=== PATIENT | male | born 1960 | race Caucasian/White ===

== ENCOUNTER → 2016-05-26 | Outpatient (CLI) | payer OTHER | END | disposition home or self-care (01) | LOC: C.LABSPEC 17:47 | PROVIDERS: ATTEND Nurse Practitioner Family | DX: R35.0 Frequency of micturition (principal); R32 Unspecified urinary incontinence ==

== ENCOUNTER → 2016-08-01 | Outpatient (CLI) | payer OTHER ==
[2016-08-01 17:39] LABS: HEMATOCRIT 39.8 % (42-52); MEAN CELL VOLUME 93.9 fL (80-100); MEAN CORPUSCULAR HEMOGLOBIN 33.7 pg (25-34); MEAN CORPUSCULAR HGB CONC 35.9 g/dl (32-36); MEAN PLATELET VOLUME 10.4 fL (7.4-10.4); PLATELET COUNT 145 K/uL (130-400); RED BLOOD COUNT 4.24 M/uL (4.7-6.1); WHITE BLOOD COUNT 7.35 K/uL (4.8-10.8)
[2016-08-01 17:43] LABS: ALT/SGPT 26 U/L (12-78); BLOOD UREA NITROGEN 11 mg/dl (7-18); BUN/CREATININE RATIO 11.9 (10-20); CALCIUM 8.3 mg/dl (8.5-10.1); CARBON DIOXIDE 28 mmol/L (21-32); CHLORIDE 102 mmol/L (98-107); CHOLESTEROL 115 mg/dl (0-200); CREATININE 0.88 mg/dl (0.60-1.40); GLUCOSE 130 mg/dl (70-99); POTASSIUM 4.1 mmol/L (3.5-5.1); SODIUM 136 mmol/L (136-145); TRIGLYCERIDES 46 mg/dl (0-150); VERY LOW DENSITY LIPOPROT CALC 9 mg/dl
[2016-08-01 17:47] LABS: ALB/GLOB RATIO 1.2 (0.9-2); ALKALINE PHOSPHATASE 65 U/L (45-117); AST/SGOT 16 U/L (15-37); CHOLESTEROL/HDL RATIO 2.3; HDL CHOLESTEROL 51 mg/dl; LDL CHOLESTEROL CALCULATED 55 mg/dl; PROSTATE SPECIFIC ANTIGEN 0.931 ng/ml (0.000-4.000)
[2016-08-02 07:45] LABS: ESTIMATED AVERAGE GLUCOSE 137 mg/dl; HA1C FLAG Normal (Normal)
== END | disposition home or self-care (01) ==
LOC: C.LABBFT 13:22
PROVIDERS: ATTEND Internal Medicine
DX: E11.9 Type 2 diabetes mellitus without complications (principal); Z12.5 Encounter for screening for malignant neoplasm of prostate

== ENCOUNTER → 2016-09-20 | Outpatient (CLI) | payer OTHER ==
[2016-09-20 14:48] LABS: BASO % 0.2 %; BASO ABS # 0.01 K/uL (0-0.2); COMPLETE YES; EOS % 1.6 %; IG% 0.2 %; LYMPH % 27.2 %; LYMPH ABS # 1.68 K/uL (1.2-3.4); MEAN CELL VOLUME 95.3 fL (80-100); MEAN CORPUSCULAR HEMOGLOBIN 33.5 pg (25-34); MEAN CORPUSCULAR HGB CONC 35.1 g/dl (32-36); MEAN PLATELET VOLUME 10.2 fL (7.4-10.4); MONO % 6.8 %; PLATELET COUNT 131 K/uL (130-400); WHITE BLOOD COUNT 6.17 K/uL (4.8-10.8)
[2016-09-20 15:39] LABS: ALT/SGPT 23 U/L (12-78); AST/SGOT 12 U/L (15-37); BLOOD UREA NITROGEN 14 mg/dl (7-18); BUN/CREATININE RATIO 16.7 (10-20); CALCIUM 8.1 mg/dl (8.5-10.1); CARBON DIOXIDE 27 mmol/L (21-32); CHLORIDE 103 mmol/L (98-107); CREATININE 0.84 mg/dl (0.60-1.40); GLUCOSE 87 mg/dl (70-99); POTASSIUM 3.8 mmol/L (3.5-5.1); SODIUM 135 mmol/L (136-145)
[2016-09-20 15:50] LABS: ALB/GLOB RATIO 1.1 (0.9-2); ALKALINE PHOSPHATASE 69 U/L (45-117); CHOLESTEROL 117 mg/dl (0-200); CHOLESTEROL/HDL RATIO 2.8; HDL CHOLESTEROL 42 mg/dl; LDL CHOLESTEROL CALCULATED 59 mg/dl; TRIGLYCERIDES 82 mg/dl (0-150); VERY LOW DENSITY LIPOPROT CALC 16 mg/dl
== END | disposition home or self-care (01) ==
LOC: C.LAB 13:04
PROVIDERS: ATTEND Physician Assistant
DX: Z79.899 Other long term (current) drug therapy (principal)

== ENCOUNTER → 2017-02-10 | Outpatient (CLI) | payer OTHER ==
[2017-02-10 17:00] LABS: COMPLETE YES; EOS % 2.2 %; HEMATOCRIT 39.6 % (42-52); IG% 0.2 %; LYMPH % 30.8 %; LYMPH ABS # 1.55 K/uL (1.2-3.4); MEAN CELL VOLUME 94.7 fL (80-100); MEAN CORPUSCULAR HEMOGLOBIN 33.7 pg (25-34); MEAN CORPUSCULAR HGB CONC 35.6 g/dl (32-36); MEAN PLATELET VOLUME 10.7 fL (7.4-10.4); NEUT % 62.8 %; PLATELET COUNT 118 K/uL (130-400); RED BLOOD COUNT 4.18 M/uL (4.7-6.1); WHITE BLOOD COUNT 5.03 K/uL (4.8-10.8)
[2017-02-10 17:10] LABS: ALT/SGPT 24 U/L (12-78); BLOOD UREA NITROGEN 13 mg/dl (7-18); BUN/CREATININE RATIO 14.2 (10-20); CALCIUM 8.2 mg/dl (8.5-10.1); CARBON DIOXIDE 27 mmol/L (21-32); CHLORIDE 101 mmol/L (98-107); CHOLESTEROL 104 mg/dl (0-200); CREATININE 0.91 mg/dl (0.60-1.40); GLUCOSE 108 mg/dl (70-99); POTASSIUM 4.3 mmol/L (3.5-5.1); SODIUM 134 mmol/L (136-145); TRIGLYCERIDES 80 mg/dl (0-150); VERY LOW DENSITY LIPOPROT CALC 16 mg/dl
[2017-02-10 17:13] LABS: ALB/GLOB RATIO 1.2 (0.9-2); ALKALINE PHOSPHATASE 71 U/L (45-117); AST/SGOT 16 U/L (15-37); HDL CHOLESTEROL 52 mg/dl; LDL CHOLESTEROL CALCULATED 36 mg/dl
[2017-02-10 17:34] LABS: RATIO 4.8 mcg/mg (0-30.0)
== END | disposition home or self-care (01) ==
LOC: C.LABBFT 13:22
PROVIDERS: ATTEND Internal Medicine
DX: E11.41 Type 2 diabetes mellitus with diabetic mononeuropathy (principal); M79.1 Myalgia

== ENCOUNTER → 2017-08-16 | Outpatient (CLI) | payer OTHER ==
[2017-08-16 16:34] LABS: BASO % 0.4 %; BASO ABS # 0.02 K/uL (0-0.2); EOS ABS # 0.05 K/uL (0-0.5); HEMATOCRIT 39.7 % (42-52); IG# 0.01 K/uL (0.00-0.02); LYMPH % 31.7 %; LYMPH ABS # 1.65 K/uL (1.2-3.4); MEAN CORPUSCULAR HEMOGLOBIN 32.8 pg (25-34); MEAN CORPUSCULAR HGB CONC 35.3 g/dl (32-36); MEAN PLATELET VOLUME 9.7 fL (7.4-10.4); MONO % 8.1 %; MONO ABS # 0.42 K/uL (0.11-0.59); NEUT % 58.6 %; NEUT ABS # 3.06 K/uL (1.4-6.5); PLATELET COUNT 172 K/uL (130-400); RED CELL DISTRIBUTION WIDTH CV 12.5 % (11.5-14.5); RED CELL DISTRIBUTION WIDTH SD 42.4 fL (36.4-46.3); WHITE BLOOD COUNT 5.21 K/uL (4.8-10.8)
[2017-08-16 16:41] LABS: ALBUMIN 3.5 gm/dl (3.4-5.0); ALT/SGPT 23 U/L (12-78); BLOOD UREA NITROGEN 9 mg/dl (7-18); CALCIUM 8.7 mg/dl (8.5-10.1); CARBON DIOXIDE 30 mmol/L (21-32); CHOLESTEROL 116 mg/dl (0-200); CREATININE 0.92 mg/dl (0.60-1.40); GLUCOSE 118 mg/dl (70-99); POTASSIUM 4.8 mmol/L (3.5-5.1); SODIUM 130 mmol/L (136-145)
[2017-08-16 16:46] LABS: ALKALINE PHOSPHATASE 66 U/L (45-117); AST/SGOT 13 U/L (15-37); LDL CHOLESTEROL CALCULATED 53 mg/dl; TOTAL PROTEIN 7.2 gm/dl (6.4-8.2)
[2017-08-17 06:39] LABS: HEMOGLOBIN A1C 6.5 % (4.5-5.6)
== END | disposition home or self-care (01) ==
LOC: C.LABBFT 13:49
PROVIDERS: ATTEND Internal Medicine
DX: E78.00 Pure hypercholesterolemia, unspecified (principal); E11.41 Type 2 diabetes mellitus with diabetic mononeuropathy; J44.9 Chronic obstructive pulmonary disease, unspecified; Z12.5 Encounter for screening for malignant neoplasm of prostate

== ENCOUNTER → 2017-09-19 | Outpatient (CLI) | payer OTHER ==
[~2017-09-19] MED LIST: OPTIRAY 320 IV PRN
--- NOTE | 2017-09-19 16:06 | DIAGNOSTIC IMAGING REPORT ---
ABD/PELVIS COMBO CLINICAL HISTORY: 57 years-old Male presenting with R31.9 Hematuriadiabetic-metformin, no latex allergy, no iodine a. TECHNIQUE: Multidetector CT of the abdomen and pelvis was performed before and after the administration of intravenous contrast. IV contrast: 93 mL of Optiray 320. A dose lowering technique was used consistent with the principles of ALARA (as low as reasonably achievable). COMPARISON: None. CT DOSE (mGy.cm): The estimated cumulative dose is 2863.08 mGycm. FINDINGS: [place] topogram: Unremarkable. Lung bases: Lungs and pleural spaces clear. Normal heart size. No pericardial or pleural effusion. Liver: Normal morphology. No liver lesion. Patent hepatic vasculature. Biliary: No intrahepatic or extrahepatic biliary ductal dilatation. Normal gallbladder. Pancreas: Mild parenchymal atrophy. Spleen: Normal. Adrenal glands: Normal. Kidneys and ureters: Mild right pelvocaliectasis with an obstructing 4 mm calculus at the right ureteropelvic junction (series 3 image 216). The remainder of the right ureter is decompressed without additional ureteral calculus. No left renal calculus. Normal renal parenchyma. No masslike defect in the renal collecting systems. No significant urothelial thickening or inflammatory change. Bladder: Allowing for underdistention, no focal masslike thickening of the bladder wall. Pelvic organs: Prostate and seminal vesicles normal. Bowel: Marked stool burden in the rectum. Few diverticula noted in the proximal sigmoid colon. The appendix is normal. No bowel obstruction. Peritoneal cavity: No free fluid or intraperitoneal gas. Lymph nodes: No enlarged lymph nodes in the abdomen or pelvis. Vasculature: Atherosclerosis of the normal caliber abdominal aorta. IVC patent. Abdominal wall: Normal. Musculoskeletal: Degenerative changes of the spine. IMPRESSION: 1. 4 mm obstructing calculus in the right ureteropelvic junction with mild right hydronephrosis. No additional renal or ureteral calculus. No solid renal or urothelial mass. 2. Marked stool burden in the rectum. Disimpaction recommended. Electronically signed by: Ja Laughlin M.D. 09/19/2017 4:04 PM Dictated Date/Time: 09/19/2017 3:55 PM
== END | disposition home or self-care (01) ==
LOC: C.CTS 14:45
PROVIDERS: ATTEND Nurse Practitioner Family
DX: N13.2 Hydronephrosis with renal and ureteral calculous obstruction (principal); R31.9 Hematuria, unspecified

== ENCOUNTER → 2017-09-21 | Outpatient (CLI) | payer OTHER ==
[2017-09-21 13:18] LABS: BLOOD UREA NITROGEN 13 mg/dl (7-18); CALCIUM 8.3 mg/dl (8.5-10.1); CARBON DIOXIDE 27 mmol/L (21-32); CREATININE 0.88 mg/dl (0.60-1.40); GLUCOSE 105 mg/dl (70-99); POTASSIUM 4.1 mmol/L (3.5-5.1); SODIUM 131 mmol/L (136-145)
== END | disposition home or self-care (01) ==
LOC: C.LABBFT 10:13
PROVIDERS: ATTEND Nurse Practitioner Family
DX: I10 Essential (primary) hypertension (principal); R31.9 Hematuria, unspecified

== ENCOUNTER → 2017-11-28 | Day surgery (SDC) | payer OTHER ==
[2017-11-10 10:55] VITALS: BMI 35.0
--- NOTE | 2017-11-16 09:33 | PAT Medication Instructions ---
Service Date Nov 16, 2017. Current Home Medication List Albuterol Hfa (Ventolin Hfa), 2-4 PUFFS INH QID PRN for SOB/Wheezing Cholecalciferol (Vitamin D3), 1 TAB PO QAM Clonazepam (Klonopin), 0.5 MG PO BID Cyanocobalamin (Vitamin B-12), 1 TAB PO QAM Desmopressin Acetate (Ddavp), 3 TABS PO QD@1700 Divalproex Sodium (Depakote), 1 TAB PO HS Docusate Sodium (Dok), 1 TAB PO BID Fluvoxamine Maleate (Fluvoxamine Maleat Er), 1 TAB PO HS Furosemide (Lasix), 20 MG PO UD PRN for edema Glipizide (Glipizide Er), 1 TAB PO QAM Losartan Potassium (Cozaar), 25 MG PO QAM Metformin Hcl Er (Glucophage Er), 2 TAB PO BID Methylcellulose (Laxative) (Fiber Therapy), Unknown Dose PO UD Mirabegron (Myrbetriq Er), 50 MG PO QD@1700 Naproxen (Naprosyn), Unknown Dose PO UD Olanzapine (Zyprexa), 10 MG PO HS Pioglitazone Hcl (Pioglitazone Hcl), 1 TAB PO QAM Polyethylene Glycol 3350 (Miralax), 17 GM PO QAM Simvastatin (Simvastatin), 1 TAB PO Q2D Vitamin E (E-400), 1 TAB PO QAM [Natural Daily Fiber], 1 TAB PO UD Medication Instructions For Your Scheduled Surgery - Hold the following medications 2 weeks prior to surgery--STOP TODAY, 11/16: Vitamin E (E-400), 1 TAB PO QAM - Hold the following medications the morning of surgery: Cholecalciferol (Vitamin D3), 1 TAB PO QAM Cyanocobalamin (Vitamin B-12), 1 TAB PO QAM Docusate Sodium (Dok), 1 TAB PO BID Furosemide (Lasix), 20 MG PO UD PRN for edema Glipizide (Glipizide Er), 1 TAB PO QAM Losartan Potassium (Cozaar), 25 MG PO QAM Metformin Hcl Er (Glucophage Er), 2 TAB PO BID Methylcellulose (Laxative) (Fiber Therapy), Unknown Dose PO UD Pioglitazone Hcl (Pioglitazone Hcl), 1 TAB PO QAM Polyethylene Glycol 3350 (Miralax), 17 GM PO QAM [Natural Daily Fiber], 1 TAB PO UD Naproxen (Naprosyn), Unknown Dose PO UD (unless otherwise directed by your surgeon) - Take the following medications the morning of surgery with a sip of water: Albuterol Hfa (Ventolin Hfa), 2-4 PUFFS INH QID PRN for SOB/Wheezing (if needed) Clonazepam (Klonopin), 0.5 MG PO BID - Take the following medications as scheduled the night before surgery: Albuterol Hfa (Ventolin Hfa), 2-4 PUFFS INH QID PRN for SOB/Wheezing (if needed) Clonazepam (Klonopin), 0.5 MG PO BID Desmopressin Acetate (Ddavp), 3 TABS PO QD@1700 Divalproex Sodium (Depakote), 1 TAB PO HS Docusate Sodium (Dok), 1 TAB PO BID Fluvoxamine Maleate (Fluvoxamine Maleat Er), 1 TAB PO HS Furosemide (Lasix), 20 MG PO UD PRN for edema (if needed) Metformin Hcl Er (Glucophage Er), 2 TAB PO BID Methylcellulose (Laxative) (Fiber Therapy), Unknown Dose PO UD Mirabegron (Myrbetriq Er), 50 MG PO QD@1700 Olanzapine (Zyprexa), 10 MG PO HS Simvastatin (Simvastatin), 1 TAB PO Q2D [Natural Daily Fiber], 1 TAB PO UD If you have any questions please call us at [phone] or [phone] or [phone]
[2017-11-16 11:43] LABS: BASO % 0.2 %; BASO ABS # 0.01 K/uL (0-0.2); HEMATOCRIT 39.1 % (42-52); HEMOGLOBIN 13.4 g/dL (14.0-18.0); IG# 0.01 K/uL (0.00-0.02); LYMPH % 37.4 %; LYMPH ABS # 1.89 K/uL (1.2-3.4); MEAN CELL VOLUME 94.9 fL (80-100); MEAN CORPUSCULAR HEMOGLOBIN 32.5 pg (25-34); MEAN CORPUSCULAR HGB CONC 34.3 g/dl (32-36); MONO % 7.9 %; NEUT % 50.3 %; NEUT ABS # 2.54 K/uL (1.4-6.5); PLATELET COUNT 127 K/uL (130-400); RED CELL DISTRIBUTION WIDTH CV 12.6 % (11.5-14.5); RED CELL DISTRIBUTION WIDTH SD 43.9 fL (36.4-46.3); WHITE BLOOD COUNT 5.05 K/uL (4.8-10.8)
[2017-11-16 13:29] LABS: CALCIUM 8.8 mg/dl (8.5-10.1); CREATININE 0.99 mg/dl (0.60-1.40); POTASSIUM 3.9 mmol/L (3.5-5.1)
[~2017-11-28] VITALS: Ht 190.5 cm; Wt 127.3 kg
[~2017-11-28] MED LIST changes: +ATROPINE SULFATE 0.1 MG/ML 5ML SYR IV PRN; +BELLADONNA/OPIUM SUPP 60 MG SUPP PR PRN; +CHOL1000 PO; +CIPR-255 PO; +CIPROFLOXACIN / D5W 400 MG IV SCH; +CYAN50TA2 PO; +DESM1TAB16 PO; +DEXAMETHASONE SOD INJ 4 MG/ML VIAL ONE; +DIVA500T59 PO; +DOCU100T PO; +EpHEDrine SULFATE INJ 50 MG/ML AMP IV PRN; +FENTANYL CITRATE INJ 50 MCG/1 ML 2 ML VIAL IV PRN; +FENTANYL CITRATE INJ 50 MCG/1 ML 2 ML VIAL ONE; +FLUMAZENIL 0.1 MG/1 ML 10 ML VIAL IV PRN; +FLUV1CAP11 PO; +FURO-85 PO; +GLIP-197 PO; +HYDROmorphone INJ 2 MG/ML SYR/VIAL IV PRN; +IBUP-1050 PO; +KLN/5 PO; +LACTATED RINGER'S 1000ML 1,000 ML IV SCH; +LIDOCAINE HCL 2% 2 ML VIAL (20MG/ML) ONE; +LOSA25TA18 PO; +MEPERIDINE HCL 25 MG/ML CARP IV PRN; +METF500T5 PO; +METH1TAB66 PO; +MIDAZOLAM HCL 1 MG/ML 2ML VIAL ONE; +MIRA1TAB3 PO; +NALOXONE HCL 0.4 MG/1 ML VIAL/CARP IV PRN; +NAPR1TAB48 PO; +OLAN10TA11 PO; +ONDANSETRON INJ 2 MG/ML 2 ML VIAL IV PRN; +ONDANSETRON INJ 2 MG/ML 2 ML VIAL ONE; -OPTIRAY 320 IV PRN; +OXYC7.5T65 PO; +OXYCODONE/ACETAMINOPHEN 7.5-325 TAB PO PRN; +PHEN-775 PO; +PHENYLEPHRINE 100MCG/ML 5ML SYR IV PRN; +PIOG1TAB20 PO; +POLY335019 PO; +PROPOFOL IV EMULSION 10 MG/ML 20 ML VIAL ONE; +SCOPOLAMINE 1.5 MG TDSY TD ONE; +SCOPOLAMINE 1.5 MG TDSY TD SCH; +TAMS0.4C38 PO; +VITACAP37 PO; +VNTHFA/IN INH; +ZCR80 PO; +[UNRECOGNIZED DRUG - OTHER] PO
[2017-11-28 05:44] VITALS: BP 149/82; PULSE 74; TEMP 36.6; O2SAT 99; Ht 190.5 cm; Wt 127.3 kg
--- NOTE | 2017-11-28 07:16 | History & Physical Bridge Note ---
H&P Re-Evaluation Bridge Note: I have examined the patient, reviewed the History & Physical and in the interval since the performance of the History & Physical I have noted the following changes of clinical significance: No changes noted
--- NOTE | 2017-11-28 08:04 | [facility] Operative Report ---
Operative Report Operative Date Nov 28, 2017. Pre-Operative Diagnosis Bladder Lesion, PUNLMP Post-Operative Diagnosis Same Procedure(s) Performed Transurethral Resection Bladder Tumor Large, Cystoscopy, Right Stent Removal Surgeon Dr Lou Operations Vice President Surgeon(s) None Estimated Blood Loss Minimal Findings Continued patch lesions throughout left lateral wall near previous biopsy Specimens Resection left lateral wall Drains None Anesthesia Type General Complication(s) none Disposition Recovery Room / PACU Indications Patient with papillary lesion of unknown significance and likely low malignant potential, however, incompletely resected. Risks and benefits discussed at length. Description of Procedure Patient was consented and brought back to the operating room. Patient was placed under anesthesia in the supine position and moved to the dorsal lithotomy position. Patient was prepped and draped in the regular sterile fashion. A time out was completed. A 30degree Cystoscope was placed into the bladder and the entire bladder was examined. The UO's were identified. The right stent was grasped and removed. A resection scope was placed with a fine bipolar loop. The entire bladder had been surveyed and the areas of concern noted. Resection of the left lateral wall commenced. The majority of the left wall was found to contain patches of papillary irritated lesions. This was resected. Approx 7.1 cm of tumor and lesions were resected with the edges and base of tumor fulgurated. The entire area was inspected and no residual areas of concern were noted. All bleeding had been controlled. The bladder was emptied. The scope was removed. The patient was cleaned, aroused from anesthesia, and transferred to the pacu in stable condition having tolerated the procedure well with no complications. I was present and participated in all aspects of the procedure. The patient will be monitored in the PACU until transferred. I attest to the content of the Intraoperative Record and any orders documented therein. Any exceptions are noted below.
--- NOTE | 2017-11-28 08:08 | Discharge Instructions ---
Discharge Instructions Date of Service Nov 28, 2017. Admission Reason for Admission: Papillary Transitional Cell Neoplassm Discharge Discharge Diagnosis / Problem: Bladder Mass Discharge Goals Goal(s): Decrease discomfort, Improve function Activity Recommendations Activity Limitations: resume your previous activity Lifting Limitations: gradually increase as tolerated Exercise/Sports Limitations: gradually increase as tolerated . Instructions / Follow-Up Instructions / Follow-Up May have blood in urine. May have pelvic discomfort. Call if trouble voiding. Call if any fevers or chills. Current Hospital Diet Patient's current hospital diet: Discharge Diet Recommended Diet: Regular Diet Procedures Procedures Performed: Transurethral Resection Bladder Tumor Large, Cystoscopy, Right Stent Removal Pending Studies Studies pending at discharge: no Laboratory Results Lipid Panel Test 09/13/17 13:37 Range/Units Triglycerides Level 62 0-150 mg/dl Cholesterol Level 108 0-200 mg/dl HDL Cholesterol 51 mg/dl Cholesterol/HDL Ratio 2.1 LDL Cholesterol, Calculated 45 mg/dl Medical Emergencies . Who to Call and When: Medical Emergencies: If at any time you feel your situation is an emergency, please call 911 immediately. . Non-Emergent Contact Non-Emergency issues call your: Primary Care Provider, Urologist Call Non-Emergent contact if: you have a fever, temperature is above 101, temperature is above 101.5, your pain is not controlled, your pain is worsening , your pain is unusual for you . . "Provider Documentation" section prepared by Kei Lou. .
[2017-11-28] MEDS: LABETALOL HCL IV 5 MG/ML 20ML IV PRN ×3 (08:18→08:39)
[2017-11-28 09:03] VITALS: BP 171/90; PULSE 82; TEMP 36.4; O2SAT 95
--- NOTE | 2017-11-28 09:03 | Anesthesiology Progress Note ---
Anesthesia Post Op Note Date & Time Nov 28, 2017 at 09:03 Vital Signs Pain Intensity: 0 Vital Signs Past 12 Hours Date Time Temp Pulse Resp B/P (MAP) Pulse Ox O2 Delivery O2 Flow Rate FiO2 11/28/17 08:52 36.7 93 Room Air 11/28/17 08:48 81 16 11/28/17 08:48 97 16 94 11/28/17 08:47 152/90 11/28/17 08:43 82 20 94 11/28/17 08:43 81 20 11/28/17 08:42 167/95 11/28/17 08:38 84 18 93 11/28/17 08:38 85 18 11/28/17 08:37 175/102 11/28/17 08:33 85 15 11/28/17 08:33 86 15 94 11/28/17 08:31 177/84 11/28/17 08:30 164/105 11/28/17 08:28 86 15 11/28/17 08:28 85 15 99 11/28/17 08:27 87 20 100 11/28/17 08:27 87 20 11/28/17 08:26 158/96 11/28/17 08:22 85 14 139/94 100 11/28/17 08:22 85 14 11/28/17 08:17 91 12 11/28/17 08:17 91 12 99 11/28/17 08:12 97 14 11/28/17 08:12 97 14 177/91 99 11/28/17 08:10 147/96 11/28/17 08:09 161/106 11/28/17 08:07 36.1 108 14 147/96 98 Oxymask 10 11/28/17 05:44 36.6 74 20 149/82 (104) 99 Room Air Notes Mental Status: alert / awake / arousable, participated in evaluation Pt Amnestic to Procedure: Yes Nausea / Vomiting: adequately controlled Pain: adequately controlled Airway Patency, RR, SpO2: stable & adequate BP & HR: stable & adequate, see Notes Hydration State: stable & adequate Anesthetic Complications: no major complications apparent The patient was treated with labetalol for HTN in PACU.
[2017-11-28 09:33] VITALS: BP 171/90; PULSE 85; TEMP 36.5; O2SAT 96
[2017-11-28 10:05] VITALS: BP 175/90; PULSE 93; TEMP 36.4; O2SAT 95
[2017-11-28 10:55] VITALS: BP 165/86; PULSE 85; O2SAT 97
[2017-11-28 12:00] VITALS: BP 165/90; PULSE 91; TEMP 36.4; O2SAT 94
== END | disposition home or self-care (01) ==
LOC: C.ACU 08:00
PROVIDERS: ATTEND Urology
DX: D49.4 Neoplasm of unspecified behavior of bladder (principal); N30.20 Other chronic cystitis without hematuria; J44.9 Chronic obstructive pulmonary disease, unspecified; I10 Essential (primary) hypertension; E11.9 Type 2 diabetes mellitus without complications; J45.909 Unspecified asthma, uncomplicated; E78.00 Pure hypercholesterolemia, unspecified; F41.9 Anxiety disorder, unspecified; E66.9 Obesity, unspecified; Z68.35 Body mass index [BMI] 35.0-35.9, adult; F17.200 Nicotine dependence, unspecified, uncomplicated; Z79.84 Long term (current) use of oral hypoglycemic drugs; Z79.899 Other long term (current) drug therapy

== ENCOUNTER → 2017-12-13 | Outpatient (CLI) | payer OTHER ==
[~2017-12-13] MED LIST changes: -ATROPINE SULFATE 0.1 MG/ML 5ML SYR IV PRN; -BELLADONNA/OPIUM SUPP 60 MG SUPP PR PRN; -CIPROFLOXACIN / D5W 400 MG IV SCH; -DEXAMETHASONE SOD INJ 4 MG/ML VIAL ONE; -EpHEDrine SULFATE INJ 50 MG/ML AMP IV PRN; -FENTANYL CITRATE INJ 50 MCG/1 ML 2 ML VIAL IV PRN; -FENTANYL CITRATE INJ 50 MCG/1 ML 2 ML VIAL ONE; -FLUMAZENIL 0.1 MG/1 ML 10 ML VIAL IV PRN; -HYDROmorphone INJ 2 MG/ML SYR/VIAL IV PRN; -LACTATED RINGER'S 1000ML 1,000 ML IV SCH; -LIDOCAINE HCL 2% 2 ML VIAL (20MG/ML) ONE; -MEPERIDINE HCL 25 MG/ML CARP IV PRN; -MIDAZOLAM HCL 1 MG/ML 2ML VIAL ONE; -NALOXONE HCL 0.4 MG/1 ML VIAL/CARP IV PRN; -ONDANSETRON INJ 2 MG/ML 2 ML VIAL IV PRN; -ONDANSETRON INJ 2 MG/ML 2 ML VIAL ONE; -OXYCODONE/ACETAMINOPHEN 7.5-325 TAB PO PRN; -PHEN-775 PO; -PHENYLEPHRINE 100MCG/ML 5ML SYR IV PRN; -PROPOFOL IV EMULSION 10 MG/ML 20 ML VIAL ONE; -SCOPOLAMINE 1.5 MG TDSY TD ONE; -SCOPOLAMINE 1.5 MG TDSY TD SCH; -TAMS0.4C38 PO
== END | disposition home or self-care (01) ==
LOC: C.PATHSPEC 17:14
PROVIDERS: ATTEND Urology
DX: D49.4 Neoplasm of unspecified behavior of bladder (principal)

== ENCOUNTER 2018-07-02 09:26 | Inpatient (IN) ==
--- NOTE | 2018-06-29 09:28 | Anesthesiology Consultation ---
Date of Service June 29, 2018 Assessment & Plan (1) Encounter for pre-operative examination: Plan: - Per surgeon office, no labs being ordered for preop; will ordered CBC, BMP, BSG for AM DOS. - Patient having surgeon-ordered preop evaluation on 06/29/18 PM ([facility] Dr. Holman); PCP office unsure when note will be completed. Surgeon office aware and state they will fax preop evaluation office visit note to same day when completed for review by anesthesiologist AM DOS. Chart Review Chart Review: Acceptable Risk for Surgery (PENDING EVALUATION OF SURGEON- ORDERED PCP PREOP EVALUATION) and Patient NOT seen in Pre Admission Testing History Surgery Operation Date: 07/02/18 13:50 Proposed Procedures p Incision and Drainage Excision Accessory Sesamoid Interphalangeal Joint, - Claudia Carver DPM s Amputation Left 2nd Toe - Claudia Carver DPM Height/Weight Height: 6 ft 3 in Weight: 129.274 kg Allergies Allergy/AdvReac Type Severity Reaction Status Date / Time No Known Allergies Allergy Verified 06/29/18 08:20 Medications Home Medications Medication Instructions Recorded Confirmed Last Taken albuterol sulfate 2 puff INHALATION QID PRN 06/29/18 06/29/18 Unknown amoxicillin-pot clavulanate 10 ml PO Q12H 06/29/18 06/29/18 Unknown cholecalciferol (vitamin D3) 1,000 unit PO QAM 06/29/18 06/29/18 Unknown [Vitamin D3] clonazepam 0.5 mg PO BID 06/29/18 06/29/18 Unknown divalproex 500 mg PO HS 06/29/18 06/29/18 Unknown ezetimibe 10 mg PO QAM 06/29/18 06/29/18 Unknown fluvoxamine 150 mg PO HS 06/29/18 06/29/18 Unknown furosemide 20 mg PO DAILY PRN 06/29/18 06/29/18 Unknown glipizide 5 mg PO QAM 06/29/18 06/29/18 Unknown ibuprofen 400 mg PO Q6H PRN 06/29/18 06/29/18 Unknown losartan 25 mg PO QAM 06/29/18 06/29/18 Unknown metformin 1,000 mg PO BID 06/29/18 06/29/18 Unknown mirabegron [Myrbetriq] 50 mg PO QAM 06/29/18 06/29/18 Unknown olanzapine [Zyprexa] 10 mg PO HS 06/29/18 06/29/18 Unknown oxycodone-acetaminophen 1 tab PO Q6H PRN 06/29/18 06/29/18 Unknown pioglitazone 45 mg PO QAM 06/29/18 06/29/18 Unknown polyethylene glycol 3350 [Miralax] 17 g PO DAILY PRN 06/29/18 06/29/18 Unknown simvastatin 80 mg PO HS 06/29/18 06/29/18 Unknown vitamin E 400 unit PO QAM 06/29/18 06/29/18 Unknown Past Medical History Medical History Anxiety Chronic back pain Chronic obstructive pulmonary disease Depression Diabetes mellitus, type 2 NIDDM Hyperlipidemia Hypertension Kidney stones OCD (obsessive compulsive disorder) Obesity Osteomyelitis REASON FOR PROCEDURE PAD (peripheral artery disease) Pulmonary HTN "MILD" RVSP 40MMHG PER 2016 STRESS ECHO SOB (shortness of breath) on exertion Past Family History Family History Father Family history of diabetes mellitus Aunt Family history of diabetes mellitus Uncle Family history of diabetes mellitus Family/Other Family history of diabetes mellitus Past Surgical History Surgical History H/O exploratory laparotomy GALLBLADDER LESION EXCISION History of biopsy of bladder TURBT= 11/28/17= LMA#5 AT [facility] History of cystoscopy WITH STONE EXTRACTION X 2 History of open reduction and internal fixation (ORIF) procedure LEFT SHOULDER Social History Smoking Status: Former smoker tobacco type: cigarettes Do You Dip or Chew Tobacco: No Smoking End Date: WAS REG SMOKER-TRYING TO QUIT-SMOKED A COUPLE CIGS A DAY PAST WEEK Hx Alcohol Use: Yes Alcohol type: beer alcohol intake frequency: 0-2 drinks per day Hx Substance Use: No Testing Electrocardiogram Date: 10/06/17 NSR at 75bpm. RBBB. Stress Test Date: 05/11/15 Negative stress ECHO for ischemia at 92%MPHR. EKG indeterminate due to baseline abnormalities. EF 60-65%. No RWMA. Moderate cLVH. Mild MR. Mild Pulmonary HTN suggested (RVSP 40mmhg). Mild LAD/RVD.
--- NOTE | 2018-07-02 10:01 | History & Physical Report ---
Date of Service July 02, 2018 Assessment & Plan (1) Osteomyelitis: Of the left second and third toes with possible foreign body and ulceration with cellulitis of left great toe Culture from 06/18 with MSSA,Alcaligenes faecalis, and anaerobic gram negative bacilli-he was treated with Augmentin since that time No signs of systemic infection at this time -Admit to medical/surgical floor -Consult podiatry-planned amputation this afternoon but now with hyponatremia, will likely delay -Draw blood cultures now -Start vancomycin as per podiatry recommendations and will likely need IV antibiotics for 6 weeks -He is already consented for a PICC line and will place this likely tomorrow after blood cultures negative for 24 hours -Has moderate PAD but it does not appear to need intervention with vascular surgery -will need local wound care -Follow ESR, CRP, CBC, CMP once weekly at least while on antibiotics The patient is able to achieve at least 4 METS without any cardiac symptoms, has a fairly normal ECG other than RBBB. He has not had any recent intervention. He does have known PAD but no known CAD. He is at average perioperative risk to undergo this intermediate risk procedure and should proceed with surgery once his sodium issues are improved as noted below. (2) PAD (peripheral artery disease): With moderate multifocal stenoses on recent arterial Doppler in 06/2018 -Continue statin -Need to find out why he is not on aspirin (3) Hypertension: BP slightly elevated on admission could be secondary to anxiety -Follow BPs -Continue home losartan 25 mg daily (4) Hyperlipidemia: -Continue home simvastatin 80 mg and Zetia 10 mg daily (5) Chronic obstructive pulmonary disease: With continued smoking -Encouraged smoking cessation -With a few wheezes on exam on admission-give scheduled albuterol inhaler -Follow-up (6) Anxiety: Stable, follows with psychiatry Dr. Ann and NORMAN Gomez routinely -Continue clonazepam, fluvoxamine, Zyprexa, Depakote (7) Depression: As above (8) Schizophrenia: Follows with psychiatry as above -Continue psych meds from home as above (9) Diabetes mellitus, type 2: A1c is well controlled with hemoglobin A1c 5.6% -Holding home glipizide and metformin, as well as Actos -Give insulin sliding scale while here, continue Accu-Cheks q. before meals at bedtime Diabetic diet when he came food (10) Obesity: Could be secondary to psychiatric medications -Needs weight loss counseling (11) Pulmonary HTN: Noted on echo from 2016 Likely secondary to lung disease No history of EDUARD that he knows of Follow and give diuretics as well as oxygen as needed (12) Current smoker: -Encourage smoking cessation Can give nicotine patch as needed (13) Alcohol abuse: Admits to drinking 6 beers daily and cannot remember the last time he went without drinking but did at one point quit for 1 year many years ago and had no withdrawal. Will do alcohol withdrawal protocol and give as needed lorazepam -Continue scheduled clonazepam as per home dosing -Banana bag daily times 3 days -Check folate, B12 levels Follow (14) Hyponatremia: History of this in the past, labs here now with sodium of 118-this is most likely secondary to beer Potomania as well as multiple drugs that he is on can cause SIADH -Discontinue desmopressin -Continue psych meds for now as he is stable on these -Now that he is not drinking, this should improve -Give gentle normal saline and will fluid restrict to 1200 mL's per day -Check BMP this afternoon at 1600 -Check urine sodium, urine osmolality, serum osmolality -Consult nephrology for further recommendations -We will likely postpone surgery until sodium is improved (15) Nocturnal enuresis: Patient reports he urinates frequently secondary to Potomania and is on desmopressin every night -Discontinue desmopressin given hyponatremia as above -Continue Myrbetriq (16) DVT prophylaxis: SCDs, CHIO hose Disposition-admit to the medical/surgical floor and will likely need sniff placement afterwards We will need PT/OT consults Case management consult placed Full code History of Present Illness Chief Complaint: Toe osteomyelitis Primary Care Provider: Alvin Holman MD This patient is a 58-year-old male with a history of schizophrenia, depression with anxiety, DM 2 with neuropathy, HTN, hyperlipidemia, kidney stones, chronic hyponatremia likely secondary to alcohol abuse, current smoker, COPD, obesity, enuresis, chronic venous stasis, who 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 He is here for amputation and treatment of osteomyelitis. Patient denies any fevers/sweats/chills at home. He did start to have a runny nose this morning and took a decongestant that was [id number]. Otherwise , has been feeling his normal self. He has no pain in the foot as he has neuropathy. Allergies Allergy/AdvReac Type Severity Reaction Status Date / Time No Known Allergies Allergy Verified 06/29/18 08:20 Home Medications Home Medications Medication Instructions Recorded Confirmed Type albuterol sulfate 2 puff INHALATION QID PRN 06/29/18 06/29/18 History amoxicillin-pot clavulanate 10 ml PO Q12H 06/29/18 06/29/18 History cholecalciferol (vitamin D3) 1,000 unit PO QAM 06/29/18 06/29/18 History [Vitamin D3] clonazepam 0.5 mg PO BID 06/29/18 06/29/18 History divalproex 500 mg PO HS 06/29/18 06/29/18 History ezetimibe 10 mg PO QAM 06/29/18 06/29/18 History fluvoxamine 150 mg PO HS 06/29/18 06/29/18 History furosemide 20 mg PO DAILY PRN 06/29/18 06/29/18 History glipizide 5 mg PO QAM 06/29/18 06/29/18 History ibuprofen 400 mg PO Q6H PRN 06/29/18 06/29/18 History losartan 25 mg PO QAM 06/29/18 06/29/18 History metformin 1,000 mg PO BID 06/29/18 06/29/18 History mirabegron [Myrbetriq] 50 mg PO QAM 06/29/18 06/29/18 History olanzapine [Zyprexa] 10 mg PO HS 06/29/18 06/29/18 History oxycodone-acetaminophen 1 tab PO Q6H PRN 06/29/18 06/29/18 History pioglitazone 45 mg PO QAM 06/29/18 06/29/18 History polyethylene glycol 3350 [Miralax] 17 g PO DAILY PRN 06/29/18 06/29/18 History simvastatin 80 mg PO HS 06/29/18 06/29/18 History vitamin E 400 unit PO QAM 06/29/18 06/29/18 History albuterol sulfate [Ventolin HFA] 2 inh QID 07/02/18 07/02/18 History desmopressin 3 tab PO HS 07/02/18 07/02/18 History triamcinolone acetonide 1 applic TOPICAL BID 07/02/18 07/02/18 History Past Med/Surg History Medical History Alcohol abuse Current smoker Diabetic neuropathy Hyponatremia Nocturnal enuresis Schizophrenia Anxiety Chronic back pain Chronic obstructive pulmonary disease Depression Diabetes mellitus, type 2 NIDDM Hyperlipidemia Hypertension Kidney stones OCD (obsessive compulsive disorder) Obesity Osteomyelitis REASON FOR PROCEDURE PAD (peripheral artery disease) Pulmonary HTN "MILD" RVSP 40MMHG PER 2016 STRESS ECHO SOB (shortness of breath) on exertion Surgical History H/O exploratory laparotomy GALLBLADDER LESION EXCISION History of biopsy of bladder TURBT= 11/28/17= LMA#5 AT [facility] History of cystoscopy WITH STONE EXTRACTION X 2 History of open reduction and internal fixation (ORIF) procedure LEFT SHOULDER Family History Father Family history of diabetes mellitus Prostate cancer Aunt Family history of diabetes mellitus Uncle Family history of diabetes mellitus Family/Other Family history of diabetes mellitus Mother Alzheimer disease Diabetes mellitus Social History Current Living Situation: Alone current occupational status: disabled Other Information That Helps Us Care for You: No Feels Safe at Home: Yes Safety Concerns: Feels Safe At This Time Smoking Status: Current every day smoker Tobacco Type: cigarettes Years Smoked : 40 Cigarettes per Day: 20 Hx Alcohol Use: Yes Alcohol type: beer Alcohol Intake Frequency: 3 or more drinks per day Alcohol Intake Frequency Comment: 6 beers daily Hx Substance Use: No Beliefs That Will Affect Care: None Preferred Language: Argentine Communication Ability: Effective Hearing Ability: Normal Shuttle Operator Required: No Review of Systems All systems reviewed & are unremarkable except as noted in HPI & below (No history of alcohol withdrawal or seizures in the past) Physical Exam 2 Vital Signs (Past 24 Hours): Last Vital Signs Temp 36.4 C L 07/02/18 09:36 Pulse 88 07/02/18 09:36 Resp 18 07/02/18 09:36 BP 179/79 H 07/02/18 09:38 Pulse Ox 99 07/02/18 09:36 Constitutional: WD/WN, vitals as above + obese Eyes: PERRL, conjunctivae normal, anicteric sclerae ENMT: external ear and nose normal, oropharynx normal Neck: trachea midline, no thyromegaly Respiratory: normal respiratory effort Auscultation: + wheezes (Bilateral upper airway expiratory wheezes); no crackles and no rhonchi Cardiovascular: Rate/Rhythm: regular rate and regular rhythm Heart Sounds: no murmur Extremities: + edema (1+ pitting edema of the legs bilaterally to the knees with chronic venous stasis changes) Gastrointestinal (Abdomen): normal bowel sounds, soft, nontender, no hepatosplenomegaly Musculoskeletal: Extremities: + extremities abnormal to inspection (Left second toe with edema and dry cracking skin with erythema, left third toe with ulceration and peeling skin in the distal phalanx dorsally, left medial plantar surface of great toe with 1 cm open circular ulceration), no cyanosis and no clubbing Skin: + lesion (Toe lesions as above, plus diffuse erythema of the bilateral lower extremities which is chronic as per patient except for erythema around the left toes; also with right anterior distal tibia venous ulcer with scab) Neurologic: moves all extremities and awake; no focal motor deficits Psychiatric: Orientation: alert and oriented x 3 Motor Behavior: n tremor Affect: + flat affect Results & Data Laboratory Results 07/02/18 07/02/18 07/02/18 Range/Units 10:36 10:36 10:21 WBC 5.25 (4.8-10.8) K/uL RBC 3.97 L (4.7-6.1) M/uL Hgb 12.7 L (14.0-18.0) g/dL Hct 35.1 L (42-52) % MCV 88.4 (80-100) fL MCH 32.0 (25-34) pg MCHC 36.2 H (32-36) g/dL RDW Std Deviation 40.3 (36.4-46.3) fL RDW Coeff of Catalino 12.6 (11.5-14.5) % Plt Count 131 (130-400) K/uL MPV 9.6 (7.4-10.4) fL Immature Gran % (Auto) 0.2 % Neut % (Auto) 72.0 % Lymph % (Auto) 19.8 % [place] % (Auto) 6.1 % Eos % (Auto) 1.7 % Baso % (Auto) 0.2 % Immature Gran # (Auto) 0.01 (0.00-0.02) K/uL Neut # (Auto) 3.78 (1.4-6.5) K/uL Lymph # (Auto) 1.04 L (1.2-3.4) K/uL [place] # (Auto) 0.32 (0.11-0.59) K/uL Eos # (Auto) 0.09 (0-0.5) K/uL Baso # (Auto) 0.01 (0-0.2) K/uL ESR Pending PT (9.0-12.0) Seconds INR (0.9-1.1) APTT (21.0-31.0) Seconds PTT Ratio Sodium Potassium Chloride Carbon Dioxide Anion Gap BUN Creatinine Est Cr Clr Drug Dosing Est GFR ( Amer) Est GFR (Non-Af Amer) BUN/Creatinine Ratio Glucose Estimat Average Glucose 123 mg/dl Hemoglobin A1c 5.9 H (4.5-5.6) % Calcium Magnesium Total Bilirubin AST ALT Alkaline Phosphatase C-Reactive Protein Total Protein Albumin Globulin Albumin/Globulin Ratio 07/02/18 07/02/18 Range/Units 10:21 10:21 WBC (4.8-10.8) K/uL RBC (4.7-6.1) M/uL Hgb (14.0-18.0) g/dL Hct (42-52) % MCV (80-100) fL MCH (25-34) pg MCHC (32-36) g/dL RDW Std Deviation (36.4-46.3) fL RDW Coeff of Catalino (11.5-14.5) % Plt Count (130-400) K/uL MPV (7.4-10.4) fL Immature Gran % (Auto) % Neut % (Auto) % Lymph % (Auto) % [place] % (Auto) % Eos % (Auto) % Baso % (Auto) % Immature Gran # (Auto) (0.00-0.02) K/uL Neut # (Auto) (1.4-6.5) K/uL Lymph # (Auto) (1.2-3.4) K/uL [place] # (Auto) (0.11-0.59) K/uL Eos # (Auto) (0-0.5) K/uL Baso # (Auto) (0-0.2) K/uL ESR PT 11.8 (9.0-12.0) Seconds INR 1.2 H (0.9-1.1) APTT 32.9 H (21.0-31.0) Seconds PTT Ratio 1.2 Sodium Pending Potassium Pending Chloride Pending Carbon Dioxide Pending Anion Gap Pending BUN Pending Creatinine Pending Est Cr Clr Drug Dosing Pending Est GFR ( Amer) Pending Est GFR (Non-Af Amer) Pending BUN/Creatinine Ratio Pending Glucose Pending Estimat Average Glucose mg/dl Hemoglobin A1c (4.5-5.6) % Calcium Pending Magnesium Pending Total Bilirubin Pending AST Pending ALT Pending Alkaline Phosphatase Pending C-Reactive Protein Pending Total Protein Pending Albumin Pending Globulin Pending Albumin/Globulin Ratio Pending Diagnostic Findings Study: MRI left foot HISTORY: Osteomyelitis. Pain. Edema. FINDINGS: Findings of generalized soft tissue cellulitis and granulation tissue throughout the foot. This predominates in the dorsal region of the foot. Inversion recovery sequences suggest increased signal of the middle and distal phalanx of the second toe as well as distal phalanx of the third toe. This is not well seen on the T1 images. No evidence for drainable abscess or collection. Generalized degenerative change throughout all major osseous structures. Soft tissue metallic foreign body at the subcutaneous tissues plantar aspect first metatarsal region. No evidence for abscess or collection. Considerable granulation and/or inflammatory tissue surrounding the phalanges primarily of the first second and third toes. IMPRESSION:: 1. Findings suggesting developing osteomyelitis of the middle and distal phalanx of the second toe. 2. Additional focus of developing osteomyelitis distal phalanx third toe. 3. Generalized soft tissue cellulitis seen primarily the dorsal aspect of the foot. 4..Foreign body within the subcutaneous fat adjacent to the first metatarsal. 5. No evidence for drainable abscess or collection. ECG Additional Comments: Normal sinus rhythm, RBBB, no ischemic changes Code Status & VTE Plan Code Status Full code VTE Prophylaxis Plan VTE Prophylaxis will be ordered: Yes _ (1) Osteomyelitis Osteomyelitis type: other acute Osteomyelitis location: foot Laterality: left Qualified Code(s): M86.172 - Other acute osteomyelitis, left ankle and foot (2) Hypertension Hypertension type: essential hypertension Qualified Code(s): I10 - Essential (primary) hypertension (3) Hyperlipidemia Hyperlipidemia type: unspecified Qualified Code(s): E78.5 - Hyperlipidemia, unspecified (4) Chronic obstructive pulmonary disease COPD type: unspecified COPD Qualified Code(s): J44.9 - Chronic obstructive pulmonary disease, unspecified (5) Diabetes mellitus, type 2 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
--- NOTE | 2018-07-02 11:06 | History and Physical Report ---
DATE OF ADMISSION: 07/02/2018 HISTORY OF PRESENT ILLNESS: The patient came to the office this morning due to fever, cough and runny nose. He was previously scheduled to undergo surgery later this morning. He has been n.p.o. with exception of meds. The patient notes he is feeling "lousy." The patient was seen last week for a preop visit. He has been followed by Dr. Vazquez due to ulcerations and found to have a bone infection to distal aspect of the left second and third toes and chronic ulceration of the left hallux. The patient is sent to my office for second opinion and Dr. Vazquez has asked me to take over the care of this patient. Ulceration has been conservatively treated by Dr. Vazquez for several months. Past treatments have included x-rays, local wound care, offloading, MRI, ABIs. Due to the nature and severity of discomfort and history of bone infection, he was scheduled to undergo surgery later today. The patient is being admitted to restart antibiotics immediately. The patient notes he was cleared by Dr. Holman last week to have surgery prior to the cough and runny nose. PAST SURGICAL HISTORY: Left shoulder in 2016, kidney stones in 2018. PAST MEDICAL HISTORY: Anemia, gallbladder problems, kidney stones, skin problems, psych disorder, hyperlipidemia, hypercholesterolemia, hypertension, diabetes mellitus, COPD, asthma and back problems. MEDICATIONS: ____, metformin, ____, desmopressin, furosemide, glipizide, Myrbetriq, vitamin E, ____, clonazepam, pioglitazone, triamcinolone. ALLERGIES: No known medical allergies. FAMILY HISTORY: Arthritis, Alzheimer's disease, cancer, diabetes, gout attacks, kidney disease. SOCIAL HISTORY: The patient admits to alcohol use. The patient admits to tobacco use, rates a smoking history of 25 pack years. He denies illegal drug use, although he has had a problem with alcoholic abuse in the past. REVIEW OF SYSTEMS: Fever, cough, runny nose, upper respiratory congestion, ulcerations left foot. PHYSICAL EXAMINATION: GENERAL: 6 feet 3 inches, weight 276 pounds, body mass index 26. CONSTITUTIONAL: The patient appears well developed and nourished with good attention to body grooming and habitus. HEAD AND FACE: Head is normocephalic, atraumatic without any gross head, face or neck masses. EYES: Conjunctival and pupillary light and accommodation normal. EARS, NOSE, MOUTH, AND THROAT: Unremarkable. CARDIOVASCULAR: Normal S1, S2 without murmur, gallops, rubs noted. CHEST: Reveals wheezes and rhonchi noted in the upper, middle and lower right lobe. GASTROINTESTINAL: Abdominal organs, nontender. LOWER EXTREMITIES: DP 1/4, digital hair is absent, +4 to 6 pitting edema. Superficial ____ ulcer noted in medial ankles bilateral. Varicosities are present. Discoloration of the ankles. DERMATOLOGICAL: Erythema left foot, moderate redness with increased warmth bilateral ankles, ulceration. Plantar, medial, interphalangeal joint surrounded by hyperkeratotic tissue tracking towards muscle. Distal ulceration left second 1 x 3 x 1.0 with sloughing noted dorsally. Distal ulceration left third 0.5 x 0.5 tracking towards bone. NEUROLOGICAL: Touch, pin, vibratory and proprioception sensations are decreased. MUSCULOSKELETAL: Limited and irregular motion interphalangeal joint left hallux. Clinical findings show abnormal gait left lower side, limited motion interphalangeal joint left hallux. Ankle brachial index on chart 0.79 left and 0.83 on the right. MRI on 06/21/____ showed metallic soft foreign body in plantar aspect of first region, osteomyelitis middle and distal phalanx of the second toe with irregular margins. No evidence of abscess or collection. Interphalangeal joint sesamoid is noted over the plantar medial aspect of the left hallux. IMPRESSION: 1. Cellulitis, left foot. 2. Acute osteomyelitis. MRI shows involvement of the middle and distal phalanx left second digit and the distal phalanx of the left third toe. 3. Venous disease, varicosities with venous ulcerations. 4. Insulin dependent diabetes mellitus with neuropathy. 5. Brown grade 1 ulceration down to subcutaneous fat; involvement of left first, second and third digits; questionable bone involvement noted to the third toe. MRI shows bone involvement on the second and third. 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 Procedure, risks and complications were fully reviewed with the patient. Consent form and foot diagram were reviewed. All questions were answered. The patient will obtain PICC line. Consent was signed for the PICC line at today's visit. Consent for surgery was signed last week. The patient was sent to the hospital for IV infusion and admission prior to the surgery on today's visit.
--- NOTE | 2018-07-02 13:24 | Nephrology Consultation ---
Date of Consultation July 02, 2018 Assessment & Plan (1) Hyponatremia: 58-year-old gentlemen with chronic hyponatremia in the setting of Desmopressin use and excessive alcohol intake, admitted to the hospital for elective surgical procedure. He was found to have acute hyponatremia with serum sodium 118. Urine osmolality low at 115. Hyponatremia most likely is secondary to excessive alcohol and free water intake as well as being on Desmopressin although low urien osm is more consistent with excessive free water and alcohol intake. --agree withholding Desmopressin for now, once Na improve, can be resumed at a low dose. Advised pt to use diaper for now. --repeat serum sodium in afternoon, goal Sodium in next 24 hours < 126 --check serum sodium and urine osmolality in a.m. --replace magnesium --limit free water intake to less than 1500 mL --eventually he will nee dto limit alcohol intake Thank you for allowing me to participate in your patient's care. It was a pleasure to see Ed. (2) Hypertension: (3) Hypomagnesemia: History of Present Illness Reason for Consultation: Evaluation and management for hyponatremia. Attending Physician: Tomeka Joel MD History of Present Illness Feliz Evans is a 58-year-old gentlemen with past medical history significant for chronic hyponatremia history of nocturnal enuresis, schizophrenia admitted to the hospital for elective toe amputation and was found to have hyponatremia. Nephrology consult was requested to manage hyponatremia. Electronic medical records including labs and imaging are reviewed in detail during patient's visit. Kael shields sat bedside. 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 On admission he was found to have serum sodium 118.Urine osmolality was significantly low at 115. He has history of chronic hyponatremia, serum sodium generally stays around 129-132.He has not been on thiazide diuretics. He was on desmopressin for nocturnal enuresis which was stopped on admission. He has h/o excessive alcohol intake and admits drinking more lately. Has been taking ibuprofen. TSH was normal. Blood pressure and volume status acceptable, no evidence of hypotension or volume depletion. Has history of bladder tumor, status post TURBT before. Has normal renal function. Has hypertension, on losartan 25 mg daily, blood pressure seems to be running high. History of diabetes, on metformin. Currently he is otherwise asymptomatic. Allergies Allergy/AdvReac Type Severity Reaction Status Date / Time No Known Allergies Allergy Verified 06/29/18 08:20 Home Medications Home Medications Medication Instructions Recorded Confirmed Type albuterol sulfate 2 puff INHALATION QID PRN 06/29/18 06/29/18 History amoxicillin-pot clavulanate 10 ml PO Q12H 06/29/18 06/29/18 History cholecalciferol (vitamin D3) 1,000 unit PO QAM 06/29/18 06/29/18 History [Vitamin D3] clonazepam 0.5 mg PO BID 06/29/18 06/29/18 History divalproex 500 mg PO HS 06/29/18 06/29/18 History ezetimibe 10 mg PO QAM 06/29/18 06/29/18 History fluvoxamine 150 mg PO HS 06/29/18 06/29/18 History furosemide 20 mg PO DAILY PRN 06/29/18 06/29/18 History glipizide 5 mg PO QAM 06/29/18 06/29/18 History ibuprofen 400 mg PO Q6H PRN 06/29/18 06/29/18 History losartan 25 mg PO QAM 06/29/18 06/29/18 History metformin 1,000 mg PO BID 06/29/18 06/29/18 History mirabegron [Myrbetriq] 50 mg PO QAM 06/29/18 06/29/18 History olanzapine [Zyprexa] 10 mg PO HS 06/29/18 06/29/18 History oxycodone-acetaminophen 1 tab PO Q6H PRN 06/29/18 06/29/18 History pioglitazone 45 mg PO QAM 06/29/18 06/29/18 History polyethylene glycol 3350 [Miralax] 17 g PO DAILY PRN 06/29/18 06/29/18 History simvastatin 80 mg PO HS 06/29/18 06/29/18 History vitamin E 400 unit PO QAM 06/29/18 06/29/18 History albuterol sulfate [Ventolin HFA] 2 inh QID 07/02/18 07/02/18 History desmopressin 3 tab PO HS 07/02/18 07/02/18 History triamcinolone acetonide 1 applic TOPICAL BID 07/02/18 07/02/18 History Patient History Medical History Alcohol abuse Current smoker Diabetic neuropathy Hyponatremia Nocturnal enuresis Schizophrenia Anxiety Chronic back pain Chronic obstructive pulmonary disease Depression Diabetes mellitus, type 2 NIDDM Hyperlipidemia Hypertension Kidney stones OCD (obsessive compulsive disorder) Obesity Osteomyelitis REASON FOR PROCEDURE PAD (peripheral artery disease) Pulmonary HTN "MILD" RVSP 40MMHG PER 2016 STRESS ECHO SOB (shortness of breath) on exertion Surgical History H/O exploratory laparotomy GALLBLADDER LESION EXCISION History of biopsy of bladder TURBT= 11/28/17= LMA#5 AT [facility] [place] History of cystoscopy WITH STONE EXTRACTION X 2 History of open reduction and internal fixation (ORIF) procedure LEFT SHOULDER Family History Father Family history of diabetes mellitus Prostate cancer Aunt Family history of diabetes mellitus Uncle Family history of diabetes mellitus Family/Other Family history of diabetes mellitus Mother Alzheimer disease Diabetes mellitus Social History Current Living Situation: Alone current occupational status: disabled Other Information That Helps Us Care for You: No Feels Safe at Home: Yes Safety Concerns: Feels Safe At This Time Smoking Status: Current every day smoker Tobacco Type: cigarettes Years Smoked : 40 Cigarettes per Day: 20 Hx Alcohol Use: Yes Alcohol type: beer Alcohol Intake Frequency: 3 or more drinks per day Alcohol Intake Frequency Comment: 6 beers daily Hx Substance Use: No Beliefs That Will Affect Care: None Preferred Language: Greek Communication Ability: Effective Hearing Ability: Normal Court Worker Required: No Review of Systems Detailed review of system was otherwise unremarkable. Physical Exam 2 Vital Signs (Past 24 Hours): Last Vital Signs Temp 36.9 C 07/02/18 10:51 Pulse 81 07/02/18 10:51 Resp 18 07/02/18 10:51 BP 172/95 H 07/02/18 10:51 Pulse Ox 99 07/02/18 09:36 Physical Exam: GENERAL: middle aged male, AAA x 3, not in any distress. HEENT: Atraumatic, normocephalic. NECK: Supple, no JVD, no carotid bruit appreciated. ENT: No sinus tenderness MOUTH and THROAT: Moist oral mucosa, RESPIRATORY: Normal breathing efforts, clear to auscultation bilaterally, no wheezes or rales. CARDIOVASCULAR: S1, S2 normal, rate rhythm regular. ABDOMEN: Soft, nontender, positive bowel sound. MUSCULOSKELETAL: No CVA tenderness. No joint swelling, erythema or tenderness. Normal range of motion. SKIN: No skin rash EXTREMITY: No lower extremity edema, left LE with ischemic skin chnages, toe ulcer, wrapped in dressing. NEURO: No gross focal neurological deficit, speech fluent. PSYCHIATRY: Normal mood and judgment
--- NOTE | 2018-07-02 13:53 | Pharmacy Report ---
Pharmacy Abx Initial Consult - Date of Service July 02, 2018 - Pharmacy Dosing Scope Date of Consult: 07/02/18 Consultation requested by: Dr. Joel Pharmacy is consulted to initiate vancomycin IV dosing therapy, order appropriate labs and adjust drug dose/frequency. - Subjective The patient is a 58 year old M admitted on 07/02/18 09:30. - Objective Height: 6 ft 3 in Weight: 129.274 kg (BMI = 35.6) Vital Signs (Past 12hrs): Vital Signs Temp Pulse Resp BP Pulse Ox 07/02/18 10:51 36.9 C 81 18 172/95 H 07/02/18 09:38 179/79 H 07/02/18 09:36 36.4 C L 88 18 99 Lab Results (24hrs): Laboratory Tests (24 Hours) 07/02/18 07/02/18 07/02/18 10:36 10:36 10:21 WBC 5.25 Neut # (Auto) 3.78 ESR 42 H Creatinine 0.60 Est Cr Clr Drug Dosing 194.4 C-Reactive Protein 1.22 H Micro Results: 07/02/18 10:21 Blood Culture - Pending Blood 07/02/18 10:36 Blood Culture - Pending Blood Microbiology 06/18/18 10:45 Bone Gram Stain - Final 06/18/18 10:45 Bone Aerobic and Anaerobic Culture - Final Staphylococcus aureus Alcaligenes faecalis Anaerobic gram negative bacill - Risk Factors for Resistance * Antimicrobial use within the last 90 days : Augmentin - Assessment & Plan Assessment 58 year old M admitted for osteomyelitis/cellulitis of L foot, with plans for amputation. He has been on Augmentin (filled on 06/14) and bone cultures from grew MSSA, alcaligenes faecalis (resistant/intermediate to FQs) and anaerobic GNB. Vancomycin is being initiated per podiatry. I spoke with Dr. Joel to recommend addition of gram negative coverage with recent cultures. Cefepime is being added to the vancomycin. No anaerobic coverage at this time since patient was treated for a few weeks with the Augmentin. Provider aware previous culture was MSSA, not MRSA. Surgery is currently delayed d/t hyponatremia. Plan Vancomycin IV * Estimated PK Parameters: Vd 0.61 L/kg, Sam 0.104 hr-1, t1/2 6.7 hr * Loading dose: 2750 mg (21 mg/kg) * Maintenance dose: 1500 mg IV (11.6 mg/kg) every 8 hours * Goal trough level for osteo : 15 to 20 mcg/mL * Trough level ordered for 07/03/18 prior to the 4th dose * A less than traditional dose has been selected due to likelihood of drug accumulation in obese patient Cefepime * 2 gm IV q8h for osteomyelitis - no adjustment for CrCl > 60 mL/min Pharmacy will continue to follow and will adjust dose/frequency as necessary. Thank you.
--- NOTE | 2018-07-03 06:57 | Consultation Report ---
DATE OF CONSULTATION: 07/03/2018 SUBJECTIVE: The patient is seen at bedside, resting comfortably, denies fevers, chills and night sweats. Tolerating meds well. PHYSICAL EXAMINATION: GENERAL: Afebrile. EXTREMITIES: Lower extremity exam unchanged from yesterday's H and P. LABORATORY DATA: Hyponatremia noted. ESR 42. C-reactive protein 122. Blood cultures are pending from admission. IMPRESSION: 1. Osteomyelitis, second and third toes. 2. Ulceration, left hallux secondary to interphalangeal joint sesamoid. 3. Cellulitis. 4. Venous stasis. 5. Noninsulin-dependent diabetes mellitus with peripheral neuropathy. TREATMENT: Awaiting medical clearance for surgery secondary to hyponatremia. Plan is to take the patient to the OR on Monday. We will be n.p.o. tonight. If labs returned to baseline, we will obtain deep cultures. Continue empiric antibiotics of ____ and vancomycin. The patient will need long-term antibiotics through PICC line. We will follow the patient.
--- NOTE | 2018-07-03 10:10 | Nephrology Progress Note ---
Date of Service July 03, 2018 Assessment & Plan (1) Hyponatremia: 58-year-old gentlemen with chronic hyponatremia in the setting of Desmopressin use and excessive alcohol intake, admitted to the hospital for elective surgical procedure. He was found to have acute hyponatremia with serum sodium 118. Urine osmolality low at 115. Hyponatremia most likely is secondary to excessive alcohol and free water intake as well as being on Desmopressin although low urien osm is more consistent with excessive free water and alcohol intake. Na rapidly increased to 137, pt clinically stable. --DC fluid restriction, start on D5W at 80 ml/h --Repeat Na at 2 pm and then 6 pm --plan for toe amputation tomorrow. Pnce pt stable after surgery will consider restarting on Desmopressin at a low dose Will follow (2) Hypertension: (3) Hypomagnesemia: Subjective ED was seen and examined in her room this am. Awake, alert, conversant, no distress. Na was slowly improving but rapidly increased overnight to 137. BP stable. Physical Exam 2 Vital Signs (Past 24 Hours): Last Vital Signs Temp 36.6 C 07/03/18 07:44 Pulse 82 07/03/18 07:44 Resp 18 07/03/18 07:44 BP 149/77 H 07/03/18 07:44 Pulse Ox 96 07/03/18 07:44 Constitutional: WD/WN, vitals as above Respiratory: normal respiratory effort, lungs clear to auscultation Cardiovascular: RRR, no murmur, no edema Skin: + wound and + dry skin Neurologic: moves all extremities and awake Psychiatric: A+Ox3, euthymic affect
--- NOTE | 2018-07-03 11:53 | Hospitalist Progress Note ---
Date of Service July 03, 2018 Assessment & Plan (1) Osteomyelitis: Of the left second and third toes with possible foreign body and ulceration with cellulitis of left great toe Culture from 06/18 with MSSA,Alcaligenes faecalis, and anaerobic gram negative bacilli-he was treated with Augmentin since that time No signs of systemic infection at this time BCxs NGTD, remains afebrile -Consult podiatry-planned amputation delayed due to severe hyponatremia but now on schedule for tomorrow -follow BCxs -cont vancomycin as per podiatry recommendations and also added Cefepime for Gram neg coverage-will need IV antibiotics for 6 weeks, await intraoperative cultures as well -He is already consented for a PICC line and will place this likely tomorrow after blood cultures negative for 48 hours -Has moderate PAD but it does not appear to need intervention with vascular surgery -will need local wound care -Follow ESR, CRP, CBC, CMP once weekly at least while on antibiotics--> ESR here 42, CRP 1.22 The patient is able to achieve at least 4 METS without any cardiac symptoms, has a fairly normal ECG other than RBBB. He has not had any recent intervention. He does have known PAD but no known CAD. He is at average perioperative risk to undergo this intermediate risk procedure and should proceed with surgery now that his sodium issues are improved (2) PAD (peripheral artery disease): With moderate multifocal stenoses on recent arterial Doppler in 06/2018 -Continue statin -Need to find out why he is not on aspirin (3) Hypertension: BP slightly elevated on admission could be secondary to anxiety, now improved -Follow BPs -Continue home losartan 25 mg daily (4) Hyperlipidemia: -Continue home simvastatin 80 mg and Zetia 10 mg daily (5) Chronic obstructive pulmonary disease: With continued smoking -Encouraged smoking cessation -With a few wheezes on exam on admission-give scheduled albuterol inhaler and now resolved -Follow-up (6) Anxiety: Stable, follows with psychiatry Dr. Ann and NORMAN Gomez routinely -Continue clonazepam, fluvoxamine, Zyprexa, Depakote (7) Depression: As above (8) Schizophrenia: Follows with psychiatry as above -Continue psych meds from home as above (9) Diabetes mellitus, type 2: A1c is well controlled with hemoglobin A1c 5.6% -Holding home glipizide and metformin, as well as Actos -Give insulin sliding scale while here, continue Accu-Cheks q. before meals at bedtime Diabetic diet (10) Obesity: Could be secondary to psychiatric medications -Needs weight loss counseling (11) Pulmonary HTN: Noted on echo from 2016 Likely secondary to lung disease No history of EDUARD that he knows of Follow and give diuretics as well as oxygen as needed (12) Current smoker: -Encourage smoking cessation Can give nicotine patch as needed (13) Alcohol abuse: Admits to drinking 6 beers daily and cannot remember the last time he went without drinking but did at one point quit for 1 year many years ago and had no withdrawal. -continue alcohol withdrawal protocol and give as needed lorazepam -Continue scheduled clonazepam as per home dosing -Banana bag daily times 3 days-today day #2 folate, B12 levels normal Follow (14) Hyponatremia: History of this in the past in the mid-high 120s, labs on admission with sodium of 118-this is most likely secondary to beer Potomania, desmopressin use , as well as multiple drugs that he is on can cause SIADH Was given 1 L of NS at 80mls/hr and had rapid correction of sodium from 118--> 121-->138 today UrOsm 551, UrNa+114, Serum Osm 243 -Discontinued desmopressin -Continue psych meds for now as he is stable on these -encouraged continued abstinence ffrom EtOH -lift fluid restriction today -Nephro started D5W today -repeat Na+ level again at 1800 today and BMP in AM -Consult nephrology -appreciated -ok to have surgery (15) Nocturnal enuresis: Patient reports he urinates frequently secondary to Potomania and is on desmopressin every night -Discontinue desmopressin given hyponatremia as above -Continue Myrbetriq (16) DVT prophylaxis: SCDs, CHIO eugene Disposition-acontinued stay on medical/surgical floor and will likely need SNF placement afterwards -will need PT/OT consults after surgery Case management consult placed Full code Subjective Pt feels very well this AM. Denies KEBEDE or lightheadedness, denies CP or SOB, no nausea or abd pain. He is eating normally. Is upset that he had urinary incontinence while sleeping last night because he didn't get his desmopressin. Discussed his hyponatremia and importance of quitting drinking EtOH as well. Denies weakness, denies anxiety or tremor. I discussed his case with Nephrology and with Podiatry today Review of Systems All systems reviewed & are unremarkable except as noted in HPI & below Physical Exam 2 Vital Signs (Past 24 Hours): Last Vital Signs Temp 36.6 C 07/03/18 07:44 Pulse 82 07/03/18 07:44 Resp 18 07/03/18 07:44 BP 149/77 H 07/03/18 07:44 Pulse Ox 96 07/03/18 07:44 Constitutional: WD/WN, vitals as above + obese Eyes: PERRL, conjunctivae normal, anicteric sclerae ENMT: external ear and nose normal, oropharynx normal Neck: trachea midline, no thyromegaly Respiratory: normal respiratory effort, lungs clear to auscultation Auscultation: no wheezes Cardiovascular: Rate/Rhythm: regular rate and regular rhythm Heart Sounds: no murmur Extremities: + edema (trace pitting edema of the legs bilaterally to the knees much improved from yesterday with chronic venous stasis changes) Gastrointestinal (Abdomen): normal bowel sounds, soft, nontender, no hepatosplenomegaly Musculoskeletal: Extremities: + extremities abnormal to inspection (Left second toe with edema and dry cracking skin with erythema, left third toe with ulceration and peeling skin in the distal phalanx dorsally, left medial plantar surface of great toe with 1 cm open circular ulceration), no cyanosis and no clubbing Skin: + lesion (Toe lesions as above, with improved erythema of the bilateral lower extremities which is chronic as per patient except for erythema around the left toes; also with bilat anterior distal tibia venous ulcers with scab) Neurologic: moves all extremities and awake; no focal motor deficits Psychiatric: Orientation: alert and oriented x 3 Motor Behavior: n tremor Affect: + flat affect Results & Data Laboratory Results 07/03/18 07/03/18 07/03/18 Range/Units 11:27 10:30 08:08 WBC (4.8-10.8) K/uL RBC (4.7-6.1) M/uL Hgb (14.0-18.0) g/dL Hct (42-52) % MCV (80-100) fL MCH (25-34) pg MCHC (32-36) g/dL RDW Std Deviation (36.4-46.3) fL RDW Coeff of Catalino (11.5-14.5) % Plt Count (130-400) K/uL MPV (7.4-10.4) fL Immature Gran % (Auto) % Neut % (Auto) % Lymph % (Auto) % Republic % (Auto) % Eos % (Auto) % Baso % (Auto) % Immature Gran # (Auto) (0.00-0.02) K/uL Neut # (Auto) (1.4-6.5) K/uL Lymph # (Auto) (1.2-3.4) K/uL Republic # (Auto) (0.11-0.59) K/uL Eos # (Auto) (0-0.5) K/uL Baso # (Auto) (0-0.2) K/uL Sodium 134 L (136-145) mmol/L Potassium (3.5-5.1) mmol/L Chloride (98-107) mmol/L Carbon Dioxide (21-32) mmol/L Anion Gap (3-11) BUN (7-18) mg/dl Creatinine (0.6-1.4) mg/dl Est Cr Clr Drug Dosing ml/min Est GFR ( Amer) Est GFR (Non-Af Amer) BUN/Creatinine Ratio (10-20) Glucose (70-99) mg/dl POC Glucose 101 H (70-99) Osmolality (280-300) mOsm/kg Calcium (8.5-10.1) mg/dl Vitamin B12 (211-911) pg/ml Folate (>5.38) ng/ml TSH (0.300-4.500) uIu/ml Cortisol AM Sample (4.3-22.4) mcg/dl Urine Osmolality (500-800) mOsm/kg Ur Random Sodium mmol/L Vancomycin Trough Pending 07/03/18 07/03/18 07/03/18 Range/Units 07:26 07:26 07:26 WBC (4.8-10.8) K/uL RBC (4.7-6.1) M/uL Hgb (14.0-18.0) g/dL Hct (42-52) % MCV (80-100) fL MCH (25-34) pg MCHC (32-36) g/dL RDW Std Deviation (36.4-46.3) fL RDW Coeff of Catalino (11.5-14.5) % Plt Count (130-400) K/uL MPV (7.4-10.4) fL Immature Gran % (Auto) % Neut % (Auto) % Lymph % (Auto) % Republic % (Auto) % Eos % (Auto) % Baso % (Auto) % Immature Gran # (Auto) (0.00-0.02) K/uL Neut # (Auto) (1.4-6.5) K/uL Lymph # (Auto) (1.2-3.4) K/uL Republic # (Auto) (0.11-0.59) K/uL Eos # (Auto) (0-0.5) K/uL Baso # (Auto) (0-0.2) K/uL Sodium 138 D (136-145) mmol/L Potassium 3.9 (3.5-5.1) mmol/L Chloride 105 (98-107) mmol/L Carbon Dioxide 26 (21-32) mmol/L Anion Gap 6.0 (3-11) BUN 8 (7-18) mg/dl Creatinine 0.82 (0.6-1.4) mg/dl Est Cr Clr Drug Dosing 142.2 ml/min Est GFR ( Amer) 113.0 Est GFR (Non-Af Amer) 97.5 BUN/Creatinine Ratio 9.3 L (10-20) Glucose 102 H (70-99) mg/dl POC Glucose (70-99) Osmolality (280-300) mOsm/kg Calcium 8.3 L D (8.5-10.1) mg/dl Vitamin B12 851 (211-911) pg/ml Folate (>5.38) ng/ml TSH (0.300-4.500) uIu/ml Cortisol AM Sample 7.97 (4.3-22.4) mcg/dl Urine Osmolality (500-800) mOsm/kg Ur Random Sodium mmol/L Vancomycin Trough 07/03/18 07/02/18 07/02/18 Range/Units 07:26 20:33 17:09 WBC 3.95 L (4.8-10.8) K/uL RBC 4.09 L (4.7-6.1) M/uL Hgb 13.1 L (14.0-18.0) g/dL Hct 37.2 L (42-52) % MCV 91.0 (80-100) fL MCH 32.0 (25-34) pg MCHC 35.2 (32-36) g/dL RDW Std Deviation 42.8 (36.4-46.3) fL RDW Coeff of Catalino 13.0 (11.5-14.5) % Plt Count 140 (130-400) K/uL MPV 8.6 (7.4-10.4) fL Immature Gran % (Auto) 0.3 % Neut % (Auto) 68.2 % Lymph % (Auto) 22.3 % Republic % (Auto) 6.6 % Eos % (Auto) 2.3 % Baso % (Auto) 0.3 % Immature Gran # (Auto) 0.01 (0.00-0.02) K/uL Neut # (Auto) 2.70 (1.4-6.5) K/uL Lymph # (Auto) 0.88 L (1.2-3.4) K/uL Republic # (Auto) 0.26 (0.11-0.59) K/uL Eos # (Auto) 0.09 (0-0.5) K/uL Baso # (Auto) 0.01 (0-0.2) K/uL Sodium (136-145) mmol/L Potassium (3.5-5.1) mmol/L Chloride (98-107) mmol/L Carbon Dioxide (21-32) mmol/L Anion Gap (3-11) BUN (7-18) mg/dl Creatinine (0.6-1.4) mg/dl Est Cr Clr Drug Dosing ml/min Est GFR ( Amer) Est GFR (Non-Af Amer) BUN/Creatinine Ratio (10-20) Glucose (70-99) mg/dl POC Glucose 100 H 120 H (70-99) Osmolality (280-300) mOsm/kg Calcium (8.5-10.1) mg/dl Vitamin B12 (211-911) pg/ml Folate (>5.38) ng/ml TSH (0.300-4.500) uIu/ml Cortisol AM Sample (4.3-22.4) mcg/dl Urine Osmolality (500-800) mOsm/kg Ur Random Sodium mmol/L Vancomycin Trough 07/02/18 07/02/18 07/02/18 Range/Units 15:51 11:56 11:55 WBC (4.8-10.8) K/uL RBC (4.7-6.1) M/uL Hgb (14.0-18.0) g/dL Hct (42-52) % MCV (80-100) fL MCH (25-34) pg MCHC (32-36) g/dL RDW Std Deviation (36.4-46.3) fL RDW Coeff of Catalino (11.5-14.5) % Plt Count (130-400) K/uL MPV (7.4-10.4) fL Immature Gran % (Auto) % Neut % (Auto) % Lymph % (Auto) % Republic % (Auto) % Eos % (Auto) % Baso % (Auto) % Immature Gran # (Auto) (0.00-0.02) K/uL Neut # (Auto) (1.4-6.5) K/uL Lymph # (Auto) (1.2-3.4) K/uL Republic # (Auto) (0.11-0.59) K/uL Eos # (Auto) (0-0.5) K/uL Baso # (Auto) (0-0.2) K/uL Sodium 121 L (136-145) mmol/L Potassium 3.9 (3.5-5.1) mmol/L Chloride 89 L (98-107) mmol/L Carbon Dioxide 25 (21-32) mmol/L Anion Gap 7.0 (3-11) BUN 6 L (7-18) mg/dl Creatinine 0.86 (0.6-1.4) mg/dl Est Cr Clr Drug Dosing 135.6 ml/min Est GFR ( Amer) 110.8 Est GFR (Non-Af Amer) 95.6 BUN/Creatinine Ratio 6.6 L (10-20) Glucose 136 H (70-99) mg/dl POC Glucose 86 (70-99) Osmolality (280-300) mOsm/kg Calcium 7.2 L (8.5-10.1) mg/dl Vitamin B12 (211-911) pg/ml Folate (>5.38) ng/ml TSH (0.300-4.500) uIu/ml Cortisol AM Sample (4.3-22.4) mcg/dl Urine Osmolality (500-800) mOsm/kg Ur Random Sodium 114 mmol/L Vancomycin Trough 07/02/18 07/02/18 07/02/18 Range/Units 11:55 11:26 11:26 WBC (4.8-10.8) K/uL RBC (4.7-6.1) M/uL Hgb (14.0-18.0) g/dL Hct (42-52) % MCV (80-100) fL MCH (25-34) pg MCHC (32-36) g/dL RDW Std Deviation (36.4-46.3) fL RDW Coeff of Catalino (11.5-14.5) % Plt Count (130-400) K/uL MPV (7.4-10.4) fL Immature Gran % (Auto) % Neut % (Auto) % Lymph % (Auto) % Republic % (Auto) % Eos % (Auto) % Baso % (Auto) % Immature Gran # (Auto) (0.00-0.02) K/uL Neut # (Auto) (1.4-6.5) K/uL Lymph # (Auto) (1.2-3.4) K/uL Republic # (Auto) (0.11-0.59) K/uL Eos # (Auto) (0-0.5) K/uL Baso # (Auto) (0-0.2) K/uL Sodium (136-145) mmol/L Potassium (3.5-5.1) mmol/L Chloride (98-107) mmol/L Carbon Dioxide (21-32) mmol/L Anion Gap (3-11) BUN (7-18) mg/dl Creatinine (0.6-1.4) mg/dl Est Cr Clr Drug Dosing ml/min Est GFR ( Amer) Est GFR (Non-Af Amer) BUN/Creatinine Ratio (10-20) Glucose (70-99) mg/dl POC Glucose (70-99) Osmolality 243 L (280-300) mOsm/kg Calcium (8.5-10.1) mg/dl Vitamin B12 (211-911) pg/ml Folate 13.13 (>5.38) ng/ml TSH (0.300-4.500) uIu/ml Cortisol AM Sample (4.3-22.4) mcg/dl Urine Osmolality 551 (500-800) mOsm/kg Ur Random Sodium mmol/L Vancomycin Trough 07/02/18 Range/Units 10:21 WBC (4.8-10.8) K/uL RBC (4.7-6.1) M/uL Hgb (14.0-18.0) g/dL Hct (42-52) % MCV (80-100) fL MCH (25-34) pg MCHC (32-36) g/dL RDW Std Deviation (36.4-46.3) fL RDW Coeff of Catalino (11.5-14.5) % Plt Count (130-400) K/uL MPV (7.4-10.4) fL Immature Gran % (Auto) % Neut % (Auto) % Lymph % (Auto) % Republic % (Auto) % Eos % (Auto) % Baso % (Auto) % Immature Gran # (Auto) (0.00-0.02) K/uL Neut # (Auto) (1.4-6.5) K/uL Lymph # (Auto) (1.2-3.4) K/uL Republic # (Auto) (0.11-0.59) K/uL Eos # (Auto) (0-0.5) K/uL Baso # (Auto) (0-0.2) K/uL Sodium (136-145) mmol/L Potassium (3.5-5.1) mmol/L Chloride (98-107) mmol/L Carbon Dioxide (21-32) mmol/L Anion Gap (3-11) BUN (7-18) mg/dl Creatinine (0.6-1.4) mg/dl Est Cr Clr Drug Dosing ml/min Est GFR ( Amer) Est GFR (Non-Af Amer) BUN/Creatinine Ratio (10-20) Glucose (70-99) mg/dl POC Glucose (70-99) Osmolality (280-300) mOsm/kg Calcium (8.5-10.1) mg/dl Vitamin B12 (211-911) pg/ml Folate (>5.38) ng/ml TSH 2.580 (0.300-4.500) uIu/ml Cortisol AM Sample (4.3-22.4) mcg/dl Urine Osmolality (500-800) mOsm/kg Ur Random Sodium mmol/L Vancomycin Trough _ (1) Osteomyelitis Osteomyelitis type: other acute Osteomyelitis location: foot Laterality: left Qualified Code(s): M86.172 - Other acute osteomyelitis, left ankle and foot (2) Hypertension Hypertension type: essential hypertension Qualified Code(s): I10 - Essential (primary) hypertension (3) Hyperlipidemia Hyperlipidemia type: unspecified Qualified Code(s): E78.5 - Hyperlipidemia, unspecified (4) Chronic obstructive pulmonary disease COPD type: unspecified COPD Chronic bronchitis type: Emphysema type: Qualified Code(s): J44.9 - Chronic obstructive pulmonary disease, unspecified (5) Diabetes mellitus, type 2 Diabetes mellitus retirement insulin use: without terminal supervisor use Diabetes mellitus complication status: with neurologic complications Diabetes mellitus complication detail: with polyneuropathy Diabetic retinopathy severity: Proliferative retinopathy type: Diabetes mellitus macular edema: Laterality : Chronic kidney disease stage: Qualified Code(s): E11.42 - Type 2 diabetes mellitus with diabetic polyneuropathy (6) Obesity Obesity type: unspecified obesity type Obesity classification: adult class 2 (BMI 35 - 39.9) Serious obesity comorbidity presence: with serious comorbidity Body mass index: BMI 35.0-35.9 Qualified Code(s): E66.01 - Morbid (severe) obesity due to excess calories; Z68.35 - Body mass index (BMI) 35.0-35.9, adult
--- NOTE | 2018-07-03 12:18 | Anesthesiology Consultation ---
Date of Service July 03, 2018 Assessment & Plan (1) Encounter for pre-operative examination: Chart Review Chart Review: Acceptable Risk for Surgery and Patient NOT seen in Pre Admission Testing Hospitalist note 07/03/2018: The patient is able to achieve at least 4 METS without any cardiac symptoms, has a fairly normal ECG other than RBBB. He has not had any recent intervention. He does have known PAD but no known CAD. He is at average perioperative risk to undergo this intermediate risk procedure and should proceed with surgery now that his sodium issues are improved. Consent for general anesthesia vs MAC with PNB. Consults Requested none NPO Date Last Intake of Fluids: 07/02/18 Last Intake of Fluids Comment: sips of meds this morning Date Last Intake of Solids: 07/01/18 Time Last Intake of Solids: 20:00 History Surgery Operation Date: 07/02/18 13:50 Proposed Procedures p Incision and Drainage Excision Accessory Sesamoid Interphalangeal Joint, - Claudia Carver DPM s Amputation Left 2nd Toe - Claudia Carver DPM Operation Date: 07/04/18 13:00 Proposed Procedures p Incision and Drainage Excision Accessory Sesamoid Interphalangeal Joint, - Claudia Carver DPM s Amputation 2nd Toe - Claudia Carver DPM Height/Weight Height: 6 ft 3 in Weight: 129.274 kg (BMI = 35.6) Allergies Allergy/AdvReac Type Severity Reaction Status Date / Time No Known Allergies Allergy Verified 06/29/18 08:20 Medications Home Medications Medication Instructions Recorded Confirmed Last Taken albuterol sulfate 2 puff INHALATION QID PRN 06/29/18 06/29/18 Unknown amoxicillin-pot clavulanate 10 ml PO Q12H 06/29/18 06/29/18 Unknown cholecalciferol (vitamin D3) 1,000 unit PO QAM 06/29/18 06/29/18 Unknown [Vitamin D3] clonazepam 0.5 mg PO BID 06/29/18 06/29/18 Unknown divalproex 500 mg PO HS 06/29/18 06/29/18 Unknown ezetimibe 10 mg PO QAM 06/29/18 06/29/18 Unknown fluvoxamine 150 mg PO HS 06/29/18 06/29/18 Unknown furosemide 20 mg PO DAILY PRN 06/29/18 06/29/18 Unknown glipizide 5 mg PO QAM 06/29/18 06/29/18 Unknown ibuprofen 400 mg PO Q6H PRN 06/29/18 06/29/18 Unknown losartan 25 mg PO QAM 06/29/18 06/29/18 Unknown metformin 1,000 mg PO BID 06/29/18 06/29/18 Unknown mirabegron [Myrbetriq] 50 mg PO QAM 06/29/18 06/29/18 Unknown olanzapine [Zyprexa] 10 mg PO HS 06/29/18 06/29/18 Unknown oxycodone-acetaminophen 1 tab PO Q6H PRN 06/29/18 06/29/18 Unknown pioglitazone 45 mg PO QAM 06/29/18 06/29/18 Unknown polyethylene glycol 3350 [Miralax] 17 g PO DAILY PRN 06/29/18 06/29/18 Unknown simvastatin 80 mg PO HS 06/29/18 06/29/18 Unknown vitamin E 400 unit PO QAM 06/29/18 06/29/18 Unknown albuterol sulfate [Ventolin HFA] 2 inh QID 07/02/18 07/02/18 Unknown desmopressin 3 tab PO HS 07/02/18 07/02/18 07/01/18 triamcinolone acetonide 1 applic TOPICAL BID 07/02/18 07/02/18 Unknown Active Medications Generic Name Dose Route Start Last Admin Trade Name Freq PRN Reason Stop Dose Admin Albuterol 2 puffs 07/02/18 09:59 07/02/18 13:40 Ventolin Hfa INH 08/01/18 09:58 2 puffs QID PRN Administration Wheezing Clonazepam 0.5 mg 07/02/18 21:00 07/03/18 09:43 Klonopin PO 08/01/18 20:59 0.5 mg BID ABRIL Administration Divalproex Sodium 500 mg 07/02/18 21:00 07/02/18 20:23 Depakote Delay Release PO 08/01/18 20:59 500 mg HS ABRIL Administration Ezetimibe 10 mg 07/03/18 09:00 07/03/18 09:38 Zetia PO 08/02/18 08:59 10 mg QAM ABRIL Administration Fluvoxamine Maleate 150 mg 07/02/18 21:00 07/02/18 20:24 Luvox PO 08/01/18 20:59 150 mg HS ABRIL Administration Vancomycin HCl 1,500 mg/ 530 mls @ 200 mls/hr 07/02/18 20:00 07/03/18 06:49 Sodium Chloride IV 08/13/18 19:59 Infused Q8H ABRIL Infusion Multivitamins 10 ml/ Thiamine 1,011.2 mls @ 500 mls/hr 07/02/18 12:00 14:30 HCl 100 mg/ Folic Acid 1 mg/ IV 07/04/18 14:02 Infused Sodium Chloride DAILY@1200 ABRIL Infusion Cefepime HCl 2,000 mg/ Syringe 20 mls @ 5 mls/min 07/02/18 13:00 07/03/18 06: 24 IV 08/13/18 12:59 5 mls/min Q8H ABRIL Administration Protocol Dextrose 1,000 mls @ 80 mls/hr 07/03/18 08:30 07/03/18 09:55 D5w IV 08/02/18 08:29 80 mls/hr .[id number] ABRIL Administration Insulin Aspart 0 units 07/02/18 16:30 07/03/18 09:37 Novolog Flexpen SC 08/01/18 16:29 3 units ACHS ABRIL Administration Losartan Potassium 25 mg 07/03/18 09:00 07/03/18 09:38 Cozaar PO 08/02/18 08:59 25 mg QAM ABRIL Administration Mirabegron 50 mg 07/03/18 09:00 07/03/18 09:38 Myrbetriq Er PO 08/02/18 08:59 50 mg QAM ABRIL Administration Olanzapine 10 mg 07/02/18 21:00 07/02/18 20:25 Zyprexa PO 08/01/18 20:59 10 mg HS ABRIL Administration Simvastatin 80 mg 07/02/18 21:00 07/02/18 20:25 Zocor PO 08/01/18 20:59 80 mg HS ABRIL Administration Triamcinolone Acetonide 1 appln 07/02/18 21:00 07/03/18 09:39 Kenalog 0.1% TOP 08/01/18 20:59 1 appln BID ABRIL Administration Vitamin D 1,000 units 07/03/18 09:00 07/03/18 09:38 Vitamin D3 PO 08/02/18 08:59 1,000 units QAM ABRIL Administration Past Medical History Medical History Alcohol abuse Current smoker Diabetic neuropathy Hyponatremia Nephrology following patient this admission: (1) Hyponatremia: 58-year-old gentlemen with chronic hyponatremia in the setting of Desmopressin use and excessive alcohol intake, admitted to the hospital for elective surgical procedure. He was found to have acute hyponatremia with serum sodium 118. Urine osmolality low at 115. Hyponatremia most likely is secondary to excessive alcohol and free water intake as well as being on Desmopressin although low urien osm is more consistent with excessive free water and alcohol intake. Na rapidly increased to 137, pt clinically stable. --DC fluid restriction, start on D5W at 80 ml/h --Repeat Na at 2 pm and then 6 pm --plan for toe amputation tomorrow. Pnce pt stable after surgery will consider restarting on Desmopressin at a low dose Nocturnal enuresis Schizophrenia Anxiety Chronic back pain Chronic obstructive pulmonary disease Depression Diabetes mellitus, type 2 NIDDM Hyperlipidemia Hypertension Kidney stones OCD (obsessive compulsive disorder) Obesity Osteomyelitis REASON FOR PROCEDURE PAD (peripheral artery disease) Pulmonary HTN "MILD" RVSP 40MMHG PER 2016 STRESS ECHO SOB (shortness of breath) on exertion Past Family History Family History Father Family history of diabetes mellitus Prostate cancer Aunt Family history of diabetes mellitus Uncle Family history of diabetes mellitus Family/Other Family history of diabetes mellitus Mother Alzheimer disease Diabetes mellitus Past Surgical History Surgical History H/O exploratory laparotomy GALLBLADDER LESION EXCISION History of biopsy of bladder TURBT= 11/28/17= LMA#5 AT [facility] History of cystoscopy WITH STONE EXTRACTION X 2 History of open reduction and internal fixation (ORIF) procedure LEFT SHOULDER Social History Smoking Status: Current every day smoker tobacco type: cigarettes Smoking cigarettes per day: 20 Do You Dip or Chew Tobacco: No Smoking End Date: WAS REG SMOKER-TRYING TO QUIT-SMOKED A COUPLE CIGS A DAY PAST WEEK Hx Alcohol Use: Yes Alcohol type: beer alcohol intake frequency: 3 or more drinks per day Alcohol Intake Frequency Comment: 6 pack a day Hx Substance Use: No substance use type: other Substance Use Type Other:: prescriptions, see med list Physical Exam Vital Signs Last Vital Signs Temp 36.6 C 07/03/18 07:44 Pulse 82 07/03/18 07:44 Resp 18 07/03/18 07:44 BP 149/77 H 07/03/18 07:44 Pulse Ox 96 07/03/18 07:44 ENMT Mouth: + poor dentition (one broken tooth); no TMJ abnormality and no TMJ clicking Thyromental Distance: < 3.5 Finger Breadths Mallampati Class: II Neck normal visual inspection, + shortened thyromental distance and + facial hair Respiratory normal respiratory effort Cardiovascular Rate/Rhythm: regular rate and regular rhythm Musculoskeletal Spine: normal cervical ROM and no pain with cervical ROM Testing Electrocardiogram Date: 10/06/17 NSR at 75bpm. RBBB. Stress Test Date: 05/11/15 Negative stress ECHO for ischemia at 92%MPHR. EKG indeterminate due to baseline abnormalities. EF 60-65%. No RWMA. Moderate cLVH. Mild MR. Mild Pulmonary HTN suggested (RVSP 40mmhg). Mild LAD/RVD. Laboratory Results 07/03/18 07:26 07/03/18 10:30 PT 11.8 Seconds (9.0-12.0) 07/02/18 10:21 INR 1.2 (0.9-1.1) H 07/02/18 10:21 APTT 32.9 Seconds (21.0-31.0) H 07/02/18 10:21 Hemoglobin A1c 5.9 % (4.5-5.6) H 07/02/18 10:21 07/03/18 07/03/18 12:05 08:08 POC Glucose 194 H 101 H
--- NOTE | 2018-07-03 14:25 | Pharmacy Report ---
Pharmacy Abx Dose Short Note - Date of Service July 03, 2018 - Assessment & Plan A/P Today's trough therapeutic, 18.3mcg/mL. This is prior to Css, habitus is indicative of vanco accumulation. Will lengthen dosing interval from q8--> q12. Trough ordered for 07/05/18 @0130 Pharmacy will continue to follow and will adjust dose/frequency as necessary. Thank you.
--- NOTE | 2018-07-04 11:43 | Nephrology Progress Note ---
Date of Service July 04, 2018 Assessment & Plan (1) Hyponatremia: 58-year-old gentlemen with chronic hyponatremia in the setting of Desmopressin use and excessive alcohol intake, admitted to the hospital for elective surgical procedure. He was found to have acute hyponatremia with serum sodium 118. Urine osmolality low at 115. Hyponatremia most likely is secondary to excessive alcohol and free water intake as well as being on Desmopressin although low urien osm is more consistent with excessive free water and alcohol intake. Na staying relatively stable over last 24 hours. --continue on D5W at 60 ml/h --Repeat Na this afternoon after surgery --if sodium remained stable other and otherwise clinically stable, will consider starting on low-dose Desmopressin and stop D5 Will follow (2) Hypertension: (3) Hypomagnesemia: Subjective ED was seen and examined in her room this am. Awake, alert, conversant, no distress. Na has been stable from 135-137 over last 24 hours. Blood pressure slightly elevated. No shortness of breath or chest pain. He has been NPO for possible toe amputation today. Physical Exam Vital Signs (Past 24 Hours): Last Vital Signs Temp 36.7 C 07/04/18 07:37 Pulse 80 07/04/18 07:37 Resp 16 07/04/18 07:37 BP 173/82 H 07/04/18 07:37 Pulse Ox 96 07/04/18 07:37 Constitutional: WD/WN, vitals as above Respiratory: normal respiratory effort, lungs clear to auscultation Cardiovascular: RRR, no murmur, no edema Skin: + wound and + dry skin Neurologic: moves all extremities and awake Psychiatric: A+Ox3, euthymic affect
--- NOTE | 2018-07-04 13:14 | History & Physical Bridge Note ---
Date of Service July 04, 2018 History & Physical Bridge Note I have examined the patient, reviewed the History & Physical and in the interval since the performance of the History & Physical I have noted the following changes of clinical significance: no changes noted
--- NOTE | 2018-07-04 15:41 | Operative Report ---
Post Operative Report Pre & Post Diagnosis Operation Date: 07/02/18 13:50 <No data on this case meets the specified criteria> Operation Date: 07/04/18 13:00 Pre-Op Diagnosis: Acute osteomyelitis. Post-Op Diagnosis: Acute osteomyelitis L2,3 toes Chonic ulceration L hallux IPJ secondary IPJ seasmoid Hammertoe deformity L2,3 toes Procedure Operation Date: 07/02/18 13:50 <No data on this case meets the specified criteria> Operation Date: 07/04/18 13:00 Actual Procedures p Incision and Drainage bone cortex, Excision Accessory Sesamoid Interphalangeal Joint L hallux Amputation Left 2nd PIPJ level and 3rd DIPJ level toes(Left) - Massimo Vazquez DPM s Left Amputation 2nd Toe and 3rd toes(Left) - Massimo Vazquez DPM Flexor tenotomy L3rd toe Surgeon Drx. Massimo Vazquez Odd Job Worker: Dr Carver Odd Job Worker Claudia Carver Estimated Blood Loss 5 Findings Consistent with Post-Op Diagnosis Specimens bone IPJ L hallux L2,3 toes culture L2nd toe Description of Procedure IPJ sesamoid exicion L hallux, Amputation L2,3 digits with I&D I attest to the content of the Intraoperative Record and any orders documented therein. Any exceptions are noted below.
--- NOTE | 2018-07-04 16:34 | Fluoroscopy Report ---
FL foot LT 2V CLINICAL HISTORY: LT 2ND TOE AMPUTATION COMPARISON STUDY: MRI dated June 21, 2018 FLUOROSCOPY TIME: 5 seconds. NUMBER OF FLUOROSCOPIC IMAGES: 2 FINDINGS: 2 intraoperative fluoroscopic spot images demonstrate a hemostat with its tip at the level of the distal aspect of the proximal phalanx the great toe. IMPRESSION: Intraoperative radiographs demonstrating a hemostat projected over the distal aspect of the proximal phalanx of the great toe Electronically signed by: Brandon Valerio M.D. 07/04/2018 4:33 PM
--- NOTE | 2018-07-04 17:02 | Hospitalist Progress Note ---
Date of Service July 04, 2018 Assessment & Plan (1) Osteomyelitis: Of the left second and third toes with possible foreign body and ulceration with cellulitis of left great toe Culture from 06/18 with MSSA,Alcaligenes faecalis, and anaerobic gram negative bacilli-he was treated with Augmentin since that time No signs of systemic infection at this time BCxs NGTD, remains afebrile -Consult podiatry-now s/p amputation of affected toes -surgery had been delayed due to severe hyponatremia -follow BCxs -cont vancomycin as per podiatry recommendations and continue Cefepime for Gram neg coverage-will need IV antibiotics for 6 weeks, await intraoperative cultures as well and then can likely narrow down antibiotics - PICC line in place -Has moderate PAD but it does not appear to need intervention with vascular surgery -will need local wound care -Follow ESR, CRP, CBC, CMP once weekly at least while on antibiotics--> ESR here 42, CRP 1.22 (2) PAD (peripheral artery disease): With moderate multifocal stenoses on recent arterial Doppler in 06/2018 -Continue statin -Need to find out why he is not on aspirin? (3) Hypertension: BP slightly elevated on admission could be secondary to anxiety, now imp roved -Follow BPs -Continue home losartan 25 mg daily (4) Hyperlipidemia: -Continue home simvastatin 80 mg and Zetia 10 mg daily (5) Chronic obstructive pulmonary disease: With continued smoking -Encouraged smoking cessation -With a few wheezes on exam again-continue scheduled albuterol inhaler (6) Anxiety: Stable, follows with psychiatry Dr. Ann and PA Jayne Gomez routinely -Continue clonazepam, fluvoxamine, Zyprexa, Depakote (7) Depression: As above (8) Schizophrenia: Follows with psychiatry as above -Continue psych meds from home as above (9) Diabetes mellitus, type 2: A1c is well controlled with hemoglobin A1c 5.6% -Holding home glipizide and metformin, as well as Actos but ok to restart metformin -Give insulin sliding scale while here, continue Accu-Cheks q. before meals at bedtime Diabetic diet (10) Obesity: Could be secondary to psychiatric medications -Needs weight loss counseling (11) Pulmonary HTN: Noted on echo from 2016 Likely secondary to lung disease No history of EDUARD that he knows of Follow and give diuretics as well as oxygen as needed-not currently requiring (12) Current smoker: -Encourage smoking cessation Can give nicotine patch as needed (13) Alcohol abuse: Admits to drinking 6 beers daily and cannot remember the last time he went without drinking but did at one point quit for 1 year many years ago and had no withdrawal. -continue alcohol withdrawal protocol and give as needed lorazepam -Continue scheduled clonazepam as per home dosing -Banana bag daily times 3 days-today day #3 folate, B12 levels normal Follow (14) Hyponatremia: History of this in the past in the mid-high 120s, labs on admission with sodium of 118-this is most likely secondary to beer Potomania, desmopressin use, as well as multiple drugs that he is on can cause SIADH Was given 1 L of NS at 80mls/hr and had rapid correction of sodium from 118-->121-->138 UrOsm 551, UrNa+114, Serum Osm 243 Was on D5 x 1 day, Na+ remains 137 today, can dc D5W -ok to restart very low dose desmopressin as oer Nephro -Continue psych meds for now as he is stable on these -encouraged continued abstinence ffrom EtOH -does not need fluid restriction currently -follow BMP in AM -Consult nephrology -appreciated (15) Nocturnal enuresis: Patient reports he urinates frequently secondary to Potomania and is on high dose desmopressin every night -Discontinued desmopressin given hyponatremia as above, but now ok to restart very low dose at 0.1mg -Continue Myrbetriq (16) DVT prophylaxis: CHIO Byrd Disposition-continued stay on medical/surgical floor and will likely need SNF placement afterwards -will need PT/OT consults after surgery Case management consult placed Full code Subjective Pt just returned from foot surgery when I saw him and reports feeling very well, just has a great urgency to urinate. Denies chest pain or SOB. No abd pain or nausea. Review of Systems All systems reviewed & are unremarkable except as noted in HPI & below Physical Exam Vital Signs (Past 24 Hours): Last Vital Signs Temp 36.4 C L 07/04/18 16:35 Pulse 86 07/04/18 16:35 Resp 18 07/04/18 16:35 BP 158/89 H 07/04/18 16:35 Pulse Ox 96 07/04/18 16:35 Constitutional: WD/WN, vitals as above + obese Eyes: PERRL, conjunctivae normal, anicteric sclerae Neck: trachea midline, no thyromegaly Respiratory: normal respiratory effort Auscultation: + wheezes (scattered exp wheezes); no crackles and no rhonchi Cardiovascular: Rate/Rhythm: regular rate and regular rhythm Heart Sounds: no murmur Extremities: + edema (trace pitting edema of the legs bilaterally to the knees much improved from yesterday with chronic venous stasis changes) Gastrointestinal (Abdomen): normal bowel sounds, soft, nontender, no hepatosplenomegaly Musculoskeletal: Extremities: + extremities abnormal to inspection (Left foot and ankle now in dressing), no cyanosis and no clubbing Skin: no rashes, warm and dry (cannot currently visualize toes and venous wounds on left leg ) Neurologic: moves all extremities and awake; no focal motor deficits Psychiatric: Orientation: alert and oriented x 3 Affect: + flat affect Results & Data Laboratory Results 07/05/18 07/05/18 07/05/18 Range/Units 01:20 01:20 01:20 WBC 9.18 (4.8-10.8) K/uL RBC 4.04 L (4.7-6.1) M/uL Hgb 12.9 L (14.0-18.0) g/dL Hct 37.9 L (42-52) % MCV 93.8 (80-100) fL MCH 31.9 (25-34) pg MCHC 34.0 (32-36) g/dL RDW Std Deviation 45.3 (36.4-46.3) fL RDW Coeff of Catalino 13.2 (11.5-14.5) % Plt Count 140 (130-400) K/uL MPV 9.2 (7.4-10.4) fL Immature Gran % (Auto) 0.2 % Neut % (Auto) 79.3 % Lymph % (Auto) 13.2 % [place] % (Auto) 5.7 % Eos % (Auto) 1.5 % Baso % (Auto) 0.1 % Immature Gran # (Auto) 0.02 (0.00-0.02) K/uL Neut # (Auto) 7.28 H (1.4-6.5) K/uL Lymph # (Auto) 1.21 (1.2-3.4) K/uL [place] # (Auto) 0.52 (0.11-0.59) K/uL Eos # (Auto) 0.14 (0-0.5) K/uL Baso # (Auto) 0.01 (0-0.2) K/uL Sodium 133 L (136-145) mmol/L Potassium 3.9 (3.5-5.1) mmol/L Chloride 100 (98-107) mmol/L Carbon Dioxide 27 (21-32) mmol/L Anion Gap 6.0 (3-11) BUN 7 (7-18) mg/dl Creatinine 0.72 (0.6-1.4) mg/dl Est Cr Clr Drug Dosing 162.0 ml/min Est GFR ( Amer) 119.2 Est GFR (Non-Af Amer) 102.8 BUN/Creatinine Ratio 9.6 L (10-20) Glucose 101 H (70-99) mg/dl POC Glucose (70-99) Calcium 8.2 L (8.5-10.1) mg/dl Phosphorus 3.5 (2.5-4.9) mg/dl Albumin 2.8 L (3.4-5.0) gm/dl Vancomycin Trough 12.5 (See Comment) mcg/ml 07/04/18 07/04/18 07/04/18 Range/Units 20:32 17:14 17:13 WBC (4.8-10.8) K/uL RBC (4.7-6.1) M/uL Hgb (14.0-18.0) g/dL Hct (42-52) % MCV (80-100) fL MCH (25-34) pg MCHC (32-36) g/dL RDW Std Deviation (36.4-46.3) fL RDW Coeff of Catalino (11.5-14.5) % Plt Count (130-400) K/uL MPV (7.4-10.4) fL Immature Gran % (Auto) % Neut % (Auto) % Lymph % (Auto) % [place] % (Auto) % Eos % (Auto) % Baso % (Auto) % Immature Gran # (Auto) (0.00-0.02) K/uL Neut # (Auto) (1.4-6.5) K/uL Lymph # (Auto) (1.2-3.4) K/uL [place] # (Auto) (0.11-0.59) K/uL Eos # (Auto) (0-0.5) K/uL Baso # (Auto) (0-0.2) K/uL Sodium 137 (136-145) mmol/L Potassium (3.5-5.1) mmol/L Chloride (98-107) mmol/L Carbon Dioxide (21-32) mmol/L Anion Gap (3-11) BUN (7-18) mg/dl Creatinine (0.6-1.4) mg/dl Est Cr Clr Drug Dosing ml/min Est GFR ( Amer) Est GFR (Non-Af Amer) BUN/Creatinine Ratio (10-20) Glucose (70-99) mg/dl POC Glucose 115 H 80 (70-99) Calcium (8.5-10.1) mg/dl Phosphorus (2.5-4.9) mg/dl Albumin (3.4-5.0) gm/dl Vancomycin Trough (See Comment) mcg/ml 07/04/18 07/04/18 07/04/18 Range/Units 15:55 12:32 11:52 WBC (4.8-10.8) K/uL RBC (4.7-6.1) M/uL Hgb (14.0-18.0) g/dL Hct (42-52) % MCV (80-100) fL MCH (25-34) pg MCHC (32-36) g/dL RDW Std Deviation (36.4-46.3) fL RDW Coeff of Catalino (11.5-14.5) % Plt Count (130-400) K/uL MPV (7.4-10.4) fL Immature Gran % (Auto) % Neut % (Auto) % Lymph % (Auto) % [place] % (Auto) % Eos % (Auto) % Baso % (Auto) % Immature Gran # (Auto) (0.00-0.02) K/uL Neut # (Auto) (1.4-6.5) K/uL Lymph # (Auto) (1.2-3.4) K/uL [place] # (Auto) (0.11-0.59) K/uL Eos # (Auto) (0-0.5) K/uL Baso # (Auto) (0-0.2) K/uL Sodium (136-145) mmol/L Potassium (3.5-5.1) mmol/L Chloride (98-107) mmol/L Carbon Dioxide (21-32) mmol/L Anion Gap (3-11) BUN (7-18) mg/dl Creatinine (0.6-1.4) mg/dl Est Cr Clr Drug Dosing ml/min Est GFR ( Amer) Est GFR (Non-Af Amer) BUN/Creatinine Ratio (10-20) Glucose (70-99) mg/dl POC Glucose 98 125 H 130 H (70-99) Calcium (8.5-10.1) mg/dl Phosphorus (2.5-4.9) mg/dl Albumin (3.4-5.0) gm/dl Vancomycin Trough (See Comment) mcg/ml 07/04/18 Range/Units 07:43 WBC (4.8-10.8) K/uL RBC (4.7-6.1) M/uL Hgb (14.0-18.0) g/dL Hct (42-52) % MCV (80-100) fL MCH (25-34) pg MCHC (32-36) g/dL RDW Std Deviation (36.4-46.3) fL RDW Coeff of Catalino (11.5-14.5) % Plt Count (130-400) K/uL MPV (7.4-10.4) fL Immature Gran % (Auto) % Neut % (Auto) % Lymph % (Auto) % [place] % (Auto) % Eos % (Auto) % Baso % (Auto) % Immature Gran # (Auto) (0.00-0.02) K/uL Neut # (Auto) (1.4-6.5) K/uL Lymph # (Auto) (1.2-3.4) K/uL [place] # (Auto) (0.11-0.59) K/uL Eos # (Auto) (0-0.5) K/uL Baso # (Auto) (0-0.2) K/uL Sodium 137 (136-145) mmol/L Potassium 3.8 (3.5-5.1) mmol/L Chloride 105 (98-107) mmol/L Carbon Dioxide 27 (21-32) mmol/L Anion Gap 5.0 (3-11) BUN 6 L (7-18) mg/dl Creatinine 0.72 (0.6-1.4) mg/dl Est Cr Clr Drug Dosing 162.0 ml/min Est GFR ( Amer) 119.2 Est GFR (Non-Af Amer) 102.8 BUN/Creatinine Ratio 7.8 L (10-20) Glucose 131 H (70-99) mg/dl POC Glucose (70-99) Calcium 8.5 (8.5-10.1) mg/dl Phosphorus (2.5-4.9) mg/dl Albumin (3.4-5.0) gm/dl Vancomycin Trough (See Comment) mcg/ml (1) Diabetes mellitus, type 2 Diabetes mellitus complication detail: with polyneuropathy Diabetes mellitus complication status: with neurologic complications Diabetes mellitus alf insulin use: without termite helper use Qualified Code(s): E11.42 - Type 2 diabetes mellitus with diabetic polyneuropathy (2) Hyperlipidemia Hyperlipidemia type: unspecified Qualified Code(s): E78.5 - Hyperlipidemia, unspecified (3) Chronic obstructive pulmonary disease COPD type: unspecified COPD Qualified Code(s): J44.9 - Chronic obstructive pulmonary disease, unspecified (4) Hypertension Hypertension type: essential hypertension Qualified Code(s): I10 - Essential (primary) hypertension (5) Obesity Body mass index: BMI 35.0-35.9 Obesity classification: adult class 2 (BMI 35 - 39.9) Obesity type: unspecified obesity type Serious obesity comorbidity presence: with serious comorbidity Qualified Code(s): E66.01 - Morbid (severe) obesity due to excess calories; Z68.35 - Body mass index (BMI) 35.0-35.9, adult (6) Osteomyelitis Laterality: left Osteomyelitis location: foot Osteomyelitis type: other acute Qualified Code(s): M86.172 - Other acute osteomyelitis, left ankle and foot
--- NOTE | 2018-07-04 17:03 | XRay Report ---
XR foot LT min 3V routine CLINICAL HISTORY: 58 years-old Male presenting with post op. TECHNIQUE: Frontal, oblique, and lateral views of the left foot were obtained. COMPARISON: MR from 06/21/2018. FINDINGS: The middle and distal phalanges of the second toe has been resected as has the distal phalanx of the third toe. There is a surgical clip along the medial aspect of the head of the proximal phalanx of th e first toe. There is also erosion of the medial aspect of the head of the proximal phalanx and media l base of the distal phalanx of the first toe. No acute fracture or malalignment. Suspected underlyin g osteopenia. IMPRESSION: 1. Postsurgical changes of partial indications of the second and third toes. 2. Apparent erosion of the medial aspect of the interphalangeal joint of the first toe. This is conc erning for septic arthritis. This appearance may alternatively be postsurgical. Correlate clinically. Electronically signed by: Ja Laughlin M.D. 07/04/2018 5:01 PM
--- NOTE | 2018-07-04 17:15 | Anesthesiology Progress Note ---
Date of Service July 04, 2018 Anesthesia Post Procedure Vital Signs Vital Signs: Temp Pulse Pulse Resp BP BP Pulse Ox 07/04/18 17:04 153/85 H 07/04/18 17:00 36.4 C L 88 18 168/111 H 96 07/04/18 16:35 36.4 C L 86 18 158/89 H 96 07/04/18 16:25 36.4 C L 85 18 160/88 H 96 07/04/18 16:15 86 18 150/89 H 96 07/04/18 16:05 83 18 178/70 H 96 07/04/18 15:55 81 18 153/90 H 96 07/04/18 15:49 36.4 C L 81 20 148/87 H 100 07/04/18 12:41 36.4 C L 75 20 184/87 H 97 07/04/18 07:37 36.7 C 80 16 173/82 H 96 07/03/18 22:27 36.7 C 74 18 163/82 H 95 Pain Intensity Left Foot: Pain Intensity: 0 Notes Mental Status: alert / awake / arousable Patient Amnestic to Procedure: Yes Nausea / Vomiting: adequately controlled Pain: adequately controlled Airway Patency, RR, SpO2: stable & adequate BP & HR: stable & adequate Hydration State: stable & adequate Anesthetic Complications: no major complications apparent
--- NOTE | 2018-07-05 07:57 | Operative Report ---
DATE OF OPERATION: 07/04/2018 SURGEON: Massimo Vazquez DPM HAND ROLLER SURGEON : Claudia Carver DPM PREOPERATIVE DIAGNOSES: 1. Ulceration, right hallux secondary to interphalangeal joint sesamoid. 2. Osteomyelitis, right second and third toe. 3. Cellulitis, left foot. POSTOPERATIVE DIAGNOSES: 1. Ulceration, right hallux secondary to interphalangeal joint sesamoid. 2. Osteomyelitis, right second and third toe. 3. Cellulitis, left foot. PROCEDURES: 1. Excision interphalangeal joint sesamoid, left hallux. 2. Flexor tenotomy, right third toe. 3. Amputation, left second toe PIP joint level. 4. Amputation left third DIP joint level. 5. I and D of bone cortex left second and third toes. HEMOSTASIS: Pneumatic thigh tourniquet inflated to a level of 300 mmHg. ESTIMATED BLOOD LOSS: Less than 5 mL MATERIALS: 3-0 Vicryl, 4-0 nylon. HISTOPATHOLOGY: Cultures sent. Interphalangeal sesamoid bone sent and toes left second and third sent. COMPLICATIONS: None. The patient tolerated the procedure and anesthesia well without complications. INDICATIONS OF PROCEDURE: This is a long-term patient of Dr. Vazquez who has been following for the past 4 months, who was found to have an osteomyelitis of the second and third toes. He has also had a chronic ulceration over the left hallux. The patient was admitted on Monday due to hyponatremia. Fluids were readjusted and has been started on IV antibiotics 2 days ago. Previous cultures were taken from the office growing out gram negative and gram positive. He was placed on Augmentin as an outpatient, due to recent MRI findings. Procedure, risks and complications were reviewed both by myself and Dr. Vazquez regarding amputation distal aspect of the toes as well as removal of the interphalangeal joint sesamoid followed by 6 weeks of IV antibiotics. DESCRIPTION OF PROCEDURE: The patient was brought to the OR and placed on the OR table in supine position. Upon completion of IV with sedation, a local field block was performed by Dr. Vazquez. The foot was scrubbed, prepped and draped in the usual aseptic fashion. Attention was directed to the left foot over the interphalangeal joint plantarly over the incision directly over the ulceration both distal and proximal ulceration was extended interphalangeal joint sesamoid was found and excised during its removal. It was fractured into 2 different pieces. Fluoroscopy was used to examine the area in total, removed all bony spicules were rasped smooth. Attention was then directed to the distal aspect of the second and third digits. The left second digit was disarticulated at the PIP joint level and left third at the DIP joint level. Bone cortex was incised and the bone of the middle phalanx and distal phalanx of the left second and the bone from the distal phalanx of left third were sent. The incision was more of a fish-mouth with a larger plantar flap. Irrigation was performed with 3000 units with bacitracin infiltrated into the saline. Extensor tendon and plantar tendon were repaired using 3-0 Vicryl. Skin margins were closed using 4-0 nylon. It should be noted that the plantar hallux ulceration was not fully closed and was planned to allow secondary granulate over the previous ulceration site. The Fluoroscan was used to check for any remaining interphalangeal joint sesamoids. Dry sterile compressive dressing was applied of Adaptic, 4 x 4's, Iram and an SHAYY. Pneumatic ankle tourniquet was released with normal hyperemic noriega digits of the 1 through 5, left foot distal aspect and the patient will be readmitted to the floor for continue IV antibiotics. I attest to the content of the Intraoperative Record and any orders documented therein. Any exceptions are noted below. [id number]
--- NOTE | 2018-07-05 09:30 | Infectious Disease Consult ---
Date of Consultation July 05, 2018 Assessment & Plan (1) Osteomyelitis of left foot: Patient will continue current antibiotics until further culture data is available. Hopefully antibiotics can be narrowed. No anaerobic gram negatives are seen on Gram stain however will await final cultures. He will remain on Vanco and cefepime pending additional culture data. He is consented for a PICC line. He will need weekly laboratory studies on antibiotics. History of Present Illness Attending Physician: Adan Anderson Patient admitted to the hospital from Podiatry service secondary to previous outpatient MRI showing osteomyelitis of the 2nd and 3rd digits of the left foot. An outpatient culture on the 18 June grew MSSA and Alcaligenes faecalis. The patient was Augmentin but having significant response. He states that he tolerated this well. He was admitted to the hospital to undergo amputation. This was done yesterday afternoon. Intraoperative cultures are pending Gram stain has few gram-positive cocci and gram-positive rods. The patient has been afebrile since admission to the hospital. His white blood cell count today is 9.1. He was placed empirically on vancomycin and cefepime and he is tolerating these well. Infectious diseases was consulted for antibiotic recommendations post discharge from the hospital. On my examination patient is eating. He does not complain of any chest pain cough shortness of breath. He denies any abdominal pain nausea vomiting or diarrhea. He is tolerating his antibiotics well. He denies any fevers or chills. He any pain in his foot. Allergies Allergy/AdvReac Type Severity Reaction Status Date / Time No Known Allergies Allergy Verified 06/29/18 08:20 Home Medications Home Medications Medication Instructions Recorded Confirmed Type albuterol sulfate 2 puff INHALATION QID PRN 06/29/18 06/29/18 History amoxicillin-pot clavulanate 10 ml PO Q12H 06/29/18 06/29/18 History cholecalciferol (vitamin D3) 1,000 unit PO QAM 06/29/18 06/29/18 History [Vitamin D3] clonazepam 0.5 mg PO BID 06/29/18 06/29/18 History divalproex 500 mg PO HS 06/29/18 06/29/18 History ezetimibe 10 mg PO QAM 06/29/18 06/29/18 History fluvoxamine 150 mg PO HS 06/29/18 06/29/18 History furosemide 20 mg PO DAILY PRN 06/29/18 06/29/18 History glipizide 5 mg PO QAM 06/29/18 06/29/18 History ibuprofen 400 mg PO Q6H PRN 06/29/18 06/29/18 History losartan 25 mg PO QAM 06/29/18 06/29/18 History metformin 1,000 mg PO BID 06/29/18 06/29/18 History mirabegron [Myrbetriq] 50 mg PO QAM 06/29/18 06/29/18 History olanzapine [Zyprexa] 10 mg PO HS 06/29/18 06/29/18 History oxycodone-acetaminophen 1 tab PO Q6H PRN 06/29/18 06/29/18 History pioglitazone 45 mg PO QAM 06/29/18 06/29/18 History polyethylene glycol 3350 [Miralax] 17 g PO DAILY PRN 06/29/18 06/29/18 History simvastatin 80 mg PO HS 06/29/18 06/29/18 History vitamin E 400 unit PO QAM 06/29/18 06/29/18 History albuterol sulfate [Ventolin HFA] 2 inh QID 07/02/18 07/02/18 History desmopressin 3 tab PO HS 07/02/18 07/02/18 History triamcinolone acetonide 1 applic TOPICAL BID 07/02/18 07/02/18 History Patient History Medical History Alcohol abuse Current smoker Diabetic neuropathy Hyponatremia Nephrology following patient this admission: (1) Hyponatremia: 58-year-old gentlemen with chronic hyponatremia in the setting of Desmopressin use and excessive alcohol intake, admitted to the hospital for elective surgical procedure. He was found to have acute hyponatremia with serum sodium 118. Urine osmolality low at 115. Hyponatremia most likely is secondary to excessive alcohol and free water intake as well as being on Desmopressin although low urien osm is more consistent with excessive free water and alcohol intake. Na rapidly increased to 137, pt clinically stable. --DC fluid restriction, start on D5W at 80 ml/h --Repeat Na at 2 pm and then 6 pm --plan for toe amputation tomorrow. Pnce pt stable after surgery will consider restarting on Desmopressin at a low dose Nocturnal enuresis Schizophrenia Anxiety Chronic back pain Chronic obstructive pulmonary disease Depression Diabetes mellitus, type 2 NIDDM Hyperlipidemia Hypertension Kidney stones OCD (obsessive compulsive disorder) Obesity Osteomyelitis REASON FOR PROCEDURE PAD (peripheral artery disease) Pulmonary HTN "MILD" RVSP 40MMHG PER 2016 STRESS ECHO SOB (shortness of breath) on exertion Surgical History H/O exploratory laparotomy GALLBLADDER LESION EXCISION History of biopsy of bladder TURBT= 11/28/17= LMA#5 AT [facility] History of cystoscopy WITH STONE EXTRACTION X 2 History of open reduction and internal fixation (ORIF) procedure LEFT SHOULDER Family History Father Family history of diabetes mellitus Prostate cancer Aunt Family history of diabetes mellitus Uncle Family history of diabetes mellitus Family/Other Family history of diabetes mellitus Mother Alzheimer disease Diabetes mellitus Social History Communication Ability: Effective Beliefs That Will Affect Care: None marital status: Single Current Living Situation: Alone current occupational status: disabled Other Information That Helps Us Care for You: No Feels Safe at Home: Yes Safety Concerns: Feels Safe At This Time Smoking Status: Current every day smoker Hx Alcohol Use: Yes Hx Substance Use: No Review of Systems All remaining review of systems are reviewed are unremarkable. Physical Exam Vital Signs (Past 24 Hours): Last Vital Signs Temp 37.2 C 07/05/18 07:15 Pulse 81 07/05/18 07:15 Resp 18 07/05/18 07:15 BP 143/77 H 07/05/18 07:15 Pulse Ox 94 07/05/18 07:15 Constitutional: WD/WN, vitals as above Eyes: PERRL, conjunctivae normal, anicteric sclerae ENMT: external ear and nose normal, oropharynx normal Neck: normal visual inspection Respiratory: normal respiratory effort, lungs clear to auscultation Cardiovascular: RRR, no murmur, no edema Gastrointestinal (Abdomen): normal bowel sounds, soft, nontender, no hepa tosplenomegaly Musculoskeletal: no cyanosis or clubbing, extremities motor strength 5/5 Skin: no rashes, warm and dry Left foot dressing clean dry and intact Psychiatric: A+Ox3, euthymic affect Results & Data Laboratory Results Microbiology 07/04/18 14:51 Toe,Left Second Gram Stain - Final 07/02/18 10:36 Blood Blood Culture - Preliminary No growth to date. 07/02/18 10:21 Blood Blood Culture - Preliminary No growth to date.
--- NOTE | 2018-07-05 09:35 | Pharmacy Report ---
Pharmacy Abx Dose Short Note - Date of Service July 05, 2018 - Assessment & Plan Assessment/Plan: 58 year old M admitted for osteomyelitis/cellulitis of L foot - now s/p amputation of 2nd and 3rd toes on L foot on 07/04. Intraop cultures currently pending at this time. Blood cultures are no growth to date. ID consulted to follow patient. Vancomycin * Trough level came back subtherapeutic at ~12.5 mcg/ml (goal ~20 mcg/ml for osteomyelitis) * Will adjust vancomycin dosing to 1250 mg iv q 8 hrs to target higher trough level * Renal function remains stable today; CrCl >100 / Est kinetics based upon level: t1/2~9 hrs, ke~0.070 hr-1 * Patient with elevated BMI >35 kg/m2 therefore increased risk for accumulation of vancomycin, therefore will monitor closely Pharmacy will continue to follow and will adjust dose/frequency as necessary. Thank you.
--- NOTE | 2018-07-05 10:00 | Nephrology Progress Note ---
Date of Service July 05, 2018 Assessment & Plan (1) Hyponatremia: 58-year-old gentlemen with chronic hyponatremia in the setting of Desmopressin use and excessive alcohol intake, admitted to the hospital for elective surgical procedure. He was found to have acute hyponatremia with serum sodium 118. Urine osmolality low at 115. Hyponatremia most likely is secondary to excessive alcohol and free water intake as well as being on Desmopressin although low urien osm is more consistent with excessive free water and alcohol intake. Na staying relatively stable over last 24 hours. --Dc D5W at 60 ml/h --continue on Desmopressin 0.1 mcg 1 tab --fluid restriction to less than 1500 mL/d Will sign off (2) Hypertension: (3) Hypomagnesemia: Subjective ED was seen and examined in her room this am. Awake, alert, conversant, no distr ess. Na has been stable from 133-137 over last 24 hours. Blood pressure stable. No shortness of breath or chest pain. Had toe amputation yesterday. Physical Exam Vital Signs (Past 24 Hours): Last Vital Signs Temp 37.2 C 07/05/18 07:15 Pulse 81 07/05/18 07:15 Resp 18 07/05/18 07:15 BP 143/77 H 07/05/18 07:15 Pulse Ox 94 07/05/18 07:15 Constitutional: WD/WN, vitals as above Respiratory: normal respiratory effort, lungs clear to auscultation Cardiovascular: RRR, no murmur, no edema Skin: + wound and + dry skin Neurologic: moves all extremities and awake Psychiatric: A+Ox3, euthymic affect
--- NOTE | 2018-07-05 13:35 | Anesthesiology Progress Note ---
Date of Service July 05, 2018 Anesthesia Post Procedure Vital Signs Vital Signs: Temp Pulse Pulse Resp BP BP Pulse Ox 07/05/18 07:15 37.2 C 81 18 143/77 H 94 07/05/18 03:58 37.2 C 100 H 18 146/77 H 90 07/04/18 22:49 37.2 C 77 18 159/76 H 97 07/04/18 20:54 36.6 C 86 18 163/81 H 97 07/04/18 19:50 36.5 C 85 18 150/75 H 96 07/04/18 18:55 36.5 C 78 19 138/79 99 07/04/18 18:10 36.7 C 89 18 155/82 H 96 07/04/18 17:19 82 18 153/84 H 99 07/04/18 17:04 153/85 H 07/04/18 17:00 36.4 C L 88 18 168/111 H 96 07/04/18 16:35 36.4 C L 86 18 158/89 H 96 07/04/18 16:25 36.4 C L 85 18 160/88 H 96 07/04/18 16:15 86 18 150/89 H 96 07/04/18 16:05 83 18 178/70 H 96 07/04/18 15:55 81 18 153/90 H 96 07/04/18 15:49 36.4 C L 81 20 148/87 H 100 Pain Intensity Left Foot: Pain Intensity: 0 Notes Mental Status: alert / awake / arousable and participated in evaluation Patient Amnestic to Procedure: Yes Nausea / Vomiting: adequately controlled Pain: adequately controlled Airway Patency, RR, SpO2: stable & adequate BP & HR: stable & adequate Hydration State: stable & adequate Anesthetic Complications: no major complications apparent and Pt Satisfied with anesthetic care
--- NOTE | 2018-07-05 20:17 | Hospitalist Progress Note ---
Date of Service July 05, 2018 Assessment & Plan (1) Osteomyelitis of left foot: 2nd, 3rd toes = POD #1 - s/p amputation of toes 2/3 along with bone bx. awaiting intra-op cultures. bone cultures from 06/18 with: Staphylococcus aureus (MSSA), Alcaligenes faecalis and an Anaerobic gram negat jayleen bacillus. Remains on IV cefepime & vanco. ID consult requested today to help guide final abx selection. Pain control. Appreciate podiatry assistance. Present on Admission?: Yes (2) Hyponatremia: multifactorial but appears this was beer potomania along with DDAVP use. markedly improved (was 118, now 133). BMP in am for stability. Present on Admission?: Yes (3) Hypertension: control adequate at this time continue home meds. Present on Admission?: Yes (4) Hypomagnesemia: level on 07/02 was 1.2. no repeat since then. recheck mag level in AM. (5) PAD (peripheral artery disease): should be on asa and statin PAD not severe enough to warrant intervention (6) COPD (chronic obstructive pulmonary disease): not in exacerbation at this time (7) Alcohol abuse: no signs/symptoms of withdrawal at this time should be on folic acid, thiamine, MVI (8) Diabetes mellitus with peripheral vascular disease: cont with SSI (novolog) add basal if needed glycemic control thus far (9) Schizophrenia: continue home meds no issues at this time (10) DVT prophylaxis: start chemical means in AM Subjective patient feeling well denies any significant complaints mild left foot pain only ambulating w use of surgical post-op shoe no dyspnea no chest pain no abdominal pain 1 episode of diarrhea/loose stool this AM Constitutional: no fever and no chills Respiratory: no cough, no dyspnea and no dyspnea on exertion Cardiovascular: no chest pain Gastrointestinal: no abdominal pain Physical Exam Vital Signs (Past 24 Hours): Last Vital Signs Temp 36.4 C L 07/05/18 15:41 Pulse 93 H 07/05/18 15:41 Resp 18 07/05/18 15:41 BP 114/72 07/05/18 15:41 Pulse Ox 99 07/05/18 15:41 Constitutional: well developed and well nourished; no acute distress ENMT: external ear and nose normal, oropharynx normal Respiratory: normal respiratory effort, lungs clear to auscultation Cardiovascular: Rate/Rhythm: regular rate and regular rhythm Heart Sounds: normal S1 and normal S2; no murmur Vessels: posterior tibial pulses present and dorsalis pedis pulses present; no JVD Gastrointestinal (Abdomen): normal bowel sounds, soft, nontender, no hepatosplenomegaly Skin: left foot wrapped in large dressing; post-op surgical shoe in place Psychiatric: Orientation: alert and oriented x 3 Results & Data Laboratory Results Laboratory Results - last 24 hr 07/04/18 07/05/18 07/05/18 20:32 01:20 01:20 WBC RBC Hgb Hct MCV MCH MCHC RDW Std Deviation RDW Coeff of Catalino Plt Count MPV Immature Gran % (Auto) Neut % (Auto) Lymph % (Auto) [place] % (Auto) Eos % (Auto) Baso % (Auto) Immature Gran # (Auto) Neut # (Auto) Lymph # (Auto) [place] # (Auto) Eos # (Auto) Baso # (Auto) Sodium 133 L Potassium 3.9 Chloride 100 Carbon Dioxide 27 Anion Gap 6.0 BUN 7 Creatinine 0.72 Est Cr Clr Drug Dosing 162.0 Est GFR ( Amer) 119.2 Est GFR (Non-Af Amer) 102.8 BUN/Creatinine Ratio 9.6 L Glucose 101 H POC Glucose 115 H Calcium 8.2 L Phosphorus 3.5 Albumin 2.8 L Vancomycin Trough 12.5 07/05/18 07/05/18 07/05/18 01:20 07:56 12:25 WBC 9.18 RBC 4.04 L Hgb 12.9 L Hct 37.9 L MCV 93.8 MCH 31.9 MCHC 34.0 RDW Std Deviation 45.3 RDW Coeff of Catalino 13.2 Plt Count 140 MPV 9.2 Immature Gran % (Auto) 0.2 Neut % (Auto) 79.3 Lymph % (Auto) 13.2 [place] % (Auto) 5.7 Eos % (Auto) 1.5 Baso % (Auto) 0.1 Immature Gran # (Auto) 0.02 Neut # (Auto) 7.28 H Lymph # (Auto) 1.21 [place] # (Auto) 0.52 Eos # (Auto) 0.14 Baso # (Auto) 0.01 Sodium Potassium Chloride Carbon Dioxide Anion Gap BUN Creatinine Est Cr Clr Drug Dosing Est GFR ( Amer) Est GFR (Non-Af Amer) BUN/Creatinine Ratio Glucose POC Glucose 126 H 119 H Calcium Phosphorus Albumin Vancomycin Trough 07/05/18 17:03 WBC RBC Hgb Hct MCV MCH MCHC RDW Std Deviation RDW Coeff of Catalino Plt Count MPV Immature Gran % (Auto) Neut % (Auto) Lymph % (Auto) [place] % (Auto) Eos % (Auto) Baso % (Auto) Immature Gran # (Auto) Neut # (Auto) Lymph # (Auto) [place] # (Auto) Eos # (Auto) Baso # (Auto) Sodium Potassium Chloride Carbon Dioxide Anion Gap BUN Creatinine Est Cr Clr Drug Dosing Est GFR ( Amer) Est GFR (Non-Af Amer) BUN/Creatinine Ratio Glucose POC Glucose 108 H Calcium Phosphorus Albumin Vancomycin Trough (1) Osteomyelitis of left foot Osteomyelitis type: other acute Qualified Code(s): M86.172 - Other acute osteomyelitis, left ankle and foot (2) Hypertension Hypertension type: essential hypertension Qualified Code(s): I10 - Essential (primary) hypertension
--- NOTE | 2018-07-06 07:43 | Progress Note ---
DATE: 07/06/2018 SUBJECTIVE: The patient is seen at bedside. Denies any pain. Eating and voiding well, tolerating antibiotics. Denies fever, chills or night sweats. OBJECTIVE: VITAL SIGNS: BP 115/54, pulse 87, respirations 14, temperature afebrile at 36.5, O2 sat 92 on room air. LOWER EXTREMITY: Increased edema noted to the left extremity, discoloration medial ankle secondary to chronic venous stasis. DERMATOLOGIC: Sutures intact, left first, second and third digits, mild erythema still present. Increased erythema noted medial ankle over the ulceration sites. Ulceration, interphalangeal joint, left hallux, unchanged. NEUROLOGIC: Epicritic sensation grossly absent. MUSCULOSKELETAL: Left second amputation level PIP joint, left third amputation level DIP joint. IMPRESSION: 1. Cellulitis, left lower extremity. 2. Status post amputation, left second and third digits, excision of interphalangeal joint, left hallux on 07/04/2018. 3. Ulceration, interphalangeal joint, left hallux. 4. Chronic venous ulcerations, bilateral lower extremities. 5. [id number] diabetes mellitus with PVD and peripheral neuropathy. PLAN: Blood culture shows no growth. OR cultures are still pending. Initial cultures are showing staph aureus. Appreciate ID and medicine followup. Currently on ceftazidime and vancomycin. Recommend 6 weeks of antibiotics. Dressing changed at bedside. Can ambulate in a surgery shoe. Keep the dressing clean, dry and intact. From a podiatry standpoint, the patient could be discharged to SNF facility for long-term IV antibiotics.
--- NOTE | 2018-07-06 11:09 | Progress Note ---
DATE: 07/05/2018 SUBJECTIVE: The patient is seen at bedside postoperative day 1, notes minimal pain, ambulating well in surgery shoe. PHYSICAL EXAMINATION: VITAL SIGNS: Stable. Blood pressure 143/77. GENERAL: Denies fevers, chills and night sweats. EXTREMITIES: Lower extremity exam bandage clean, dry and intact left lower extremity. LABORATORY DATA: OR cultures, gram positive cocci and gram positive rods. Blood cultures no growth to date. IMPRESSION: Status post I and D, right foot surgery secondary to osteomyelitis. TREATMENT: Vancomycin dosing was adjusted to 1250 mg q. 8 hours per subtherapeutic trough level. Appreciate ID and Medicine followup. We will continue vancomycin and . Awaiting SNF placement. Once the antibiotics dosing is scheduled, can transfer to SNF with weekly dressing change and ambulation with surgery shoe. Can discharge from a Podiatry standpoint once final ID recommendations on antibiotics obtained. VALARIE
--- NOTE | 2018-07-06 14:19 | Infectious Disease Progress Nt ---
Date of Service July 06, 2018 Assessment & Plan (1) Osteomyelitis of left foot: will continue vanco, tolerating well. will stop cefepime, no gnr identifiied. will need 6 weeks IV abx, will need weekly cbc,cmp, esr, vanco trough while on abx, maintain 15-20. can follow with ID post d/c from hospital. no contraindication to d/c from ID standpoint when otherwise stable. Subjective pt remains on IV abx. no am labs, 07/02 blood cultures remain negative, afebrile. 07/04 OR culture growing MRSA - senstive to Dapto and vanco. for d/c to rehab when stable. Physical Exam Vital Signs (Past 24 Hours): Last Vital Signs Temp 36.7 C 07/06/18 12:53 Pulse 101 H 07/06/18 07:49 Resp 12 07/06/18 12:53 BP 114/74 07/06/18 12:53 Pulse Ox 100 07/06/18 12:53 Results & Data Laboratory Results Microbiology 07/04/18 14:51 Toe,Left Second Gram Stain - Final 07/04/18 14:51 Toe,Left Second Aerobic and Anaerobic Culture - Preliminary Staph aureus MRSA 07/02/18 10:36 Blood Blood Culture - Preliminary No growth to date. 07/02/18 10:21 Blood Blood Culture - Preliminary No growth to date. (1) Osteomyelitis of left foot Osteomyelitis type: other acute Qualified Code(s): M86.172 - Other acute osteomyelitis, left ankle and foot
--- NOTE | 2018-07-11 08:35 | Discharge Summary ---
Date of Service date of admission - 07/02/18 date of discharge - 07/06/18 Admission HPI Per Admitting Provider This patient is a 58-year-old male with a history of schizophrenia, depression with anxiety, DM 2 with neuropathy, HTN, hyperlipidemia, kidney stones, chronic hyponatremia likely secondary to alcohol abuse, current smoker, COPD, obesity, enuresis, chronic venous stasis, who presents as a direct admission from the [facility] for osteomyelitis of the left second and third toes, as well as foreign body in the left great toe along with cellulitis. He is here for amputation and treatment of osteomyelitis. Patient denies any fevers/sweats/chills at home. He did start to have a runny nose this morning and took a decongestant that was [id number]. Otherwise, has been feeling his normal self. He has no pain in the foot as he has neuropathy. Principal Diagnosis left foot 2nd/3rd toes osteomyelitis s/p amputation Discharge Exam Constitutional well developed, well nourished and + obese; no acute distress ENMT external ear and nose normal, oropharynx normal Respiratory normal respiratory effort, lungs clear to auscultation Cardiovascular Rate/Rhythm: regular rate and regular rhythm Heart Sounds: normal S1 and normal S2; no murmur Vessels: posterior tibial pulses present and dorsalis pedis pulses present; no JVD Gastrointestinal (Abdomen) normal bowel sounds, soft, nontender, no hepatosplenomegaly Skin left foot - amputations of 2nd/3rd digits. Dressings intact. No oozing or foul odor or drainage. Operative sites clean. Right arm PICC line clean. Psychiatric Orientation: alert and oriented x 3 Discharge Data Allergies Allergy/AdvReac Type Severity Reaction Status Date / Time No Known Allergies Allergy Verified 06/29/18 08:20 Consultations 1. podiatry - Claudia Thakkar DPM 2. [facility]. [facility] Infectious [facility] (Leora Salinas DO) 4. PT, OT Procedures Performed 1. 07/04/18 - s/p Incision and Drainage left foot - Massimo Vazquez DPM s/p Excision Accessory Sesamoid Interphalangeal Joint Amputation Left 2nd and 3rd toes - Massimo Vazquez DPM 2. right arm PICC line done pre-hospital on 06/21/18: MRI Left foot - IMPRESSION: 1. Findings suggesting developing osteomyelitis of the middle and distal phalanx of the second toe. 2. Additional focus of developing osteomyelitis distal phalanx third toe. 3. Generalized soft tissue cellulitis seen primarily the dorsal aspect of the foot. 4. Foreign body within the subcutaneous fat adjacent to the first metatarsal. 5. No evidence for drainable abscess or collection. done pre-hospital on 06/21/18: Arterial duplex bilateral legs - IMPRESSION: 1. Moderate plaque formation bilaterally. 2. Moderate multilevel stenosis distal left common femoral artery, left superficial femoral artery, and right common femoral artery. 3. Digit index on the right is 0.83. On the left it is 0.79. Hospital Course (1) Osteomyelitis of left foot: 2nd, 3rd toes - s/p amputation of toes 2/3 along with bone biopsy. Intra-operative cultures only grew MRSA. (Outpatient cultures from 06/18/18 had grown Staphylococcus aureus (MSSA), Alcaligenes faecalis and an Anaerobic gram negative bacillus). During this stay he was treated with IV cefepime & vancomycin but ultimately he was narrowed to IV vancomycin only via PICC line. He will need close follow-up with podiatry and infectious disease. While on IV vancomycin he will need - cbc, cmp, esr once weekly with first set of labs on 07/09/18. Labs to be sent to Dr. Leora Salinas. Vanc trough level 15-20 advised. (2) Hyponatremia: multifactorial but appears this was beer potomania along with DDAVP use. markedly improved (was 118, now 133). DDAVP was resumed albeit at a much lower dose. (3) Hypertension: control adequate during the stay on his home medication regimen. (4) Hypomagnesemia: level on 07/02 was 1.2. repleted multiple times while here. repeat magnesium level after discharge advised to ensure stability. (5) PAD (peripheral artery disease): Ideally the patient should be on asa and statin agent. PAD not severe enough to warrant intervention. Recommend consideration of aspirin and statin therapy. (6) COPD (chronic obstructive pulmonary disease): not in exacerbation while hospitalized. (7) Alcohol abuse: no signs/symptoms of withdrawal during the stay. should be on folic acid, thiamine, MVI. (8) Diabetes mellitus with peripheral vascular disease: He will resume metformin & glipizide after discharge. (9) Schizophrenia: continue home meds no issues during the stay Total Time Total Time Spent Total Time Spent (In Minutes): 45 Total Time Includes: Examination of the Patient, Discharge Planning, Medication Reconciliation and Communication With Other Providers Discharge Plan Discharge Items Patient Disposition: Transfer Inpatient Rehab Fac Reason For Visit: Osteomylitis, Ulceration L FOOT Discharge Diagnosis: left 2nd and 3rd toe osteomyelitis with ulcers s/p amputation and debridement Discharge Goals: Diagnostic testing, Improve disease control, Learn about illness and Therapeutic intervention Activity: As commented below Activity Comment: use surgical shoe on LEFT foot at all times with walking Bathing: Keep incision dry Bathing Comment: ok to shower, but cover RUE PICC line and cover Left Foot; no baths Weightbearing: Left weightbearing Non-emergency contact: Primary Care Provider, Surgeon and Specialist Call non-emergency contact if: you have any medication questions, your symptoms worsen, your pain is not controlled, your pain is worsening, your pain is unusual for you, your pain is concerning for you, your temperature is above 100.5, your wound has increased redness, your wound has increased drainage and your wound pain has increased Follow-up/Referrals: Alvin Holman III, MD [Primary Care Provider] - Leora Salinas DO [Physician] - (see Dr. Salinas, infectious disease, within 1 week ) Claudia Carver DPM [Physician] - (see Dr. Carver, podiatry, in 5-7 days) Diet: Carb Consistent or DM2 Addtl Provider Instructions: 1. cbc, cmp, esr - once weekly; obtain first set of labs on 07/09/18 -- please send these weekly results to Dr. Leora Salinas, infectious disease, at [facility] 2. check magnesium level on 07/09/18 3. check vancomycin trough levels per protocol while on 6-week course of IV vancomycin; maintain trough level of 15-20. 4. daily dressing changes to left foot and PRN; do not remove any steri strips, sutures, etc. Only replace guaze and dressings during these changes. 5. follow-up with Dr. Carver, podiatry, and infectious disease Dr. Salinas -- both within 1 week of discharge. 6. return to [facility] if - * you have fevers over 100.5 degrees * you have worsening pain of the left foot * you have worsening redness, drainage, etc * uncontrolled sugars * any other concerns 7. at [facility] check fingerstick blood sugars before meals & at bedtime Prescriptions: New vancomycin 1.25 gram recon soln 1.25 gm IV Q8H 42 Days Qty: 10 RF: 0 Lactinex 1 million cell tablet,chewable 2 tab PO TID 30 Days Qty: 180 RF: 0 desmopressin 0.1 mg tablet 0.1 mg PO HS Qty: 30 RF: 1 Continued clonazepam 0.5 mg Tablet 0.5 mg PO BID RF: 0 metformin 1,000 mg Tablet 1,000 mg PO BID RF: 0 oxycodone-acetaminophen 7.5-325 mg Tablet 1 tab PO Q6H PRN (Reason: Pain) RF: 0 mirabegron [Myrbetriq] 50 mg Tablet Extended Release 24 Hr 50 mg PO QAM RF: 0 divalproex 500 mg Tablet,Delayed Release (Dr/Ec) 500 mg PO HS RF: 0 losartan 25 mg Tablet 25 mg PO QAM RF: 0 furosemide 20 mg Tablet 20 mg PO DAILY PRN (Reason: Edema) RF: 0 cholecalciferol (vitamin D3) [Vitamin D3] 1,000 unit Capsule 1,000 unit PO QAM RF: 0 ezetimibe 10 mg Tablet 10 mg PO QAM RF: 0 polyethylene glycol 3350 [Miralax] 17 gram/dose Powder 17 g PO DAILY PRN (Reason: Constipation) RF: 0 ibuprofen 200 mg Capsule 400 mg PO Q6H PRN (Reason: Pain) RF: 0 olanzapine [Zyprexa] 10 mg Tablet 10 mg PO HS RF: 0 simvastatin 80 mg Tablet 80 mg PO HS RF: 0 albuterol sulfate 90 mcg/actuation Hfa Aerosol Inhaler 2 puff INHALATION QID PRN (Reason: Wheezing) RF: 0 vitamin E 400 unit Capsule 400 unit PO QAM RF: 0 glipizide 5 mg Tablet 5 mg PO QAM RF: 0 fluvoxamine 150 mg Capsule,Extended Release 24hr 150 mg PO HS RF: 0 triamcinolone acetonide 0.1 % Cream 1 applic TOPICAL BID RF: 0 Discontinued pioglitazone 45 mg Tablet 45 mg PO QAM RF: 0 amoxicillin-pot clavulanate 125-31.25 mg/5 mL Suspension For Reconstitution 10 ml PO Q12H RF: 0 albuterol sulfate [Ventolin HFA] 90 mcg/actuation Hfa Aerosol Inhaler 2 inh QID RF: 0 Stand-Alone Forms: [facility] Discharge Orders: Discharge Order (Routine); Ordered 07/06/18 Ordered By: Adan Anderson Skilled Items Patient informed of condition?: Yes DNR: No Discharge Level of Care: Acute rehab Communicable Disease: Yes (MRSA of left foot) Discharge Prognosis: Stable Admission Data Admit Date/Time: 07/02/18 09:30 Attending Provider: Adan Anderson Admit Provider: Tomeka Joel Primary Care Provider: Alvin Holman III Other Providers: Claudia Carver Stephen M. ; Stephen Mock Service: Medical Other Pending Studies at Discharge: Yes Studies:: final wound culture from left foot DC Date/Time DO NOT enter until pt leaves facility: 07/06/18 18:30
== END 2018-07-06 18:30 | DRG 617 ==
LOC: ASU 09:26 → SUATTDRO 09:30 → 3W 09:30
DX: I87.8 Other specified disorders of veins; E66.9 Obesity, unspecified; I27.20 Pulmonary hypertension, unspecified; Z82.0 Family history of epilepsy and other diseases of the nervous system; I70.245 Atherosclerosis of native arteries of left leg with ulceration of other part of foot; E78.5 Hyperlipidemia, unspecified; F17.200 Nicotine dependence, unspecified, uncomplicated; E87.1 Hypo-osmolality and hyponatremia; J44.9 Chronic obstructive pulmonary disease, unspecified; Z83.3 Family history of diabetes mellitus; F10.10 Alcohol abuse, uncomplicated; I10 Essential (primary) hypertension; M86.8X7 Other osteomyelitis, ankle and foot; E11.40 Type 2 diabetes mellitus with diabetic neuropathy, unspecified; F20.9 Schizophrenia, unspecified; Z68.35 Body mass index [BMI] 35.0-35.9, adult; E11.69 Type 2 diabetes mellitus with other specified complication; F42.9 Obsessive-compulsive disorder, unspecified; L03.116 Cellulitis of left lower limb; N39.44 Nocturnal enuresis

== ENCOUNTER 2022-08-03 10:07 | Observation (INO) ==
--- NOTE | 2022-08-03 10:41 | Emergency Department Note ---
Impression & Plan Sepsis, Cellulitis of left lower leg, Hypomagnesemia, Immunocompromised, Generalized weakness, Diarrhea, Lactic acidosis ED Provider Note Name: TYSON MEJIA II Age: 62 Sex: M Arrives Via: Walk-In Informant: Patient, ED Provider: Eric Rincon MD Chief Complaint: Illness Impression: As per impressions above Medical Decision Makin-year-old gentleman with a history of metastatic lung cancer received his third dose of chemotherapy 2 days ago arrives for evaluation of worsening weakness fatigue shakes and loss of bowel control. He also is noted to have u lceration of the left foot with developing cellulitis spreading up over the ankle. No evidence of joint infection and on x-ray no clear evidence of osteomyelitis. Labs are concerning for early sepsis with an elevated lactic acid. He was given 2 L normal saline bolus throughout early resuscitation. Cultures were obtained and he was given empiric cefepime and daptomycin for presumed cellulitic cause with broad-spectrum given his immunocompromise state. Labs show significant hypomagnesemia and with his weakness this repletion was started in the ER. Chest x-ray without clear new findings in the right upper lobe consolidation was previously noted. Patient is doing much better with IV hydration. He is positive for COVID-19 though denies shortness of breath or cough. It could be that he is early COVID or even just the diarrhea is secondary to COVID. At this time we will keep in isolation until further discussions and planning. Prior Medical Record and Triage/Nursing Notes reviewed by Me External chart review by me Differentials:Sepsis, COVID, pneumonia, UTI, cellulitis, shock, electrolyte imbalance amongst many other pathologies considered. He has evidence of severe sepsis however I do not feel a 30/kg IV fluid bolus would be appropriate. Instead he was given an initial fluid bolus of 2 L normal saline IV due to concerns for fluid overload. Vital Signs: reviewed and remarkable for tachycardia Interventions: Normal saline bolus 2 L IV, cefepime IV, daptomycin IV Labs:Reviewed and remarkable for elevated lactic acid, low magnesium amongst multiple other laboratory abnormalities and labs were fully reviewed by me Imagin view chest x-ray shows consolidation of the right upper lung improved from previous chest x-ray. X-ray of the left foot as per my interpretation without evidence of metatarsal osteomyelitis EKG:As per my as per my interpretation. Indication sepsis. Sinus tachycardia with a right bundle branch block no ectopy nor ischemia. The QTc is 484. When compared with previous EKG of July 14, 2021 heart rate has increased significantly. Cardiac/Tele Monitoring: Cardiac Monitoring: An Order was placed for continuous cardiac monitoring. The monitor shows a rate of 110 with a sinus tach rhythm. Consults:Dr. Stuart of the [facility] Hospitalist service Plan: Disposition:Hospitalization. Condition: Fair History of Present Illness:62-year-old gentleman arrives for evaluation of illness. Patient with lung cancer with metastasis who has been undergoing chemotherapy and radiation receiving his third dose of chemo on Monday. Rapidly worsening weakness fatigue illness since then. This morning too weak to really stand without assistance. He had an episode of diarrhea today which she has not been having and it was uncontrolled. He also notes a wound on his left foot whi ch has been worsening over the last few weeks and now he has redness over the left foot spreading up his leg since the last 2 days. Patient denies fevers but states he is having chills. Did drink a boost this morning without much improvement. Past History:See Below Home Medications:See Below Allergies:See Below Vitals:Blood Pressure: 138/78, Pulse 139, RR 20, T 36.6C, O2 99% on RA Physical Exam: GENERAL: Patient is ill/dehydrated appearing and in moderate distress. Tremulous, warm to touch EYES: No scleral icterus, unremarkable pupils. ENT: Mucous membranes dry, no nasal congestion. NECK: No masses appreciated, nomeningismus, trachea is midline. RESPIRATORY: Mild dyspnea/tachypnea with only mild crackles at the bases. CARDIOVASCULAR: Tachycardic GASTROINTESTINAL: Abdomen soft, non-tender, no peritonitis.Bowel sounds positive.No masses appreciated. EXTREMITIES: Neuropathy of both lower legs below knees. He is to ulcerations of the dorsal aspect of the left foot over the first metatarsal. Mild granulation tissue and some discoloration of the distal ulceration. There is surrounding cellulitis extending over the top of the foot up to the ankle and onto the lower leg. Warm to touch. NEUROLOGIC: Alert and oriented, no focal neurologic deficit appreciated SKIN: No rash, no jaundice, no diaphoresis. PSYCH: Appropriate GCS: 15 ED Course: Times/Reassessments: Patient is significantly improved with fluids and is in no significant distress. Continues to deny any respiratory or chest complaints. Critical Care: I have personally spent 35 minutes of critical care time in the direct management of this patient. Severe sepsis with immunocompromised state requiring resuscitation. This was a life/limb threatening event. This 35 minutes is in excess of all separately billable procedures. Eric Rincon MD Past Med/Surg History Medical History (Updated 08/03/22 @ 15:09 by Eric Rincon MD) Alcohol abuse 10-12 DRINKS PER DAY Anxiety and depression Benign essential tremor Chronic back pain Chronic obstructive pulmonary disease daily inh and prn inh Diabetes mellitus, type 2 NIDDM Diabetic neuropathy Edema Esophageal reflux Hx of osteomyelitis Jun 2018- s/p amputation of tips of 2nd/3rd toes and part of great toe > left foot Hyperlipidemia Hypertension Lung cancer Diagnosed Spring 2021 -- no surgical intervention at this time.; following with Dr. 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 Pulmonary HTN "MILD" RVSP 40MMHG PER 2015 STRESS ECHO- NO ISSUES NOTED WITH 2019 ECHO Schizophrenia Urinary incontinence Venous stasis dermatitis Surgical History H/O exploratory laparotomy GALLBLADDER LESION EXCISION H/O tooth extraction History of biopsy of bladder TURBT= 11/28/17= LMA#5 AT [facility] History of bronchoscopy Spring 2021 History of cataract surgery right/left History of cystoscopy WITH STONE EXTRACTION X 2 History of open reduction and internal fixation (ORIF) procedure LEFT SHOULDER 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 Family History Father Prostate cancer Family history of diabetes mellitus Myocardial infarction Aunt Family history of diabetes mellitus Uncle Family history of diabetes mellitus Family/Other Family history of diabetes mellitus Mother Diabetes Alzheimer disease Grandfather (Paternal) Cardiac disorder Cancer Brother Kidney stones Other Heart disease No family history of adverse response to anesthesia Denies family history of Crohn's disease Colorectal cancer Lung disease Inflammatory bowel disease Asthma Social History Smoking Status: Former smoker Age Started Using Tobacco: 12; Age Quit Using Tobacco: 61; packs per day: 0.5; Cigarettes Per Day: 10; Second Hand Exposure: No; Hx Alcohol Use: Yes Alcohol type: beer Alcohol Intake Frequency Comment: 6 beers daily Hx Substance Use: No Preferred Language: Albanian Communication Ability: Effective Visual Impairment: No Limitations Hearing Ability: Normal [employer] Required: No Beliefs That Will Affect Care: None marital status: Single Current Living Situation: Alone current occupational status: disabled Feels Safe at Home: Yes in current or past relationships, have you been: other caffeine: Yes Physical Activity Frequency: 1-2 Times per Week Seatbelt Use: always Assistive Devices: CPAP and Glasses Allergies Allergies Allergy/AdvReac Type Severity Reaction Status Date / Time scopolamine Allergy Intermediate Itching Verified 08/03/22 12:21 Home Meds Home Medications Medication Instructions Recorded Confirmed cholecalciferol (vitamin D3) 25 1,000 unit PO QAM 06/29/18 08/03/22 mcg (1,000 unit) capsule (Vitamin D3) clonazepam 0.5 mg tablet 0.5 mg PO BID 06/29/18 08/03/22 divalproex 500 mg tablet,delayed 500 mg PO HS 06/29/18 08/03/22 release fluvoxamine 150 mg 150 mg PO HS 06/29/18 08/03/22 capsule,extended release 24 hr glipizide 5 mg tablet 5 mg PO QAM 06/29/18 08/03/22 ibuprofen 200 mg capsule 400 mg PO Q6H PRN Pain 06/29/18 08/03/22 olanzapine 10 mg tablet (Zyprexa) 10 mg PO HS 06/29/18 08/03/22 simvastatin 80 mg tablet 80 mg PO HS 06/29/18 08/03/22 vitamin E 268 mg (400 unit) capsule 400 unit PO QAM 06/29/18 08/03/22 triamcinolone acetonide 0.1 % 1 applic topical BID PRN Rash 07/02/18 08/03/22 topical cream polyethylene glycol 3350 17 gram 17 g PO DAILY PRN Constipation 08/26/21 08/03/22 oral powder packet tamsulosin 0.4 mg capsule 0.4 mg PO QAM 01/04/22 08/03/22 metformin 500 mg tablet 1,000 mg PO BID 06/14/22 08/03/22 Unknown Antibiotic 1 tab PO DIRECTED 08/03/22 08/03/22 ezetimibe 10 mg tablet 10 mg PO QAM 08/03/22 08/03/22 pioglitazone 45 mg tablet 45 mg PO QAM 08/03/22 08/03/22 Previous Rx's Medication Instructions Recorded Auto Titrating CPAP #1 ea 07/05/21 CPAP Supplies #1 ea 07/05/21 blood sugar diagnostic (OneTouch #100 ea 10/06/21 Verio test strips) lancets (OneTouch UltraSoft #100 ea 04/05/22 Lancets) losartan 25 mg tablet 25 mg PO QAM #90 tabs 05/06/22 mirabegron 50 mg tablet,extended 50 mg PO QAM #90 tabs 05/24/22 release 24 hr (Myrbetriq) albuterol sulfate 90 mcg/actuation 2 inh inhalation QID PRN shortness 06/08/22 aerosol inhaler (Ventolin HFA) of breath or wheezing #18 grams fluticasone fur. 100 mcg-umeclid 1 inh inhalation QAM #60 ea 06/08/22 62.5 mcg-vilant 25 mcg inhalat.powder (Trelegy Ellipta) furosemide 40 mg tablet 40 mg PO QAM #90 tabs 07/12/22 desmopressin 0.1 mg tablet 0.1 mg PO HS #90 tabs 07/14/22 Results & Data (ED) Vital Signs Vital Signs - 24 hr 08/03/22 10:25 08/03/22 12:07 08/03/22 14:04 Temperature 36.6 C Temperature Source Skin Pulse Rate 139 H 119 H Pulse Rate [Apical] 108 H Pulse Rate from SpO2 Sensor Pulse Rhythm [Apical] Regular Pulse Strength [Apical] Normal Respiratory Rate 20 15 Respiratory Effort / Characteristics Non-Labored Spontaneous Non-Labored Respiratory Depth Normal Normal Respiratory Pattern Regular Regular Blood Pressure 138/78 Blood Pressure [Left Arm] 122/67 Blood Pressure Mean 98 Blood Pressure Mean [Left Arm] 85 Pulse Oximetry 99 94 Oxygen Delivery Method Room Air Room Air Sepsis Recent Fever Within 48 Hours No Sepsis New/Unexplained Change in Mental Status N/A Sepsis Action Taken by Nursing No Action Required 08/03/22 14:06 08/03/22 10:37 08/03/22 10:38 Temperature Temperature Source Pulse Rate 133 H Pulse Rate [Apical] 108 H Pulse Rate from SpO2 Sensor Pulse Rhythm [Apical] Pulse Strength [Apical] Respiratory Rate 16 23 Respiratory Effort / Characteristics Respiratory Depth Respiratory Pattern Blood Pressure 158/74 H Blood Pressure [Left Arm] Blood Pressure Mean 102 Blood Pressure Mean [Left Arm] Pulse Oximetry 98 Oxygen Delivery Method Room Air Sepsis Recent Fever Within 48 Hours Sepsis New/Unexplained Change in Mental Status Sepsis Action Taken by Nursing 08/03/22 10:38 08/03/22 11:00 08/03/22 11:30 Temperature Temperature Source Pulse Rate 131 H 126 H 122 H Pulse Rate [Apical] Pulse Rate from SpO2 Sensor 130 H 126 H 122 H Pulse Rhythm [Apical] Pulse Strength [Apical] Respiratory Rate 22 19 23 Respiratory Effort / Characteristics Respiratory Depth Respiratory Pattern Blood Pressure Blood Pressure [Left Arm] Blood Pressure Mean Blood Pressure Mean [Left Arm] Pulse Oximetry 99 100 99 Oxygen Delivery Method Sepsis Recent Fever Within 48 Hours Sepsis New/Unexplained Change in Mental Status Sepsis Action Taken by Nursing 08/03/22 12:00 08/03/22 12:30 08/03/22 13:00 Temperature Temperature Source Pulse Rate 127 H 115 H 110 H Pulse Rate [Apical] Pulse Rate from SpO2 Sensor 125 H 115 H 112 H Pulse Rhythm [Apical] Pulse Strength [Apical] Respiratory Rate 20 17 16 Respiratory Effort / Characteristics Respiratory Depth Respiratory Pattern Blood Pressure Blood Pressure [Left Arm] Blood Pressure Mean Blood Pressure Mean [Left Arm] Pulse Oximetry 99 100 96 Oxygen Delivery Method Sepsis Recent Fever Within 48 Hours Sepsis New/Unexplained Change in Mental Status Sepsis Action Taken by Nursing 08/03/22 13:30 08/03/22 14:00 08/03/22 14:04 Temperature Temperature Source Pulse Rate 114 H 113 H Pulse Rate [Apical] Pulse Rate from SpO2 Sensor Pulse Rhythm [Apical] Pulse Strength [Apical] Respiratory Rate 16 16 Respiratory Effort / Characteristics Respiratory Depth Respiratory Pattern Blood Pressure 122/67 Blood Pressure [Left Arm] Blood Pressure Mean 85 Blood Pressure Mean [Left Arm] Pulse Oximetry Oxygen Delivery Method Sepsis Recent Fever Within 48 Hours Sepsis New/Unexplained Change in Mental Status Sepsis Action Taken by Nursing 08/03/22 14:04 08/03/22 14:30 08/03/22 14:30 Temperature Temperature Source Pulse Rate 102 H 109 H Pulse Rate [Apical] Pulse Rate from SpO2 Sensor Pulse Rhythm [Apical] Pulse Strength [Apical] Respiratory Rate 15 17 Respiratory Effort / Characteristics Respiratory Depth Respiratory Pattern Blood Pressure 121/78 Blood Pressure [Left Arm] Blood Pressure Mean 92 Blood Pressure Mean [Left Arm] Pulse Oximetry Oxygen Delivery Method Sepsis Recent Fever Within 48 Hours Sepsis New/Unexplained Change in Mental Status Sepsis Action Taken by Nursing Laboratory Data 08/03/22 10:48 08/03/22 10:48 Lab Results 08/03/22 08/03/22 08/03/22 Range/Units 10:48 10:48 10:48 WBC 6.08 (4.8-10.8) K/ul RBC 3.49 L (4.70-6.10) M/uL Hgb 11.4 L (14.0-18.0) g/dl Hct 32.8 L (42.0-52.0) % MCV 94.0 (80.0-100.0) fL MCH 32.7 (25.0-34.0) pg MCHC 34.8 (32.0-36.0) g/dL RDW Std Deviation 40.9 (36.4-46.3) fL RDW Coeff of [place] 12.1 (11.5-14.5) % Plt Count 151 (130-400) K/uL MPV 10.0 (9.4-12.4) fL Immature Gran % (Auto) 1.0 % Neut % (Auto) 93.2 % Lymph % (Auto) 1.3 % [place] % (Auto) 4.3 % Eos % (Auto) 0.0 % Baso % (Auto) 0.2 % Neut # (Auto) 5.67 (1.40-6.50) K/uL Lymph # (Auto) 0.08 L (1.2-3.4) K/uL [place] # (Auto) 0.26 (0.11-0.59) K/uL Eos # (Auto) 0.00 (0-0.50) K/uL Baso # (Auto) 0.01 (0-0.2) K/uL Immature Gran # (Auto) 0.06 (0.01-0.20) K/uL Toxic Vacuolation 2+ Sodium 129 L (136-145) mmol/L Potassium 3.3 L (3.5-5.1) mmol/L Chloride 89 L (98-107) mmol/L Carbon Dioxide 29 (21-32) mmol/L Anion Gap 11 (3-11) BUN 21 (6-23) mg/dl Creatinine 1.58 H (0.6-1.4) mg/dl Est Cr Clr Drug Dosing 69.0 ml/min Est GFR ( Amer) 53.5 ml/min Est GFR (Non-Af Amer) 46.2 ml/min BUN/Creatinine Ratio 13.3 (10-20) Glucose 350 H* (70-99(Fasting)) mg/dl POC Glucose (70-99) mg/dl Osmolality (280-300) mOsm/kg Lactate 3.0 H* (0.4-2.0) mmol/L Calcium 8.9 (8.6-10.3) mg/dl Phosphorus (2.5-4.9) mg/dl Magnesium 0.9 L* (1.7-2.4) mg/dl Total Bilirubin 0.8 (0.2-1.0) mg/dl Direct Bilirubin 0.2 (0-0.2) mg/dl AST 15 (13-39) U/L ALT 19 (7-52) U/L Alkaline Phosphatase 59 (34-104) U/L Troponin I High Sens 16.9 (0-20) pg/ml Total Protein 7.5 (6.0-8.3) gm/dl Albumin 4.1 (3.4-5.0) gm/dl Procalcitonin (0-0.5) ng/ml Urine Color Urine Appearance (Clear) Urine pH (4.5-7.5) Ur Specific [place] (1.000-1.030) Urine Protein (Negative) Urine Glucose (UA) (Negative) Urine Ketones (Negative) Urine Blood (Negative) Urine Nitrite (Negative) Urine Bilirubin (Negative) Urine Urobilinogen (Negative) Ur Leukocyte Esterase (Negative) Urine WBC (Auto) (0-5) /hpf Urine RBC (Auto) (0-4) /hpf U Hyaline Cast (Auto) (0-5) /lpf U Epithel Cells (Auto) (0-5) /lpf Urine Bacteria (Auto) (Negative) Valproic Acid (50-100) mcg/ml SARS-CoV-2 (PCR) (Negative) Influenza Type A (PCR) (Neg) Influenza Type B (PCR) (Neg) RSV (RT-PCR) (Neg) 08/03/22 08/03/2223 Range/Units 10:48 10:48 11:32 WBC (4.8-10.8) K/ul RBC (4.70-6.10) M/uL Hgb (14.0-18.0) g/dl Hct (42.0-52.0) % MCV (80.0-100.0) fL MCH (25.0-34.0) pg MCHC (32.0-36.0) g/dL RDW Std Deviation (36.4-46.3) fL RDW Coeff of [place] (11.5-14.5) % Plt Count (130-400) K/uL MPV (9.4-12.4) fL Immature Gran % (Auto) % Neut % (Auto) % Lymph % (Auto) % [place] % (Auto) % Eos % (Auto) % Baso % (Auto) % Neut # (Auto) (1.40-6.50) K/uL Lymph # (Auto) (1.2-3.4) K/uL [place] # (Auto) (0.11-0.59) K/uL Eos # (Auto) (0-0.50) K/uL Baso # (Auto) (0-0.2) K/uL Immature Gran # (Auto) (0.01-0.20) K/uL Toxic Vacuolation Sodium (136-145) mmol/L Potassium (3.5-5.1) mmol/L Chloride (98-107) mmol/L Carbon Dioxide (21-32) mmol/L Anion Gap (3-11) BUN (6-23) mg/dl Creatinine (0.6-1.4) mg/dl Est Cr Clr Drug Dosing ml/min Est GFR ( Amer) ml/min Est GFR (Non-Af Amer) ml/min BUN/Creatinine Ratio (10-20) Glucose (70-99(Fasting)) mg/dl POC Glucose (70-99) mg/dl Osmolality (280-300) mOsm/kg Lactate (0.4-2.0) mmol/L Calcium (8.6-10.3) mg/dl Phosphorus (2.5-4.9) mg/dl Magnesium (1.7-2.4) mg/dl Total Bilirubin (0.2-1.0) mg/dl Direct Bilirubin (0-0.2) mg/dl AST (13-39) U/L ALT (7-52) U/L Alkaline Phosphatase (34-104) U/L Troponin I High Sens (0-20) pg/ml Total Protein (6.0-8.3) gm/dl Albumin (3.4-5.0) gm/dl Procalcitonin 0.45 (0-0.5) ng/ml Urine Color Urine Appearance (Clear) Urine pH (4.5-7.5) Ur Specific [place] (1.000-1.030) Urine Protein (Negative) Urine Glucose (UA) (Negative) Urine Ketones (Negative) Urine Blood (Negative) Urine Nitrite (Negative) Urine Bilirubin (Negative) Urine Urobilinogen (Negative) Ur Leukocyte Esterase (Negative) Urine WBC (Auto) (0-5) /hpf Urine RBC (Auto) (0-4) /hpf U Hyaline Cast (Auto) (0-5) /lpf U Epithel Cells (Auto) (0-5) /lpf Urine Bacteria (Auto) (Negative) Valproic Acid 43 L (50-100) mcg/ml SARS-CoV-2 (PCR) POSITIVE A* (Negative) Influenza Type A (PCR) Negative (Neg) Influenza Type B (PCR) Negative (Neg) RSV (RT-PCR) Negative (Neg) 08/03/22 08/03/22 08/03/22 Range/Units 11:32 12:35 13:02 WBC (4.8-10.8) K/ul RBC (4.70-6.10) M/uL Hgb (14.0-18.0) g/dl Hct (42.0-52.0) % MCV (80.0-100.0) fL MCH (25.0-34.0) pg MCHC (32.0-36.0) g/dL RDW Std Deviation (36.4-46.3) fL RDW Coeff of [place] (11.5-14.5) % Plt Count (130-400) K/uL MPV (9.4-12.4) fL Immature Gran % (Auto) % Neut % (Auto) % Lymph % (Auto) % [place] % (Auto) % Eos % (Auto) % Baso % (Auto) % Neut # (Auto) (1.40-6.50) K/uL Lymph # (Auto) (1.2-3.4) K/uL [place] # (Auto) (0.11-0.59) K/uL Eos # (Auto) (0-0.50) K/uL Baso # (Auto) (0-0.2) K/uL Immature Gran # (Auto) (0.01-0.20) K/uL Toxic Vacuolation Sodium 130 L (136-145) mmol/L Potassium 2.8 L (3.5-5.1) mmol/L Chloride 94 L (98-107) mmol/L Carbon Dioxide 27 (21-32) mmol/L Anion Gap 9 (3-11) BUN 20 (6-23) mg/dl Creatinine 1.25 D (0.6-1.4) mg/dl Est Cr Clr Drug Dosing 87.3 ml/min Est GFR ( Amer) 71.1 ml/min Est GFR (Non-Af Amer) 61.3 ml/min BUN/Creatinine Ratio 16.0 (10-20) Glucose 281 H (70-99(Fasting)) mg/dl POC Glucose (70-99) mg/dl Osmolality (280-300) mOsm/kg Lactate 1.6 (0.4-2.0) mmol/L Calcium 7.9 L (8.6-10.3) mg/dl Phosphorus (2.5-4.9) mg/dl Magnesium 1.3 L (1.7-2.4) mg/dl Total Bilirubin (0.2-1.0) mg/dl Direct Bilirubin (0-0.2) mg/dl AST (13-39) U/L ALT (7-52) U/L Alkaline Phosphatase (34-104) U/L Troponin I High Sens (0-20) pg/ml Total Protein (6.0-8.3) gm/dl Albumin (3.4-5.0) gm/dl Procalcitonin (0-0.5) ng/ml Urine Color Yellow Urine Appearance Clear (Clear) Urine pH 7.0 (4.5-7.5) Ur Specific [place] 1.013 (1.000-1.030) Urine Protein Negative (Negative) Urine Glucose (UA) 3+ H (Negative) Urine Ketones Negative (Negative) Urine Blood Trace H (Negative) Urine Nitrite Negative (Negative) Urine Bilirubin Negative (Negative) Urine Urobilinogen Negative (Negative) Ur Leukocyte Esterase Negative (Negative) Urine WBC (Auto) 1-5 (0-5) /hpf Urine RBC (Auto) 0-4 (0-4) /hpf U Hyaline Cast (Auto) 1-5 (0-5) /lpf U Epithel Cells (Auto) 5-10 H (0-5) /lpf Urine Bacteria (Auto) Negative (Negative) Valproic Acid (50-100) mcg/ml SARS-CoV-2 (PCR) (Negative) Influenza Type A (PCR) (Neg) Influenza Type B (PCR) (Neg) RSV (RT-PCR) (Neg) 08/03/22 08/03/22 08/03/22 Range/Units 13:02 13:02 13:16 WBC (4.8-10.8) K/ul RBC (4.70-6.10) M/uL Hgb (14.0-18.0) g/dl Hct (42.0-52.0) % MCV (80.0-100.0) fL MCH (25.0-34.0) pg MCHC (32.0-36.0) g/dL RDW Std Deviation (36.4-46.3) fL RDW Coeff of [place] (11.5-14.5) % Plt Count (130-400) K/uL MPV (9.4-12.4) fL Immature Gran % (Auto) % Neut % (Auto) % Lymph % (Auto) % [place] % (Auto) % Eos % (Auto) % Baso % (Auto) % Neut # (Auto) (1.40-6.50) K/uL Lymph # (Auto) (1.2-3.4) K/uL [place] # (Auto) (0.11-0.59) K/uL Eos # (Auto) (0-0.50) K/uL Baso # (Auto) (0-0.2) K/uL Immature Gran # (Auto) (0.01-0.20) K/uL Toxic Vacuolation Sodium (136-145) mmol/L Potassium (3.5-5.1) mmol/L Chloride (98-107) mmol/L Carbon Dioxide (21-32) mmol/L Anion Gap (3-11) BUN (6-23) mg/dl Creatinine (0.6-1.4) mg/dl Est Cr Clr Drug Dosing ml/min Est GFR ( Amer) ml/min Est GFR (Non-Af Amer) ml/min BUN/Creatinine Ratio (10-20) Glucose (70-99(Fasting)) mg/dl POC Glucose 306 H* (70-99) mg/dl Osmolality 283 (280-300) mOsm/kg Lactate (0.4-2.0) mmol/L Calcium (8.6-10.3) mg/dl Phosphorus 2.4 L (2.5-4.9) mg/dl Magnesium (1.7-2.4) mg/dl Total Bilirubin (0.2-1.0) mg/dl Direct Bilirubin (0-0.2) mg/dl AST (13-39) U/L ALT (7-52) U/L Alkaline Phosphatase (34-104) U/L Troponin I High Sens (0-20) pg/ml Total Protein (6.0-8.3) gm/dl Albumin (3.4-5.0) gm/dl Procalcitonin (0-0.5) ng/ml Urine Color Urine Appearance (Clear) Urine pH (4.5-7.5) Ur Specific [place] (1.000-1.030) Urine Protein (Negative) Urine Glucose (UA) (Negative) Urine Ketones (Negative) Urine Blood (Negative) Urine Nitrite (Negative) Urine Bilirubin (Negative) Urine Urobilinogen (Negative) Ur Leukocyte Esterase (Negative) Urine WBC (Auto) (0-5) /hpf Urine RBC (Auto) (0-4) /hpf U Hyaline Cast (Auto) (0-5) /lpf U Epithel Cells (Auto) (0-5) /lpf Urine Bacteria (Auto) (Negative) Valproic Acid (50-100) mcg/ml SARS-CoV-2 (PCR) (Negative) Influenza Type A (PCR) (Neg) Influenza Type B (PCR) (Neg) RSV (RT-PCR) (Neg) Administered Medications Magnesium Sulfate/Dextrose (Magnesium Sulfate / D5w) 1 gm in 100 mls @ 50 mls/hr IV Q2H [facility] Stop: 08/03/22 16:44 Last Admin: 08/03/22 13:21 Dose: 50 mls/hr Documented By: CGK Discontinued Medications Sodium Chloride (Nss 1000ml) 1,000 mls @ 999 mls/hr IV .Q1H1M [facility] Stop: 08/03/22 11:45 Last Infusion: 08/03/22 12:15 Dose: 0 mls/hr Documented By: Infusion: 08/03/22 12:15 Dose: 0 mls/hr Documented By: Admin: 08/03/22 10:54 Dose: 999 mls/hr Documented By: CJS Cefepime HCl (Maxipime) 2,000 mg in 20 mls @ 5 mls/min IV NOW STA Stop: 08/03/22 11:20 Last Admin: 08/03/22 11:45 Dose: 5 mls/min Documented By: CGK Daptomycin 600 mg/ Syringe 12 mls @ 6 mls/min IV NOW STA; Protocol Stop: 08/03/22 11:18 Last Admin: 08/03/22 12:11 Dose: 6 mls/min Documented By: CGK Sodium Chloride (Nss 1000ml) 1,000 mls @ 999 mls/hr IV .Q1H1M ONE Stop: 08/03/22 12:20 Last Infusion: 08/03/22 13:27 Dose: 0 mls/hr Documented By: Admin: 08/03/22 11:45 Dose: 999 mls/hr Documented By: CGK Magnesium Sulfate/Dextrose (Magnesium Sulfate / D5w) 1 gm in 100 mls @ 100 mls/hr IV NOW STA Stop: 08/03/22 12:52 Last Infusion: 08/03/22 13:27 Dose: 0 mls/hr Documented By: Admin: 08/03/22 12:15 Dose: 100 mls/hr Documented By: CGK Thiamine HCl 300 mg/ Sodium (Chloride) 53 mls @ 210 mls/hr IV ONE ABRIL Stop: 08/03/22 13:45 Last Admin: 08/03/22 14:59 Dose: 210 mls/hr Documented By: CGK Potassium Chloride (K Farhan / Wtr) 10 meq in 100 mls @ 100 mls/hr IV ONE ONE Stop: 08/03/22 14:25 Last Admin: 08/03/22 14:01 Dose: 100 mls/hr Documented By: CGK Insulin Human Regular (Novolin-R Insulin Per Unit Charge) 3 units IV NOW STA Stop: 08/03/22 13:48 Last Admin: 08/03/22 13:56 Dose: 3 units Documented By: CGK Co-signed By: AM Potassium Chloride (Potassium Chloride Crtab 20 Meq Tabcr) 40 meq PO NOW STA Stop: 08/03/22 12:33 Last Admin: 08/03/22 13:17 Dose: 40 meq Documented By: CGK Imaging Data Radiologist's Impression: Chest X-Ray 08/03/22 10:36 XR chest 1V portable HISTORY: 62 years-old Male Sepsis acute sepsis COMPARISON: CT therapy scan 07/05/2022, PET CT 06/09/2022. TECHNIQUE: AP view of the chest FINDINGS: Cardiomediastinal and hilar silhouettes are unchanged with asymmetric right hilar prominence. Emphysema. Linear right upper lobe consolidation again noted. No pneumothorax, pleural effusion or overt pulmonary edema. There is mild subsegmental bibasilar atelectasis. IMPRESSION: 1. Emphysema without acute process. 2. Post treatment-related right upper lobe consolidation is redemonstrated obscuring the patient's known malignancy. ACT 112: Negative or not required by law. The above report was generated using voice recognition software. It may contain grammatical, syntax or spelling errors. Electronically signed by: Rohan Adamson M.D. 08/03/2022 12:13 PM Foot X-Ray 08/03/22 10:36 XR foot LT min 3V routine CLINICAL HISTORY: wound over dorsal mid foot (1st Metatarsal) COMPARISON STUDY: Left foot 07/04/2018. FINDINGS: Prior partial amputation at the second and third toes, unchanged. Dorsal and lateral angulation at the interphalangeal joint of the left first toe. Chronic irregularity at the head of the proximal phalanx of the left first toe with a punctate metallic density. This remains unchanged and is likely related to chronic postoperative change. No acute fracture or dislocation within the left foot. No erosive/destructive changes to suggest an osteomyelitis. Mild degenerative changes again noted. Mild dorsal soft tissue swelling. Small plantar heel spur. IMPRESSION: 1. Chronic/postoperative changes noted within the left foot. 2. No acute fracture or dislocation. 3. Dorsal soft tissue swelling. No destructive changes to suggest an osteomyelitis. ACT 112: Negative or not required by law. Electronically signed by: Robert Schaefer M.D. 08/03/2022 12:58 PM Discharge Plan Visit Data Chief Complaint: Foot Injury/Pain Stated Complaint: LEFT FOOT PAIN ED Provider: Eric Rincon Discharge Problem: Sepsis, Cellulitis of left lower leg, Hypomagnesemia, Immunocompromised, Generalized weakness, Diarrhea, Lactic acidosis Forms Stand Alone Forms: [facility] youbeQ - Maps With Life Prescriptions Prescriptions: No Action polyethylene glycol 3350 17 gram powder in packet 17 g PO DAILY PRN (Reason: Constipation) (DME) OneTouch Verio test strips Strip See Rx Instructions .ROUTE .MEDSUPPLY Qty: 100 3RF Rx Instructions: Test blood sugar 1 time daily (DME) lancets [OneTouch UltraSoft Lancets] Misc See Rx Instructions .ROUTE .MEDSUPPLY Qty: 100 5RF Rx Instructions: As directed 3-4x a day Dx:E11.9 losartan 25 mg tablet 25 mg PO QAM Qty: 90 3RF Myrbetriq 50 mg tablet extended release 24 hr 50 mg PO QAM Qty: 90 1RF desmopressin 0.1 mg tablet 0.1 mg PO HS Qty: 90 3RF Rx Instructions: TAKE 1 TABLET AT BEDTIME furosemide 40 mg tablet 40 mg PO QAM Qty: 90 3RF (DME) CPAP Supplies Misc See Rx Instructions .MEDSUPPLY Qty: 1 0RF Rx Instructions: CPAP supplies. G47.33 (DME) Auto Titrating CPAP Misc See Rx Instructions .MEDSUPPLY Qty: 1 0RF Rx Instructions: Auto PAP with 5-15 cm H20. Lifetime usage. G47.33 albuterol sulfate [Ventolin HFA] 90 mcg/actuation HFA aerosol inhaler 2 inh INH QID PRN (Reason: shortness of breath or wheezing) Qty: 18 4RF Trelegy Ellipta 100-62.5-25 mcg blister with device 1 inh inhalation QAM Qty: 60 7RF clonazepam 0.5 mg Tablet 0.5 mg PO BID divalproex 500 mg Tablet,Delayed Release (Dr/Ec) 500 mg PO HS cholecalciferol (vitamin D3) [Vitamin D3] 1,000 unit Capsule 1,000 unit PO QAM ibuprofen 200 mg Capsule 400 mg PO Q6H PRN (Reason: Pain) olanzapine [Zyprexa] 10 mg Tablet 10 mg PO HS simvastatin 80 mg Tablet 80 mg PO HS vitamin E 400 unit Capsule 400 unit PO QAM glipizide 5 mg Tablet 5 mg PO QAM fluvoxamine 150 mg Capsule,Extended Release 24hr 150 mg PO HS triamcinolone acetonide 0.1 % Cream 1 applic TOPICAL BID PRN (Reason: Rash) Unknown Antibiotic 1 tab PO DIRECTED Rx Instructions: PT UNSURE OF NAME/STRENGTH/DOSE, UNABLE TO VERIFY THIS MED. pioglitazone 45 mg tablet 45 mg PO QAM Rx Instructions: TAKE 1 TABLET BY MOUTH EVERY MORNING ezetimibe 10 mg tablet 10 mg PO QAM Rx Instructions: TAKE 1 TABLET BY MOUTH EVERY MORNING tamsulosin 0.4 mg capsule 0.4 mg PO QAM metformin 500 mg tablet 1,000 mg PO BID Rx Instructions: TAKE 2 TABLETS TWICE A DAY Referrals Referrals: Jah Brown DO [Primary Care Provider] -
[2022-08-03] MEDS ORDERED: SODIUM CHLORIDE 0.9% 1000ML 1,000 ML IV SCH (10:45)
[2022-08-03 11:15] LABS: Hematocrit (blood only) 32.8 % (42.0-52.0); Hemoglobin 11.4 g/dl (14.0-18.0); Mean Corpuscular Hemoglobin 32.7 pg (25.0-34.0); Mean Corpuscular Hgb Conc 34.8 g/dL (32.0-36.0); Platelet Count 151 K/uL (130-400); RDW Coefficient of Variation 12.1 % (11.5-14.5); RDW Standard Deviation 40.9 fL (36.4-46.3); Red Blood Count 3.49 M/uL (4.70-6.10); White Blood Count 6.08 K/ul (4.8-10.8)
[2022-08-03] MEDS ORDERED: DAPTOmycin 600 MG in SYRINGE 0 ML IV STA (11:17)
[2022-08-03] MEDS ORDERED: CEFEPIME 2,000 MG/20 ML VIAL IV STA (11:17)
[2022-08-03] MEDS ORDERED: SODIUM CHLORIDE 0.9% 1000ML 1,000 ML IV ONE (11:20)
[2022-08-03 11:32] LABS: Calcium 8.9 mg/dl (8.6-10.3); Potassium 3.3 mmol/L (3.5-5.1)
[2022-08-03 11:38] LABS: Basophils # (auto) 0.01 K/uL (0-0.2); Basophils % (auto) 0.2 %; Immature Granulocytes # (auto) 0.06 K/uL (0.01-0.20); Lymphocytes # (auto) 0.08 K/uL (1.2-3.4); Lymphocytes % (auto) 1.3 %; Monocytes # (auto) 0.26 K/uL (0.11-0.59); Monocytes % (auto) 4.3 %; Neutrophils # (auto) 5.67 K/uL (1.40-6.50); Neutrophils % (auto) 93.2 %; Toxic Vacuolation 2+
[2022-08-03 11:47] LABS: Albumin Level 4.1 gm/dl (3.4-5.0); BUN Creatinine Ratio 13.3 (10-20); Bilirubin Direct 0.2 mg/dl (0-0.2); Bilirubin,Total 0.8 mg/dl (0.2-1.0); Est GFR (African American) 53.5 ml/min; Est GFR (Non-African American) 46.2 ml/min; Magnesium 0.9 mg/dl (1.7-2.4); Total Protein 7.5 gm/dl (6.0-8.3); Troponin I High Sensitivity 16.9 pg/ml (0-20)
[2022-08-03 11:48] LABS: Appearance Urine Clear (Clear); Bacteria Urine Automated Negative (Negative); Bilirubin Urine Negative (Negative); Blood Urine Trace (Negative); Color Urine Yellow; Glucose Urine UA 3+ (Negative); Ketones Urine Negative (Negative); Leukocyte Esterase Urine Negative (Negative); Nitrite Urine Negative (Negative); Protein Urine Negative (Negative); RBC Urine Automated 0-4 /hpf (0-4); Specific Gravity Urine 1.013 (1.000-1.030); Urobilinogen Urine Negative (Negative)
[2022-08-03] MEDS ORDERED: MAGNESIUM SULFATE / D5W 1 GM/100 ML BAG IV STA (11:53)
--- NOTE | 2022-08-03 12:00 | History & Physical Report ---
Date of Service August 03, 2022 Assessment & Plan (1) Cellulitis of left foot: Plan: Left foot cellulitis With concern for sepsis on admission due to tachycardia, patient was not hypotensive or febrile Lactate 3.0, repeat normalized following fluids Magnesium 0.9, repletion ordered with repeat every 4 hours No history of CHF. Patient has been on Lasix recently for some leg edema without known diastolic/systolic failure TTE 03/2020: LV SF normal, normal diastolic function, no significant valvular disease. EF 60-65% Troponin negative Procalcitonin negative UA uninfected appearing CXR with postsurgical changes, surgical clips previously noted in 2019 is present Patient reports he was on an antibiotic in the last couple of days for his leg but it is unclear which one and do not see this indicated on record review. 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 Emphysema without acute process. 2. Post treatment-related right upper lobe consolidation is redemonstrated obscuring the patient's known malignancy. On third round of chemotherapy/radiation. Patient receiving radiation 5 times per week Patient is not neutropenic, hemoglobin 11.4, PLT 151 No acute treatment at this time, hold chemo on admit History of alcohol abuse Previously with up to 10-12 drinks per day Patient reports that he has had almost nothing to drink since starting chemo/radiation 3 weeks ago, and no alcohol in around 7 to 10 days We will continue CIWA, thiamine, folic acid. May discontinue if not scaling and doing well, if last drink truly more than 10 days out patient should be passed acute withdrawal/DT. COPD with additional fibrosis, previously Gold class C Continue Trelegy/formulary equivalent DuoNebs as needed Continue CPAP for EDUARD Urinary incontinence Is on desmopressin as outpatient with symptomatic improvement, held temporarily Hyponatremia Suspected from beer drinking with desmopressin in the past Sodium 129 on admission, trend Given underlying lung cancer patient is at risk for SIADH. Urine studies are pending after Lasix washout, last took dose early this morning. additional 4- hour sodium check pending after patient received 2 L NSS in ER. Type II DM BSG 350 on admission in the setting of cellulitis Basal bolus weight-based insulin Lantus 11 units twice daily, CF 35, ratio 12 Goal BSG [id number] Pharmacy consulted for assistance with management given steroid use and underlying malignancy/sepsis TUCKER Admitting creatinine 1.58 Baseline creatinine approximately 1.3, last 07/29 was 1.42 elevated from prior baseline Received fluids as noted Renally dose medications BMP daily Avoid nephrotoxins History of schizophrenia, mixed subtype predominantly paranoia in the past Patient reports he has been very well controlled on his current medication regimen which includes Zyprexa, fluvoxamine, clonazepam, and double products. He is not a great historian of these medicines, but does endorse their use at bedside with sister present Continue above medications, no hallucinations on admission and thought process is linear/goal-directed Hyperlipidemia Hold statin while on Dapto DVT prophylaxis: Due to TUCKER we will treat with heparin every 8 hours, convert to Lovenox if renal function normalizes Diet: DM 2 CODE STATUS: Full code Disposition: PCU for sinus tachycardia, hypomagnesemia (2) COPD (chronic obstructive pulmonary disease): (3) Diabetes mellitus with peripheral vascular disease: (4) EDUARD (obstructive sleep apnea): (5) PAD (peripheral artery disease): (6) Schizophrenia: (7) Severe sleep apnea: (8) Venous stasis dermatitis: (9) Alcohol abuse: History of Present Illness Primary Care Provider: [facility] Brown, [facility] 62[facility] with a PMHx PAD, T2DM with neuropathy, schizophrenia, EDUARD, Feliz reports he had been nauseus and has a problem with his L foot which caused him to seek ER evaluation.L foot started becoming sore and more red. No tsure how long its been there, thinks ~ 1 week or so. Sister was concerned so he called Dr. Carver who then referred him to the ER given his recent chemotherapy treatment, history of diabetes, and concerns for cellulitis Ischial he developed nausea began ~1 evening ago. Radiation 5x per week. Started radiation last year had 1 cycle without chemo. Started chemo recently. This recent series he had been doing both at the same time. Chemo on Mondays. No fevers/chills/sweats NO abdominal pain. +nauseus last night, not nauseus at ER assessment. Gets nauseus post treatments, improves with zofran. Takes steroids decadron after which helps as well +liquid diarrhea 3x today, improves with immodium. Has bene on an antibiotic for 2-[address] Brown. Has been taking DM medicines. Usually 120s. Taking lasix for the last few weeks for leg swelling. No hx hheart failure. Denies chest pain, chest pressure, shortness of breath, difficulty breathing. Reports he has chronically had some lower extremity swelling but no history of heart failure for which she takes Lasix Medical History: Reviewed Medications: Reviewed Surgical History: Reviewed Family history: Reviewed Allergies: Reviewed Social History: No tobacco x1 year. No ETOH in last 10 days, 1 or 2 since starting chemo.NO hx of withdrawal or seizures Code Status: Full Code Allergies Allergy/AdvReac Type Severity Reaction Status Date / Time scopolamine Allergy Intermediate Itching Verified 08/03/22 12:21 Home Medications Medication Instructions Recorded Confirmed Type cholecalciferol (vitamin D3) 25 1,000 unit PO QAM 06/29/18 08/03/22 History mcg (1,000 unit) capsule (Vitamin D3) clonazepam 0.5 mg tablet 0.5 mg PO BID 06/29/18 08/03/22 History divalproex 500 mg tablet,delayed 500 mg PO HS 06/29/18 08/03/22 History release fluvoxamine 150 mg 150 mg PO HS 06/29/18 08/03/22 History capsule,extended release 24 hr glipizide 5 mg tablet 5 mg PO QAM 06/29/18 08/03/22 History ibuprofen 200 mg capsule 400 mg PO Q6H PRN Pain 06/29/18 08/03/22 History olanzapine 10 mg tablet (Zyprexa) 10 mg PO HS 06/29/18 08/03/22 History simvastatin 80 mg tablet 80 mg PO HS 06/29/18 08/03/22 History vitamin E 268 mg (400 unit) capsule 400 unit PO QAM 06/29/18 08/03/22 History triamcinolone acetonide 0.1 % 1 applic topical BID PRN Rash 07/02/18 08/03/22 History topical cream Auto Titrating CPAP #1 ea 07/05/21 07/12/22 Rx CPAP Supplies #1 ea 07/05/21 07/12/22 Rx polyethylene glycol 3350 17 gram 17 g PO DAILY PRN Constipation 08/26/21 08/03/22 History oral powder packet blood sugar diagnostic (OneTouch #100 ea 10/06/21 07/12/22 Rx Verio test strips) tamsulosin 0.4 mg capsule 0.4 mg PO QAM 01/04/22 08/03/22 History lancets (OneTouch UltraSoft #100 ea 04/05/22 07/12/22 Rx Lancets) losartan 25 mg tablet 25 mg PO QAM #90 tabs 05/06/22 08/03/22 Rx mirabegron 50 mg tablet,extended 50 mg PO QAM #90 tabs 05/24/22 08/03/22 Rx release 24 hr (Myrbetriq) albuterol sulfate 90 mcg/actuation 2 inh inhalation QID PRN shortness 06/08/22 08/03/22 Rx aerosol inhaler (Ventolin HFA) of breath or wheezing #18 grams fluticasone fur. 100 mcg-umeclid 1 inh inhalation QAM #60 ea 06/08/22 08/03/22 Rx 62.5 mcg-vilant 25 mcg inhalat.powder (Trelegy Ellipta) metformin 500 mg tablet 1,000 mg PO BID 06/14/22 08/03/22 History furosemide 40 mg tablet 40 mg PO QAM #90 tabs 07/12/22 08/03/22 Rx desmopressin 0.1 mg tablet 0.1 mg PO HS #90 tabs 07/14/22 08/03/22 Rx Unknown Antibiotic 1 tab PO DIRECTED 08/03/22 08/03/22 History ezetimibe 10 mg tablet 10 mg PO QAM 08/03/22 08/03/22 History pioglitazone 45 mg tablet 45 mg PO QAM 08/03/22 08/03/22 History Past Med/Surg History Medical History (Updated 08/03/22 @ 13:11 by Ja Stuart MD) Alcohol abuse 10-12 DRINKS PER DAY Anxiety and depression Benign essential tremor Chronic back pain Chronic obstructive pulmonary disease daily inh and prn inh Diabetes mellitus, type 2 NIDDM Diabetic neuropathy Edema Esophageal reflux Hx of osteomyelitis Jun 2018- s/p amputation of tips of 2nd/3rd toes and part of great toe > left foot Hyperlipidemia Hypertension Lung cancer Diagnosed Spring 2021 -- no surgical intervention at this time.; following with Dr. 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 Pulmonary HTN "MILD" RVSP 40MMHG PER 2016 STRESS ECHO- NO ISSUES NOTED WITH 2019 ECHO Schizophrenia Urinary incontinence Venous stasis dermatitis Surgical History H/O exploratory laparotomy GALLBLADDER LESION EXCISION H/O tooth extraction History of biopsy of bladder TURBT= 11/28/17= LMA#5 AT [facility] History of bronchoscopy Spring 2021 History of cataract surgery right/left History of cystoscopy WITH STONE EXTRACTION X 2 History of open reduction and internal fixation (ORIF) procedure LEFT SHOULDER 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 Family History Father Prostate cancer Family history of diabetes mellitus Myocardial infarction Aunt Family history of diabetes mellitus Uncle Family history of diabetes mellitus Family/Other Family history of diabetes mellitus Mother Diabetes Alzheimer disease Grandfather (Paternal) Cardiac disorder Cancer Brother Kidney stones Other Heart disease No family history of adverse response to anesthesia Denies family history of Crohn's disease Colorectal cancer Lung disease Inflammatory bowel disease Asthma Social History Smoking Status: Former smoker Age Started Using Tobacco: 12; Age Quit Using Tobacco: 61; packs per day: 0.5; Cigarettes Per Day: 10; Second Hand Exposure: No; Hx Alcohol Use: Yes Alcohol type: beer Alcohol Intake Frequency Comment: 6 b eers daily Hx Substance Use: No Preferred Language: Vincentian Communication Ability: Effective Visual Impairment: No Limitations Hearing Ability: Normal Warm In Required: No Beliefs That Will Affect Care: None marital status: Single Current Living Situation: Alone current occupational status: disabled Feels Safe at Home: Yes in current or past relationships, have you been: other caffeine: Yes Physical Activity Frequency: 1-2 Times per Week Seatbelt Use: always Assistive Devices: CPAP and Glasses Review of Systems Review of Systems: All systems reviewed & are unremarkable except as noted in HPI & below Physical Exam Physical Exam: General: A&Ox3. NAD. Cooperative. HEENT: Atraumatic, normocephalic. Vision/hearing grossly intact Pulm: CTAB A&P. -wheezes, -rales, -rhonchi. Symmetrical chest rise. No increased work of breathing. No respiratory distress. Cardiac: Tachycardic, regular, -mrg. Radial pulses intact and symmetrical. Abdominal: Nontender, nondistended, soft. BS present. Extremities: Left foot with chronic venous stasis changes and additional erythema of the anterior nunes and foot asymmetric from the right. To surface ulcerations without purulence are present on the right medial midfoot. Sensation of soft touch is intact but diminished bilaterally, ankle dorsiflexion/plantarflexion is intact bilaterally. Left foot with postsurgical changes Results & Data Results & Data Vital Signs (Past 12 Hours) Vital Signs Temp Pulse Resp BP Pulse Ox O2 Del Method 08/03/22 10:25 36.6 C 139 H 20 138/78 99 Room Air PG Care Time/CCT Total # of Minutes Spent Total Time Spent with Patient: Total time spent is greater than 50% in coordination of care (as documented) at patient's floor/unit and/or counseling patient: Coding Level of Care Code 69747 INT INP/OBS CARE 375MIN Diagnoses Cellulitis of left foot L03.116 COPD (chronic obstructive pulmonary disease) J44.9 Diabetes mellitus with peripheral vascular disease E11.51 EDUARD (obstructive sleep apnea) G47.33 PAD (peripheral artery disease) I73.9 Schizophrenia F20.9 Severe sleep apnea G47.30 Venous stasis dermatitis I87.2 Alcohol abuse F10.10
--- NOTE | 2022-08-03 12:14 | XRay Report ---
XR chest 1V portable HISTORY: 62 years-old Male Sepsis acute sepsis COMPARISON: CT therapy scan 07/05/2022, PET CT 06/09/2022. TECHNIQUE: AP view of the chest FINDINGS: Cardiomediastinal and hilar silhouettes are unchanged with asymmetric right hilar prominence. Emphyse ma. Linear right upper lobe consolidation again noted. No pneumothorax, pleural effusion or overt pul monary edema. There is mild subsegmental bibasilar atelectasis. IMPRESSION: 1. Emphysema without acute process. 2. Post treatment-related right upper lobe consolidation is redemonstrated obscuring the patient's kn own malignancy. ACT 112: Negative or not required by law. The above report was generated using voice recognition software. It may contain grammatical, syntax o r spelling errors. Electronically signed by: Rohan Adamson M.D. 08/03/2022 12:13 PM
[2022-08-03] MEDS ORDERED: POTASSIUM CHLORIDE CRTAB 20 MEQ TABCR PO STA ×3 (12:32→21:42)
--- NOTE | 2022-08-03 13:00 | XRay Report ---
XR foot LT min 3V routine CLINICAL HISTORY: wound over dorsal mid foot (1st Metatarsal) COMPARISON STUDY: Left foot 07/04/2018. FINDINGS: Prior partial amputation at the second and third toes, unchanged. Dorsal and lateral angula tion at the interphalangeal joint of the left first toe. Chronic irregularity at the head of the prox imal phalanx of the left first toe with a punctate metallic density. This remains unchanged and is li barbra related to chronic postoperative change. No acute fracture or dislocation within the left foot. No erosive/destructive changes to suggest an osteomyelitis. Mild degenerative changes again noted. Mi ld dorsal soft tissue swelling. Small plantar heel spur. IMPRESSION: 1. Chronic/postoperative changes noted within the left foot. 2. No acute fracture or dislocation. 3. Dorsal soft tissue swelling. No destructive changes to suggest an osteomyelitis. ACT 112: Negative or not required by law. Electronically signed by: Robert Schaefer M.D. 08/03/2022 12:58 PM
[2022-08-03 13:11] LABS: Influenza A virus by PCR Negative (Neg); Influenza B virus by PCR Negative (Neg); RSV by PCR Negative (Neg)
[2022-08-03] MEDS ORDERED: LORazepam 2 MG/1 ML VIAL IV PRN ×4 (13:13→18:20)
[2022-08-03] MEDS ORDERED: THIAMINE HCL 300 MG in SYRINGE 9 ML IV ONE (13:15)
[2022-08-03] MEDS: MAGNESIUM SULFATE / D5W 1 GM/100 ML BAG IV SCH ×2 (13:21→16:14)
[2022-08-03] MEDS ORDERED: POTASSIUM CHLORIDE / WTR 10 MEQ/100 ML PLCT IV ONE (13:26)
[2022-08-03] MEDS ORDERED: THIAMINE HCL 300 MG in SODIUM CHLORIDE 0.9% 50 ML IV SCH (13:30)
[2022-08-03 13:45] LABS: Calcium 7.9 mg/dl (8.6-10.3); Magnesium 1.3 mg/dl (1.7-2.4); Potassium 2.8 mmol/L (3.5-5.1)
[2022-08-03] MEDS ORDERED: NovoLIN-R INSULIN PER UNIT CHARGE IV STA (13:47)
--- NOTE | 2022-08-03 13:50 | Electrocardiogram Report ---
Test Reason : Blood Pressure : / mmHG Vent. Rate : 128 BPM Atrial Rate : 128 BPM P-R Int : 124 ms QRS Dur : 126 ms QT Int : 332 ms P-R-T Axes : 042 057 015 degrees QTc Int : 484 ms Poor data quality, interpretation may be adversely affected Sinus tachycardia with Premature supraventricular complexes Right bundle branch block Abnormal ECG When compared with ECG of 14-JUL-2021 07:01, Premature supraventricular complexes are now Present Vent. rate has increased BY 49 BPM Confirmed by Bahman Foote ([id number]) on 08/03/2022 1:50:24 PM Referred By: REFERRED SELF Confirmed By:Bahman Foote
[2022-08-03 13:51] LABS: Creatinine Clr Calc Pharmacy 87.3 ml/min; Est GFR (African American) 71.1 ml/min; Est GFR (Non-African American) 61.3 ml/min
[2022-08-03 13:53] LABS: SARS CoV2 RNA(COVID-19) Ceph POSITIVE (Negative)
[2022-08-03] MEDS ORDERED: PHARMACY GLYCEMIC MGMT CONSULT PRN (17:04)
[2022-08-03] MEDS ORDERED: ACETAMINOPHEN 325 MG TAB PO PRN (17:04)
[2022-08-03] MEDS ORDERED: GLUCOSE 10 TAB/TUBE PO PRN (17:04)
[2022-08-03] MEDS ORDERED: CARBOHYDRATES FOR HYPOGLYCEMIA PO PRN (17:04)
[2022-08-03] MEDS ORDERED: GLUCAGON FOR INJ 1 MG VIAL SQ PRN (17:04)
[2022-08-03] MEDS ORDERED: DEXTROSE 50% 50 ML SYRINGE IV PRN (17:04)
[2022-08-03] MEDS ORDERED: GLUCOSE 40% GEL 15 GM TUBE PO PRN (17:04)
[2022-08-03 17:32] LABS: BUN Creatinine Ratio 13.9 (10-20); Calcium 8.4 mg/dl (8.6-10.3); Est GFR (African American) 73.2 ml/min; Est GFR (Non-African American) 63.1 ml/min; Magnesium 1.5 mg/dl (1.7-2.4); Potassium 2.9 mmol/L (3.5-5.1)
--- NOTE | 2022-08-03 17:55 | Pharmacy Report ---
Pharmacy Glycemic Short Note 2 - Date of Service August 03, 2022 - Glycemic Short BSG Results (Last 24 hours): 08/03/22 08/03/22 08/03/22 10:48 13:02 13:16 Glucose 350 H* 281 H POC Glucose 306 H* 08/03/22 08/03/22 08/03/22 15:34 16:38 16:59 Glucose 166 H POC Glucose 177 H 158 H OUTPATIENT ANTIDIABETIC REGIMEN: * GLIPIZIDE 5 MG qAM; metformin 1000 mg BID, pioglitazone 45 mg qAM * A1c pending ASSESSMENT: * Patient admitted with cellulitis, +COVID on PCR (no current resp. symptoms), complicated medical hx including lung cancer on chemotherapy/radiation, COPD, type II diabetes on oral medications as an outpatient * Not currently receiving steroids (does take steroids with chemotherapy) * BSG initially elevated on admission has trended down. * Insulin initiated with weight based stress of 1 dosing, overnight checks * Will tighten as needed PLAN FOR INPATIENT GLYCEMIC CONTROL: * Hold outpatient oral diabetes medications * Basal insulin * Lantus 11 units SQ BID * Bolus insulin * NovoLog per scale ACHS or Q6hrs while NPO * Goal Range: Low 110 mg/dL - High 140 mg/dL * Correction Factor: 35 mg/dL/unit * Nutritional / Prandial insulin per carb ratio of 1 unit per 12 grams CHO consumed
[2022-08-03] MEDS: INSULIN ASPART PER UNIT CHARGE SC SCH ×3 (18:13→23:43)
[2022-08-03] MEDS ORDERED: Ativan IV Alcohol Withdrawal--Active Protocol IV PRN (18:20)
[2022-08-03] MEDS ORDERED: SODIUM CHLORIDE 0.9% 1000ML 500 ML IV ONE (18:24)
[2022-08-03] MEDS: HEPARIN SOD 5,000 UNIT/0.5 ML VIAL SQ SCH ×2 (18:34→20:42)
[2022-08-03] MEDS: LANTUS PER UNIT CHARGE SQ SCH (20:36)
[2022-08-03 20:41] LABS: BUN Creatinine Ratio 14.4 (10-20); Calcium 8.2 mg/dl (8.6-10.3); Creatinine Clr Calc Pharmacy 95.6 ml/min; Est GFR (Non-African American) 70.8 ml/min; Magnesium 1.6 mg/dl (1.7-2.4); Potassium 2.9 mmol/L (3.5-5.1)
[2022-08-03] MEDS: clonazePAM 0.5 MG TAB PO SCH (20:41)
[2022-08-03] MEDS: DIVALPROEX DELAY RELEASE 500 MG TAB PO SCH (20:41)
[2022-08-03] MEDS: CEFEPIME 2,000 MG in SYRINGE 0 ML IV SCH (20:41)
[2022-08-03] MEDS: MAGNESIUM OXIDE 400 MG TAB PO SCH (20:42)
[2022-08-03] MEDS: OLANZapine 10 MG TAB PO SCH (20:42)
[2022-08-03] MEDS ORDERED: MAGNESIUM SULFATE / D5W 1 GM/100 ML BAG IV ONE (21:45)
[2022-08-04] MEDS: CEFEPIME 2,000 MG in SYRINGE 0 ML IV SCH ×3 (04:26→20:30)
[2022-08-04] MEDS: HEPARIN SOD 5,000 UNIT/0.5 ML VIAL SQ SCH ×3 (04:30→22:54)
[2022-08-04] MEDS: INSULIN ASPART PER UNIT CHARGE SC SCH ×5 (04:47→20:17)
[2022-08-04] MEDS ORDERED: ONDANSETRON 4 MG OD TAB PO PRN (05:04)
[2022-08-04 08:41] LABS: Hematocrit (blood only) 29.4 % (42.0-52.0); Hemoglobin 10.3 g/dl (14.0-18.0); Mean Corpuscular Hemoglobin 33.2 pg (25.0-34.0); Mean Corpuscular Volume 94.8 fL (80.0-100.0); Mean Platelet Volume 10.1 fL (9.4-12.4); Platelet Count 142 K/uL (130-400); RDW Coefficient of Variation 12.4 % (11.5-14.5); RDW Standard Deviation 42.5 fL (36.4-46.3); White Blood Count 5.96 K/ul (4.8-10.8)
--- NOTE | 2022-08-04 08:45 | Hospitalist Progress Note ---
Date of Service August 04, 2022 Assessment & Plan (1) Cellulitis of left foot: Plan: Acute Left foot cellulitis With concern for sepsis on admission due to tachycardia, initial illness maybe covid infection -sepsis ruled out -cefepime/Dapto squamous cell carcinoma of the lung, Chronic unclear if stable, Right upper lobe Diagnosed 07/14/2021, stage Ia 3, T1c, N0, M0 - CXR: 1. Emphysema without acute process. 2. Post treatment-related right upper lobe consolidation is remonstrated obscuring the patient's known malignancy. -S/p 3 rounds of chemotherapy/radiation. 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, monitor of alcohol withdrawal Hyponatremia, chronic stable suspected from beer potomania, treated with desmopressin Type II DM, chronic unstable Basal bolus weight-based insulin Pharmacy consulted for assistance with management given steroid use and underlying malignancy/sepsis Acute kidney injury with CKD 3, History of schizophrenia, mixed subtype predominantly paranoia in the past Chronic stable current medication regimen which includes Zyprexa, fluvoxamine, clonazepam, Hyperlipidemia Chronic stable but will need to Hold statin while on Dapto DVT prophylaxis: Due to TUCKER we will treat with heparin every 8 hours, (2) COPD (chronic obstructive pulmonary disease): (3) Diabetes mellitus with peripheral vascular disease: (4) EDUARD (obstructive sleep apnea): (5) PAD (peripheral artery disease): (6) Schizophrenia: (7) Severe sleep apnea: (8) Venous stasis dermatitis: (9) Alcohol abuse: Plan Spoke to sister at the bedside Admission and Anticipated Discharge Date Admission Date: August 03, 2022 Subjective this pt is awake and alert, has acute on chronic changes to his left foot and bilateral venous stasis changes peripherally Physical Exam Physical Exam: pt is awake and alert venous stasis changes ulcers to left foot at 1st mtp base, and tip of gr toe and two on dorsum of foot overllying first metatarsal Results & Data Results & Data Vital Signs (Past 12 Hours) Vital Signs Temp Pulse Pulse Resp BP Pulse Ox O2 Del Method 08/04/22 07:45 99.1 F 112 H 18 134/76 96 CPAP 08/04/22 04:00 98.6 F 114 H 20 131/84 99 CPAP 08/03/22 23:00 119 H 08/03/22 22:33 98.8 F 128 H 22 116/77 93 Room Air Laboratory Results Reviewed CBC Reviewed PRP PG Care Time/CCT Total # of Minutes Spent Total Time Spent with Patient: Total time spent is greater than 50% in coordination of care (as documented) at patient's floor/unit and/or counseling patient: Coding Level of Care Code 53617 SUB INP/OBS CARE 3/50MIN Diagnoses Cellulitis of left foot L03.116 COPD (chronic obstructive pulmonary disease) J44.9 Diabetes mellitus with peripheral vascular disease E11.51 EDUARD (obstructive sleep apnea) G47.33 PAD (peripheral artery disease) I73.9 Schizophrenia F20.9 Severe sleep apnea G47.30 Venous stasis dermatitis I87.2 Alcohol abuse F10.10
[2022-08-04] MEDS: UMECLIDINIUM/VILANTEROL 62.5/25MCG 7 PUFFS/INHALER INH SCH (08:58)
[2022-08-04] MEDS: THIAMINE HCL 100 MG TAB PO SCH (08:58)
[2022-08-04] MEDS: FOLIC ACID 1 MG TAB PO SCH (08:58)
[2022-08-04] MEDS: FLUTICASONE FUROATE 100MCG 14 PUFFS/INHALER INH SCH (08:58)
[2022-08-04] MEDS: PANTOprazole 40 MG TAB PO SCH (08:58)
[2022-08-04] MEDS: MAGNESIUM OXIDE 400 MG TAB PO SCH ×2 (08:59→20:30)
[2022-08-04] MEDS: clonazePAM 0.5 MG TAB PO SCH ×2 (08:59→20:30)
[2022-08-04 09:00] LABS: Basophils # (auto) 0.01 K/uL (0-0.2); Basophils % (auto) 0.2 %; Immature Granulocytes # (auto) 0.08 K/uL (0.01-0.20); Immature Granulocytes % (auto) 1.3 %; Lymphocytes # (auto) 0.15 K/uL (1.2-3.4); Lymphocytes % (auto) 2.5 %; Monocytes # (auto) 0.25 K/uL (0.11-0.59); Monocytes % (auto) 4.2 %; Neutrophils # (auto) 5.47 K/uL (1.40-6.50); Neutrophils % (auto) 91.8 %
[2022-08-04] MEDS ORDERED: NON-FORMULARY MEDICATION (Fluticasone-Umeclidin-Vilanter [Trelegy Ellipta] 100-62.5-25 mcg INH SCH (09:00)
[2022-08-04] MEDS: LANTUS PER UNIT CHARGE SQ SCH ×2 (09:55→20:17)
[2022-08-04 10:29] LABS: BUN Creatinine Ratio 15.6 (10-20); Calcium 8.1 mg/dl (8.6-10.3); Creatinine Clr Calc Pharmacy 110.7 ml/min; Est GFR (African American) 97.8 ml/min; Est GFR (Non-African American) 84.4 ml/min; Phosphorus 1.8 mg/dl (2.5-4.9)
[2022-08-04] MEDS: DAPTOmycin 600 MG in SYRINGE 0 ML IV SCH (11:10)
[2022-08-04] MEDS ORDERED: POTASSIUM CHLORIDE CRTAB 20 MEQ TABCR PO STA (12:57)
--- NOTE | 2022-08-04 12:58 | Pharmacy Report ---
Pharmacy Glycemic Short Note 2 - Date of Service August 04, 2022 - Glycemic Short BSG Results (Last 24 hours): 08/03/22 08/03/22 08/03/22 13:02 13:16 15:34 Glucose 281 H POC Glucose 306 H* 177 H 08/03/22 08/03/22 08/03/22 16:38 16:59 19:10 Glucose 166 H POC Glucose 158 H 190 H 08/03/22 08/03/22 08/04/22 20:08 23:29 04:25 Glucose 180 H POC Glucose 129 H 158 H 08/04/22 08/04/22 08/04/22 07:34 07:38 11:56 Glucose 157 H POC Glucose 165 H 197 H OUTPATIENT ANTIDIABETIC REGIMEN: * GLIPIZIDE 5 MG qAM; metformin 1000 mg BID, pioglitazone 45 mg qAM * A1c pending ASSESSMENT: 08/04: * BSGs acceptable although slightly above goal- patient only received 11 units of basal for fasting of 165 mg/dL- will get 22 units today * Lunch BSG 197 mg/dL- will tighten novolog correction factor slightly between weight based stress of 1 and 2. 08/03 * Patient admitted with cellulitis, +COVID on PCR (no current resp. symptoms), complicated medical hx including lung cancer on chemotherapy/radiation, COPD, type II diabetes on oral medications as an outpatient * Not currently receiving steroids (does take steroids with chemotherapy) * BSG initially elevated on admission has trended down. * Insulin initiated with weight based stress of 1 dosing, overnight checks * Will tighten as needed PLAN FOR INPATIENT GLYCEMIC CONTROL: * Hold outpatient oral diabetes medications * Basal insulin * Lantus 11 units SQ BID * Bolus insulin * NovoLog per scale ACHS or Q6hrs while NPO * Goal Range: Low 110 mg/dL - High 140 mg/dL * Correction Factor: 35 mg/dL/unit * Nutritional / Prandial insulin per carb ratio of 1 unit per 10 grams CHO consumed
[2022-08-04 13:18] LABS: Estimated Average Glucose 146 mg/dl; Hemoglobin A1C 6.7 % (4.5-5.6)
[2022-08-04] MEDS: OLANZapine 10 MG TAB PO SCH (20:30)
[2022-08-04] MEDS: DIVALPROEX DELAY RELEASE 500 MG TAB PO SCH (20:30)
[2022-08-05] MEDS: CEFEPIME 2,000 MG in SYRINGE 0 ML IV SCH ×2 (04:01→12:34)
[2022-08-05] MEDS: HEPARIN SOD 5,000 UNIT/0.5 ML VIAL SQ SCH ×2 (05:21→13:59)
[2022-08-05] MEDS: INSULIN ASPART PER UNIT CHARGE SC SCH ×3 (07:30→17:18)
[2022-08-05] MEDS: MAGNESIUM OXIDE 400 MG TAB PO SCH (08:37)
[2022-08-05] MEDS: FLUTICASONE FUROATE 100MCG 14 PUFFS/INHALER INH SCH (08:37)
[2022-08-05] MEDS: UMECLIDINIUM/VILANTEROL 62.5/25MCG 7 PUFFS/INHALER INH SCH (08:37)
[2022-08-05] MEDS: PANTOprazole 40 MG TAB PO SCH (08:37)
[2022-08-05] MEDS: FOLIC ACID 1 MG TAB PO SCH (08:38)
[2022-08-05] MEDS: clonazePAM 0.5 MG TAB PO SCH (08:39)
[2022-08-05] MEDS ORDERED: LANTUS PER UNIT CHARGE SQ SCH ×2 (09:00)
[2022-08-05] MEDS ORDERED: POTASSIUM CHLORIDE CRTAB 20 MEQ TABCR PO SCH (09:00)
[2022-08-05] MEDS: DAPTOmycin 600 MG in SYRINGE 0 ML IV SCH (09:56)
[2022-08-05] MEDS: THIAMINE HCL 100 MG TAB PO SCH (09:56)
--- NOTE | 2022-08-05 14:43 | Pharmacy Report ---
Pharmacy Glycemic Short Note 2 - Date of Service August 05, 2022 - Glycemic Short BSG Results (Last 24 hours): 08/04/22 08/04/22 08/05/22 17:04 19:53 07:48 POC Glucose 149 H 165 H 107 H 08/05/22 11:21 POC Glucose 197 H OUTPATIENT ANTIDIABETIC REGIMEN: * GLIPIZIDE 5 MG qAM; metformin 1000 mg BID, pioglitazone 45 mg qAM * A1c pending ASSESSMENT: * Patient's BSGs yesterday were [phone] mg/dL. Patient received 40 units of insulin (22 units of basal and 18 units of bolus). * Fasting today is 107 mg/dL which is decreased from yesterday- will decrease Lantus by 25%. * BSGs trended upwards after in-range BSG so will tighten Novolog slightly. 08/04: * BSGs acceptable although slightly above goal- patient only received 11 units of basal for fasting of 165 mg/dL- will get 22 units today * Lunch BSG 197 mg/dL- will tighten novolog correction factor slightly between weight based stress of 1 and 2. 08/03 * Patient admitted with cellulitis, +COVID on PCR (no current resp. symptoms), complicated medical hx including lung cancer on chemotherapy/radiation, COPD, type II diabetes on oral medications as an outpatient * Not currently receiving steroids (does take steroids with chemotherapy) * BSG initially elevated on admission has trended down. * Insulin initiated with weight based stress of 1 dosing, overnight checks * Will tighten as needed PLAN FOR INPATIENT GLYCEMIC CONTROL: * Hold outpatient oral diabetes medications * Basal insulin * Lantus 8 units SQ BID * Bolus insulin * NovoLog per scale ACHS or Q6hrs while NPO * Goal Range: Low 110 mg/dL - High 140 mg/dL * Correction Factor: 25 mg/dL/unit * Nutritional / Prandial insulin per carb ratio of 1 unit per 8 grams CHO consumed
[2022-08-05 16:22] VITALS: PULSE 108; TEMP 97.9; O2SAT 98
[2022-08-05 16:23] VITALS: BP 127/82
--- NOTE | 2022-08-05 17:30 | Discharge Summary ---
Discharge Summary Date of Service August 05, 2022 Admission HPI Per Admitting Provider Feliz Evans 62yo with a PMHx PAD, T2DM with neuropathy, schizophrenia, EDUARD, Feliz reports he had been nauseus and has a problem with his L foot which caused him to seek ER evaluation.L foot started becoming sore and more red. No tsure how long its been there, thinks ~ 1 week or so. Sister was concerned so he called Dr. Carver who then referred him to the ER given his recent chemotherapy treatment, history of diabetes, and concerns for cellulitis Ischial he developed nausea began ~1 evening ago. Radiation 5x per week. Started radiation last year had 1 cycle without chemo. Started chemo recently. This recent series he had been doing both at the same time. Chemo on Mondays. No fevers/chills/sweats NO abdominal pain. +nauseus last night, not nauseus at ER assessment. Gets nauseus post treatments, improves with zofran. Takes steroids decadron after which helps as well +liquid diarrhea 3x today, improves with immodium. Has bene on an antibiotic for 2-[address] Brown. Has been taking DM medicines. Usually 120s. Taking lasix for the last few weeks for leg swelling. No hx hheart failure. Denies chest pain, chest pressure, shortness of breath, difficulty breathing. Reports he has chronically had some lower extremity swelling but no history of heart failure for which she takes Lasix Medical History: Reviewed Medications: Reviewed Surgical History: Reviewed Family history: Reviewed Allergies: Reviewed Social History: No tobacco x1 year. No ETOH in last 10 days, 1 or 2 since starting chemo.NO hx of withdrawal or seizures Code Status: Full Code Principal Dx & Hospital Course #1 = Principal Diagnosis (1) Cellulitis of left foot: Acute Left foot cellulitis With concern for sepsis on admission due to tachycardia, initial illness maybe covid infection -sepsis ruled out will be discharged on keflex qid with [facility] care follow up Home health to help with education and evaluation of wound in the interim of wound care apts squamous cell carcinoma of the lung, Chronic unclear if stable, Right upper lobe Diagnosed 07/14/2021, stage Ia 3, T1c, N0, M0 - CXR: 1. Emphysema without acute process. 2. Post treatment-related right upper lobe consolidation is remonstrated obscuring the patient's known malignancy. -S/p 3 rounds of chemotherapy/radiation. 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 alcohol abuse and alcohol withdrawal Hyponatremia, chronic stable suspected from beer potomania, treated with desmopressin Type II DM, chronic unstable return to home program Acute kidney injuryresolved with return to CKD 3, History of schizophrenia, mixed subtype predominantly paranoia in the past Chronic stable current medication regimen which includes Zyprexa, fluvoxamine, clonazepam, Hyperlipidemia Chronic stable but will need to Hold statin while on Dapto (2) COPD (chronic obstructive pulmonary disease): (3) Diabetes mellitus with peripheral vascular disease: (4) EDUARD (obstructive sleep apnea): (5) PAD (peripheral artery disease): (6) Schizophrenia: (7) Severe sleep apnea: (8) Venous stasis dermatitis: (9) Alcohol abuse: Updated Medication List Medication Instructions Recorded Confirmed Type cholecalciferol (vitamin D3) 25 1,000 unit PO QAM 06/29/18 08/03/22 History mcg (1,000 unit) capsule (Vitamin D3) clonazepam 0.5 mg tablet 0.5 mg PO BID 06/29/18 08/03/22 History divalproex 500 mg tablet,delayed 500 mg PO HS 06/29/18 08/03/22 History release fluvoxamine 150 mg 150 mg PO HS 06/29/18 08/03/22 History capsule,extended release 24 hr glipizide 5 mg tablet 5 mg PO QAM 06/29/18 08/03/22 History olanzapine 10 mg tablet (Zyprexa) 10 mg PO HS 06/29/18 08/03/22 History simvastatin 80 mg tablet 80 mg PO HS 06/29/18 08/03/22 History vitamin E 268 mg (400 unit) capsule 400 unit PO QAM 06/29/18 08/03/22 History Auto Titrating CPAP #1 ea 07/05/21 07/12/22 Rx CPAP Supplies #1 ea 07/05/21 07/12/22 Rx polyethylene glycol 3350 17 gram 17 g PO DAILY PRN Constipation 08/26/21 08/03/22 History oral powder packet blood sugar diagnostic (OneTouch #100 ea 10/06/21 07/12/22 Rx Verio test strips) tamsulosin 0.4 mg capsule 0.4 mg PO QAM 01/04/22 08/03/22 History lancets (OneTouch UltraSoft #100 ea 04/05/22 07/12/22 Rx Lancets) losartan 25 mg tablet 25 mg PO QAM #90 tabs 05/06/22 08/03/22 Rx albuterol sulfate 90 mcg/actuation 2 inh inhalation QID PRN shortness 06/08/22 08/03/22 Rx aerosol inhaler (Ventolin HFA) of breath or wheezing #18 grams fluticasone fur. 100 mcg-umeclid 1 inh inhalation QAM #60 ea 06/08/22 08/03/22 Rx 62.5 mcg-vilant 25 mcg inhalat.powder (Trelegy Ellipta) metformin 500 mg tablet 1,000 mg PO BID 06/14/22 08/03/22 History furosemide 40 mg tablet 40 mg PO QAM #90 tabs 07/12/22 08/03/22 Rx desmopressin 0.1 mg tablet 0.1 mg PO HS #90 tabs 07/14/22 08/03/22 Rx ezetimibe 10 mg tablet 10 mg PO QAM 08/03/22 08/03/22 History pioglitazone 45 mg tablet 45 mg PO QAM 08/03/22 08/03/22 History cephalexin 500 mg capsule 500 mg PO QID 10 days #40 caps 08/05/22 Rx Hospital Stay Data Consultations 08/03/22 12:25 ED Decision to Admit Stat Pending Results Patient Have Any Pending Studies at Discharge: No Discharge Instructions Given to Patient (Per Discharging Provider) You have been diagnosed with covid infection, it would be recommended that you quarantine yourself for 10 days from your first test or first symptoms, and if at the 10th day you have no symptoms the you can come off quarantine but use common sense precautions. Quarantine means attempting to stay away from people who have not had an active covid infection in the past, and if you have to be around others to wear a mask even if you are indoors, do not share a room to sleep in with others until you are out of quarantine. If you still have symptoms at the 10th day, continue to quarantine until you are symptom free for 48 hours Some of the ulcers on your foot are from your poor venous circulation. It is very important that you elevate your legs when sitting as high as you possibly can. Will be on a course of antibiotics but further recommendations can be obtained from your family doctor or wound care. It is very important that you follow-up with wound care center Home Health Attestation I certify that this patient is under my care and that I, or a physicians engineer assistant working with me, had a face to-face encounter that meets the home health [id number] encounter requirements with this patient. The encounter with the patient was in whole, or in part, for the following medical condition, which is the primary reason for home health care (list medical condition): I certify that, based on my findings, the following services are medically necessary home health services: My clinical findings support the need for the above services because: Further, I certify that my clinical findings support that this patient is homebound (i.e. absences from home require considerable and taxing effort and are for medical reasons or buddhist services or infrequently or of short duration when for other reasons) because: Certification for Home Health Services: Based on the above findings, I certify that this patient is confined to the home and needs intermittent prison care, physical therapy and/or speech therapy or continues to need occupational therapy. The patient is under my care, and I have initiated the establishment of the plan of care. This patient will be followed by a physician who will periodically review the plan of care. Total Time Total Time Spent Total Time Spent (In Minutes): It required greater than 30 minutes to prepare this patient for discharge Coding Level of Care Code 58164 INP/OBS DISCH >30 MIN Diagnoses Cellulitis of left foot L03.116 COPD (chronic obstructive pulmonary disease) J44.9 Diabetes mellitus with peripheral vascular disease E11.51 EDUARD (obstructive sleep apnea) G47.33 PAD (peripheral artery disease) I73.9 Schizophrenia F20.9 Severe sleep apnea G47.30 Venous stasis dermatitis I87.2 Alcohol abuse F10.10
== END 2022-08-05 17:40 | disposition home health service (06) | DRG 602 ==
LOC: ED 10:07 → 2S 13:09 → INTOOBSV 13:09 → SUATTDRO 13:09 → 2S 16:30

== ENCOUNTER 2022-09-06 12:21 | Observation (INO) ==
[2022-09-06] MEDS ORDERED: SODIUM CHLORIDE 0.9% 1000ML 1,000 ML IV ONE (13:28)
--- NOTE | 2022-09-06 14:25 | XRay Report ---
SINGLE VIEW CHEST CLINICAL HISTORY: Change in mental status. Dizziness. FINDINGS: An AP, portable, upright chest radiograph is compared to study dated 08/03/2022 and correlat ed with chest CT dated 06/15/2022. The examination is degraded by portable technique and patient rotati on. The heart is enlarged noting atherosclerotic calcification of the secure. The pulmonary vasculatu re is noncongested. Emphysema and chronic interstitial thickening is similar to previous. Dense airsp liset consolidation/fibrosis in the right upper lobe is similar to previous. Scarring/atelectasis is no dena at the lung bases. No large pleural effusion or pneumothorax is identify. The skeletal structures are osteopenic. The bony thorax is grossly intact. IMPRESSION: 1. Cardiomegaly an emphysema without radiographic evidence of congestive failure. 2. Dense right upper lobe consolidation/fibrosis is similar to previous. 3. No new foci of airspace consolidation are identified. ACT 112: Negative or not required by law. Electronically signed by: Bao Harrison M.D. 09/06/2022 2:23 PM
[2022-09-06] MEDS ORDERED: SODIUM CHLORIDE 0.9% 250 ML IV PRN (14:45)
[2022-09-06 14:46] LABS: Hematocrit (blood only) 18.1 % (42.0-52.0); Hemoglobin 6.1 g/dl (14.0-18.0); Mean Corpuscular Hemoglobin 33.5 pg (25.0-34.0); Mean Corpuscular Hgb Conc 33.7 g/dL (32.0-36.0); Mean Corpuscular Volume 99.5 fL (80.0-100.0); Nucleated RBC # (auto) 0.03 K/uL (0-0.12); Nucleated RBC % (auto) 1.9 %; Platelet Count 140 K/uL (130-400); RDW Coefficient of Variation 16.8 % (11.5-14.5); RDW Standard Deviation 51.8 fL (36.4-46.3); Red Blood Count 1.82 M/uL (4.70-6.10); White Blood Count 1.59 K/ul (4.8-10.8)
[2022-09-06 14:57] LABS: Immature Granulocytes # (auto) 0.02 K/uL (0.01-0.20); Immature Granulocytes % (auto) 1.3 %; Lymphocytes # (auto) 0.33 K/uL (1.2-3.4); Lymphocytes % (auto) 20.8 %; Monocytes # (auto) 0.15 K/uL (0.11-0.59); Monocytes % (auto) 9.4 %; Neutrophils # (auto) 1.09 K/uL (1.40-6.50); Neutrophils % (auto) 68.5 %; Polychromasia 1+
[2022-09-06 15:09] LABS: Alanine Aminotransferase 18 U/L (7-52); Albumin Globulin Ratio 1.3 (0.9-2); Albumin Level 3.7 gm/dl (3.4-5.0); Alkaline Phosphatase 49 U/L (34-104); Anion Gap 7 (3-11); Aspartate Aminotransferase 13 U/L (13-39); BUN Creatinine Ratio 24.1 (10-20); Bilirubin,Total 0.7 mg/dl (0.2-1.0); Blood Urea Nitrogen 20 mg/dl (6-23); Calcium 7.9 mg/dl (8.6-10.3); Carbon Dioxide 28 mmol/L (21-32); Chloride 99 mmol/L (98-107); Est GFR (African American) 109.3 ml/min; Est GFR (Non-African American) 94.3 ml/min; Globulin 2.8 gm/dl (2.5-4.0); Glucose 90 mg/dl (70-99(Fasting)); Lipase 31 U/L (11-82); Magnesium 1.9 mg/dl (1.7-2.4); Phosphorus 3.2 mg/dl (2.5-4.9); Sodium 134 mmol/L (136-145); Total Protein 6.5 gm/dl (6.0-8.3)
[2022-09-06 15:15] LABS: Troponin I High Sensitivity 7.7 pg/ml (0-20)
--- NOTE | 2022-09-06 15:37 | Emergency Department Note ---
Impression & Plan Symptomatic anemia, Pancytopenia due to antineoplastic chemotherapy, Near syncope, Metastatic non-small cell lung cancer ED Provider Note NAME: TYSON MEJIA II AGE: 62 SEX: M ARRIVES VIA: Ambulance INFORMANT: Patient ED PROVIDER(S): Roosevelt Ma MD CHIEF COMPLAINT: Near syncope, hypotension. PLAN: Disposition: Admit MEDICAL DECISION MAKING: The patient is a pleasant 62-year-old gentleman with a past medical history of COPD, EDUARD on CPAP, history of alcohol abuse but has refrained from alcohol since his discharge, schizophrenia.metastatic non-small lung cancer following with the [facility] undergoing treatment with chemo and radiation who presents to the emergency department via EMS for evaluation of near syncopal episode with tachycardia and hypotension when he was going to his outpatient appointment after being seen this morning for magnesium and potassium infusions at the [facility]. The patient and his sister at the bedside reports that they have been monitoring his hemoglobin which was low but he had denied having any symptoms today and so transfusion was deferred. He denies any fevers, cough, congestion, chest pain or shortness of breath. The patient had a recent admission to this facility from 08/03-08/05 for cellulitis of the left foot with concern for possible sepsis and ultimately in the setting of diagnosis of COVID-19. He is following with the wound clinic for diabetic foot ulcers of bilateral feet which all have been improving per recent wound clinic visit on 08/30. EKG without overt acute ischemia. CXR negative for acute cardiopulmonary process. WBC 1.5K similar to yesterday though with stable to improved ANC 1.09K. H/H 6.1/18.1 down from 7.2/20.7 yesterday. MCV is 99.5. Platelets within normal limits. Chemistry without metabolic acidosis. Potassium 3 with repletion initiated. Magnesium 1.9 improved from yesterday of 0.9. LFTs unremarkable. High-sensitivity troponin 7.7, within normal limits. Lipase not elevated. TSH within normal limits. COVID-19 RNA, DIEGO test was negative. Given the patient's symptomatic anemia the patient was consented for blood transfusion and 2 units of PRBCs were ordered. Patient is degree of symptoms related to his anemia they did agree with plan for admission. Case was discussed with Dr. Stuart, [facility] hospitalist, who will evaluate the patient for admission. Triage Nursing notes reviewed and agree them. Prior/outside medical records reviewed Vital Signs: reviewed Differential diagnosis: Infection, dehydration, metabolic abnormality, hypo/hyperglycemia, electrolyte disturbance, anemia, hypoxia, cardiac sources, intracerebral event, toxicologic, neurologic, as well as other pathologies. ER treatment provided: See below. Diagnostics interpreted by me: ECG: Normal sinus rhythm, 98 bpm, no ectopy, right bundle branch block, no overt ST elevation or depression, QTc 485, cures 124. Cardiac Monitoring: An order for continuous cardiac monitoring was placed and demonstrated Normal sinus rhythm, 98 bpm, no ectopy Laboratory studies: See below Imaging studies: See below Consultation(s): Dr. Stuart, [facility] hospitalist HPI: The patient is a pleasant 62-year-old gentleman with a past medical history of COPD, EDUARD on CPAP, history of alcohol abuse but has refrained from alcohol since his discharge, schizophrenia.metastatic non-small lung cancer following with the [facility] undergoing treatment with chemo and radiation who presents to the emergency department via EMS for evaluation of near syncopal episode with tachycardia and hypotension when he was going to his outpatient appointment after being seen this morning for magnesium and potassium infusions at the [facility]. The patient and his sister at the bedside reports that they have been monitoring his hemoglobin which was low but he had denied having any symptoms today and so transfusion was deferred. He denies any fevers, cough, congestion, chest pain or shortness of breath. The patient had a recent admission to this facility from 08/03-08/05 for cellulitis of the left foot with concern for possible sepsis and ultimately in the setting of diagnosis of COVID- 19. He is following with the wound clinic for diabetic foot ulcers of bilateral feet which all have been improving per recent wound clinic visit on 08/30. ROS: See above HPI for pertinent positives & negatives. A total of 10 systems reviewed and were otherwise negative. VITALS:See Below PHYSICAL EXAMINATION: GENERAL: Awake, alert, fatigued-appearing, in no distress HENT: Normocephalic, atraumatic. Oropharynx with dry mucous membranes and otherwise unremarkable. EYES: Normal conjunctiva. Sclera non-icteric. NECK: Supple. No nuchal rigidity. FROM. No JVD. RESPIRATORY: Clear to auscultation. CARDIAC: Regular rate, normal rhythm. Extremities warm and well perfused. Pulses equal. ABDOMEN: Soft, non-distended. No tenderness to palpation. No rebound or guarding. No masses. RECTAL: Deferred. MUSCULOSKELETAL: Chest examination reveals no tenderness. The back is symmetrical on inspection without obvious abnormality. There is no CVA tenderness to palpation. No joint edema. LOWER EXTREMITIES: Calves are equal size bilaterally and non-tender. Bilateral feet with wound dressing clean dry and intact and postop shoe present. NEURO: Normal sensorium. No sensory or motor deficits noted. SKIN: Mild pallor. No rash or jaundice noted. ED COURSE: Critical Care: I have personally spent greater than 35 minutes of critical care time in the direct management of this patient. This includes bedside care, interpretation of diagnostic studies, and testing, discussion with consultants, patient, and family members, and other required patient management activities. This 35 minutes is in excess of all separately billable procedures. Roosevelt Ma MD Past Med/Surg History Medical History Alcohol abuse 10-12 DRINKS PER DAY Anxiety and depression Benign essential tremor Chronic back pain Chronic obstructive pulmonary disease daily inh and prn inh Diabetes mellitus, type 2 NIDDM Diabetic neuropathy Edema Esophageal reflux Hx of osteomyelitis Jun 2018- s/p amputation of tips of 2nd/3rd toes and part of great toe > left foot Hyperlipidemia Hypertension Lung cancer Diagnosed Spring 2021 -- no surgical intervention at this time.; following with Dr. 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 Pulmonary HTN "MILD" RVSP 40MMHG PER 2015 STRESS ECHO- NO ISSUES NOTED WITH 2019 ECHO Schizophrenia Urinary incontinence Venous stasis dermatitis Surgical History H/O exploratory laparotomy GALLBLADDER LESION EXCISION H/O tooth extraction History of biopsy of bladder TURBT= 11/28/17= LMA#5 AT [facility] History of bronchoscopy Spring 2021 History of cataract surgery right/left History of cystoscopy WITH STONE EXTRACTION X 2 History of open reduction and internal fixation (ORIF) procedure LEFT SHOULDER 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 Family History Father Prostate cancer Family history of diabetes mellitus Myocardial infarction Aunt Family history of diabetes mellitus Uncle Family history of diabetes mellitus Family/Other Family history of diabetes mellitus Mother Diabetes Alzheimer disease Grandfather (Paternal) Cardiac disorder Cancer Colon Cancer Brother Kidney stones Other Heart disease No family history of adverse response to anesthesia Denies family history of Crohn's disease Colorectal cancer Lung disease Inflammatory bowel disease Asthma Social History Smoking Status: Former smoker Age Started Using Tobacco: 12; Age Quit Using Tobacco: 61; packs per day: 0.5; Cigarettes Per Day: 10; Second Hand Exposure: No; Do You Dip or Chew Tobacco: Yes (hx-quit years ago; advised); Hx Alcohol Use: Yes Alcohol type: beer Alcohol Intake Frequency Comment: 6 beers daily Hx Substance Use: No Preferred Language: Sudanese Communication Ability: Effective Visual Impairment: No Limitations Hearing Ability: Normal Clinical Staff Educator Required: No Beliefs That Will Affect Care: None marital status: Single Current Living Situation: Alone Current Living Situation Comment: pt has been living with sister for several weeks during chemo rx current occupational status: disabled Feels Safe at Home: Yes Safety Concerns Comment: Currently living with his sister due to chemo/radiation/illness in current or past relationships, have you been: other Diet: regular caffeine: Yes Physical Activity Frequency: 1-2 Times per Week Seatbelt Use: always Assistive Devices: CPAP Allergies Allergies Allergy/AdvReac Type Severity Reaction Status Date / Time scopolamine Allergy Intermediate Itching Verified 09/06/22 11:28 Home Meds Home Medications Medication Instructions Recorded Confirmed cholecalciferol (vitamin D3) 25 1,000 unit PO QAM 06/29/18 09/06/22 mcg (1,000 unit) capsule (Vitamin D3) clonazepam 0.5 mg tablet 0.5 mg PO BID 06/29/18 09/06/22 divalproex 500 mg tablet,delayed 500 mg PO HS 06/29/18 09/06/22 release fluvoxamine 150 mg 150 mg PO HS 06/29/18 09/06/22 capsule,extended release 24 hr olanzapine 10 mg tablet (Zyprexa) 10 mg PO HS 06/29/18 09/06/22 vitamin E 268 mg (400 unit) capsule 400 unit PO QAM 06/29/18 09/06/22 tamsulosin 0.4 mg capsule 0.4 mg PO QAM 01/04/22 09/06/22 metformin 500 mg tablet 1,000 mg PO BID 06/14/22 09/06/22 ezetimibe 10 mg tablet 10 mg PO QAM 08/03/22 09/06/22 pioglitazone 45 mg tablet 45 mg PO QAM 08/03/22 09/06/22 Previous Rx's Medication Instructions Recorded Auto Titrating CPAP #1 ea 07/05/21 CPAP Supplies #1 ea 07/05/21 lancets (OneTouch UltraSoft #100 ea 04/05/22 Lancets) losartan 25 mg tablet 25 mg PO QAM #90 tabs 05/06/22 albuterol sulfate 90 mcg/actuation 2 inh inhalation QID PRN shortness 06/08/22 aerosol inhaler (Ventolin HFA) of breath or wheezing #18 grams fluticasone fur. 100 mcg-umeclid 1 inh inhalation QAM #60 ea 06/08/22 62.5 mcg-vilant 25 mcg inhalat.powder (Trelegy Ellipta) furosemide 40 mg tablet 40 mg PO QAM #90 tabs 07/12/22 desmopressin 0.1 mg tablet 0.1 mg PO HS #90 tabs 07/14/22 glipizide 5 mg tablet 5 mg PO QAM #30 tabs 08/09/22 blood sugar diagnostic (OneTouch #100 strips 08/11/22 Verio test strips) simvastatin 40 mg tablet 40 mg PO DAILY #90 tabs 08/12/22 pen needle, diabetic 31 gauge x #50 ea 08/22/2207/21" (BD Ultra-Fine Mini Pen Needle) insulin glargine 100 unit/mL (3 15 unit (0.15 mL) subcut QAM #15 mL 09/05/22 mL) subcutaneous pen (Lantus Solostar U-100 Insulin) Results & Data (ED) Vital Signs Vital Signs - 24 hr 09/06/22 12:31 09/06/22 12:39 09/06/22 12:13 Temperature 36.8 C Temperature Source Oral Pulse Rate 102 H 100 H Pulse Rate [Apical] 100 H Pulse Rate from SpO2 Sensor Pulse Rhythm Respiratory Rate 17 18 Respiratory Depth Normal Blood Pressure 121/89 Blood Pressure Mean 99 Blood Pressure Position Pulse Oximetry 96 95 Oxygen Delivery Method Room Air Room Air Sepsis Recent Fever Within 48 Hours No Sepsis New/Unexplained Change in Mental Status No Sepsis Action Taken by Nursing No Action Required 09/06/22 13:34 09/06/22 12:29 09/06/22 12:30 Temperature Temperature Source Pulse Rate 101 H 103 H Pulse Rate [Apical] Pulse Rate from SpO2 Sensor 98 H 101 H Pulse Rhythm Respiratory Rate 20 12 Respiratory Depth Blood Pressure Blood Pressure Mean Blood Pressure Position Pulse Oximetry 96 100 86 L Oxygen Delivery Method Room Air Sepsis Recent Fever Within 48 Hours Sepsis New/Unexplained Change in Mental Status Sepsis Action Taken by Nursing 09/06/22 12:40 09/06/22 12:50 09/06/22 13:00 Temperature Temperature Source Pulse Rate 100 H 96 H 100 H Pulse Rate [Apical] Pulse Rate from SpO2 Sensor 101 H 94 H 96 H Pulse Rhythm Respiratory Rate 15 14 20 Respiratory Depth Blood Pressure Blood Pressure Mean Blood Pressure Position Pulse Oximetry 96 99 79 L Oxygen Delivery Method Sepsis Recent Fever Within 48 Hours Sepsis New/Unexplained Change in Mental Status Sepsis Action Taken by Nursing 09/06/22 13:10 09/06/22 13:20 09/06/22 13:30 Temperature Temperature Source Pulse Rate 99 H 98 H 98 H Pulse Rate [Apical] Pulse Rate from SpO2 Sensor 98 H 96 H Pulse Rhythm Respiratory Rate 15 14 20 Respiratory Depth Blood Pressure Blood Pressure Mean Blood Pressure Position Pulse Oximetry 100 99 Oxygen Delivery Method Sepsis Recent Fever Within 48 Hours Sepsis New/Unexplained Change in Mental Status Sepsis Action Taken by Nursing 09/06/22 13:40 09/06/22 13:50 09/06/22 16:05 Temperature 36.4 C L Temperature Source Oral Pulse Rate 95 H 99 H 100 H Pulse Rate [Apical] Pulse Rate from SpO2 Sensor 96 H Pulse Rhythm Respiratory Rate 14 16 15 Respiratory Depth Blood Pressure 120/77 Blood Pressure Mean 91 Blood Pressure Position Semi-fowlers Pulse Oximetry 100 96 Oxygen Delivery Method Sepsis Recent Fever Within 48 Hours Sepsis New/Unexplained Change in Mental Status Sepsis Action Taken by Nursing 09/06/22 16:24 Temperature 36.6 C Temperature Source Oral Pulse Rate 106 H Pulse Rate [Apical] Pulse Rate from SpO2 Sensor Pulse Rhythm Regular Respiratory Rate 17 Respiratory Depth Blood Pressure 140/80 Blood Pressure Mean 100 Blood Pressure Position Semi-fowlers Pulse Oximetry 100 Oxygen Delivery Method Sepsis Recent Fever Within 48 Hours Sepsis New/Unexplained Change in Mental Status Sepsis Action Taken by Nursing Laboratory Data Attestation: I reviewed the patient's lab results. 09/06/22 14:01 09/06/22 14:39 Lab Results 09/06/22 09/06/22 09/06/22 Range/Units 12:48 13:56 14:01 WBC (4.8-10.8) K/ul RBC (4.70-6.10) M/uL Hgb (14.0-18.0) g/dl Hct (42.0-52.0) % MCV (80.0-100.0) fL MCH (25.0-34.0) pg MCHC (32.0-36.0) g/dL RDW Std Deviation (36.4-46.3) fL RDW Coeff of Catalino (11.5-14.5) % Plt Count (130-400) K/uL MPV (9.4-12.4) fL Immature Gran % (Auto) % Neut % (Auto) % Lymph % (Auto) % Canadian % (Auto) % Eos % (Auto) % Baso % (Auto) % Neut # (Auto) (1.40-6.50) K/uL Lymph # (Auto) (1.2-3.4) K/uL Canadian # (Auto) (0.11-0.59) K/uL Eos # (Auto) (0-0.50) K/uL Baso # (Auto) (0-0.2) K/uL Immature Gran # (Auto) (0.01-0.20) K/uL Absolute Nucleated RBC (0-0.12) K/uL Nucleated RBC % (auto) % Polychromasia Sodium Cancelled Potassium Cancelled Chloride Cancelled Carbon Dioxide Cancelled Anion Gap Cancelled BUN Cancelled Creatinine Cancelled Est Cr Clr Drug Dosing Cancelled Est GFR ( Amer) Cancelled Est GFR (Non-Af Amer) Cancelled BUN/Creatinine Ratio Cancelled Glucose Cancelled Calcium Cancelled Phosphorus Cancelled Magnesium Cancelled Total Bilirubin Cancelled AST Cancelled ALT Cancelled Alkaline Phosphatase Cancelled Troponin I High Sens Cancelled Total Protein Cancelled Albumin Cancelled Globulin Cancelled Albumin/Globulin Ratio Cancelled Lipase Cancelled TSH (0.300-4.500) uIu/ml SARS-CoV-2, RNA, NAAT NEGATIVE (NEGATIVE) Blood Type A Positive Antibody Screen NEGATIVE Crossmatch See Detail 09/06/22 09/06/22 09/06/22 Range/Units 14:01 14:01 14:39 WBC 1.59 L (4.8-10.8) K/ul RBC 1.82 L (4.70-6.10) M/uL Hgb 6.1 L* (14.0-18.0) g/dl Hct 18.1 L* (42.0-52.0) % MCV 99.5 (80.0-100.0) fL MCH 33.5 (25.0-34.0) pg MCHC 33.7 (32.0-36.0) g/dL RDW Std Deviation 51.8 H (36.4-46.3) fL RDW Coeff of Catalino 16.8 H (11.5-14.5) % Plt Count 140 (130-400) K/uL MPV 11.0 (9.4-12.4) fL Immature Gran % (Auto) 1.3 % Neut % (Auto) 68.5 % Lymph % (Auto) 20.8 % Canadian % (Auto) 9.4 % Eos % (Auto) 0.0 % Baso % (Auto) 0.0 % Neut # (Auto) 1.09 L (1.40-6.50) K/uL Lymph # (Auto) 0.33 L (1.2-3.4) K/uL Canadian # (Auto) 0.15 (0.11-0.59) K/uL Eos # (Auto) 0.00 (0-0.50) K/uL Baso # (Auto) 0.00 (0-0.2) K/uL Immature Gran # (Auto) 0.02 (0.01-0.20) K/uL Absolute Nucleated RBC 0.03 (0-0.12) K/uL Nucleated RBC % (auto) 1.9 % Polychromasia 1+ Sodium 134 L Potassium 3.0 L Chloride 99 Carbon Dioxide 28 Anion Gap 7 BUN 20 Creatinine 0.83 Est Cr Clr Drug Dosing Not Reportable Est GFR ( Amer) 109.3 Est GFR (Non-Af Amer) 94.3 BUN/Creatinine Ratio 24.1 H Glucose 90 Calcium 7.9 L Phosphorus 3.2 Magnesium 1.9 Total Bilirubin 0.7 AST 13 ALT 18 Alkaline Phosphatase 49 Troponin I High Sens 7.7 Total Protein 6.5 Albumin 3.7 Globulin 2.8 Albumin/Globulin Ratio 1.3 Lipase 31 TSH 1.047 (0.300-4.500) uIu/ml SARS-CoV-2, RNA, NAAT (NEGATIVE) Blood Type Antibody Screen Crossmatch Administered Medications Potassium Chloride (K Farhan / Wtr) 10 meq in 100 mls @ 100 mls/hr IV Q1H ABRIL Stop: 09/06/22 17:44 Last Admin: 09/06/22 15:47 Dose: 100 mls/hr Documented By: AB Discontinued Medications Sodium Chloride (Nss 1000ml) 1,000 mls @ 999 mls/hr IV .Q1H1M ONE Stop: 09/06/22 14:28 Last Infusion: 09/06/22 15:19 Dose: 0 mls/hr Documented By: Admin: 09/06/22 13:56 Dose: 999 mls/hr Documented By: KV Imaging Data Radiologist's Impression: Chest X-Ray 09/06/22 13:26 SINGLE VIEW CHEST CLINICAL HISTORY: Change in mental status. Dizziness. FINDINGS: An AP, portable, upright chest radiograph is compared to study dated 08/03/2022 and correlated with chest CT dated 06/15/2022. The examination is degraded by portable technique and patient rotation. The heart is enlarged noting atherosclerotic calcification of the secure. The pulmonary vasculature is noncongested. Emphysema and chronic interstitial thickening is similar to previous. Dense airspace consolidation/fibrosis in the right upper lobe is similar to previous. Scarring/atelectasis is noted at the lung bases. No large pleural effusion or pneumothorax is identify. The skeletal structures are osteopenic. The bony thorax is grossly intact. IMPRESSION: 1. Cardiomegaly an emphysema without radiographic evidence of congestive failure. 2. Dense right upper lobe consolidation/fibrosis is similar to previous. 3. No new foci of airspace consolidation are identified. ACT 112: Negative or not required by law. Electronically signed by: Bao Harrison M.D. 09/06/2022 2:23 PM Discharge Plan Visit Data Chief Complaint: Cardiac Assessment ED Provider: Roosevelt Ma Discharge Problem: Symptomatic anemia, Pancytopenia due to antineoplastic chemotherapy, Near syncope, Metastatic non-small cell lung cancer Forms Stand Alone Forms: [facility] Prescriptions Prescriptions: No Action (DME) lancets [OneTouch UltraSoft Lancets] Misc See Rx Instructions .ROUTE .MEDSUPPLY Qty: 100 5RF Rx Instructions: As directed 3-4x a day Dx:E11.9 losartan 25 mg tablet 25 mg PO QAM Qty: 90 3RF desmopressin 0.1 mg tablet 0.1 mg PO HS Qty: 90 3RF Rx Instructions: TAKE 1 TABLET AT BEDTIME glipizide 5 mg tablet 5 mg PO QAM Qty: 30 0RF (DME) OneTouch Verio test strips Strip See Rx Instructions .ROUTE .COMPLEX Qty: 100 3RF Dose Instruction: TEST BLOOD SUGAR 1 TIME DAILY Rx Instructions: TEST BLOOD SUGAR 1 TIME DAILY simvastatin 40 mg tablet 40 mg PO DAILY Qty: 90 3RF (DME) pen needle, diabetic [BD Ultra-Fine Mini Pen Needle] 31 gauge x 3/16" needle See Rx Instructions .Route Qty: 50 0RF Rx Instructions: Use to inject insulin once daily insulin glargine [Lantus Solostar U-100 Insulin] 100 unit/mL (3 mL) insulin pen 15 unit subcut QAM Qty: 15 5RF furosemide 40 mg tablet 40 mg PO QAM Qty: 90 3RF (DME) CPAP Supplies Misc See Rx Instructions .MEDSUPPLY Qty: 1 0RF Rx Instructions: CPAP supplies. G47.33 (DME) Auto Titrating CPAP Misc See Rx Instructions .MEDSUPPLY Qty: 1 0RF Rx Instructions: Auto PAP with 5-15 cm H20. Lifetime usage. G47.33 albuterol sulfate [Ventolin HFA] 90 mcg/actuation HFA aerosol inhaler 2 inh INH QID PRN (Reason: shortness of breath or wheezing) Qty: 18 4RF Trelegy Ellipta 100-62.5-25 mcg blister with device 1 inh inhalation QAM Qty: 60 7RF clonazepam 0.5 mg Tablet 0.5 mg PO BID divalproex 500 mg Tablet,Delayed Release (Dr/Ec) 500 mg PO HS cholecalciferol (vitamin D3) [Vitamin D3] 1,000 unit Capsule 1,000 unit PO QAM olanzapine [Zyprexa] 10 mg Tablet 10 mg PO HS vitamin E 400 unit Capsule 400 unit PO QAM fluvoxamine 150 mg Capsule,Extended Release 24hr 150 mg PO HS pioglitazone 45 mg tablet 45 mg PO QAM Rx Instructions: TAKE 1 TABLET BY MOUTH EVERY MORNING ezetimibe 10 mg tablet 10 mg PO QAM Rx Instructions: TAKE 1 TABLET BY MOUTH EVERY MORNING tamsulosin 0.4 mg capsule 0.4 mg PO QAM metformin 500 mg tablet 1,000 mg PO BID Rx Instructions: TAKE 2 TABLETS TWICE A DAY Referrals Referrals: Jah Brown DO [Primary Care Provider] -
[2022-09-06] MEDS: POTASSIUM CHLORIDE / WTR 10 MEQ/100 ML PLCT IV SCH ×2 (15:47→16:53)
--- NOTE | 2022-09-06 15:58 | History & Physical Report ---
Date of Service September 06, 2022 Assessment & Plan (1) Acute on chronic anemia: Plan: Presyncope 2/2 Severe anemia w/ bicytopenia. Acute on chronic, symptomatic with hypotension WBC 1.59, hemoglobin 6.1 with last 7.2 09/05/2022 Platelets 140 Neutrophils 1.09, borderline severe neutropenia - Without active bleeding, progressive downtrend with hx of chemo/pancytopenia Last chemotherapy was August 29 completed Taxol/carboplatin at that time - Iron studies 09/06/2022: Ferritin 473 which may be elevated as phase reactant, iron 97, UIBC 160. Transferrin saturation not ordered, added and pending - B12 low normal , repletion ordered IM - Folate: 19.15 on 09/07/2019 - 2u pRBC pending, H&H between units ordered, H&H trended q6h for stability EKG: Normal sinus rhythm, right bundle branch block, T wave inversions more prominent compared to prior, QTc 485 Echo 03/2020: LV SF 60-65%, normal diastolic function, normal systolic function and wall motion Creatinine baseline is less than 1, admitting creatinine 0.83 High-sensitivity troponin 7.7 on admission TSH normal CXR: Dense right upper lobe consolidation/fibrosis similar to previous with history of malignancy, cardiomegaly without evidence of CHF. 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 Emphysema without acute process. 2. Post treatment-related right upper lobe consolidation is redemonstrated obscuring the patient's known malignancy. Onchemotherapy/radiation. Patient receiving radiation 5 times per week - -As of 08/29/2022 completed combined radiation/chemotherapy with 6000 cGy, Taxol, carboplatin No evidence of brain mets on MRI - NO acute change in management. Breathing at baseline. History of alcohol abuse Previously with up to 10-12 drinks per day In remission for 2 months since being on chemo - No acute treatment required at this time COPD with additional fibrosis, previously Gold class C Continue Trelegy/formulary equivalent DuoNebs as needed Continue CPAP for EDUARD Urinary incontinence Is on desmopressin as outpatient with symptomatic improvement, continued Hyponatremia - Mild, trended. At risk of SIADH 2/2 lung cancer. Type II DM Basal bolus weight-based insulin Lantus 11 units twice daily, CF 35, ratio 12 Goal BSG [id number] - checks ac/hs TUCKER Admitting creatinine 0.83 Baseline creatinine approximately 1.2 Received fluids as noted Renally dose medications BMP daily Avoid nephrotoxins History of schizophrenia, mixed subtype predominantly paranoia in the past Well controlled on his current medication regimen which includes Zyprexa, fluvoxamine, clonazepam, and divalproex. Continue above medications, mentation goal directed without abnormality at admission DVT PPx: SCDs, pharmacoppx deferred due to anemia Diet: HH/DM2. No signs of GIB. Dispo: PCU CODE STATUS: Full (2) Schizophrenia: (3) Type 2 diabetes mellitus with diabetic mononeuropathy: (4) Severe sleep apnea: (5) EDUARD (obstructive sleep apnea): (6) Hypersomnia: (7) COPD (chronic obstructive pulmonary disease): (8) Hypertension: (9) Malignant neoplasm of right upper lobe of lung: History of Present Illness Primary Care Provider: Jah Brown DO Edelisha is a 62-year-old male with past medical history of right lobe squamous cell lung carcinoma, type II DM, EDUARD, recent cellulitis, chronic alcohol use with history of hyponatremia, hyperlipidemia on Zetia who presents to the ER for cardiac evaluation is found to be severely anemic. Had magnesium and potassium infusion at the cancer care center. Dr. Solano has been following for anemia, was borderling at last check but was doing OK earlie rin the week and feeling better so was deferred. This AM had an appointment at wound clinic for foot wounds, when he got there his BP was very low (systolic 80s), called EMS for evaluation in ER. +lightheadedness and dizziness, much worse when standing after having mg/kcl infusion but did not pass out compl etely. No chest pain/chest pressure. No shortness of breath. No melena. No bleeding. no hematemesis. No fever chills sweats No burnign with voiding, no polyuria. Some hesitancy No abdominal pain or diarrhea Breathing is 'ok actually getting better. Not out of breath much going up steps anymore.' Denies warmth/erythema/pain in his legs Lat chemo August 29 Medical History: Reviewed Medications: Reviewed Surgical History: Reviewed Family history: Reviewed Allergies: Reviewed Social History: No recent tobacco use. July 30 last time he had any alcohol at all, Jun 2021 last tobacco use. Code Status: Full Code Allergies Allergy/AdvReac Type Severity Reaction Status Date / Time scopolamine Allergy Intermediate Itching Verified 09/06/22 11:28 Home Medications Medication Instructions Recorded Confirmed Type cholecalciferol (vitamin D3) 25 1,000 unit PO QAM 06/29/18 09/06/22 History mcg (1,000 unit) capsule (Vitamin D3) clonazepam 0.5 mg tablet 0.5 mg PO BID 06/29/18 09/06/22 History divalproex 500 mg tablet,delayed 500 mg PO HS 06/29/18 09/06/22 History release fluvoxamine 150 mg 150 mg PO HS 06/29/18 09/06/22 History capsule,extended release 24 hr olanzapine 10 mg tablet (Zyprexa) 10 mg PO HS 06/29/18 09/06/22 History vitamin E 268 mg (400 unit) capsule 400 unit PO QAM 06/29/18 09/06/22 History Auto Titrating CPAP #1 ea 07/05/21 09/06/22 Rx CPAP Supplies #1 ea 07/05/21 09/06/22 Rx tamsulosin 0.4 mg capsule 0.4 mg PO QAM 01/04/22 09/06/22 History lancets (OneTouch UltraSoft #100 ea 04/05/22 09/06/22 Rx Lancets) losartan 25 mg tablet 25 mg PO QAM #90 tabs 05/06/22 09/06/22 Rx albuterol sulfate 90 mcg/actuation 2 inh inhalation QID PRN shortness 06/08/22 09/06/22 Rx aerosol inhaler (Ventolin HFA) of breath or wheezing #18 grams fluticasone fur. 100 mcg-umeclid 1 inh inhalation QAM #60 ea 06/08/22 09/06/22 Rx 62.5 mcg-vilant 25 mcg inhalat.powder (Trelegy Ellipta) metformin 500 mg tablet 1,000 mg PO BID 06/14/22 09/06/22 History furosemide 40 mg tablet 40 mg PO QAM #90 tabs 07/12/22 09/06/22 Rx desmopressin 0.1 mg tablet 0.1 mg PO HS #90 tabs 07/14/22 09/06/22 Rx ezetimibe 10 mg tablet 10 mg PO QAM 08/03/22 09/06/22 History pioglitazone 45 mg tablet 45 mg PO QAM 08/03/22 09/06/22 History glipizide 5 mg tablet 5 mg PO QAM #30 tabs 08/09/22 09/06/22 Rx blood sugar diagnostic (OneTouch #100 strips 08/11/22 09/06/22 Rx Verio test strips) simvastatin 40 mg tablet 40 mg PO DAILY #90 tabs 08/12/22 09/06/22 Rx pen needle, diabetic 31 gauge x #50 ea 08/22/22 09/06/22 Rx 3/16" (BD Ultra-Fine Mini Pen Needle) insulin glargine 100 unit/mL (3 15 unit (0.15 mL) subcut QAM #15 mL 09/05/22 09/06/22 Rx mL) subcutaneous pen (Lantus Solostar U-100 Insulin) Past Med/Surg History Medical History Alcohol abuse 10-12 DRINKS PER DAY Anxiety and depression Benign essential tremor Chronic back pain Chronic obstructive pulmonary disease daily inh and prn inh Diabetes mellitus, type 2 NIDDM Diabetic neuropathy Edema Esophageal reflux Hx of osteomyelitis Jun 2018- s/p amputation of tips of 2nd/3rd toes and part of great toe > left foot Hyperlipidemia Hypertension Lung cancer Diagnosed Spring 2021 -- no surgical intervention at this time.; following with Dr. 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 Pulmonary HTN "MILD" RVSP 40MMHG PER 2016 STRESS ECHO- NO ISSUES NOTED WITH 2019 ECHO Schizophrenia Urinary incontinence Venous stasis dermatitis Surgical History H/O exploratory laparotomy GALLBLADDER LESION EXCISION H/O tooth extraction History of biopsy of bladder TURBT= 11/28/17= LMA#5 AT [facility] History of bronchoscopy Spring 2021 History of cataract surgery right/left History of cystoscopy WITH STONE EXTRACTION X 2 History of open reduction and internal fixation (ORIF) procedure LEFT SHOULDER 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 Family History Father Prostate cancer Family history of diabetes mellitus Myocardial infarction Aunt Family history of diabetes mellitus Uncle Family history of diabetes mellitus Family/Other Family history of diabetes mellitus Mother Diabetes Alzheimer disease Grandfather (Paternal) Cardiac disorder Cancer Brother Kidney stones Other Heart disease No family history of adverse response to anesthesia Denies family history of Crohn's disease Colorectal cancer Lung disease Inflammatory bowel disease Asthma Social History (Updated 08/15/22 @ 14:24 by Lana Nicholson RN) Smoking Status: Former smoker Age Started Using Tobacco: 12; Age Quit Using Tobacco: 61; packs per day: 0.5; Cigarettes Per Day: 10; Second Hand Exposure: No; Do You Dip or Chew Tobacco: Yes (hx-quit years ago; advised); Hx Alcohol Use: Yes Alcohol type: beer Alcohol Intake Frequency Comment: 6 beers daily Hx Substance Use: No Preferred Language: Indonesian Communication Ability: Effective Visual Impairment: No Limitations Hearing Ability: Normal Kick Press Setter Required: No Beliefs That Will Affect Care: None marital status: Single Current Living Situation: Alone Current Living Situation Comment: pt has been living with sister for several weeks during chemo rx current occupational status: disabled Feels Safe at Home: Yes Safety Concerns Comment: Currently living with his sister due to chemo/radiation/illness in current or past relationships, have you been: other Diet: regular caffeine: Yes Physical Activity Frequency: 1-2 Times per Week Seatbelt Use: always Assistive Devices: CPAP Review of Systems Review of Systems: All systems reviewed & are unremarkable except as noted in HPI & below Physical Exam Physical Exam: General: A&Ox3. NAD. Cooperative. HEENT: Atraumatic, normocephalic. Vision/hearing intact. +Pallor. Pulm: Diminished, no overt wheezes/rales symmetrical chest rise. No increased work of breathing. No respiratory distress. Cardiac: Regular, tachycardia. Radial pulses intact and symmetrical. Abdominal: Obese, softly distended, nontender left lower quadrant bruising at site of insulin injections. BS present. Ext: Chronic venous stasis L>R LE with chronic inflammatory changes. No acute erythema/warmth/tenderness. R 3rd toe and L foot wounds well healing at 1st mcp, distal hallux without acute warmth/discharge/erythema. Results & Data Results & Data Vital Signs (Past 12 Hours) Vital Signs Temp Pulse Pulse Resp BP Pulse Ox O2 Del Method 09/06/22 13:50 99 H 16 09/06/22 13:40 95 H 14 100 09/06/22 13:30 98 H 20 99 09/06/22 13:20 98 H 14 09/06/22 13:10 99 H 15 100 09/06/22 13:00 100 H 20 79 L 09/06/22 12:50 96 H 14 99 09/06/22 12:40 100 H 15 96 09/06/22 12:30 103 H 12 86 L 09/06/22 12:29 101 H 20 100 09/06/22 13:34 96 Room Air 09/06/22 12:13 36.8 C 100 H 18 121/89 95 Room Air 09/06/22 12:39 100 H 17 96 Room Air 09/06/22 12:31 102 H PG Care Time/CCT Total # of Minutes Spent Total Time Spent with Patient: Total time spent is greater than 50% in coordination of care (as documented) at patient's floor/unit and/or counseling patient: Coding Level of Care Code 46029 INT INP/OBS CARE 3/75MIN Diagnoses Acute on chronic anemia D64.9 Schizophrenia F20.9 Type 2 diabetes mellitus with diabetic mononeuropathy E11.41 Severe sleep apnea G47.30 EDUARD (obstructive sleep apnea) G47.33 Hypersomnia G47.10 COPD (chronic obstructive pulmonary disease) J44.9 Hypertension I10 Hypertension type: essential hypertension Malignant neoplasm of right upper lobe of lung C34.11 (8) Hypertension Hypertension type: essential hypertension Qualified Code(s): I10 - Essential (primary) hypertension
[2022-09-06] MEDS ORDERED: CARBOHYDRATES FOR HYPOGLYCEMIA PO PRN (16:50)
[2022-09-06] MEDS ORDERED: GLUCOSE 40% GEL 15 GM TUBE PO PRN (16:50)
[2022-09-06] MEDS ORDERED: GLUCAGON FOR INJ 1 MG VIAL SQ PRN (16:50)
[2022-09-06] MEDS ORDERED: DEXTROSE 50% 50 ML SYRINGE IV PRN (16:50)
[2022-09-06] MEDS ORDERED: GLUCOSE 10 TAB/TUBE PO PRN (16:50)
[2022-09-06] MEDS: CYANOCOBALAMIN 1000 MCG/ML VIAL IM SCH (18:13)
[2022-09-06] MEDS ORDERED: ACETAMINOPHEN 325 MG TAB PO PRN (19:00)
[2022-09-06] MEDS ORDERED: ALBUTEROL HFA 8 GM INHALER INH PRN (19:00)
[2022-09-06] MEDS: clonazePAM 0.5 MG TAB PO SCH (20:20)
[2022-09-06] MEDS: DIVALPROEX DELAY RELEASE 500 MG TAB PO SCH (20:20)
[2022-09-06] MEDS: DESMOPRESSIN ACETATE 0.1 MG TAB PO SCH (20:20)
[2022-09-06] MEDS: fluvoxaMINE MALEATE 50 MG TAB PO SCH (20:20)
[2022-09-06] MEDS: OLANZapine 10 MG TAB PO SCH (20:21)
--- NOTE | 2022-09-06 20:34 | Electrocardiogram Report ---
Test Reason : Blood Pressure : / mmHG Vent. Rate : 098 BPM Atrial Rate : 098 BPM P-R Int : 122 ms QRS Dur : 124 ms QT Int : 380 ms P-R-T Axes : 045 036 004 degrees QTc Int : 485 ms Normal sinus rhythm Right bundle branch block Abnormal ECG When compared with ECG of 03-AUG-2022 10:44, Premature supraventricular complexes are no longer Present Confirmed by Johnathan Bird ([id number]) on 09/06/2022 8:34:01 PM Referred By: REFERRED SELF Confirmed By:Johnathan Bird
[2022-09-06 20:36] LABS: Hematocrit (blood only) 20.9 % (42.0-52.0); Hemoglobin 7.2 g/dl (14.0-18.0)
[2022-09-06] MEDS: INSULIN ASPART PER UNIT CHARGE SC SCH (21:35)
[2022-09-06] MEDS: LANTUS PER UNIT CHARGE SQ SCH (21:35)
[2022-09-07 01:29] LABS: Hematocrit (blood only) 20.4 % (42.0-52.0); Hemoglobin 7.1 g/dl (14.0-18.0); Mean Corpuscular Hgb Conc 34.8 g/dL (32.0-36.0); Mean Corpuscular Volume 94.9 fL (80.0-100.0); Mean Platelet Volume 8.6 fL (9.4-12.4); Nucleated RBC # (auto) 0.03 K/uL (0-0.12); Nucleated RBC % (auto) 2.1 %; Platelet Count 137 K/uL (130-400); RDW Coefficient of Variation 15.7 % (11.5-14.5); RDW Standard Deviation 48.3 fL (36.4-46.3); Red Blood Count 2.15 M/uL (4.70-6.10); White Blood Count 1.45 K/ul (4.8-10.8)
[2022-09-07 01:38] LABS: Immature Granulocytes # (auto) 0.02 K/uL (0.01-0.20); Immature Granulocytes % (auto) 1.4 %; Lymphocytes # (auto) 0.29 K/uL (1.2-3.4); Monocytes # (auto) 0.14 K/uL (0.11-0.59); Monocytes % (auto) 9.7 %; Neutrophils % (auto) 68.9 %; RBC Morphology Unremarkable
[2022-09-07] MEDS ORDERED: SODIUM CHLORIDE 0.9% 250 ML IV PRN (01:48)
[2022-09-07] MEDS: INSULIN ASPART PER UNIT CHARGE SC SCH ×4 (08:39→20:56)
[2022-09-07] MEDS: LANTUS PER UNIT CHARGE SQ SCH ×2 (08:40→20:56)
[2022-09-07] MEDS ORDERED: NON-FORMULARY MEDICATION (Fluticasone-Umeclidin-Vilanter [Trelegy Ellipta] 100-62.5-25 mcg INH SCH (09:00)
--- NOTE | 2022-09-07 09:07 | Hospitalist Progress Note ---
Date of Service September 07, 2022 Assessment & Plan (1) Acute on chronic anemia: Plan: Presyncope 2/2 Severe anemia w/ bicytopenia. Acute on chronic, symptomatic with hypotension WBC 1.5, hgb 6.1, plt 130 Prior hgb 7.2 on 09/05 and recently got unit PRBC about 3 days ago per patient Last chemo 08/29 w/ taxol/carboplatin -- suspect anemia 2nd to chemotherapy TSH wnl B12 LOW normal in Feb --> IM replacement ordered while inpatient, continue PO supplementation at d/c. Folate was 19.1 EKG w/ NSR, RBB, T wave inversions. No CP reported. Trop 7. Prior ECHO Mar 2020, LV systolic function normal, no significant valvular heart disease. No significant murmur on exam at this time. CXR RUL consolidation/fibrosis similar to prior (hx known malignnancy), cardiomegaly w/o overload s/p 3u PRBC --> hgb improved to 8.6 Checked mag given prior lows to 0.9/1.0 --> 1.5 and IV replacement ordered. Will monitor labs on repeat in AM, consider PO mag replacement. PT/OT consults ordered but if continued stable/improved, possible dc tomorrow. 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 Emphysema without acute process. 2. Post treatment-related right upper lobe consolidation is redemonstrated obscuring the patient's known malignancy. On chemotherapy/radiation. Patient receiving radiation 5 times per week As of 08/29/2022 completed combined radiation/chemotherapy with 6000 cGy, Taxol, carboplatin No evidence of brain mets on MRI NO acute change in management. Breathing at baseline. Heme/onc consulted -- appreciated recs/assistance (3) COPD (chronic obstructive pulmonary disease): Plan: COPD with additional fibrosis, previously Gold class C Continue trelegy or hospital formulary, duonebs as needed CPAP HS for EDUARD Currently 100% on RA (4) EDUARD (obstructive sleep apnea): Plan: CPAP HS (5) Type 2 diabetes mellitus with diabetic mononeuropathy: Plan: Most recent A1c 6.7 Holding outpatient meds, SSI while inpatient Monitor BSGs -- currently remaining acceptable (6) Schizophrenia: Plan: History of schizophrenia, mixed subtype predominantly paranoia in the past Well controlled on his current medication regimen which includes Zyprexa, fluvoxamine, clonazepam, and divalproex. Continue above medications, mentation goal directed without abnormality at admission sister also at bedside mood stable on exam (7) Severe sleep apnea: (8) Hypersomnia: (9) Hypertension: (10) Alcohol use: Plan: History of alcohol abuse Previously with up to 10-12 drinks per day In remission for 2 months since being on chemo - No acute treatment required at this time Urinary incontinence Is on desmopressin as outpatient with symptomatic improvement, continued Hyponatremia - Mild, trended. At risk of SIADH 2/2 lung cancer. Na improved to 136 on AM labs DVT PPx: SCDs, pharmacoppx deferred due to anemia Diet: HH/DM2. No signs of GIB at present. Denied any melena/hematochezia (11) Hypomagnesemia: Plan: checked w/ am labs given elevated HR/prior lows Mag 1.5-- IV replacement ordered Monitor level in AM but suspect daily PO slow mag at d/c beneficial to keep stores up Plan continued inpatient stay PT/OT consults monitor CBC/mag in AM (possible PO mag at d/c given prior lows) possible dc tomorrow Admission and Anticipated Discharge Date Admission Date: September 06, 2022 Supervising Physician Co-Signing Physician Notes The patient was not seen by me. The chart was reviewed. Case discussed with NORMAN Benjamin. Agree with assessment and plan Subjective eval around lunch, sister at bedside patient reports feeling 100% better. No bleeding reported Discussed home health, he does have this arranged. Discussed consultation w/ Dr Prado and consults for PT/OT and if continues stable on am labs will consider d/c. Mag low, replacement ordered. If again low, discussed oral supplementation for at d/c. No fever/chills, chest pain, shortness of breath, abdominal pain, nausea, or vomiting. Physical Exam Physical Exam: General: A&Ox3. NAD. Cooperative, sister at bedside. HEENT: Atraumatic, normocephalic. Vision/hearing intact. +Pallor. Pulm: Diminished, no overt wheezes/rales symmetrical chest rise. No increased work of breathing. No respiratory distress. Cardiac: Regular, tachycardia. Radial pulses intact and symmetrical. Abdominal: Obese, softly distended, nontender left lower quadrant bruising at site of insulin injections. BS present. Ext: Chronic venous stasis L>R LE with chronic inflammatory changes anterior foot w/ blister reported prior from new shoes, no active drainage/surrounding erythema/tenderness R 3rd toe and L foot wounds well healing at 1st mcp, distal hallux without acute warmth/discharge/erythema. Results & Data Results & Data Vital Signs (Past 12 Hours) Vital Signs Temp Pulse Resp BP Pulse Ox O2 Flow Rate FiO2 09/07/22 07:34 37.0 C 97 H 15 132/85 98 0 09/07/22 07:29 37.0 C 97 H 15 132/85 98 0 09/07/22 06:29 36.6 C 88 18 131/82 98 09/07/22 05:29 36.3 C L 95 H 18 122/80 97 09/07/22 04:59 37.0 C 96 H 18 108/72 96 09/07/22 04:44 37.1 C 98 H 18 101/67 98 09/07/22 04:25 37.2 C 101 H 18 115/76 98 09/07/22 02:36 12 21 09/06/22 23:09 105 H 09/06/22 23:54 36.9 C 101 H 18 122/76 98 09/06/22 23:53 36.9 C 99 H 18 122/76 98 09/06/22 23:15 36.9 C 102 H 18 135/80 97 09/06/22 23:02 79 14 98 21 09/06/22 22:15 36.6 C 103 H 18 128/73 97 09/06/22 21:45 37.1 C 105 H 18 129/79 94 09/06/22 21:30 36.4 C 107 H 18 114/72 99 09/06/22 21:12 36.6 C 112 H 18 137/82 96 Laboratory Results 09/07/22 09/07/22 09/06/22 Range/Units 08:02 01:05 20:23 WBC 1.45 L (4.8-10.8) K/ul RBC 2.15 L (4.70-6.10) M/uL Hgb 7.1 L (14.0-18.0) g/dl Hct 20.4 L* (42.0-52.0) % MCV 94.9 (80.0-100.0) fL MCH 33.0 (25.0-34.0) pg MCHC 34.8 (32.0-36.0) g/dL RDW Std Deviation 48.3 H (36.4-46.3) fL RDW Coeff of Catalino 15.7 H (11.5-14.5) % Plt Count 137 (130-400) K/uL MPV 8.6 L (9.4-12.4) fL Immature Gran % (Auto) 1.4 % Neut % (Auto) 68.9 % Lymph % (Auto) 20.0 % Graves % (Auto) 9.7 % Eos % (Auto) 0.0 % Baso % (Auto) 0.0 % Neut # (Auto) 1.00 L (1.40-6.50) K/uL Lymph # (Auto) 0.29 L (1.2-3.4) K/uL Graves # (Auto) 0.14 (0.11-0.59) K/uL Eos # (Auto) 0.00 (0-0.50) K/uL Baso # (Auto) 0.00 (0-0.2) K/uL Immature Gran # (Auto) 0.02 (0.01-0.20) K/uL Absolute Nucleated RBC 0.03 (0-0.12) K/uL Nucleated RBC % (auto) 2.1 % RBC Morphology Unremarkable Polychromasia Sodium Potassium Chloride Carbon Dioxide Anion Gap BUN Creatinine Est Cr Clr Drug Dosing Est GFR ( Amer) Est GFR (Non-Af Amer) BUN/Creatinine Ratio Glucose POC Glucose 136 H 203 H (70-99) mg/dl Calcium Phosphorus Magnesium Total Bilirubin AST ALT Alkaline Phosphatase Troponin I High Sens Total Protein Albumin Globulin Albumin/Globulin Ratio Lipase TSH (0.300-4.500) uIu/ml SARS-CoV-2, RNA, NAAT (NEGATIVE) Blood Type Blood Type Recheck Antibody Screen Crossmatch 09/06/22 09/06/22 09/06/22 Range/Units 20:12 20:12 17:20 WBC (4.8-10.8) K/ul RBC (4.70-6.10) M/uL Hgb 7.2 L (14.0-18.0) g/dl Hct 20.9 L* (42.0-52.0) % MCV (80.0-100.0) fL MCH (25.0-34.0) pg MCHC (32.0-36.0) g/dL RDW Std Deviation (36.4-46.3) fL RDW Coeff of Catalino (11.5-14.5) % Plt Count (130-400) K/uL MPV (9.4-12.4) fL Immature Gran % (Auto) % Neut % (Auto) % Lymph % (Auto) % Graves % (Auto) % Eos % (Auto) % Baso % (Auto) % Neut # (Auto) (1.40-6.50) K/uL Lymph # (Auto) (1.2-3.4) K/uL Graves # (Auto) (0.11-0.59) K/uL Eos # (Auto) (0-0.50) K/uL Baso # (Auto) (0-0.2) K/uL Immature Gran # (Auto) (0.01-0.20) K/uL Absolute Nucleated RBC (0-0.12) K/uL Nucleated RBC % (auto) % RBC Morphology Polychromasia Sodium Potassium Chloride Carbon Dioxide Anion Gap BUN Creatinine Est Cr Clr Drug Dosing Est GFR ( Amer) Est GFR (Non-Af Amer) BUN/Creatinine Ratio Glucose POC Glucose 102 H (70-99) mg/dl Calcium Phosphorus Magnesium Total Bilirubin AST ALT Alkaline Phosphatase Troponin I High Sens Total Protein Albumin Globulin Albumin/Globulin Ratio Lipase TSH (0.300-4.500) uIu/ml SARS-CoV-2, RNA, NAAT (NEGATIVE) Blood Type Blood Type Recheck A Positive Antibody Screen Crossmatch 09/06/22 09/06/22 09/06/22 Range/Units 14:39 14:01 14:01 WBC 1.59 L (4.8-10.8) K/ul RBC 1.82 L (4.70-6.10) M/uL Hgb 6.1 L* (14.0-18.0) g/dl Hct 18.1 L* (42.0-52.0) % MCV 99.5 (80.0-100.0) fL MCH 33.5 (25.0-34.0) pg MCHC 33.7 (32.0-36.0) g/dL RDW Std Deviation 51.8 H (36.4-46.3) fL RDW Coeff of Catalino 16.8 H (11.5-14.5) % Plt Count 140 (130-400) K/uL MPV 11.0 (9.4-12.4) fL Immature Gran % (Auto) 1.3 % Neut % (Auto) 68.5 % Lymph % (Auto) 20.8 % Graves % (Auto) 9.4 % Eos % (Auto) 0.0 % Baso % (Auto) 0.0 % Neut # (Auto) 1.09 L (1.40-6.50) K/uL Lymph # (Auto) 0.33 L (1.2-3.4) K/uL Graves # (Auto) 0.15 (0.11-0.59) K/uL Eos # (Auto) 0.00 (0-0.50) K/uL Baso # (Auto) 0.00 (0-0.2) K/uL Immature Gran # (Auto) 0.02 (0.01-0.20) K/uL Absolute Nucleated RBC 0.03 (0-0.12) K/uL Nucleated RBC % (auto) 1.9 % RBC Morphology Polychromasia 1+ Sodium 134 L Potassium 3.0 L Chloride 99 Carbon Dioxide 28 Anion Gap 7 BUN 20 Creatinine 0.83 Est Cr Clr Drug Dosing Not Reportable Est GFR ( Amer) 109.3 Est GFR (Non-Af Amer) 94.3 BUN/Creatinine Ratio 24.1 H Glucose 90 POC Glucose (70-99) mg/dl Calcium 7.9 L Phosphorus 3.2 Magnesium 1.9 Total Bilirubin 0.7 AST 13 ALT 18 Alkaline Phosphatase 49 Troponin I High Sens 7.7 Total Protein 6.5 Albumin 3.7 Globulin 2.8 Albumin/Globulin Ratio 1.3 Lipase 31 TSH 1.047 (0.300-4.500) uIu/ml SARS-CoV-2, RNA, NAAT (NEGATIVE) Blood Type Blood Type Recheck Antibody Screen Crossmatch 09/06/22 09/06/22 09/06/22 Range/Units 14:01 13:56 12:48 WBC (4.8-10.8) K/ul RBC (4.70-6.10) M/uL Hgb (14.0-18.0) g/dl Hct (42.0-52.0) % MCV (80.0-100.0) fL MCH (25.0-34.0) pg MCHC (32.0-36.0) g/dL RDW Std Deviation (36.4-46.3) fL RDW Coeff of Catalino (11.5-14.5) % Plt Count (130-400) K/uL MPV (9.4-12.4) fL Immature Gran % (Auto) % Neut % (Auto) % Lymph % (Auto) % Graves % (Auto) % Eos % (Auto) % Baso % (Auto) % Neut # (Auto) (1.40-6.50) K/uL Lymph # (Auto) (1.2-3.4) K/uL Graves # (Auto) (0.11-0.59) K/uL Eos # (Auto) (0-0.50) K/uL Baso # (Auto) (0-0.2) K/uL Immature Gran # (Auto) (0.01-0.20) K/uL Absolute Nucleated RBC (0-0.12) K/uL Nucleated RBC % (auto) % RBC Morphology Polychromasia Sodium Cancelled Potassium Cancelled Chloride Cancelled Carbon Dioxide Cancelled Anion Gap Cancelled BUN Cancelled Creatinine Cancelled Est Cr Clr Drug Dosing Cancelled Est GFR ( Amer) Cancelled Est GFR (Non-Af Amer) Cancelled BUN/Creatinine Ratio Cancelled Glucose Cancelled POC Glucose (70-99) mg/dl Calcium Cancelled Phosphorus Cancelled Magnesium Cancelled Total Bilirubin Cancelled AST Cancelled ALT Cancelled Alkaline Phosphatase Cancelled Troponin I High Sens Cancelled Total Protein Cancelled Albumin Cancelled Globulin Cancelled Albumin/Globulin Ratio Cancelled Lipase Cancelled TSH (0.300-4.500) uIu/ml SARS-CoV-2, RNA, NAAT NEGATIVE (NEGATIVE) Blood Type A Positive Blood Type Recheck Antibody Screen NEGATIVE Crossmatch See Detail Diagnostic Findings Chest X-Ray 09/06/22 13:26 SINGLE VIEW CHEST CLINICAL HISTORY: Change in mental status. Dizziness. FINDINGS: An AP, portable, upright chest radiograph is compared to study dated 08/03/2022 and correlated with chest CT dated 06/15/2022. The examination is degraded by portable technique and patient rotation. The heart is enlarged noting atherosclerotic calcification of the secure. The pulmonary vasculature is noncongested. Emphysema and chronic interstitial thickening is similar to previous. Dense airspace consolidation/fibrosis in the right upper lobe is similar to previous. Scarring/atelectasis is noted at the lung bases. No large pleural effusion or pneumothorax is identify. The skeletal structures are osteopenic. The bony thorax is grossly intact. IMPRESSION: 1. Cardiomegaly an emphysema without radiographic evidence of congestive failure. 2. Dense right upper lobe consolidation/fibrosis is similar to previous. 3. No new foci of airspace consolidation are identified. ACT 112: Negative or not required by law. Electronically signed by: Bao Harrison M.D. 09/06/2022 2:23 PM PG Care Time/CCT Total # of Minutes Spent Total Time Spent with Patient: Total time spent is greater than 50% in coordination of care (as documented) at patient's floor/unit and/or counseling patient: Coding Level of Care Code 05138 SUB INP/OBS CARE 3/50MIN Diagnoses Acute on chronic anemia D64.9 Malignant neoplasm of right upper lobe of lung C34.11 COPD (chronic obstructive pulmonary disease) J44.9 EDUARD (obstructive sleep apnea) G47.33 Type 2 diabetes mellitus with diabetic mononeuropathy E11.41 Schizophrenia F20.9 Severe sleep apnea G47.30 Hypersomnia G47.10 Hypertension I10 Hypertension type: essential hypertension Alcohol use Z78.9 Hypomagnesemia E83.42 (9) Hypertension Hypertension type: essential hypertension Qualified Code(s): I10 - Essential (primary) hypertension
[2022-09-07] MEDS: CYANOCOBALAMIN 1000 MCG/ML VIAL IM SCH (09:18)
[2022-09-07] MEDS: FUROSEMIDE 40 MG TAB PO SCH (09:19)
[2022-09-07] MEDS: LOSARTAN POTASSIUM 25 MG TAB PO SCH (09:20)
[2022-09-07] MEDS: TOCOPHERYL, DL-ALPHA 400 UNITS 180 MG CAP PO SCH (09:20)
[2022-09-07] MEDS: EZETIMIBE 10 MG TABLET PO SCH (09:21)
[2022-09-07] MEDS: SIMVASTATIN 40 MG TAB PO SCH (09:21)
[2022-09-07] MEDS: FLUTICASONE FUROATE 100MCG 14 PUFFS/INHALER INH SCH (09:22)
[2022-09-07] MEDS: CHOLECALCIFEROL 1,000 UNITS 25 MCG TAB PO SCH (09:22)
[2022-09-07] MEDS: UMECLIDINIUM/VILANTEROL 62.5/25MCG 7 PUFFS/INHALER INH SCH (09:22)
[2022-09-07] MEDS: TAMSULOSIN HCL 0.4 MG CAP PO SCH (09:22)
[2022-09-07] MEDS: clonazePAM 0.5 MG TAB PO SCH ×2 (09:27→20:41)
[2022-09-07 10:22] LABS: Hematocrit (blood only) 24.5 % (42.0-52.0); Hemoglobin 8.6 g/dl (14.0-18.0); Immature Granulocytes # (auto) 0.02 K/uL (0.01-0.20); Immature Granulocytes % (auto) 1.2 %; Lymphocytes # (auto) 0.21 K/uL (1.2-3.4); Lymphocytes % (auto) 12.2 %; Mean Corpuscular Hemoglobin 32.7 pg (25.0-34.0); Mean Corpuscular Hgb Conc 35.1 g/dL (32.0-36.0); Mean Corpuscular Volume 93.2 fL (80.0-100.0); Mean Platelet Volume 8.9 fL (9.4-12.4); Monocytes # (auto) 0.18 K/uL (0.11-0.59); Monocytes % (auto) 10.5 %; Neutrophils # (auto) 1.31 K/uL (1.40-6.50); Neutrophils % (auto) 76.1 %; Nucleated RBC # (auto) 0.03 K/uL (0-0.12); Nucleated RBC % (auto) 1.7 %; Platelet Count 148 K/uL (130-400); RDW Coefficient of Variation 16.5 % (11.5-14.5); RDW Standard Deviation 49.1 fL (36.4-46.3); Red Blood Count 2.63 M/uL (4.70-6.10); White Blood Count 1.72 K/ul (4.8-10.8)
[2022-09-07 10:31] LABS: BUN Creatinine Ratio 17.6 (10-20); Calcium 7.8 mg/dl (8.6-10.3); Est GFR (African American) 114.6 ml/min; Est GFR (Non-African American) 98.9 ml/min; Potassium 3.5 mmol/L (3.5-5.1)
[2022-09-07] MEDS: MAGNESIUM SULFATE / D5W 1 GM/100 ML BAG IV SCH ×2 (11:40→13:52)
[2022-09-07] MEDS: DIVALPROEX DELAY RELEASE 500 MG TAB PO SCH (20:42)
[2022-09-07] MEDS: DESMOPRESSIN ACETATE 0.1 MG TAB PO SCH (20:42)
[2022-09-07] MEDS: fluvoxaMINE MALEATE 50 MG TAB PO SCH (20:42)
[2022-09-07] MEDS: OLANZapine 10 MG TAB PO SCH (20:43)
[2022-09-07] MEDS ORDERED: ONDANSETRON INJ 2 MG/ML 2 ML VIAL IV PRN (21:15)
[2022-09-08 05:28] LABS: BUN Creatinine Ratio 18.8 (10-20); Calcium 7.7 mg/dl (8.6-10.3); Est GFR (African American) 117.9 ml/min; Est GFR (Non-African American) 101.7 ml/min; Magnesium 1.4 mg/dl (1.7-2.4); Potassium 3.2 mmol/L (3.5-5.1)
[2022-09-08 05:31] LABS: Hematocrit (blood only) 23.9 % (42.0-52.0); Hemoglobin 8.4 g/dl (14.0-18.0); Mean Corpuscular Hemoglobin 32.7 pg (25.0-34.0); Mean Corpuscular Hgb Conc 35.1 g/dL (32.0-36.0); Mean Platelet Volume 8.8 fL (9.4-12.4); Platelet Count 142 K/uL (130-400); RDW Coefficient of Variation 16.4 % (11.5-14.5); RDW Standard Deviation 49.9 fL (36.4-46.3); Red Blood Count 2.57 M/uL (4.70-6.10); White Blood Count 1.79 K/ul (4.8-10.8)
--- NOTE | 2022-09-08 06:19 | Consultation ---
Date of Consultation September 08, 2022 Assessment & Plan (1) Malignant neoplasm of right upper lobe of lung: Locally aggressive but nonmetastatic relapse of non-small cell lung cancer has just completed chemoradiation "induction" with plans to transition to durvalumab maintenance. There is nothing to suggest immediate [id number] relationship between his malignancy and the anemia but rather, as well, that is probably more a consequence of its treatment. Once he is acutely stabilized and discharged we will begin his maintenance ICI Radiologic changes persist as they inevitably will after chemoradiation. PET scan will not be useful for assessment until early December when the confounding radiation damage will have settled enough to discern the presence or absence of any potentially persistent active disease (2) Acute on chronic anemia: Nutritional factors certainly seems stable with ferritin 473, folic acid 19.15 and B12 technically normal at 203 though the latter does raise some concerns being at the low end of normal. I have submitted methylmalonic acid. Without s harp rise in his bilirubin hemolysis seems unlikely especially where he has had a relatively stable response to transfusion but we will check a reticulocyte count for completion. The cumulative impact of combination radiation and chemotherapy can lead to significant compromise of hematopoiesis and that seems the more likely major culprit here. The modest renal insufficiency may contribute a small portion but is not the predominant factor. We will have peripheral smear reviewed to assure that there are no subtle signs of pathological cells not evident from the standard differential but that seems unlikely. Plan Check methylmalonic acid, could consider empiric B12 supplementation as we await that. Check reticulocyte count and review peripheral smear Most likely we are dealing with consequences of his chemoradiation for the predominant part of the anemia. Try to maintain stable hemoglobin levels in the high 7 g/dL range or better but seems to be stabilizing sufficiently that we could consider transition to outpatient monitoring if he remains so. As he stabilizes will reinstate planned ICI maintenance through the [facility] History of Present Illness Reason for Consultation: Patient was just completed chemoradiation for non-small cell lung cancer presents with symptomatic anemia and mild TUCKER Attending Physician: Lorenzo Marquez MD History of Present Illness Primary focuses on his non-small cell lung cancer. This initially presented in the very beginning of 2021 with right upper lung lesion that was initially biopsy negative but on follow-up tissue assessment in August 2021 showed squamous cell carcinoma. Localized disease was treated with SBRT and he seemed to do well but unfortunately showed radiologic progression at the beginning of this year. Bronchoscopy showed that there was now apparent localized recurrence but as well involvement of 4R and 10 L lymph nodes and he was treated as stage III disease with chemoradiation, Taxol/carboplatinum weekly starting 07/18/2022 with concomitant radiation. He received his last cycle of chemotherapy on 08/25/2022 and completed radiation that week as well. Blood counts have been relatively stable through the course of his chemoradiation treatment with only a slight drop off towards the end but he is now admitted with a more profound anemia. Platelets remain in good range and his ANC remains adequate though depressed from normal. He was markedly fatigued on admission but feels significantly improved after packed red cell transfusion Allergies Allergy/AdvReac Type Severity Reaction Status Date / Time scopolamine Allergy Intermediate Itching Verified 09/06/22 11:28 Home Medications Medication Instructions Recorded Confirmed Type cholecalciferol (vitamin D3) 25 1,000 unit PO QAM 06/29/18 09/06/22 History mcg (1,000 unit) capsule (Vitamin D3) clonazepam 0.5 mg tablet 0.5 mg PO BID 06/29/18 09/06/22 History divalproex 500 mg tablet,delayed 500 mg PO HS 06/29/18 09/06/22 History release fluvoxamine 150 mg 150 mg PO HS 06/29/18 09/06/22 History capsule,extended release 24 hr olanzapine 10 mg tablet (Zyprexa) 10 mg PO HS 06/29/18 09/06/22 History vitamin E 268 mg (400 unit) capsule 400 unit PO QAM 06/29/18 09/06/22 History Auto Titrating CPAP #1 ea 07/05/21 09/06/22 Rx CPAP Supplies #1 ea 07/05/21 09/06/22 Rx tamsulosin 0.4 mg capsule 0.4 mg PO QAM 01/04/22 09/06/22 History lancets (OneTouch UltraSoft #100 ea 04/05/22 09/06/22 Rx Lancets) losartan 25 mg tablet 25 mg PO QAM #90 tabs 05/06/22 09/06/22 Rx albuterol sulfate 90 mcg/actuation 2 inh inhalation QID PRN shortness 06/08/22 09/06/22 Rx aerosol inhaler (Ventolin HFA) of breath or wheezing #18 grams fluticasone fur. 100 mcg-umeclid 1 inh inhalation QAM #60 ea 06/08/22 09/06/22 Rx 62.5 mcg-vilant 25 mcg inhalat.powder (Trelegy Ellipta) metformin 500 mg tablet 1,000 mg PO BID 06/14/22 09/06/22 History furosemide 40 mg tablet 40 mg PO QAM #90 tabs 07/12/22 09/06/22 Rx desmopressin 0.1 mg tablet 0.1 mg PO HS #90 tabs 07/14/22 09/06/22 Rx ezetimibe 10 mg tablet 10 mg PO QAM 08/03/22 09/06/22 History pioglitazone 45 mg tablet 45 mg PO QAM 08/03/22 09/06/22 History glipizide 5 mg tablet 5 mg PO QAM #30 tabs 08/09/22 09/06/22 Rx blood sugar diagnostic (OneTouch #100 strips 08/11/22 09/06/22 Rx Verio test strips) simvastatin 40 mg tablet 40 mg PO DAILY #90 tabs 08/12/22 09/06/22 Rx pen needle, diabetic 31 gauge x #50 ea 08/22/22 09/06/22 Rx 3/16" (BD Ultra-Fine Mini Pen Needle) insulin glargine 100 unit/mL (3 15 unit (0.15 mL) subcut QAM #15 mL 09/05/22 09/06/22 Rx mL) subcutaneous pen (Lantus Solostar U-100 Insulin) cyanocobalamin (vitamin B-12) 1,000 mcg PO DAILY #30 caps 09/07/22 Rx 1,000 mcg capsule magnesium chloride 71.5 mg 71.5 mg PO BID #60 tabs 09/07/22 Rx (magnesium chloride) tablet,delayed release (Slow-Mag) Patient History Medical History Alcohol abuse 10-12 DRINKS PER DAY Anxiety and depression Benign essential tremor Chronic back pain Chronic obstructive pulmonary disease daily inh and prn inh Diabetes mellitus, type 2 NIDDM Diabetic neuropathy Edema Esophageal reflux Hx of osteomyelitis Jun 2018- s/p amputation of tips of 2nd/3rd toes and part of great toe > left foot Hyperlipidemia Hypertension Lung cancer Diagnosed Spring 2021 -- no surgical intervention at this time.; following with Dr. 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 Pulmonary HTN "MILD" RVSP 40MMHG PER 2016 STRESS ECHO- NO ISSUES NOTED WITH 2019 ECHO Schizophrenia Urinary incontinence Venous stasis dermatitis Surgical History H/O exploratory laparotomy GALLBLADDER LESION EXCISION H/O tooth extraction History of biopsy of bladder TURBT= 11/28/17= LMA#5 AT [facility] History of bronchoscopy Spring 2021 History of cataract surgery right/left History of cystoscopy WITH STONE EXTRACTION X 2 History of open reduction and internal fixation (ORIF) procedure LEFT SHOULDER 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 Family History Father Prostate cancer Family history of diabetes mellitus Myocardial infarction Aunt Family history of diabetes mellitus Uncle Family history of diabetes mellitus Family/Other Family history of diabetes mellitus Mother Diabetes Alzheimer disease Grandfather (Paternal) Cardiac disorder Cancer Colon Cancer Brother Kidney stones Other Heart disease No family history of adverse response to anesthesia Denies family history of Crohn's disease Colorectal cancer Lung disease Inflammatory bowel disease Asthma Social History Smoking Status: Former smoker Age Started Using Tobacco: 12; Age Quit Using Tobacco: 61; packs per day: 0.5; Cigarettes Per Day: 10; Smoking End Date: 2021; Second Hand Exposure: No; Do You Dip or Chew Tobacco: Yes (hx-quit years ago; advised); Hx Alcohol Use: No Hx Substance Use: No Preferred Language: Kyrgyz Communication Ability: Effective Visual Impairment: No Limitations Hearing Ability: Normal Consumer Insight Manager Required: No Beliefs That Will Affect Care: None marital status: Single Current Living Situation: Alone Current Living Situation Comment: pt has been living with sister for several weeks during chemo rx current occupational status: disabled Other Information That Helps Us Care for You: No Feels Safe at Home: Yes Safety Concerns: Feels Safe At This Time Safety Concerns Comment: Currently living with his sister due to chemo/radiation/illness in current or past relationships, have you been: other Diet: regular caffeine: Yes Physical Activity Frequency: 1-2 Times per Week Seatbelt Use: always Assistive Devices: Cane Assistive Devices Comment: reading glasses, CPAP at night Physical Exam Physical Exam: Vital signs are stable. He is alert and appropriate and seems in no acute distress No marked peripheral pathologic adenopathy Breath sounds decreased but no focal changes Cardiac rhythm is regular His abdomen seems benign He is not jaundiced Results & Data Vital Signs (Past 12 Hours) Vital Signs Temp Pulse Pulse Resp BP Pulse Ox O2 Del Method 09/08/22 03:39 36.7 C 98 H 22 110/84 97 Room Air 09/07/22 23:27 107 H 09/07/22 23:22 36.9 C 111 H 20 130/82 98 Room Air 09/07/22 23:13 09/07/22 21:29 Room Air 09/07/22 19:06 36.5 C 91 H 18 113/73 100 Room Air FiO2 09/08/22 03:39 09/07/22 23:27 09/07/22 23:22 09/07/22 23:13 21 09/07/22 21:29 09/07/22 19:06 Laboratory Results Laboratory Results - last 24 hr 09/07/22 09/07/22 09/07/22 08:02 09:22 09:22 WBC 1.72 L RBC 2.63 L Hgb 8.6 L Hct 24.5 L MCV 93.2 MCH 32.7 MCHC 35.1 RDW Std Deviation 49.1 H RDW Coeff of Catalino 16.5 H Plt Count 148 MPV 8.9 L Immature Gran % (Auto) 1.2 Neut % (Auto) 76.1 Lymph % (Auto) 12.2 [place] % (Auto) 10.5 Eos % (Auto) 0.0 Baso % (Auto) 0.0 Neut # (Auto) 1.31 L Lymph # (Auto) 0.21 L [place] # (Auto) 0.18 Eos # (Auto) 0.00 Baso # (Auto) 0.00 Immature Gran # (Auto) 0.02 Absolute Nucleated RBC 0.03 Nucleated RBC % (auto) 1.7 Sodium 136 Potassium 3.5 Chloride 104 Carbon Dioxide 26 Anion Gap 6 BUN 13 Creatinine 0.74 Est Cr Clr Drug Dosing 139.0 Est GFR ( Amer) 114.6 Est GFR (Non-Af Amer) 98.9 BUN/Creatinine Ratio 17.6 Glucose 183 H POC Glucose 136 H Calcium 7.8 L Magnesium Stool Occult Bld Scrn 09/07/22 09/07/22 09/07/22 09:22 12:07 16:21 WBC RBC Hgb Hct MCV MCH MCHC RDW Std Deviation RDW Coeff of Catalino Plt Count MPV Immature Gran % (Auto) Neut % (Auto) Lymph % (Auto) [place] % (Auto) Eos % (Auto) Baso % (Auto) Neut # (Auto) Lymph # (Auto) [place] # (Auto) Eos # (Auto) Baso # (Auto) Immature Gran # (Auto) Absolute Nucleated RBC Nucleated RBC % (auto) Sodium Potassium Chloride Carbon Dioxide Anion Gap BUN Creatinine Est Cr Clr Drug Dosing Est GFR ( Amer) Est GFR (Non-Af Amer) BUN/Creatinine Ratio Glucose POC Glucose 138 H 125 H Calcium Magnesium 1.5 L Stool Occult Bld Scrn 09/07/22 09/08/22 09/08/22 19:59 00:57 04:50 WBC 1.79 L RBC 2.57 L Hgb 8.4 L Hct 23.9 L MCV 93.0 MCH 32.7 MCHC 35.1 RDW Std Deviation 49.9 H RDW Coeff of Catal[place] 16.4 H Plt Count 142 MPV 8.8 L Immature Gran % (Auto) Neut % (Auto) Lymph % (Auto) [place] % (Auto) Eos % (Auto) Baso % (Auto) Neut # (Auto) Lymph # (Auto) [place] # (Auto) Eos # (Auto) Baso # (Auto) Immature Gran # (Auto) Absolute Nucleated RBC Nucleated RBC % (auto) Sodium Potassium Chloride Carbon Dioxide Anion Gap BUN Creatinine Est Cr Clr Drug Dosing Est GFR ( Amer) Est GFR (Non-Af Amer) BUN/Creatinine Ratio Glucose POC Glucose 170 H Calcium Magnesium Stool Occult Bld Scrn Negative 09/08/22 04:50 WBC RBC Hgb Hct MCV MCH MCHC RDW Std Deviation RDW Coeff of Catalino Plt Count MPV Immature Gran % (Auto) Neut % (Auto) Lymph % (Auto) [place] % (Auto) Eos % (Auto) Baso % (Auto) Neut # (Auto) Lymph # (Auto) [place] # (Auto) Eos # (Auto) Baso # (Auto) Immature Gran # (Auto) Absolute Nucleated RBC Nucleated RBC % (auto) Sodium 132 L Potassium 3.2 L Chloride 100 Carbon Dioxide 24 Anion Gap 8 BUN 13 Creatinine 0.69 Est Cr Clr Drug Dosing 149.0 Est GFR ( Amer) 117.9 Est GFR (Non-Af Amer) 101.7 BUN/Creatinine Ratio 18.8 Glucose 102 H POC Glucose Calcium 7.7 L Magnesium 1.4 L Stool Occult Bld Scrn Diagnostic Findings Chest X-Ray 09/06/22 13:26 SINGLE VIEW CHEST CLINICAL HISTORY: Change in mental status. Dizziness. FINDINGS: An AP, portable, upright chest radiograph is compared to study dated 08/03/2022 and correlated with chest CT dated 06/15/2022. The examination is degraded by portable technique and patient rotation. The heart is enlarged noting atherosclerotic calcification of the secure. The pulmonary vasculature is noncongested. Emphysema and chronic interstitial thickening is similar to previous. Dense airspace consolidation/fibrosis in the right upper lobe is similar to previous. Scarring/atelectasis is noted at the lung bases. No large pleural effusion or pneumothorax is identify. The skeletal structures are osteopenic. The bony thorax is grossly intact. IMPRESSION: 1. Cardiomegaly an emphysema without radiographic evidence of congestive failure. 2. Dense right upper lobe consolidation/fibrosis is similar to previous. 3. No new foci of airspace consolidation are identified. ACT 112: Negative or not required by law. Electronically signed by: Bao Harrison M.D. 09/06/2022 2:23 PM PG Care Time/CCT Total # of Minutes Spent Total Time Spent with Patient: Total time spent is greater than 50% in coordination of care (as documented) at patient's floor/unit and/or counseling patient: [place] [address] IN/OBS CONSULT LVL 3,45M Patient Type New History Expanded Problem Focused Exam Expanded Problem Focused Medical Decision Making Moderate Complexity Diagnoses Malignant neoplasm of right upper lobe of lung C34.11 Acute on chronic anemia D64.9
[2022-09-08 07:22] LABS: Reticulocyte % 5.8 % (0.5-2.0); Reticulocytes # 0.15 10^6/uL (0.02-0.10)
[2022-09-08] MEDS: TAMSULOSIN HCL 0.4 MG CAP PO SCH (08:44)
[2022-09-08] MEDS: LOSARTAN POTASSIUM 25 MG TAB PO SCH (08:44)
[2022-09-08] MEDS: SIMVASTATIN 40 MG TAB PO SCH (08:44)
[2022-09-08] MEDS: EZETIMIBE 10 MG TABLET PO SCH (08:44)
[2022-09-08] MEDS: TOCOPHERYL, DL-ALPHA 400 UNITS 180 MG CAP PO SCH (08:44)
[2022-09-08] MEDS: FUROSEMIDE 40 MG TAB PO SCH (08:44)
[2022-09-08] MEDS: CHOLECALCIFEROL 1,000 UNITS 25 MCG TAB PO SCH (08:44)
[2022-09-08] MEDS: UMECLIDINIUM/VILANTEROL 62.5/25MCG 7 PUFFS/INHALER INH SCH (08:45)
[2022-09-08] MEDS: CYANOCOBALAMIN 1000 MCG/ML VIAL IM SCH (08:45)
[2022-09-08] MEDS: FLUTICASONE FUROATE 100MCG 14 PUFFS/INHALER INH SCH (08:45)
[2022-09-08] MEDS: LANTUS PER UNIT CHARGE SQ SCH ×2 (08:53→20:35)
[2022-09-08] MEDS: clonazePAM 0.5 MG TAB PO SCH ×2 (08:53→20:36)
[2022-09-08] MEDS: INSULIN ASPART PER UNIT CHARGE SC SCH ×5 (08:54→20:35)
[2022-09-08] MEDS ORDERED: POTASSIUM CHLORIDE CRTAB 20 MEQ TABCR PO STA (09:06)
--- NOTE | 2022-09-08 09:08 | Hospitalist Progress Note ---
Date of Service September 08, 2022 Assessment & Plan (1) Acute on chronic anemia: Plan: Presyncope 2/2 Severe anemia w/ bicytopenia. Acute on chronic, symptomatic with hypotension WBC 1.5, hgb 6.1, plt 130 (Prior hgb 7.2 on 09/05 and recently got unit PRBC about 3 days ago per patient) Last chemo 08/29 w/ taxol/carboplatin -- suspect anemia 2nd to chemotherapy TSH wnl B12 LOW normal in Feb --> IM replacement ordered while inpatient, continue PO supplementation at d/c. Folate was 19.1 EKG w/ NSR, RBB, T wave inversions. No CP reported. Trop 7. Prior ECHO Mar 2020, LV systolic function normal, no significant valvular heart disease. No significant murmur on exam at this time. CXR RUL consolidation/fibrosis similar to prior (hx known malignnancy), cardiomegaly w/o overload s/p 3u PRBC --> hgb improved to 8.6 --> 8.4 Fecal occult NEGATIVE Mag checked given prior lows/elevated HR --> 1.5 and IV replacement ordered. 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 Emphysema without acute process. 2. Post treatment-related right upper lobe consolidation is redemonstrated obscuring the patient's known malignancy. On chemotherapy/radiation. Patient receiving radiation 5 times per week As of 08/29/2022 completed combined radiation/chemotherapy with 6000 cGy, Taxol, carboplatin No evidence of brain mets on MRI NO acute change in management. Breathing at baseline. Heme/onc consulted -- appreciated recs/assistance --> ordered retic/peripheral smear/MMA level --> will need outpt f/u (3) COPD (chronic obstructive pulmonary disease): Plan: COPD with additional fibrosis, previously Gold class C Continue trelegy or hospital formulary, duonebs as needed CPAP HS for EDUARD Currently 100% on RA (4) EDUARD (obstructive sleep apnea): Plan: CPAP HS (5) Type 2 diabetes mellitus with diabetic mononeuropathy: Plan: Most recent A1c 6.7 Holding outpatient meds, SSI while inpatient Monitor BSGs -- currently remaining acceptable (6) Schizophrenia: Plan: History of schizophrenia, mixed subtype predominantly paranoia in the past Well controlled on his current medication regimen which includes Zyprexa, fluvoxamine, clonazepam, and divalproex. Continue above medications, mentation goal directed without abnormality at admission sister also at bedside mood stable on exam, somewhat irritable about interrupted for lunch 6 times but otherwise cooperative (7) Severe sleep apnea: (8) Hypersomnia: (9) Hypertension: (10) Alcohol use: Plan: History of alcohol abuse Previously with up to 10-12 drinks per day In remission for 2 months since being on chemo - No acute treatment required at this time Urinary incontinence Is on desmopressin as outpatient with symptomatic improvement, continued Hyponatremia - Mild, trended. At risk of SIADH 2/2 lung cancer. Na improved to 136 on AM labs but repeat again low. Continue despopresson DVT PPx: SCDs, pharmacoppx deferred due to anemia Diet: HH/DM2. No signs of GIB at present. Denied any melena/hematochezia (11) Hypomagnesemia: Plan: checked w/ am labs given elevated HR/prior lows --> additional replacement ordered for today Gets transfusions outpatient planning to continue PO supplementation at d/c Plan continued inpatient stay, PT/OT pending start PO mag tonight and plan conitnued supp at d/c plan to continue B12 PO supp at d/c will need close outpt f/u heme/onc at dc Admission and Anticipated Discharge Date Admission Date: September 06, 2022 Supervising Physician Co-Signing Physician Notes The patient was not seen by me. The chart was reviewed. Case discussed with NORMAN Lopez. Agree with assessment and plan Subjective eval this morning eating lunch in bed. feeling alright was going to plan for dc but family wanting to monitor mag/K levels in AM and ensure Hgb stable in AM given state he was when he came in. Agreed to plan. Will attempt dc in AM. Therapy to eval this afternoon as well. Physical Exam Physical Exam: General: A&Ox3. NAD. Cooperative, sister at bedside. HEENT: Atraumatic, normocephalic. Vision/hearing intact. +Pallor improved Pulm: Diminished, no overt wheezes/rales symmetrical chest rise. No increased work of breathing. No respiratory distress. Cardiac: Regular rhythm, rates 90s, no significant m/r/g, no pitting edema Abdominal: Obese, softly distended, nontender left lower quadrant bruising at site of insulin injections. BS present. Ext: Chronic venous stasis L>R LE with chronic inflammatory changes anterior foot w/ blister reported prior from new shoes, no active drainage/surrounding erythema/tenderness R 3rd toe and L foot wounds well healing at 1st mcp, distal hallux without acute warmth/discharge/erythema. Results & Data Results & Data Vital Signs (Past 12 Hours) Vital Signs Temp Pulse Pulse Resp BP Pulse Ox O2 Del Method 09/08/22 07:59 36.6 C 89 19 122/74 98 Room Air 09/08/22 03:39 36.7 C 98 H 22 110/84 97 Room Air 09/07/22 23:27 107 H 09/07/22 23:22 36.9 C 111 H 20 130/82 98 Room Air 09/07/22 23:13 09/07/22 21:29 Room Air FiO2 09/08/22 07:59 09/08/22 03:39 09/07/22 23:27 09/07/22 23:22 09/07/22 23:13 21 09/07/22 21:29 Laboratory Results 09/08/22 09/08/22 09/08/22 Range/Units 07:29 06:55 04:50 WBC (4.8-10.8) K/ul RBC (4.70-6.10) M/uL Hgb (14.0-18.0) g/dl Hct (42.0-52.0) % MCV (80.0-100.0) fL MCH (25.0-34.0) pg MCHC (32.0-36.0) g/dL RDW Std Deviation (36.4-46.3) fL RDW Coeff of Catalino (11.5-14.5) % Plt Count (130-400) K/uL MPV (9.4-12.4) fL Immature Gran % (Auto) % Neut % (Auto) % Lymph % (Auto) % [place] % (Auto) % Eos % (Auto) % Baso % (Auto) % Reticulocyte % (Auto) (0.5-2.0) % Neut # (Auto) (1.40-6.50) K/uL Lymph # (Auto) (1.2-3.4) K/uL [place] # (Auto) (0.11-0.59) K/uL Eos # (Auto) (0-0.50) K/uL Baso # (Auto) (0-0.2) K/uL Reticulocyte # (0.02-0.10) 10^6/uL Immature Gran # (Auto) (0.01-0.20) K/uL Absolute Nucleated RBC (0-0.12) K/uL Nucleated RBC % (auto) % Peripher Smr Path Cons Sodium 132 L (136-145) mmol/L Potassium 3.2 L (3.5-5.1) mmol/L Chloride 100 (98-107) mmol/L Carbon Dioxide 24 (21-32) mmol/L Anion Gap 8 (3-11) BUN 13 (6-23) mg/dl Creatinine 0.69 (0.6-1.4) mg/dl Est Cr Clr Drug Dosing 149.0 ml/min Est GFR ( Amer) 117.9 ml/min Est GFR (Non-Af Amer) 101.7 ml/min BUN/Creatinine Ratio 18.8 (10-20) Glucose 102 H (70-99(Fasting)) mg/dl POC Glucose 106 H (70-99) mg/dl Calcium 7.7 L (8.6-10.3) mg/dl Magnesium 1.4 L (1.7-2.4) mg/dl Methylmalonic Acid Pending Stool Occult Bld Scrn (Negative) 09/08/22 09/08/22 09/07/22 Range/Units 04:50 00:57 19:59 WBC 1.79 L (4.8-10.8) K/ul RBC 2.57 L (4.70-6.10) M/uL Hgb 8.4 L (14.0-18.0) g/dl Hct 23.9 L (42.0-52.0) % MCV 93.0 (80.0-100.0) fL MCH 32.7 (25.0-34.0) pg MCHC 35.1 (32.0-36.0) g/dL RDW Std Deviation 49.9 H (36.4-46.3) fL RDW Coeff of Catalino 16.4 H (11.5-14.5) % Plt Count 142 (130-400) K/uL MPV 8.8 L (9.4-12.4) fL Immature Gran % (Auto) % Neut % (Auto) % Lymph % (Auto) % [place] % (Auto) % Eos % (Auto) % Baso % (Auto) % Reticulocyte % (Auto) 5.8 H (0.5-2.0) % Neut # (Auto) (1.40-6.50) K/uL Lymph # (Auto) (1.2-3.4) K/uL [place] # (Auto) (0.11-0.59) K/uL Eos # (Auto) (0-0.50) K/uL Baso # (Auto) (0-0.2) K/uL Reticulocyte # 0.15 H (0.02-0.10) 10^6/uL Immature Gran # (Auto) (0.01-0.20) K/uL Absolute Nucleated RBC (0-0.12) K/uL Nucleated RBC % (auto) % Peripher Smr Path Cons Sodium (136-145) mmol/L Potassium (3.5-5.1) mmol/L Chloride (98-107) mmol/L Carbon Dioxide (21-32) mmol/L Anion Gap (3-11) BUN (6-23) mg/dl Creatinine (0.6-1.4) mg/dl Est Cr Clr Drug Dosing ml/min Est GFR ( Amer) ml/min Est GFR (Non-Af Amer) ml/min BUN/Creatinine Ratio (10-20) Glucose (70-99(Fasting)) mg/dl POC Glucose 170 H (70-99) mg/dl Calcium (8.6-10.3) mg/dl Magnesium (1.7-2.4) mg/dl Methylmalonic Acid Stool Occult Bld Scrn Negative (Negative) 09/07/22 09/07/22 09/07/22 Range/Units 16:21 12:07 09:22 WBC (4.8-10.8) K/ul RBC (4.70-6.10) M/uL Hgb (14.0-18.0) g/dl Hct (42.0-52.0) % MCV (80.0-100.0) fL MCH (25.0-34.0) pg MCHC (32.0-36.0) g/dL RDW Std Deviation (36.4-46.3) fL RDW Coeff of Catalino (11.5-14.5) % Plt Count (130-400) K/uL MPV (9.4-12.4) fL Immature Gran % (Auto) % Neut % (Auto) % Lymph % (Auto) % [place] % (Auto) % Eos % (Auto) % Baso % (Auto) % Reticulocyte % (Auto) (0.5-2.0) % Neut # (Auto) (1.40-6.50) K/uL Lymph # (Auto) (1.2-3.4) K/uL [place] # (Auto) (0.11-0.59) K/uL Eos # (Auto) (0-0.50) K/uL Baso # (Auto) (0-0.2) K/uL Reticulocyte # (0.02-0.10) 10^6/uL Immature Gran # (Auto) (0.01-0.20) K/uL Absolute Nucleated RBC (0-0.12) K/uL Nucleated RBC % (auto) % Peripher Smr Path Cons Sodium (136-145) mmol/L Potassium (3.5-5.1) mmol/L Chloride (98-107) mmol/L Carbon Dioxide (21-32) mmol/L Anion Gap (3-11) BUN (6-23) mg/dl Creatinine (0.6-1.4) mg/dl Est Cr Clr Drug Dosing ml/min Est GFR ( Amer) ml/min Est GFR (Non-Af Amer) ml/min BUN/Creatinine Ratio (10-20) Glucose (70-99(Fasting)) mg/dl POC Glucose 125 H 138 H (70-99) mg/dl Calcium (8.6-10.3) mg/dl Magnesium 1.5 L (1.7-2.4) mg/dl Methylmalonic Acid Stool Occult Bld Scrn (Negative) 09/07/22 09/07/22 Range/Units 09:22 09:22 WBC 1.72 L (4.8-10.8) K/ul RBC 2.63 L (4.70-6.10) M/uL Hgb 8.6 L (14.0-18.0) g/dl Hct 24.5 L (42.0-52.0) % MCV 93.2 (80.0-100.0) fL MCH 32.7 (25.0-34.0) pg MCHC 35.1 (32.0-36.0) g/dL RDW Std Deviation 49.1 H (36.4-46.3) fL RDW Coeff of Catalino 16.5 H (11.5-14.5) % Plt Count 148 (130-400) K/uL MPV 8.9 L (9.4-12.4) fL Immature Gran % (Auto) 1.2 % Neut % (Auto) 76.1 % Lymph % (Auto) 12.2 % [place] % (Auto) 10.5 % Eos % (Auto) 0.0 % Baso % (Auto) 0.0 % Reticulocyte % (Auto) (0.5-2.0) % Neut # (Auto) 1.31 L (1.40-6.50) K/uL Lymph # (Auto) 0.21 L (1.2-3.4) K/uL [place] # (Auto) 0.18 (0.11-0.59) K/uL Eos # (Auto) 0.00 (0-0.50) K/uL Baso # (Auto) 0.00 (0-0.2) K/uL Reticulocyte # (0.02-0.10) 10^6/uL Immature Gran # (Auto) 0.02 (0.01-0.20) K/uL Absolute Nucleated RBC 0.03 (0-0.12) K/uL Nucleated RBC % (auto) 1.7 % Peripher Smr Path Cons Sodium 136 (136-145) mmol/L Potassium 3.5 (3.5-5.1) mmol/L Chloride 104 (98-107) mmol/L Carbon Dioxide 26 (21-32) mmol/L Anion Gap 6 (3-11) BUN 13 (6-23) mg/dl Creatinine 0.74 (0.6-1.4) mg/dl Est Cr Clr Drug Dosing 139.0 ml/min Est GFR ( Amer) 114.6 ml/min Est GFR (Non-Af Amer) 98.9 ml/min BUN/Creatinine Ratio 17.6 (10-20) Glucose 183 H (70-99(Fasting)) mg/dl POC Glucose (70-99) mg/dl Calcium 7.8 L (8.6-10.3) mg/dl Magnesium (1.7-2.4) mg/dl Methylmalonic Acid Stool Occult Bld Scrn (Negative) PG Care Time/CCT Total # of Minutes Spent Total Time Spent with Patient: Total time spent is greater than 50% in coordination of care (as documented) at patient's floor/unit and/or counseling patient: Coding Level of Care Code 06732 SUB INP/OBS CARE 3/50MIN Diagnoses Acute on chronic anemia D64.9 Malignant neoplasm of right upper lobe of lung C34.11 COPD (chronic obstructive pulmonary disease) J44.9 EDUARD (obstructive sleep apnea) G47.33 Type 2 diabetes mellitus with diabetic mononeuropathy E11.41 Schizophrenia F20.9 Severe sleep apnea G47.30 Hypersomnia G47.10 Hypertension I10 Hypertension type: essential hypertension Alcohol use Z78.9 Hypomagnesemia E83.42 (9) Hypertension Hypertension type: essential hypertension Qualified Code(s): I10 - Essential (primary) hypertension
[2022-09-08] MEDS: MAGNESIUM SULFATE / D5W 1 GM/100 ML BAG IV SCH ×3 (09:34→11:41)
[2022-09-08] MEDS: DESMOPRESSIN ACETATE 0.1 MG TAB PO SCH (20:36)
[2022-09-08] MEDS: OLANZapine 10 MG TAB PO SCH (20:36)
[2022-09-08] MEDS: MAGNESIUM CHLORIDE W/CALCIUM 64MG DELAYED REL TAB PO SCH (20:36)
[2022-09-08] MEDS: fluvoxaMINE MALEATE 50 MG TAB PO SCH (20:36)
[2022-09-08] MEDS: DIVALPROEX DELAY RELEASE 500 MG TAB PO SCH (20:36)
[2022-09-09 06:33] LABS: Hematocrit (blood only) 24.1 % (42.0-52.0); Hemoglobin 8.4 g/dl (14.0-18.0); Mean Corpuscular Hemoglobin 32.7 pg (25.0-34.0); Mean Corpuscular Hgb Conc 34.9 g/dL (32.0-36.0); Mean Corpuscular Volume 93.8 fL (80.0-100.0); Mean Platelet Volume 8.6 fL (9.4-12.4); Platelet Count 145 K/uL (130-400); RDW Coefficient of Variation 17.2 % (11.5-14.5); RDW Standard Deviation 53.9 fL (36.4-46.3); Red Blood Count 2.57 M/uL (4.70-6.10); White Blood Count 1.55 K/ul (4.8-10.8)
[2022-09-09 07:02] LABS: BUN Creatinine Ratio 20.5 (10-20); Calcium 8.1 mg/dl (8.6-10.3); Creatinine Clr Calc Pharmacy 138.3 ml/min; Est GFR (African American) 115.2 ml/min; Est GFR (Non-African American) 99.4 ml/min; Magnesium 1.5 mg/dl (1.7-2.4); Potassium 3.4 mmol/L (3.5-5.1)
[2022-09-09 07:24] LABS: Immature Granulocytes # (auto) 0.02 K/uL (0.01-0.20); Immature Granulocytes % (auto) 1.3 %; Lymphocytes % (auto) 25.8 %; Monocytes # (auto) 0.29 K/uL (0.11-0.59); Monocytes % (auto) 18.7 %; Neutrophils # (auto) 0.84 K/uL (1.40-6.50); Neutrophils % (auto) 54.2 %
[2022-09-09] MEDS ORDERED: POTASSIUM CHLORIDE CRTAB 20 MEQ TABCR PO STA (08:44)
[2022-09-09] MEDS: EZETIMIBE 10 MG TABLET PO SCH (08:52)
[2022-09-09] MEDS: SIMVASTATIN 40 MG TAB PO SCH (08:52)
[2022-09-09] MEDS: CHOLECALCIFEROL 1,000 UNITS 25 MCG TAB PO SCH (08:52)
[2022-09-09] MEDS: CYANOCOBALAMIN 1000 MCG/ML VIAL IM SCH (08:52)
[2022-09-09] MEDS: clonazePAM 0.5 MG TAB PO SCH (08:52)
[2022-09-09] MEDS: TOCOPHERYL, DL-ALPHA 400 UNITS 180 MG CAP PO SCH (08:52)
[2022-09-09] MEDS: TAMSULOSIN HCL 0.4 MG CAP PO SCH (08:53)
[2022-09-09] MEDS: MAGNESIUM CHLORIDE W/CALCIUM 64MG DELAYED REL TAB PO SCH (08:53)
[2022-09-09] MEDS: LOSARTAN POTASSIUM 25 MG TAB PO SCH (08:53)
[2022-09-09] MEDS: UMECLIDINIUM/VILANTEROL 62.5/25MCG 7 PUFFS/INHALER INH SCH (08:53)
[2022-09-09] MEDS: FLUTICASONE FUROATE 100MCG 14 PUFFS/INHALER INH SCH (08:53)
[2022-09-09] MEDS: MAGNESIUM SULFATE / D5W 1 GM/100 ML BAG IV SCH ×2 (08:54→11:04)
--- NOTE | 2022-09-09 08:55 | Hospitalist Progress Note ---
Date of Service September 09, 2022 Assessment & Plan (1) Acute on chronic anemia: Plan: Presyncope 2/2 Severe anemia w/ bicytopenia. Acute on chronic, symptomatic with hypotension WBC 1.5, hgb 6.1, plt 130 (Prior hgb 7.2 on 09/05 and recently got unit PRBC about 3 days ago per patient) Last chemo 08/29 w/ taxol/carboplatin -- suspect anemia 2nd to chemotherapy TSH wnl B12 LOW normal in Feb --> IM replacement ordered while inpatient, continue PO supplementation at d/c. Folate was 19.1 EKG w/ NSR, RBB, T wave inversions. No CP reported. Trop 7. Prior ECHO Mar 2020, LV systolic function normal, no significant valvular heart disease. No significant murmur on exam at this time. CXR RUL consolidation/fibrosis similar to prior (hx known malignnancy), cardiomegaly w/o overload s/p 3u PRBC --> hgb improved to 8.6 --> 8.4 Fecal occult NEGATIVE Mag checked given prior lows/elevated HR --> 1.5 and IV replacement ordered. 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 Emphysema without acute process. 2. Post treatment-related right upper lobe consolidation is redemonstrated obscuring the patient's known malignancy. On chemotherapy/radiation. Patient receiving radiation 5 times per week As of 08/29/2022 completed combined radiation/chemotherapy with 6000 cGy, Taxol, carboplatin No evidence of brain mets on MRI NO acute change in management. Breathing at baseline. Heme/onc consulted -- appreciated recs/assistance --> ordered retic/peripheral smear/MMA level --> will need outpt f/u (3) COPD (chronic obstructive pulmonary disease): Plan: COPD with additional fibrosis, previously Gold class C Continue trelegy or hospital formulary, duonebs as needed CPAP HS for EDUARD Currently 100% on RA (4) EDUARD (obstructive sleep apnea): Plan: CPAP HS (5) Type 2 diabetes mellitus with diabetic mononeuropathy: Plan: Most recent A1c 6.7 Holding outpatient meds, SSI while inpatient Monitor BSGs -- currently remaining acceptable (6) Schizophrenia: Plan: History of schizophrenia, mixed subtype predominantly paranoia in the past Well controlled on his current medication regimen which includes Zyprexa, fluvoxamine, clonazepam, and divalproex. Continue above medications, mentation goal directed without abnormality at admission sister also at bedside mood stable on exam, somewhat irritable about interrupted for lunch 6 times but otherwise cooperative (7) Severe sleep apnea: (8) Hypersomnia: (9) Hypertension: (10) Alcohol use: Plan: History of alcohol abuse Previously with up to 10-12 drinks per day In remission for 2 months since being on chemo - No acute treatment required at this time Urinary incontinence Is on desmopressin as outpatient with symptomatic improvement, continued Hyponatremia - Mild, trended. At risk of SIADH 2/2 lung cancer. Na improved to 136 on AM labs but repeat again low. Continue despopresson DVT PPx: SCDs, pharmacoppx deferred due to anemia Diet: HH/DM2. No signs of GIB at present. Denied any melena/hematochezia (11) Hypomagnesemia: Plan: checked w/ am labs given elevated HR/prior lows --> additional replacement ordered for today Gets transfusions outpatient planning to continue PO supplementation at d/c Plan continued inpatient stay, PT/OT pending start PO mag tonight and plan conitnued supp at d/c plan to continue B12 PO supp at d/c will need close outpt f/u heme/onc at dc Admission and Anticipated Discharge Date Admission Date: September 06, 2022 Results & Data Results & Data Vital Signs (Past 12 Hours) Vital Signs Temp Pulse Pulse Resp BP Pulse Ox O2 Del Method 09/09/22 08:23 36.5 C 86 16 119/74 98 Room Air 09/09/22 04:00 36.9 C 87 18 106/72 97 CPAP 09/09/22 02:15 15 09/08/22 22:40 96 H 12 96 09/08/22 22:00 90 09/09/22 00:00 37.1 C 92 H 20 118/75 96 Room Air Laboratory Results 09/09/22 09/09/22 09/09/22 Range/Units 07:20 05:56 05:56 WBC 1.55 L (4.8-10.8) K/ul RBC 2.57 L (4.70-6.10) M/uL Hgb 8.4 L (14.0-18.0) g/dl Hct 24.1 L (42.0-52.0) % MCV 93.8 (80.0-100.0) fL MCH 32.7 (25.0-34.0) pg MCHC 34.9 (32.0-36.0) g/dL RDW Std Deviation 53.9 H (36.4-46.3) fL RDW Coeff of Catalino 17.2 H (11.5-14.5) % Plt Count 145 (130-400) K/uL MPV 8.6 L (9.4-12.4) fL Immature Gran % (Auto) 1.3 % Neut % (Auto) 54.2 % Lymph % (Auto) 25.8 % [place] % (Auto) 18.7 % Eos % (Auto) 0.0 % Baso % (Auto) 0.0 % Neut # (Auto) 0.84 L* (1.40-6.50) K/uL Lymph # (Auto) 0.40 L (1.2-3.4) K/uL [place] # (Auto) 0.29 (0.11-0.59) K/uL Eos # (Auto) 0.00 (0-0.50) K/uL Baso # (Auto) 0.00 (0-0.2) K/uL Immature Gran # (Auto) 0.02 (0.01-0.20) K/uL Sodium 134 L (136-145) mmol/L Potassium 3.4 L (3.5-5.1) mmol/L Chloride 100 (98-107) mmol/L Carbon Dioxide 27 (21-32) mmol/L Anion Gap 7 (3-11) BUN 15 (6-23) mg/dl Creatinine 0.73 (0.6-1.4) mg/dl Est Cr Clr Drug Dosing 138.3 ml/min Est GFR ( Amer) 115.2 ml/min Est GFR (Non-Af Amer) 99.4 ml/min BUN/Creatinine Ratio 20.5 H (10-20) Glucose 101 H (70-99(Fasting)) mg/dl POC Glucose 120 H (70-99) mg/dl Calcium 8.1 L (8.6-10.3) mg/dl Magnesium 1.5 L (1.7-2.4) mg/dl 09/08/22 09/08/22 09/08/22 Range/Units 20:18 16:42 12:06 WBC (4.8-10.8) K/ul RBC (4.70-6.10) M/uL Hgb (14.0-18.0) g/dl Hct (42.0-52.0) % MCV (80.0-100.0) fL MCH (25.0-34.0) pg MCHC (32.0-36.0) g/dL RDW Std Deviation (36.4-46.3) fL RDW Coeff of Catalino (11.5-14.5) % Plt Count (130-400) K/uL MPV (9.4-12.4) fL Immature Gran % (Auto) % Neut % (Auto) % Lymph % (Auto) % [place] % (Auto) % Eos % (Auto) % Baso % (Auto) % Neut # (Auto) (1.40-6.50) K/uL Lymph # (Auto) (1.2-3.4) K/uL [place] # (Auto) (0.11-0.59) K/uL Eos # (Auto) (0-0.50) K/uL Baso # (Auto) (0-0.2) K/uL Immature Gran # (Auto) (0.01-0.20) K/uL Sodium (136-145) mmol/L Potassium (3.5-5.1) mmol/L Chloride (98-107) mmol/L Carbon Dioxide (21-32) mmol/L Anion Gap (3-11) BUN (6-23) mg/dl Creatinine (0.6-1.4) mg/dl Est Cr Clr Drug Dosing ml/min Est GFR ( Amer) ml/min Est GFR (Non-Af Amer) ml/min BUN/Creatinine Ratio (10-20) Glucose (70-99(Fasting)) mg/dl POC Glucose 145 H 81 231 H (70-99) mg/dl Calcium (8.6-10.3) mg/dl Magnesium (1.7-2.4) mg/dl PG Care Time/CCT Total # of Minutes Spent Total Time Spent with Patient: Total time spent is greater than 50% in coordination of care (as documented) at patient's floor/unit and/or counseling patient: Coding Diagnoses Acute on chronic anemia D64.9 Malignant neoplasm of right upper lobe of lung C34.11 COPD (chronic obstructive pulmonary disease) J44.9 EDUARD (obstructive sleep apnea) G47.33 Type 2 diabetes mellitus with diabetic mononeuropathy E11.41 Schizophrenia F20.9 Severe sleep apnea G47.30 Hypersomnia G47.10 Hypertension I10 Hypertension type: essential hypertension Alcohol use Z78.9 Hypomagnesemia E83.42 (9) Hypertension Hypertension type: essential hypertension Qualified Code(s): I10 - Essential (primary) hypertension
[2022-09-09] MEDS: LANTUS PER UNIT CHARGE SQ SCH (08:57)
[2022-09-09] MEDS: INSULIN ASPART PER UNIT CHARGE SC SCH ×2 (08:58→12:12)
--- NOTE | 2022-09-09 11:10 | Discharge Summary ---
Date of Service September 09, 2022 Admission HPI Per Admitting Provider Feliz is a 62-year-old male with past medical history of right lobe squamous cell lung carcinoma, type II DM, EDUARD, recent cellulitis, chronic alcohol use with history of hyponatremia, hyperlipidemia on Zetia who presents to the ER for cardiac evaluation is found to be severely anemic. Had magnesium and potassium infusion at the cancer care center. Dr. Solano has been following for anemia, was borderling at last check but was doing OK earlie rin the week and feeling better so was deferred. This AM had an appointment at wound clinic for foot wounds, when he got there his BP was very low (systolic 80s), called EMS for evaluation in ER. +lightheadedness and dizziness, much worse when standing after having mg/kcl infusion but did not pass out completely. No chest pain/chest pressure. No shortness of breath. No melena. No bleeding. no hematemesis. No fever chills sweats No burnign with voiding, no polyuria. Some hesitancy No abdominal pain or diarrhea Breathing is 'ok actually getting better. Not out of breath much going up steps anymore.' Denies warmth/erythema/pain in his legs Lat chemo August 29 Medical History: Reviewed Medications: Reviewed Surgical History: Reviewed Family history: Reviewed Allergies: Reviewed Social History: No recent tobacco use. July 30 last time he had any alcohol at all, Jun 2021 last tobacco use. Code Status: Full Code Admission Exam Per Admitting Provider General: A&Ox3. NAD. Cooperative. HEENT: Atraumatic, normocephalic. Vision/hearing intact. +Pallor. Pulm: Diminished, no overt wheezes/rales symmetrical chest rise. No increased work of breathing. No respiratory distress. Cardiac: Regular, tachycardia. Radial pulses intact and symmetrical. Abdominal: Obese, softly distended, nontender left lower quadrant bruising at site of insulin injections. BS present. Ext: Chronic venous stasis L>R LE with chronic inflammatory changes. No acute erythema/warmth/tenderness. R 3rd toe and L foot wounds well healing at 1st mcp, distal hallux without acute warmth/discharge/erythema. Principal Diagnosis Symptomatic Anemia Discharge Exam General: WD/WN male sitting up in bed, NAD HEENT: head normocephalic, atraumatic, mmm, trachea midline Resp: CTA, no w/c, on room air 98% CV: RRR, no significant m/r/g, no pitting edema chronic venous stasis changes b/l LE, calves nontender to palpation GI: +BS, soft/NT : no cabral MSK/Neuro: no focal deficits, no slurred speech/facial droop b/l feet in boots, healing wound to anterior surface from recent shoes, no drainage/surrounding cellulitis Psych: AOX3, pleasant and cooperative wanting to go home Discharge Data Allergies Allergy/AdvReac Type Severity Reaction Status Date / Time scopolamine Allergy Intermediate Itching Verified 09/06/22 11:28 Consultations 09/06/22 15:48 ED Decision to Admit Stat 09/07/22 09:11 Consult Hematology Routine Ordered Studies Chest X-Ray 09/06/22 13:26 SINGLE VIEW CHEST CLINICAL HISTORY: Change in mental status. Dizziness. FINDINGS: An AP, portable, upright chest radiograph is compared to study dated 08/03/2022 and correlated with chest CT dated 06/15/2022. The examination is degraded by portable technique and patient rotation. The heart is enlarged noting atherosclerotic calcification of the secure. The pulmonary vasculature is noncongested. Emphysema and chronic interstitial thickening is similar to previous. Dense airspace consolidation/fibrosis in the right upper lobe is similar to previous. Scarring/atelectasis is noted at the lung bases. No large pleural effusion or pneumothorax is identify. The skeletal structures are osteopenic. The bony thorax is grossly intact. IMPRESSION: 1. Cardiomegaly an emphysema without radiographic evidence of congestive failure. 2. Dense right upper lobe consolidation/fibrosis is similar to previous. 3. No new foci of airspace consolidation are identified. ACT 112: Negative or not required by law. Electronically signed by: Bao Harrison M.D. 09/06/2022 2:23 PM Hospital Course (1) Acute on chronic anemia: Presyncope 2/2 Severe anemia w/ bicytopenia. Acute on chronic, symptomatic with hypotension on admission WBC 1.5, hgb 6.1, plt 130 (Prior hgb 7.2 on 09/05 and recently got unit PRBC about 3 days ago per patient) Last chemo 08/29 w/ taxol/carboplatin -- suspect anemia 2nd to chemotherapy. Fecal occult testing NEGATIVE Given 3u PRBC, hgb improved and stayed stable on repeat B12 low normal in febuary --> placed on IM while inpatient and continued 1000mcg daily at discharge Patient had been feeling well and wanting d/c on 09/08 but Mag/K low and replacement ordered and discussed w/ sister Adela about keeping overnight and monitoring. Held his lasix for the morning of discharge given hypotension, NO SYMPTOMS since hgb improved of lightheaded/dizziness Discussed given K slightly improved (did get his lasix 09/08) but to continue 20meq KCL at dc daily and monitor BPs at home and resume on Monday. Did also send rx for Slow Mag TID given lows and outpatient infusions Lab slip for repeat CBC/BMP/Mag for monday provided to patient and will have results sent to PCP and Dr Prado. MMA level pending at d/c. Will need outpt f/u heme/onc (2) Malignant neoplasm of right upper lobe of lung: Right upper lobe squamous cell carcinoma of the lung, with right hilar and local metastasis Diagnosed 07/14/2021, stage Ia 3, T1c, N0, M0 CXR:1. Emphysema without acute process. 2. Post treatment-related right upper lobe consolidation is redemonstrated obscuring the patient's known malignancy. On chemotherapy/radiation. Patient receiving radiation 5 times per week As of 08/29/2022 completed combined radiation/chemotherapy with 6000 cGy, Taxol, carboplatin No evidence of brain mets on MRI NO acute change in management. Breathing at baseline. Heme/onc consulted -- appreciated recs/assistance --> ordered retic/peripheral smear/MMA level --> will need outpt f/u (3) COPD (chronic obstructive pulmonary disease): COPD with additional fibrosis, previously Gold class C Continue tregy or hospital formulary, duonebs as needed CPAP HS for EDUARD Currently 98% on RA (4) EDUARD (obstructive sleep apnea): CPAP HS (5) Type 2 diabetes mellitus with diabetic mononeuropathy: Most recent A1c 6.7 Holding outpatient meds, SSI while inpatient Monitor BSGs -- currently remaining acceptable Can resume prior regimen at d/c and monitor BSGs outpatient (6) Schizophrenia: History of schizophrenia, mixed subtype predominantly paranoia in the past Well controlled on his current medication regimen which includes Zyprexa, fluvoxamine, clonazepam, and divalproex. (7) Severe sleep apnea: (8) Hypersomnia: (9) Hypertension: (10) Hypomagnesemia: lows, prior lows replacement ordered, improved but additional IV prior to discharge and sent PO supplementation as outlined above (11) Alcohol use: History of alcohol abuse Previously with up to 10-12 drinks per day In remission for 2 months since being on chemo - No acute treatment required at this time no dts could consider empiric thiamine replacement in f/u Urinary incontinence Is on desmopressin as outpatient with symptomatic improvement, continued Hyponatremia - Mild, trended. At risk of SIADH 2/2 lung cancer. Stable compared to baseline and remained on desmopressin DVT PPx: SCDs, pharmacoppx deferred due to anemia. No evidence for DVT on exam, calves nontender Plan stable for dc and planned PO KCL/Mag at dc and repeat labs on Monday PT/OT consulted while inpatient and rec home w/ family when able Updated sister on phone prior to discharge Total Time Total Time Spent Total Time Spent (In Minutes): 45 Discharge Plan Discharge Items Patient Disposition: Home - Self-Care Reason For Visit: SYMPTOMATIC ANEMIA Discharge Diagnosis: Anemia Goals: You have been hospitalized for an acute medical problem. During your stay at [facility], we have made an effort to correct the problem that brought you to the hospital while keeping you as comfortable as possible. Medications were used to bring your condition under control and your discharge instructions will include directions for any medications you should take after leaving the hospital. Please make sure you see your Primary Care Provider as part of your follow up plan. Activity: As commented below Non-emergency contact: Primary Care Provider and Oncologist Call non-emergency contact if: you have any medication questions, your symptoms worsen, your pain is not controlled and you have a fever Follow-up/Referrals: Kingston Prado MD [Physician] - 09/28/22 10:30 am (09/28/22 @ 10:30) Jah Brown DO [Primary Care Provider] - 09/12/22 1:00 pm (Follow up scheduled with Dr. Brown on 09/12/22 @ 1pm) Diet: Carb Consistent or DM2 and Heart Healthy Ambulatory Orders: Basic Metabolic Panel (Routine) Timeframe: 20220912 Location: Determined by Patient Ordered By: Anais Toney Complete Blood Count with Diff (Timed) Timeframe: 20220912 Location: Determined by Patient Ordered By: Anais Toney Magnesium (Routine) Timeframe: 20220912 Location: Determined by Patient Ordered By: Anais Boateng Attending Provider Instructions: You have been hospitalized for low blood counts with hemoglobin level down to 6.1. This was felt likely related to your recent chemotherapy medications, and you were given blood products (3 units of blood) and repeat blood counts have made improvements. Hematology was consulted while you have been inpatient and felt the blood drop was from recent chemotherapy. I did check a fecal occult blood to test for any blood in your stool and this was NEGATIVE. You were also found to have prior low B12 levels and were given injections while in the hospital and can continue B12 orally daily at discharge once daily. You were also found to have low magnesium levels, and given prior low levels in the past -- we have started slow magnesium oral replacement three times daily to prevent lows in the future. We have also started oral potassium and you should continue 20meq once daily. You should hold your Lasix for tomorrow. Ideally, monitor for any increased swelling or weight gain and can resume this if this occurs, however this may need reduced to 20mg daily in the future to prevent low blood pressures. Please monitor blood pressures at home and contact primary care if your top number is <100 or you have any lightheaded/dizziness. We have repeat labs in for Monday to be drawn and sent to PCP and Dr Prado. Please follow up with primary care in the next 7-10 days to monitor your status after discharge. Please follow with oncology as previously scheduled to follow up on sent out labs. Please return to the emergency department with any worsening lightheadedness, dizziness, chest pain, shortness of breath, or for any other symptoms concerning for you. It has been a pleasure being a part of the medical team providing for you while you have been in the hospital. Take care! Pending Studies at Discharge: Yes Studies:: MMA Stand-Alone Forms: My [employer], Smoking Cessation Medications and DC Order Prescriptions: New cyanocobalamin (vitamin B-12) 1,000 mcg capsule 1,000 mcg PO DAILY Qty: 30 0RF Mag 64 64 mg Tablet,Delayed Release (Dr/Ec) 64 mg PO TID Qty: 90 0RF potassium chloride 20 mEq tablet extended release 20 meq PO DAILY Qty: 30 0RF Continued (DME) lancets [OneTouch UltraSoft Lancets] Misc See Rx Instructions .ROUTE .MEDSUPPLY Qty: 100 5RF Rx Instructions: As directed 3-4x a day Dx:E11.9 losartan 25 mg tablet 25 mg PO QAM Qty: 90 3RF desmopressin 0.1 mg tablet 0.1 mg PO HS Qty: 90 3RF Rx Instructions: TAKE 1 TABLET AT BEDTIME glipizide 5 mg tablet 5 mg PO QAM Qty: 30 0RF (DME) OneTouch Verio test strips Strip See Rx Instructions .ROUTE .COMPLEX Qty: 100 3RF Dose Instruction: TEST BLOOD SUGAR 1 TIME DAILY Rx Instructions: TEST BLOOD SUGAR 1 TIME DAILY simvastatin 40 mg tablet 40 mg PO DAILY Qty: 90 3RF (DME) pen needle, diabetic [BD Ultra-Fine Mini Pen Needle] 31 gauge x 3/16" needle See Rx Instructions .Route Qty: 50 0RF Rx Instructions: Use to inject insulin once daily insulin glargine [Lantus Solostar U-100 Insulin] 100 unit/mL (3 mL) insulin pen 15 unit subcut QAM Qty: 15 5RF (DME) CPAP Supplies Misc See Rx Instructions .MEDSUPPLY Qty: 1 0RF Rx Instructions: CPAP supplies. G47.33 (DME) Auto Titrating CPAP Misc See Rx Instructions .MEDSUPPLY Qty: 1 0RF Rx Instructions: Auto PAP with 5-15 cm H20. Lifetime usage. G47.33 albuterol sulfate [Ventolin HFA] 90 mcg/actuation HFA aerosol inhaler 2 inh INH QID PRN (Reason: shortness of breath or wheezing) Qty: 18 4RF Trelegy Ellipta 100-62.5-25 mcg blister with device 1 inh inhalation QAM Qty: 60 7RF clonazepam 0.5 mg Tablet 0.5 mg PO BID divalproex 500 mg Tablet,Delayed Release (Dr/Ec) 500 mg PO HS cholecalciferol (vitamin D3) [Vitamin D3] 1,000 unit Capsule 1,000 unit PO QAM olanzapine [Zyprexa] 10 mg Tablet 10 mg PO HS vitamin E 400 unit Capsule 400 unit PO QAM fluvoxamine 150 mg Capsule,Extended Release 24hr 150 mg PO HS pioglitazone 45 mg tablet 45 mg PO QAM Rx Instructions: TAKE 1 TABLET BY MOUTH EVERY MORNING ezetimibe 10 mg tablet 10 mg PO QAM Rx Instructions: TAKE 1 TABLET BY MOUTH EVERY MORNING tamsulosin 0.4 mg capsule 0.4 mg PO QAM metformin 500 mg tablet 1,000 mg PO BID Rx Instructions: TAKE 2 TABLETS TWICE A DAY Held furosemide 40 mg tablet 40 mg PO QAM Qty: 90 3RF Hold Instructions: Resume on 09/11/22. Discharge Orders: Discharge Order (Routine); Ordered 09/09/22 Ordered By: Anais Toney Admission Data Admit Date/Time: 09/06/22 16:16 Attending Provider: Lorenzo Marquez Admit Provider: Ja Stuart Primary Care Provider: Jah Brown Other Providers: Ja Stuart ; Kingston Prado Other Interventions: Discharge Summary Assessment (RN) Last Done: 09/09/22 12:54 Supervising Physician Co-Signing Physician Notes The patient was seen by me. The chart was reviewed. Case discussed with NORMAN Benjamin. Agree with assessment and plan. He will be discharged home today Coding Level of Care Code 12950 INP/OBS DISCH >30 MIN Diagnoses Acute on chronic anemia D64.9 Malignant neoplasm of right upper lobe of lung C34.11 COPD (chronic obstructive pulmonary disease) J44.9 EDUARD (obstructive sleep apnea) G47.33 Type 2 diabetes mellitus with diabetic mononeuropathy E11.41 Schizophrenia F20.9 Severe sleep apnea G47.30 Hypersomnia G47.10 Hypertension I10 Hypertension type: essential hypertension Hypomagnesemia E83.42 Alcohol use Z78.9
[2022-09-09 11:48] VITALS: TEMP 97.9; O2SAT 97
[2022-09-09 12:56] VITALS: BP 122/72; PULSE 86
== END 2022-09-09 14:35 | disposition home health service (06) | DRG 812 ==
LOC: ED 12:21 → SUATTDRO 16:16 → 4W 16:16 → INTOOBSV 16:16 → 4W 18:28

== ENCOUNTER 2022-11-28 09:31 | Inpatient (IN) ==
[2022-11-28 10:02] LABS: Basophils # (auto) 0.01 K/uL (0-0.2); Basophils % (auto) 0.2 %; Eosinophils # (auto) 0.16 K/uL (0-0.50); Eosinophils % (auto) 2.9 %; Hematocrit (blood only) 33.6 % (42.0-52.0); Hemoglobin 11.2 g/dl (14.0-18.0); Immature Granulocytes # (auto) 0.04 K/uL (0.01-0.20); Immature Granulocytes % (auto) 0.7 %; Lymphocytes # (auto) 0.47 K/uL (1.2-3.4); Lymphocytes % (auto) 8.5 %; Mean Corpuscular Hemoglobin 30.6 pg (25.0-34.0); Mean Corpuscular Hgb Conc 33.3 g/dL (32.0-36.0); Mean Corpuscular Volume 91.8 fL (80.0-100.0); Mean Platelet Volume 8.9 fL (9.4-12.4); Monocytes # (auto) 0.48 K/uL (0.11-0.59); Monocytes % (auto) 8.7 %; Neutrophils # (auto) 4.37 K/uL (1.40-6.50); Platelet Count 219 K/uL (130-400); RDW Coefficient of Variation 12.2 % (11.5-14.5); RDW Standard Deviation 40.9 fL (36.4-46.3); Red Blood Count 3.66 M/uL (4.70-6.10); White Blood Count 5.53 K/ul (4.8-10.8)
[2022-11-28 10:09] LABS: iSTAT Creatinine 0.9 mg/dl (0.6-1.3); iSTAT Hemoglobin 11.6 g/dl (14.0-18.0); iSTAT Ionized Calcium 1.16 mmol/l (1.12-1.32); iSTAT Potassium 3.8 mmol/L (3.3-5.0)
[2022-11-28] MEDS ORDERED: SODIUM CHLORIDE 0.9% 1000ML 1,000 ML IV ONE ×2 (10:09→10:36)
[2022-11-28 10:21] LABS: Albumin Level 3.7 gm/dl (3.4-5.0); Bilirubin,Total 0.6 mg/dl (0.2-1.0); Calcium 8.9 mg/dl (8.6-10.3); Potassium 3.8 mmol/L (3.5-5.1)
[2022-11-28 10:27] LABS: Albumin Globulin Ratio 0.9 (0.9-2); BUN Creatinine Ratio 18.3 (10-20); Creatinine Clr Calc Pharmacy 97.3 ml/min; Est GFR (African American) 88.8 ml/min; Est GFR (Non-African American) 76.6 ml/min; Globulin 3.9 gm/dl (2.5-4.0); Total Protein 7.6 gm/dl (6.0-8.3)
--- NOTE | 2022-11-28 10:28 | Emergency Department Note ---
History of Present Illness General Chief complaint: Shortness of Breath/Dyspnea Time Seen by Provider: 11/28/22 09:40 History of Present Illness 62-year-old male presents emergency department with a history of lung cancer currently receiving immunotherapy last treatment was 5 days ago. Patient reportedly states increased shortness of breath dyspnea on exertion when just standing. Patient states a slight cough over the past few days. Patient denies hemoptysis. Patient states general malaise slight nausea no abdominal pain no significant chest pain. No other mitigating or alleviating factors Home Medications Medication Instructions Recorded Confirmed Type cholecalciferol (vitamin D3) 25 1,000 unit PO QAM 06/29/18 10/12/22 History mcg (1,000 unit) capsule (Vitamin D3) clonazepam 0.5 mg tablet 0.5 mg PO BID 06/29/18 10/12/22 History divalproex 500 mg tablet,delayed 500 mg PO HS 06/29/18 10/12/22 History release fluvoxamine 150 mg 150 mg PO HS 06/29/18 10/12/22 History capsule,extended release 24 hr olanzapine 10 mg tablet (Zyprexa) 10 mg PO HS 06/29/18 10/12/22 History vitamin E 268 mg (400 unit) capsule 400 unit PO QAM 06/29/18 10/12/22 History Auto Titrating CPAP #1 ea 07/05/21 10/12/22 Rx CPAP Supplies #1 ea 07/05/21 10/12/22 Rx lancets (Artisoftuch UltraSoft #100 ea 04/05/22 10/12/22 Rx Lancets) losartan 25 mg tablet 25 mg PO QAM #90 tabs 05/06/22 10/12/22 Rx metformin 500 mg tablet 1,000 mg PO BID 06/14/22 10/12/22 History furosemide 40 mg tablet 40 mg PO QAM #90 tabs 07/12/22 10/12/22 Rx blood sugar diagnostic (OneTouch #100 strips 08/11/22 10/12/22 Rx Verio test strips) simvastatin 40 mg tablet 40 mg PO DAILY #90 tabs 08/12/22 10/12/22 Rx cyanocobalamin (vitamin B-12) 1,000 mcg PO DAILY #30 caps 09/07/22 10/12/22 Rx 1,000 mcg capsule magnesium chloride 64 mg 64 mg PO TID #90 tabs 09/09/22 10/12/22 Rx (magnesium chloride) tablet,delayed release (Mag 64) ezetimibe 10 mg tablet 10 mg PO QAM #90 tabs 09/12/22 10/12/22 Rx pen needle, diabetic 31 gauge x #50 ea 10/10/22 10/12/22 Rx 3/16" (BD Ultra-Fine Mini Pen Needle) tamsulosin 0.4 mg capsule 0.4 mg PO DAILY #30 caps 10/10/22 10/12/22 Rx potassium chloride 20 mEq 20 meq PO DAILY #90 tabs 10/14/22 Rx tablet,extended release albuterol sulfate 90 mcg/actuation 2 inh inhalation QID PRN shortness 10/17/22 Rx aerosol inhaler (Ventolin HFA) of breath or wheezing #18 grams insulin glargine 100 unit/mL (3 18 unit (0.18 mL) subcut QAM #15 mL 11/10/22 Rx mL) subcutaneous pen (Lantus Solostar U-100 Insulin) fluticasone fur. 100 mcg-umeclid 1 inh inhalation QAM #60 ea 11/25/22 Rx 62.5 mcg-vilant 25 mcg inhalat.powder (Trelegy Ellipta) Allergies Allergy/AdvReac Type Severity Reaction Status Date / Time scopolamine Allergy Intermediate Itching Verified 11/18/22 09:20 Past Med/Surg History Medical History Alcohol abuse 10-12 DRINKS PER DAY Alcohol use Anxiety and depression Benign essential tremor Chronic back pain Chronic obstructive pulmonary disease daily inh and prn inh Diabetes mellitus, type 2 NIDDM Diabetic neuropathy Edema Esophageal reflux Hx of osteomyelitis Jun 2018- s/p amputation of tips of 2nd/3rd toes and part of great toe > left foot Hyperlipidemia Hypertension Lung cancer Diagnosed Spring 2021 -- no surgical intervention at this time.; following with Dr. 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 History of bronchoscopy Spring 2021 History of cataract surgery right/left History of cystoscopy WITH STONE EXTRACTION X 2 History of open reduction and internal fixation (ORIF) procedure LEFT SHOULDER 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 Family History Father Prostate cancer Family history of diabetes mellitus Myocardial infarction Aunt Family history of diabetes mellitus Uncle Family history of diabetes mellitus Family/Other Family history of diabetes mellitus Mother Diabetes Alzheimer disease Grandfather (Paternal) Cardiac disorder Cancer Colon Cancer Brother Kidney stones Other Heart disease No family history of adverse response to anesthesia Denies family history of Crohn's disease Colorectal cancer Lung disease Inflammatory bowel disease Asthma Social History Smoking Status: Former smoker Age Started Using Tobacco: 12; Age Quit Using Tobacco: 61; packs per day: 0.5; Cigarettes Per Day: 10; Second Hand Exposure: No; Do You Dip or Chew Tobacco: Yes (hx-quit years ago; advised); Hx Alcohol Use: No Hx Substance Use: No Preferred Language: [place]er Communication Ability: Effective Visual Impairment: No Limitations Hearing Ability: Normal Feather Baler Required: No Beliefs That Will Affect Care: None marital status: Single Current Living Situation: Alone Current Living Situation Comment: pt has been living with sister for several weeks during chemo rx current occupational status: disabled Feels Safe at Home: Yes Safety Concerns Comment: Currently living with his sister due to chemo/radiation/illness in current or past relationships, have you been: other Diet: regular caffeine: Yes Physical Activity Frequency: 1-2 Times per Week Seatbelt Use: always Assistive Devices: Cane Review of Systems A total of 10 systems reviewed and were otherwise negative Cardiovascular: + dyspnea and + dyspnea on exertion; no chest pain Physical Exam Vital Signs Vital Signs - 24 hr 11/28/22 09:31 11/28/22 09:31 11/28/22 09:40 Temperature 36.9 C Temperature Source Oral Pulse Rate 114 H 114 H Pulse Rate from SpO2 Sensor Pulse Rhythm Regular Respiratory Rate 22 22 Respiratory Effort / Characteristics Non-Labored Respiratory Depth Normal Respiratory Pattern Regular Blood Pressure 100/59 L Blood Pressure Mean 72 Pulse Oximetry 86 L 86 L 95 Oxygen Delivery Method Room Air Nasal Cannula Nasal Cannula Oxygen Flow Rate 0 2 Sepsis Recent Fever Within 48 Hours No Sepsis New/Unexplained Change in Mental Status No Sepsis Action Taken by Nursing Physician Notified Oxygen Flow Rate - Titration 2 Pulse Oximetry Post Tiitration 95 11/28/22 09:47 11/28/22 10:00 11/28/22 10:05 Temperature Temperature Source Pulse Rate 116 H 110 H 108 H Pulse Rate from SpO2 Sensor 109 H 108 H Pulse Rhythm Respiratory Rate 23 28 H Respiratory Effort / Characteristics Respiratory Depth Respiratory Pattern Blood Pressure 79/57 L 87/64 L Blood Pressure Mean 64 71 Pulse Oximetry 94 95 Oxygen Delivery Method Nasal Cannula Nasal Cannula Oxygen Flow Rate 2 2 Sepsis Recent Fever Within 48 Hours Sepsis New/Unexplained Change in Mental Status Sepsis Action Taken by Nursing Oxygen Flow Rate - Titration Pulse Oximetry Post Tiitration 11/28/22 10:30 11/28/22 11:00 11/28/22 11:00 Temperature Temperature Source Pulse Rate 98 H 89 Pulse Rate from SpO2 Sensor 97 H 89 Pulse Rhythm Respiratory Rate 25 H 20 Respiratory Effort / Characteristics Respiratory Depth Respiratory Pattern Blood Pressure 123/77 108/63 Blood Pressure Mean 92 86 Pulse Oximetry 93 94 Oxygen Delivery Method Nasal Cannula Room Air Oxygen Flow Rate 2 Sepsis Recent Fever Within 48 Hours Sepsis New/Unexplained Change in Mental Status Sepsis Action Taken by Nursing Oxygen Flow Rate - Titration Pulse Oximetry Post Tiitration GENERAL: Patient is awake alert in no acute distress patient is resting comfor tably and showing no signs of anxiety EYES: The conjunctivae are clear. The pupils are round and reactive. EARS, NOSE, MOUTH AND THROAT: The nose is without any evidence of any deformity. Mucous membranes are moist. Tongue is midline. NECK: The neck is nontender and supple. RESPIRATORY: Normal respiratory effort; crackles bilaterally CARDIOVASCULAR: Tachycardic noted there no murmurs rubs or gallops normal S1 normal S2. GASTROINTESTINAL: The abdomen is soft. Abdomen is nontender. PELVIS: The Pelvis is stable. No tenderness to palpation is noted. BACK: No midline tenderness or or step-off noted range of motion in flexion extension as well as rotation no signs of muscle spasm noted MUSCULOSKELETAL/EXTREMITIES: There is no evidence of gross deformity full range of motion is noted in the hips and shoulders. SKIN: There is no obvious evidence of any rash. There are no petechiae, pallor or cyanosis noted. NEUROLOGIC: Patient is awake alert and oriented x3 strength is symmetric Course Reevaluation(s) Reevaluation #1: Patient given IV fluids, IV cefepime, oxygen, has been stable throughout emergency department evaluation Time: 12:40 Consultations Consultation #1: [facility]: [facility]:40 Administered Medications Discontinued Medications Sodium Chloride (Nss 1000ml) 1,000 mls @ 999 mls/hr IV .Q1H1M ONE Stop: 11/28/22 11:09 Last Infusion: 11/28/22 10:51 Dose: 0 mls/hr Documented By: Admin: 11/28/22 10:13 Dose: 999 mls/hr Documented By: ALTHEA Cefepime HCl (Maxipime) 2,000 mg in 20 mls @ 5 mls/min IV NOW STA; Protocol Stop: 11/28/22 10:39 Last Admin: 11/28/22 10:51 Dose: 5 mls/min Documented By: ALTHEA Sodium Chloride (Nss 1000ml) 1,000 mls @ 999 mls/hr IV .Q1H1M ONE Stop: 11/28/22 11:36 Last Infusion: 11/28/22 12:11 Dose: 0 mls/hr Documented By: Admin: 11/28/22 10:51 Dose: 999 mls/hr Documented By: ALTHEA Ioversol (Ioversol 350 Mg 125ml Prefilled Syringe) 120 ml IV ONCE ONE Stop: 11/28/22 11:38 Last Admin: 11/28/22 11:37 Dose: 120 ml Documented By: GRIFFIN Critical Care Time Critical Care Time: Yes Total Critical Care Time: 35 I have personally spent greater than 35 minutes of critical care time in the direct management of this patient. This includes bedside care, interpretation of diagnostic studies, and testing, discussion with consultants, patient, and family members, and other required patient management activities. These minutes are in excess of all separately billable procedures. Medical Decision Making Medical Records Attestation: I reviewed the patient's medical records. Home Medications Current Medication List: was personally reviewed by me Laboratory Data Attestation: I reviewed the patient's lab results. Patient has an elevated lactic acid x2 11/28/22 09:50 11/28/22 09:50 Lab Results 11/28/22 11/28/22 11/28/22 Range/Units 09:50 09:50 09:50 WBC 5.53 (4.8-10.8) K/ul RBC 3.66 L (4.70-6.10) M/uL Hgb 11.2 L (14.0-18.0) g/dl POC Hgb (14.0-18.0) g/dl Hct 33.6 L (42.0-52.0) % POC Hct (42-52) % MCV 91.8 (80.0-100.0) fL MCH 30.6 (25.0-34.0) pg MCHC 33.3 (32.0-36.0) g/dL RDW Std Deviation 40.9 (36.4-46.3) fL RDW Coeff of Catalino 12.2 (11.5-14.5) % Plt Count 219 (130-400) K/uL MPV 8.9 L (9.4-12.4) fL Immature Gran % (Auto) 0.7 % Neut % (Auto) 79.0 % Lymph % (Auto) 8.5 % [place] % (Auto) 8.7 % Eos % (Auto) 2.9 % Baso % (Auto) 0.2 % Neut # (Auto) 4.37 (1.40-6.50) K/uL Lymph # (Auto) 0.47 L (1.2-3.4) K/uL [place] # (Auto) 0.48 (0.11-0.59) K/uL Eos # (Auto) 0.16 (0-0.50) K/uL Baso # (Auto) 0.01 (0-0.2) K/uL Immature Gran # (Auto) 0.04 (0.01-0.20) K/uL PT 11.9 (9.0-12.0) Seconds INR 1.1 (0.9-1.1) APTT 47.5 H* (21.0-31.0) Seconds PTT Ratio 1.7 POC Sodium (135-144) mmol/L Sodium 135 L (136-145) mmol/L POC Potassium (3.3-5.0) mmol/L Potassium 3.8 (3.5-5.1) mmol/L POC Chloride (101-112) mmol/L Chloride 101 (98-107) mmol/L Carbon Dioxide 22 (21-32) mmol/L POC Total CO2 (24-31) mmol/L Anion Gap 12 H (3-11) POC Anion Gap (16-25) mmol/L POC BUN (7-18) mg/dl BUN 19 (6-23) mg/dl Creatinine 1.04 (0.6-1.4) mg/dl POC Creatinine (0.6-1.3) mg/dl Est Cr Clr Drug Dosing 97.3 ml/min Est GFR ( Amer) 88.8 ml/min Est GFR (Non-Af Amer) 76.6 ml/min BUN/Creatinine Ratio 18.3 (10-20) Glucose 260 H (70-99(Fasting)) mg/dl POC Glucose (other) (70-99) mg/dl Lactate (0.4-2.0) mmol/L Calcium 8.9 (8.6-10.3) mg/dl POC Ioniz Calcium Sathya (1.12-1.32) mmol/l Total Bilirubin 0.6 (0.2-1.0) mg/dl AST 14 (13-39) U/L ALT 12 (7-52) U/L Alkaline Phosphatase 64 (34-104) U/L Troponin I High Sens 5.2 (0-20) pg/ml B-Natriuretic Peptide (0-100) pg/ml Total Protein 7.6 (6.0-8.3) gm/dl Albumin 3.7 (3.4-5.0) gm/dl Globulin 3.9 (2.5-4.0) gm/dl Albumin/Globulin Ratio 0.9 (0.9-2) SARS-CoV-2, RNA, NAAT (NEGATIVE) 11/28/22 11/28/22 11/28/22 Range/Units 09:50 09:56 09:57 WBC (4.8-10.8) K/ul RBC (4.70-6.10) M/uL Hgb (14.0-18.0) g/dl POC Hgb 11.6 L (14.0-18.0) g/dl Hct (42.0-52.0) % POC Hct 34 L (42-52) % MCV (80.0-100.0) fL MCH (25.0-34.0) pg MCHC (32.0-36.0) g/dL RDW Std Deviation (36.4-46.3) fL RDW Coeff of Catalino (11.5-14.5) % Plt Count (130-400) K/uL MPV (9.4-12.4) fL Immature Gran % (Auto) % Neut % (Auto) % Lymph % (Auto) % [place] % (Auto) % Eos % (Auto) % Baso % (Auto) % Neut # (Auto) (1.40-6.50) K/uL Lymph # (Auto) (1.2-3.4) K/uL [place] # (Auto) (0.11-0.59) K/uL Eos # (Auto) (0-0.50) K/uL Baso # (Auto) (0-0.2) K/uL Immature Gran # (Auto) (0.01-0.20) K/uL PT (9.0-12.0) Seconds INR (0.9-1.1) APTT (21.0-31.0) Seconds PTT Ratio POC Sodium 138 (135-144) mmol/L Sodium (136-145) mmol/L POC Potassium 3.8 (3.3-5.0) mmol/L Potassium (3.5-5.1) mmol/L POC Chloride 101 (101-112) mmol/L Chloride (98-107) mmol/L Carbon Dioxide (21-32) mmol/L POC Total CO2 23 L (24-31) mmol/L Anion Gap (3-11) POC Anion Gap 19.0 (16-25) mmol/L POC BUN 18 (7-18) mg/dl BUN (6-23) mg/dl Creatinine (0.6-1.4) mg/dl POC Creatinine 0.9 (0.6-1.3) mg/dl Est Cr Clr Drug Dosing ml/min Est GFR ( Amer) ml/min Est GFR (Non-Af Amer) ml/min BUN/Creatinine Ratio (10-20) Glucose (70-99(Fasting)) mg/dl POC Glucose (other) 273 H (70-99) mg/dl Lactate (0.4-2.0) mmol/L Calcium (8.6-10.3) mg/dl POC Ioniz Calcium Sathya 1.16 (1.12-1.32) mmol/l Total Bilirubin (0.2-1.0) mg/dl AST (13-39) U/L ALT (7-52) U/L Alkaline Phosphatase (34-104) U/L Troponin I High Sens (0-20) pg/ml B-Natriuretic Peptide 33 (0-100) pg/ml Total Protein (6.0-8.3) gm/dl Albumin (3.4-5.0) gm/dl Globulin (2.5-4.0) gm/dl Albumin/Globulin Ratio (0.9-2) SARS-CoV-2, RNA, NAAT NEGATIVE (NEGATIVE) 11/28/22 11/28/22 Range/Units 10:22 12:08 WBC (4.8-10.8) K/ul RBC (4.70-6.10) M/uL Hgb (14.0-18.0) g/dl POC Hgb (14.0-18.0) g/dl Hct (42.0-52.0) % POC Hct (42-52) % MCV (80.0-100.0) fL MCH (25.0-34.0) pg MCHC (32.0-36.0) g/dL RDW Std Deviation (36.4-46.3) fL RDW Coeff of Catalino (11.5-14.5) % Plt Count (130-400) K/uL MPV (9.4-12.4) fL Immature Gran % (Auto) % Neut % (Auto) % Lymph % (Auto) % [place] % (Auto) % Eos % (Auto) % Baso % (Auto) % Neut # (Auto) (1.40-6.50) K/uL Lymph # (Auto) (1.2-3.4) K/uL [place] # (Auto) (0.11-0.59) K/uL Eos # (Auto) (0-0.50) K/uL Baso # (Auto) (0-0.2) K/uL Immature Gran # (Auto) (0.01-0.20) K/uL PT (9.0-12.0) Seconds INR (0.9-1.1) APTT (21.0-31.0) Seconds PTT Ratio POC Sodium (135-144) mmol/L Sodium (136-145) mmol/L POC Potassium (3.3-5.0) mmol/L Potassium (3.5-5.1) mmol/L POC Chloride (101-112) mmol/L Chloride (98-107) mmol/L Carbon Dioxide (21-32) mmol/L POC Total CO2 (24-31) mmol/L Anion Gap (3-11) POC Anion Gap (16-25) mmol/L POC BUN (7-18) mg/dl BUN (6-23) mg/dl Creatinine (0.6-1.4) mg/dl POC Creatinine (0.6-1.3) mg/dl Est Cr Clr Drug Dosing ml/min Est GFR ( Amer) ml/min Est GFR (Non-Af Amer) ml/min BUN/Creatinine Ratio (10-20) Glucose (70-99(Fasting)) mg/dl POC Glucose (other) (70-99) mg/dl Lactate 3.1 H* 3.2 H* (0.4-2.0) mmol/L Calcium (8.6-10.3) mg/dl POC Ioniz Calcium Sathya (1.12-1.32) mmol/l Total Bilirubin (0.2-1.0) mg/dl AST (13-39) U/L ALT (7-52) U/L Alkaline Phosphatase (34-104) U/L Troponin I High Sens (0-20) pg/ml B-Natriuretic Peptide (0-100) pg/ml Total Protein (6.0-8.3) gm/dl Albumin (3.4-5.0) gm/dl Globulin (2.5-4.0) gm/dl Albumin/Globulin Ratio (0.9-2) SARS-CoV-2, RNA, NAAT (NEGATIVE) Imaging Data Attestation: I personally reviewed and interpreted this imaging study as follows: My Impression: Chest x-ray interpreted by me increased pulmonary markings and a right upper lobe mass CT chest interpreted by me right upper lobe consolidation Radiologist's Impression: Chest X-Ray 11/28/22 09:40 XR chest 1V portable CLINICAL HISTORY: Chest pain, nonspecific. Non-small cell lung cancer. COMPARISON STUDY: Chest radiograph September 06, 2022. Chest CT September 16, 2022 FINDINGS: There is no pneumothorax or pleural effusion. Dense right upper lobe opacity has increased since CT of September 16, 2022. Diffuse interstitial thickening has mildly progressed. Cardiomegaly is unchanged. IMPRESSION: 1. Increase in dense right upper lobe opacity since chest CT of September 16, 2022. This is nonspecific and could reflect postradiation change. However, pneumonia or tumor progression could appear similar. 2. Increase in diffuse interstitial thickening. This is likely due to underlying interstitial lung disease however superimposed mild pulmonary edema or an infectious process would be difficult to exclude. ACT 112: Negative or not required by law. Electronically signed by: Janes Mccormick M.D. 11/28/2022 10:32 AM Chest CTA 11/28/22 10:14 CT angio chest PE protocol HISTORY: 62 years-old Male with PE. Acute shortness of breath with tachycardia TECHNIQUE: Multiple CTA images of the chest were obtained after the intravenous administration of 120 ml Optiray. Coronal and sagittal MIPS were obtained from the axial data set and were submitted for review. All measurements were obtained according to NASCET criteria. A dose lowering technique was utilized adhering to the principles of ALARA. COMPARISON: 09/16/2022 FINDINGS: CTA: Moderate cardiomegaly. Trace pericardial effusion. Moderate coronary artery calcifications. Atherosclerosis of the thoracic aorta and branch vessels. No aneurysm or dissection. No pulmonary emboli identified. There is decreased opacification of the right upper lobe pulmonary arterial branches, likely secondary to shunting. CT CHEST: Unremarkable thyroid. Mediastinal or hilar lymphadenopathy. Generally unchanged with right hilar lymph nodes measuring up to 1.5 cm in short axis. Trace right pleural effusion. Moderate pulmonary emphysema. Intralobular septal thickening with intermixed multilobar groundglass densities. Some dense consolidation within the right upper lobe partially obscuring the previously described and measured areas of consolidation. 6 cm of consolidation within the right upper lobe on image 144 is similar to prior. 2.5 cm area of consolidation within the anterior aspect of the right upper lobe on image 146 is also similar to prior. Consolidation also noted within the superior segment right lower lobe and to a lesser extent within the left upper lung zones. There is no acute process of the imaged upper abdomen. There is mild nonspecific distal esophageal wall thickening. Moderate colonic fecal retention. Unremarkable soft tissues. No acute fracture or destructive bone lesion is identified. IMPRESSION: 1. Cardiomegaly with intralobular septal thickening, scattered groundglass d ensities with right upper lung predominant consolidation may represent asymmetric pulmonary edema versus multifocal pneumonia. Follow-up recommended. 2. The previously noted irregular areas of consolidation within the right upper lobe are partially obscured. 3. Generally stable appearance of the previously noted right hilar and mediastinal lymphadenopathy. 4. Pulmonary emphysema. 5. No pulmonary emboli identified. ACT 112: Negative or not required by law. The above report was generated using voice recognition software. It may contain grammatical, syntax or spelling errors. Electronically signed by: Rohan Adamson M.D. 11/28/2022 12:20 PM ECG Data Attestation: I personally reviewed and interpreted this ECG as follows: MDM Narrative Medical decision making differential diagnosis includes sepsis, pneumonia, CHF, COPD, lung mass, pulmonary embolism, electrolyte abnormality Plan is to check sepsis labs, chest x-ray, CT, EKG External medical records were reviewed Independent history was provided by family at bedside Patient was started on 2 L of IV fluids, patient was not given a full 30 mL/kg as I was concerned for CHF with a history, patient was also given cefepime. Patient has a lung cancer I suspect there may be a pneumonia and consolidation of right upper lobe. Case was discussed with the [facility] hospitalist for admission Impression & Plan Sepsis, Pneumonia, Lung cancer, Acute dyspnea Discharge Plan Visit Data Chief Complaint: Shortness of Breath/Dyspnea ED Provider: Coy Seymour Discharge Problem: Sepsis, Pneumonia, Lung cancer, Acute dyspnea Patient Disposition: Admitted As Inpatient Forms Stand Alone Forms: My [facility] Prescriptions Prescriptions: No Action (DME) lancets [OneTouch UltraSoft Lancets] Misc See Rx Instructions .ROUTE .MEDSUPPLY Qty: 100 5RF Rx Instructions: As directed 3-4x a day Dx:E11.9 losartan 25 mg tablet 25 mg PO QAM Qty: 90 3RF (DME) OneTouch Verio test strips Strip See Rx Instructions .ROUTE .COMPLEX Qty: 100 3RF Dose Instruction: TEST BLOOD SUGAR 1 TIME DAILY Rx Instructions: TEST BLOOD SUGAR 1 TIME DAILY simvastatin 40 mg tablet 40 mg PO DAILY Qty: 90 3RF (DME) pen needle, diabetic [BD Ultra-Fine Mini Pen Needle] 31 gauge x 3/16" needle See Rx Instructions .Route Qty: 50 0RF Rx Instructions: Use to inject insulin once daily tamsulosin 0.4 mg capsule 0.4 mg PO DAILY Qty: 30 11RF potassium chloride 20 mEq tablet extended release 20 meq PO DAILY Qty: 90 3RF albuterol sulfate [Ventolin HFA] 90 mcg/actuation HFA aerosol inhaler 2 inh INH QID PRN (Reason: shortness of breath or wheezing) Qty: 18 11RF insulin glargine [Lantus Solostar U-100 Insulin] 100 unit/mL (3 mL) insulin pen 18 unit subcut QAM Qty: 15 3RF Trelegy Ellipta 100-62.5-25 mcg blister with device 1 inh inhalation QAM Qty: 60 11RF furosemide 40 mg tablet 40 mg PO QAM Qty: 90 3RF Hold Instructions: Resume on 09/11/22. (DME) CPAP Supplies Misc See Rx Instructions .MEDSUPPLY Qty: 1 0RF Rx Instructions: CPAP supplies. G47.33 (DME) Auto Titrating CPAP Misc See Rx Instructions .MEDSUPPLY Qty: 1 0RF Rx Instructions: Auto PAP with 5-15 cm H20. Lifetime usage. G47.33 ezetimibe 10 mg tablet 10 mg PO QAM Qty: 90 1RF Rx Instructions: TAKE 1 TABLET BY MOUTH EVERY MORNING clonazepam 0.5 mg Tablet 0.5 mg PO BID divalproex 500 mg Tablet,Delayed Release (Dr/Ec) 500 mg PO HS cholecalciferol (vitamin D3) [Vitamin D3] 1,000 unit Capsule 1,000 unit PO QAM olanzapine [Zyprexa] 10 mg Tablet 10 mg PO HS vitamin E 400 unit Capsule 400 unit PO QAM fluvoxamine 150 mg Capsule,Extended Release 24hr 150 mg PO HS cyanocobalamin (vitamin B-12) 1,000 mcg capsule 1,000 mcg PO DAILY Qty: 30 0RF Mag 64 64 mg Tablet,Delayed Release (Dr/Ec) 64 mg PO TID Qty: 90 0RF metformin 500 mg tablet 1,000 mg PO BID Rx Instructions: TAKE 2 TABLETS TWICE A DAY Referrals Referrals: Jah Brown, DO [Primary Care Provider] -
[2022-11-28 10:29] LABS: Troponin I High Sensitivity 5.2 pg/ml (0-20)
--- NOTE | 2022-11-28 10:33 | XRay Report ---
XR chest 1V portable CLINICAL HISTORY: Chest pain, nonspecific. Non-small cell lung cancer. COMPARISON STUDY: Chest radiograph September 06, 2022. Chest CT September 16, 2022 FINDINGS: There is no pneumothorax or pleural effusion. Dense right upper lobe opacity has increased since CT of September 16, 2022. Diffuse interstitial thickening has mildly progressed. Cardiomegaly is unch anged. IMPRESSION: 1. Increase in dense right upper lobe opacity since chest CT of September 16, 2022. This is nonspecific and could reflect postradiation change. However, pneumonia or tumor progression could appear similar. 2. Increase in diffuse interstitial thickening. This is likely due to underlying interstitial lung d isease however superimposed mild pulmonary edema or an infectious process would be difficult to exclu de. ACT 112: Negative or not required by law. Electronically signed by: Janes Mccormick M.D. 11/28/2022 10:32 AM
[2022-11-28] MEDS ORDERED: CEFEPIME 2,000 MG/20 ML VIAL IV STA (10:36)
[2022-11-28 10:38] LABS: INR 1.1 (0.9-1.1); Partial Thromboplastin Ratio 1.7; Prothrombin Time 11.9 Seconds (9.0-12.0)
[2022-11-28 10:49] LABS: Partial Thromboplastin Time 47.5 Seconds (21.0-31.0)
--- NOTE | 2022-11-28 11:35 | Electrocardiogram Report ---
Test Reason : Blood Pressure : / mmHG Vent. Rate : 115 BPM Atrial Rate : 115 BPM P-R Int : 118 ms QRS Dur : 122 ms QT Int : 372 ms P-R-T Axes : 045 048 022 degrees QTc Int : 514 ms Sinus tachycardia Right bundle branch block with repolarization abnormality Abnormal ECG When compared with ECG of 06-SEP-2022 12:33, No significant change Confirmed by Rohan Banuelos ([id number]) on 11/28/2022 11:34:59 AM Referred By: Confirmed By:Rohan Banuelos
[2022-11-28] MEDS ORDERED: IOVERSOL 350 MG 125mL Prefilled Syringe IV ONE (11:37)
--- NOTE | 2022-11-28 12:21 | CT Scan Report ---
CT angio chest PE protocol HISTORY: 62 years-old Male with PE. Acute shortness of breath with tachycardia TECHNIQUE: Multiple CTA images of the chest were obtained after the intravenous administration of 120 ml Optiray. Coronal and sagittal MIPS were obtained from the axial data set and were submitted for review. All measurements were obtained according to NASCET criteria. A dose lowering technique was u tilized adhering to the principles of ALARA. COMPARISON: 09/16/2022 FINDINGS: CTA: Moderate cardiomegaly. Trace pericardial effusion. Moderate coronary artery calcifications. Atheroscl erosis of the thoracic aorta and branch vessels. No aneurysm or dissection. No pulmonary emboli ident ified. There is decreased opacification of the right upper lobe pulmonary arterial branches, likely s econdary to shunting. CT CHEST: Unremarkable thyroid. Mediastinal or hilar lymphadenopathy. Generally unchanged with right hilar lymp h nodes measuring up to 1.5 cm in short axis. Trace right pleural effusion. Moderate pulmonary emphysema. Intralobular septal thickening with inter mixed multilobar groundglass densities. Some dense consolidation within the right upper lobe partially obscuring the previously described and measured areas of consolidation. 6 cm of consolidation within the right upper lobe on image 144 is s imilar to prior. 2.5 cm area of consolidation within the anterior aspect of the right upper lobe on i mage 146 is also similar to prior. Consolidation also noted within the superior segment right lower l obe and to a lesser extent within the left upper lung zones. There is no acute process of the imaged upper abdomen. There is mild nonspecific distal esophageal wa ll thickening. Moderate colonic fecal retention. Unremarkable soft tissues. No acute fracture or dest ructive bone lesion is identified. IMPRESSION: 1. Cardiomegaly with intralobular septal thickening, scattered groundglass densities with right upper lung predominant consolidation may represent asymmetric pulmonary edema versus multifocal pneumonia. Follow-up recommended. 2. The previously noted irregular areas of consolidation within the right upper lobe are partially ob scured. 3. Generally stable appearance of the previously noted right hilar and mediastinal lymphadenopathy. 4. Pulmonary emphysema. 5. No pulmonary emboli identified. ACT 112: Negative or not required by law. The above report was generated using voice recognition software. It may contain grammatical, syntax o r spelling errors. Electronically signed by: Rohan Adamson M.D. 11/28/2022 12:20 PM
--- NOTE | 2022-11-28 12:59 | History & Physical Report ---
Date of Service November 28, 2022 Assessment & Plan (1) Sepsis: Plan: -Admit to the PCU on tele and pulse oximetry -Currently hemodynamically stable and stable on 2L NC -The patient met SIRS criteria on ED arrival with hypoxia of 86% on RA, tachycardia and tachypnea -Was noted to be hypotensive with systolic BP in the 70's-80's on arrival -At this time his source is unknown but the most likely etiologies are a superimposed bacterial pneumonia or viral infection -No signs of meningitis, abd distress, skin infection, no urinary symptoms (will follow UA) -Patient took his am laxis and losartan, likely contributing to his hypotension on arrival -Will hold a third 1L fluid bolus as his is currently stable and high risk for decompensation if he were to become volume overloaded -Consulted and spoke with Pulmonology, appreciate their assistance >At this time his symptoms appear more likely to be associated with progression of his malignancy with possible radiation pneumonitis as well >They are fine continuing broad spectrum abx at this time >Recommended starting Q8H solu medrol -Will start vancomycin and continue cefepime for now with 48 hours empiric coverage -Will start 60 mg IV solu-medrol q8h -Incentive spirometry, flutter therapy, continue home breathing treatments, scheduled duonebs -Will obtain full resp biofire and sputum culture with gram stain -Follow blood cultures obtained in the ED -SQ lovenox for DVT PPX -HH/DMII diet -AM CBC, CMP, Mag, PT/INR (2) Acute dyspnea: Plan: -Likely due to progression of his known malignancy, radiation pneumonitis, and known COPD -Continue treatment as per Sepsis plan (3) Hypoxia: Plan: -Currently stable on 2L NC -Prn O2 for SpO2 goal of 88-92% -Rest of care per Sepsis plan (4) Lactic acidosis: Plan: -Lactate has trended from 3.1 --> 3.2 on 2 hour repeat -Likely due to sepsis and hypotension on arrival -Will continue to trend for now -Rest of care per sepsis plan (5) Malignant neoplasm of right upper lobe of lung: Plan: -Follows with Dr. Solano -Concern for progression of RUQ malignancy on CXR and CT chest today -Follow Pulm and Oncology consults (6) Hypertension: Plan: -Hold losartan and lasix for now with hypotension (7) COPD (chronic obstructive pulmonary disease): Plan: -Continue home breathing treatments, scheduled DuoNebs, and pulm hygiene -Pulmonology consult (8) Alcohol abuse: Plan: -Patient has not been drinking since July of this year, sisters confirm -Continue B12 and will add folate (9) Schizophrenia: Plan: -Continue Divalproex, prn Clonazepam, fluvoxamine, and Zyprexa (10) Type 2 diabetes mellitus with diabetic mononeuropathy: Plan: -Hold metformin -Monitor BSG ACHS, goal is 110-160 -Normally takes 18 units Glargine qam, will adjust to 8 units BID for now -CF of 15 with CR of 15 -Will consult Pharmacy for glycemic control due to high dose steroids (11) Severe sleep apnea: Plan: -HS CPAP ordered Plan The patient was discussed with Dr. Marquez at the time of the admission History of Present Illness Chief Complaint: SOB, hypoxia, tachycardia Primary Care Provider: Jah Brown DO Feliz is a 62 year old male with a PMH significant for recurrent stage III non-small cell lung cancer of the right upper lobe S/P chemotherapy currently on maintenance Durvalumab, type II DM, EDUARD on HS CPAP, recent cellulitis, chronic alcohol use with history of hyponatremia, hyperlipidemia who presented to the [facility] ED via EMS from [facility] on 11/28 for increased LOVE and tachycardia. Per EMS, the patient was initially found to be hypoxic at 87% on RA and tachycardic with HR in the 120s. In the ED the patient was noted to be stable on 2L NC and tachycardic with HR in the 110s. Labs were significant for an AG of 12 with Bicarb of 22, lactate of 3.1, Chest xray was read as 1. Increase in dense right upper lobe opacity since chest CT of September 16, 2022. This is nonspecific and could reflect postradiation change. However, pneumonia or tumor progression could appear similar. 2. Increase in diffuse interstitial thickening. This is likely due to underlying interstitial lung disease however superimposed mild pulmonary edema or an infectious process would be difficult to exclude.. CTA of the chest with PE protocol was read as IMPRESSION:1. Cardiomegaly with intralobular septal thickening, scattered groundglass densities with right upper lung predominant consolidation may represent asymmetric pulmonary edema versus multifocal pneumonia. Follow-up recommended. 2. The previously noted irregular areas of consolidation within the right upper lobe are partially obscured. 3. Generally stable appearance of the previously noted right hilar and mediastinal lymphadenopathy. 4. Pulmonary emphysema. 5. No pulmonary emboli identified. Prior to admission the patient was given a dose of Cefepime and 2L NSS. At the time of the exam the patient was lying in bed in no acute distress with his sisters sitting bedside, history was obtained from both. The patient started to developed increased SOB, cough, and generalized weakness over the weekend. His sisters picked him up this am and took him to his scheduled Podiatry appointment. They sent him to the ED after evaluating him. The patient completed chemotherapy for his RUL lung cancer and is currently on monthly Durvalumab infusions with his last infusion on 11/23. His sisters state that the patient has been having issues with dehydration recently, they are trying to get him to drink 2L of water daily. The patient denies recent fever, chills, chest p ain, hemoptysis, abd pain, nausea, vomiting, diarrhea, dysuria, hematuria, LE swelling, and recent trauma. His sisters state that he was recently discharged from the wound care clinic for his chronic BL wounds on the feet as they have been healing well. The patient states that he feels improved compared to arrival but still fatigued. The patient is a full code and his sisters are his POA if he cannot make decisions himself. The patient took all of his AM meds today including lasix and losartan. Please refer to Dr. Marquez's attestation for any changes to the treatment plan Allergies Allergy/AdvReac Type Severity Reaction Status Date / Time scopolamine Allergy Intermediate Itching Verified 11/18/22 09:20 Home Medications Medication Instructions Recorded Confirmed Type cholecalciferol (vitamin D3) 25 1,000 unit PO QAM 06/29/18 11/28/22 History mcg (1,000 unit) capsule (Vitamin D3) clonazepam 0.5 mg tablet 0.5 mg PO BID 06/29/18 11/28/22 History divalproex 500 mg tablet,delayed 500 mg PO HS 06/29/18 11/28/22 History release fluvoxamine 150 mg 150 mg PO HS 06/29/18 11/28/22 History capsule,extended release 24 hr olanzapine 10 mg tablet (Zyprexa) 10 mg PO HS 06/29/18 11/28/22 History vitamin E 268 mg (400 unit) capsule 400 unit PO QAM 06/29/18 11/28/22 History Auto Titrating CPAP #1 ea 07/05/21 10/12/22 Rx CPAP Supplies #1 ea 07/05/21 10/12/22 Rx lancets (OneTouch UltraSoft #100 ea 04/05/22 10/12/22 Rx Lancets) losartan 25 mg tablet 25 mg PO QAM #90 tabs 05/06/22 11/28/22 Rx metformin 500 mg tablet 1,000 mg PO BID 06/14/22 11/28/22 History furosemide 40 mg tablet 40 mg PO QAM #90 tabs 07/12/22 11/28/22 Rx blood sugar diagnostic (OneTouch #100 strips 08/11/22 10/12/22 Rx Verio test strips) simvastatin 40 mg tablet 40 mg PO DAILY #90 tabs 08/12/22 11/28/22 Rx cyanocobalamin (vitamin B-12) 1,000 mcg PO DAILY #30 caps 09/07/22 11/28/22 Rx 1,000 mcg capsule magnesium chloride 64 mg 64 mg PO TID #90 tabs 09/09/22 11/28/22 Rx (magnesium chloride) tablet,delayed release (Mag 64) ezetimibe 10 mg tablet 10 mg PO QAM #90 tabs 09/12/22 11/28/22 Rx pen needle, diabetic 31 gauge x #50 ea 10/10/22 10/12/22 Rx 3/16" (BD Ultra-Fine Mini Pen Needle) tamsulosin 0.4 mg capsule 0.4 mg PO DAILY #30 caps 10/10/22 11/28/22 Rx potassium chloride 20 mEq 20 meq PO DAILY #90 tabs 10/14/22 11/28/22 Rx tablet,extended release albuterol sulfate 90 mcg/actuation 2 inh inhalation QID PRN shortness 10/17/22 11/28/22 Rx aerosol inhaler (Ventolin HFA) of breath or wheezing #18 grams insulin glargine 100 unit/mL (3 18 unit (0.18 mL) subcut QAM #15 mL 11/10/22 11/28/22 Rx mL) subcutaneous pen (Lantus Solostar U-100 Insulin) fluticasone fur. 100 mcg-umeclid 1 inh inhalation QAM #60 ea 11/25/22 11/28/22 Rx 62.5 mcg-vilant 25 mcg inhalat.powder (Trelegy Ellipta) Past Med/Surg History Medical History Alcohol abuse 10-12 DRINKS PER DAY Alcohol use Anxiety and depression Benign essential tremor Chronic back pain Chronic obstructive pulmonary disease daily inh and prn inh Diabetes mellitus, type 2 NIDDM Diabetic neuropathy Edema Esophageal reflux Hx of osteomyelitis Jun 2018- s/p amputation of tips of 2nd/3rd toes and part of great toe > left foot Hyperlipidemia Hypertension Lung cancer Diagnosed Spring 2021 -- no surgical intervention at this time.; following with Dr. 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 Pulmonary HTN "MILD" RVSP 40MMHG PER 2015 STRESS ECHO- NO ISSUES NOTED WITH 2019 ECHO Schizophrenia Urinary incontinence Venous stasis dermatitis Surgical History H/O exploratory laparotomy GALLBLADDER LESION EXCISION H/O tooth extraction History of biopsy of bladder TURBT= 11/28/17= LMA#5 AT [facility] History of bronchoscopy Spring 2021 History of cataract surgery right/left History of cystoscopy WITH STONE EXTRACTION X 2 History of open reduction and internal fixation (ORIF) procedure LEFT SHOULDER 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 Family History Father Prostate cancer Family history of diabetes mellitus Myocardial infarction Aunt Family history of diabetes mellitus Uncle Family history of diabetes mellitus Family/Other Family history of diabetes mellitus Mother Diabetes Alzheimer disease Grandfather (Paternal) Cardiac disorder Cancer Colon Cancer Brother Kidney stones Other Heart disease No family history of adverse response to anesthesia Denies family history of Crohn's disease Colorectal cancer Lung disease Inflammatory bowel disease Asthma Social History Smoking Status: Former smoker Age Started Using Tobacco: 12; Age Quit Using Tobacco: 61; packs per day: 0.5; Cigarettes Per Day: 10; Second Hand Exposure: No; Do You Dip or Chew Tobacco: Yes (hx-quit years ago; advised); Hx Alcohol Use: No Hx Substance Use: No Preferred Language: [place] Communication Ability: Effective Visual Impairment: No Limitations Hearing Ability: Normal Medical Illustrator Required: No Beliefs That Will Affect Care: None marital status: Single Current Living Situation: Alone Current Living Situation Comment: pt has been living with sister for several weeks during chemo rx current occupational status: disabled Feels Safe at Home: Yes Safety Concerns Comment: Currently living with his sister due to chemo/radiation/illness in current or past relationships, have you been: other Diet: regular caffeine: Yes Physical Activity Frequency: 1-2 Times per Week Seatbelt Use: always Assistive Devices: Cane Physical Exam Physical Exam: Physical Exam: General: In no acute distress, stated age, chronically ill-appearing but non- toxic HEENT: Normocephalic, atraumatic, no scleral icterus, pupils around round, symmetrical, and reactive to light, Dry mucus membranes, trachea midline, no thyromegaly Chest/Pulm: No respiratory distress, symmetrical chest expansion, rhonchi noted throughout the right lung, mild expiratory wheezing in the LLL but otherwise CTA Cardiac: RRR, no murmurs noted Abdomen: Negative for ascites and bruising, normoactive bowel sounds, soft, non-tender to palpation throughout Musculoskeletal: Symmetrical and without signs of acute trauma, upper and lower extremities with full ROM, no atrophy, spasticity, or flaccidity, tenderness to palpation of the left cervical paraspinal muscles, able to flex chin to chest without issue Extremities: Radial, dorsalis pedis, and posterior tibial pulses are intact and symmetrical, no edema noted in the BL LE's Skin: Signs of chronic venous insufficiency in the BL LE's, minor skin breakdown in the gluteal folds without signs of infection, previous chronic wounds on the BL feet appear well-healed and non-infected Neuro: Alert and oriented to person, place, month, year, and president, no focal defects, no tremors noted Psych: No acute distress, calm and cooperative during the exam Results & Data Results & Data Vital Signs (Past 12 Hours) Vital Signs Temp Pulse Resp BP Pulse Ox O2 Del Method O2 Flow Rate 11/28/22 11:00 89 20 94 Room Air 11/28/22 11:00 108/63 11/28/22 10:30 98 H 25 H 123/77 93 Nasal Cannula 2 11/28/22 10:05 108 H 28 H 87/64 L 95 Nasal Cannula 2 11/28/22 10:00 110 H 23 79/57 L 94 Nasal Cannula 2 11/28/22 09:47 116 H 11/28/22 09:40 114 H 22 95 Nasal Cannula 2 11/28/22 09:31 86 L Nasal Cannula 0 11/28/22 09:31 36.9 C 114 H 22 100/59 L 86 L Room Air Laboratory Results Abnormal lab results 11/28/22 11/28/22 11/28/22 Range/Units 09:50 09:50 09:50 RBC 3.66 L (4.70-6.10) M/uL Hgb 11.2 L (14.0-18.0) g/dl POC Hgb (14.0-18.0) g/dl Hct 33.6 L (42.0-52.0) % POC Hct (42-52) % MPV 8.9 L (9.4-12.4) fL Lymph # (Auto) 0.47 L (1.2-3.4) K/uL APTT 47.5 H* (21.0-31.0) Seconds Sodium 135 L (136-145) mmol/L POC Total CO2 (24-31) mmol/L Anion Gap 12 H (3-11) Glucose 260 H (70-99(Fasting)) mg/dl POC Glucose (other) (70-99) mg/dl Lactate (0.4-2.0) mmol/L 11/28/22 11/28/22 11/28/22 Range/Units 09:57 10:22 12:08 RBC (4.70-6.10) M/uL Hgb (14.0-18.0) g/dl POC Hgb 11.6 L (14.0-18.0) g/dl Hct (42.0-52.0) % POC Hct 34 L (42-52) % MPV (9.4-12.4) fL Lymph # (Auto) (1.2-3.4) K/uL APTT (21.0-31.0) Seconds Sodium (136-145) mmol/L POC Total CO2 23 L (24-31) mmol/L Anion Gap (3-11) Glucose (70-99(Fasting)) mg/dl POC Glucose (other) 273 H (70-99) mg/dl Lactate 3.1 H* 3.2 H* (0.4-2.0) mmol/L Diagnostic Findings Chest X-Ray 11/28/22 09:40 XR chest 1V portable CLINICAL HISTORY: Chest pain, nonspecific. Non-small cell lung cancer. COMPARISON STUDY: Chest radiograph September 06, 2022. Chest CT September 16, 2022 FINDINGS: There is no pneumothorax or pleural effusion. Dense right upper lobe opacity has increased since CT of September 16, 2022. Diffuse interstitial thickening has mildly progressed. Cardiomegaly is unchanged. IMPRESSION: 1. Increase in dense right upper lobe opacity since chest CT of September 16, 2022. This is nonspecific and could reflect postradiation change. However, pneumonia or tumor progression could appear similar. 2. Increase in diffuse interstitial thickening. This is likely due to underlying interstitial lung disease however superimposed mild pulmonary edema or an infectious process would be difficult to exclude. ACT 112: Negative or not required by law. Electronically signed by: Janes Mccormick M.D. 11/28/2022 10:32 AM Chest CTA 11/28/22 10:14 CT angio chest PE protocol HISTORY: 62 years-old Male with PE. Acute shortness of breath with tachycardia TECHNIQUE: Multiple CTA images of the chest were obtained after the intravenous administration of 120 ml Optiray. Coronal and sagittal MIPS were obtained from the axial data set and were submitted for review. All measurements were obtained according to NASCET criteria. A dose lowering technique was utilized ad eric to the principles of ALARA. COMPARISON: 09/16/2022 FINDINGS: CTA: Moderate cardiomegaly. Trace pericardial effusion. Moderate coronary artery calcifications. Atherosclerosis of the thoracic aorta and branch vessels. No aneurysm or dissection. No pulmonary emboli identified. There is decreased opacification of the right upper lobe pulmonary arterial branches, likely secondary to shunting. CT CHEST: Unremarkable thyroid. Mediastinal or hilar lymphadenopathy. Generally unchanged with right hilar lymph nodes measuring up to 1.5 cm in short axis. Trace right pleural effusion. Moderate pulmonary emphysema. Intralobular septal thickening with intermixed multilobar groundglass densities. Some dense consolidation within the right upper lobe partially obscuring the previously described and measured areas of consolidation. 6 cm of consolidation within the right upper lobe on image 144 is similar to prior. 2.5 cm area of consolidation within the anterior aspect of the right upper lobe on image 146 is also similar to prior. Consolidation also noted within the superior segment right lower lobe and to a lesser extent within the left upper lung zones. There is no acute process of the imaged upper abdomen. There is mild nonspecific distal esophageal wall thickening. Moderate colonic fecal retention. Unremarkable soft tissues. No acute fracture or destructive bone lesion is identified. IMPRESSION: 1. Cardiomegaly with intralobular septal thickening, scattered groundglass densities with right upper lung predominant consolidation may represent asymmetric pulmonary edema versus multifocal pneumonia. Follow-up recommended. 2. The previously noted irregular areas of consolidation within the right upper lobe are partially obscured. 3. Generally stable appearance of the previously noted right hilar and mediastinal lymphadenopathy. 4. Pulmonary emphysema. 5. No pulmonary emboli identified. ACT 112: Negative or not required by law. The above report was generated using voice recognition software. It may contain grammatical, syntax or spelling errors. Electronically signed by: Rohan Adamson M.D. 11/28/2022 12:20 PM ECG Additional Comments: Sinus tachycardia Right bundle branch block with repolarization abnormality Abnormal ECG When compared with ECG of 06-SEP-2022 12:33, No significant change Confirmed by Rohan Banuelos ([id number]) on 11/28/2022 11:34:59 AM Code Status & VTE Plan Code Status Full code VTE Prophylaxis Plan VTE Prophylaxis will be ordered: Yes Supervising Physician Co-Signing Physician Notes The patient was seen by me. The chart was reviewed. Case discussed with NORMAN Serna. I agree with assessment and plan. His current situation could represent pneumonia of viral etiology or possibly pneumonitis. He will be treated for both along with broad-spectrum antibiotics until bacterial infection is ruled out. PG Care Time/CCT Total # of Minutes Spent Total Time Spent with Patient: Total time spent is greater than 50% in coordination of care (as documented) at patient's floor/unit and/or counseling patient: Coding [place] [address] INT INP/OBS CARE 3/75MIN Patient Type Established Medical Decision Making High Complexity Diagnoses Sepsis A41.9 Acute dyspnea R06.00 Hypoxia R09.02 Lactic acidosis E87.20 Malignant neoplasm of right upper lobe of lung C34.11 Hypertension I10 Hypertension type: essential hypertension COPD (chronic obstructive pulmonary disease) J44.9 Alcohol abuse F10.10 Schizophrenia F20.9 Type 2 diabetes mellitus with diabetic mononeuropathy E11.41 Severe sleep apnea G47.30 (6) Hypertension Hypertension type: essential hypertension Qualified Code(s): I10 - Essential (primary) hypertension
[2022-11-28] MEDS ORDERED: CARBOHYDRATES FOR HYPOGLYCEMIA PO PRN (13:00)
[2022-11-28] MEDS ORDERED: DEXTROSE 50% 50 ML SYRINGE IV PRN (13:00)
[2022-11-28] MEDS ORDERED: GLUCAGON FOR INJ 1 MG VIAL SQ PRN (13:00)
[2022-11-28] MEDS ORDERED: GLUCOSE 10 TAB/TUBE PO PRN (13:00)
[2022-11-28] MEDS ORDERED: GLUCOSE 40% GEL 15 GM TUBE PO PRN (13:00)
[2022-11-28] MEDS ORDERED: LACTATED RINGER'S 1,000 ML IV ONE (13:30)
[2022-11-28] MEDS ORDERED: PHARMACY GLYCEMIC MGMT CONSULT PRN (14:15)
[2022-11-28] MEDS ORDERED: methylPREDNISolone 125 MG/2 ML VIAL IV SCH ×2 (14:15→14:16)
[2022-11-28] MEDS ORDERED: VANCOMYCIN CONSULT ACTIVE PRN (14:21)
[2022-11-28] MEDS ORDERED: VANCOMYCIN HCL 2,250 MG in SODIUM CHLORIDE 0.9% 500 ML IV STA (14:25)
--- NOTE | 2022-11-28 14:50 | Pharmacy Report ---
Pharmacy PK ABX Note - Date of Service November 28, 2022 - Assessment and Plan Assessment 62 year old M receiving vancomycin/cefepime for treatment of possible pulmonary infection, both antibiotics ordered empirically. Pertinent microbiologic data includes: blood culture currently pending. Day # 1 of antimicrobial therapy. Plan Vancomycin * Loading dose: 2250 mg IV x 1 * Maintenance dose: 1250 mg IV every 12 hours * Regimen is predicted to achieve target AUC/SOURAV of 400-600 mg/L.hr with risk of nephrotoxicity of 14% * Trough level to be ordered if vancomycin continued > 48 hours Pharmacy will continue to follow and will adjust dose/frequency as necessary. Thank you. Pharmacy has transitioned to AUC monitoring for vancomycin. AUC/SOURAV is the preferred PK/PD target and is associated with decreased risk of nephrotoxicity compared to traditional trough targets.
--- NOTE | 2022-11-28 15:01 | Pharmacy Report ---
Pharmacy Glycemic Short Note 2 - Date of Service November 28, 2022 - Glycemic Short BSG Results (Last 24 hours): 11/28/22 11/28/22 09:50 09:57 Glucose 260 H POC Glucose (other) 273 H OUTPATIENT ANTIDIABETIC REGIMEN: * Lantus 18 units SQ daily * HbA1C = 5.6% (10/11/22) ASSESSMENT: * Mr Evans is a 62 y/o M with a PMH of IDDM who presents with possible pulmonary infection. BSG this AM (day of admission) was 273 mg/dL. * This pharmacist spoke with the patient who confirmed he DID NOT take his Lantus 18 units this morning. * During previous hospitalization, patient was maintained on Lantus 11 units SQ BID with Novolog CF 35 CR 15 (fastings were below goal range and patient climbed throughout the day). This was without steroids. * Patient currently ordered Solu-Medrol 60 mg IV q8 hours. First dose at 1500 today. * Since patient missed his dose of insulin this AM, will give Lantus 40 units SQ x 1 (full weight-based stress of 3) then schedule 19 units SQ BID. * Novolog weight-based stress of 3 for steroid hyperglycemia. PLAN FOR INPATIENT GLYCEMIC CONTROL: * Hold outpatient oral diabetes medications * Basal insulin * Lantus 40 units SQ x 1 then 19 units SQ BID * Bolus insulin * NovoLog per scale ACHS or Q6hrs while NPO * Goal Range: Low 110 mg/dL - High 140 mg/dL * Correction Factor: 15 mg/dL/unit * Nutritional / Prandial insulin per carb ratio of 1 unit per 5 grams CHO consumed
[2022-11-28 15:11] LABS: Appearance Urine Clear (Clear); Bilirubin Urine Negative (Negative); Blood Urine Negative (Negative); Color Urine Yellow; Glucose Urine UA Negative (Negative); Ketones Urine Negative (Negative); Leukocyte Esterase Urine Negative (Negative); Nitrite Urine Negative (Negative); Protein Urine Negative (Negative); Specific Gravity Urine 1.045 (1.000-1.030); Urobilinogen Urine Negative (Negative)
[2022-11-28] MEDS: methylPREDNISolone 60 MG in SYRINGE 0 ML IV SCH ×2 (15:35→22:50)
[2022-11-28] MEDS: MAGNESIUM SULFATE / D5W 1 GM/100 ML BAG IV SCH ×4 (15:49→21:50)
[2022-11-28] MEDS: ALBUT/IPRATROP 3MG/0.5MG NEB 3 ML VIAL NEB SCH ×2 (15:56→19:30)
[2022-11-28] MEDS: ENOXAPARIN INJ 40 MG/0.4 ML SYR SQ SCH (16:05)
[2022-11-28] MEDS: FLUTICASONE/VILANTEROL 100/25MCG 14 PUFFS/INHALER INH SCH (16:05)
--- NOTE | 2022-11-28 16:48 | Oncology Consultation ---
Date of Consultation November 28, 2022 Assessment & Plan (1) Pneumonia: (2) Hypoxia: (3) Malignant neoplasm of right upper lobe of lung: Plan He presented with worsening shortness of breath with imaging suggestive of pneumonia versus pulmonary edema. -Agree with broad-spectrum antibiotics for likely pneumonia. Would also recommend obtaining 2D echocardiogram since he has not had any since 2019 given cardiomegaly and possible pulmonary edema noted on imaging -Low probability of immunotherapy related pneumonitis at this time based on imaging findings. However, this can be considered if symptoms do not improve with treatment of pneumonia/pulmonary edema -From a lung cancer standpoint, imaging appears stable with no evidence of disease progression based on review by radiology Thank you for this consult. Oncology will follow peripherally while patient is in the hospital. 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 Around May, he was found to have disease progression to lymph nodes with biopsy-proven disease in 4R and 10 L (Stage IIIA disease) for which he received chemoradiation treatment with carboplatin/paclitaxel completed on 08/29/2022 with good response to treatment after which he was started on maintenance durvalumab 1500 mg q. 4 weeks on 09/28/2022. He received cycle 3 of maintenance durvalumab on 11/23/2022 and he presented to the ER at [facility] with worsening shortness of breath. Oxygen saturation in the ER was noted to be 86% for which he was placed on 1 L/min supplemental oxygen via nasal cannula. CTA chest obtained today revealed cardiomegaly with interlobular septal thickening, scattered groundglass densities with right upper lung predominance consolidation possibly representing asymmetric pulmonary edema versus multifocal pneumonia and generally stable appearance of previously noted right hilar and mediastinal lymphadenopathy. He was subsequently started on broad-spectrum antibiotics, steroids. Allergies Allergy/AdvReac Type Severity Reaction Status Date / Time scopolamine Allergy Intermediate Itching Verified 11/18/22 09:20 Home Medications Medication Instructions Recorded Confirmed Type cholecalciferol (vitamin D3) 25 1,000 unit PO QAM 06/29/18 11/28/22 History mcg (1,000 unit) capsule (Vitamin D3) clonazepam 0.5 mg tablet 0.5 mg PO BID 06/29/18 11/28/22 History divalproex 500 mg tablet,delayed 500 mg PO HS 06/29/18 11/28/22 History release fluvoxamine 150 mg 150 mg PO HS 06/29/18 11/28/22 History capsule,extended release 24 hr olanzapine 10 mg tablet (Zyprexa) 10 mg PO HS 06/29/18 11/28/22 History vitamin E 268 mg (400 unit) capsule 400 unit PO QAM 06/29/18 11/28/22 History Auto Titrating CPAP #1 ea 07/05/21 10/12/22 Rx CPAP Supplies #1 ea 07/05/21 10/12/22 Rx lancets (OneTouch UltraSoft #100 ea 04/05/22 10/12/22 Rx Lancets) losartan 25 mg tablet 25 mg PO QAM #90 tabs 05/06/22 11/28/22 Rx metformin 500 mg tablet 1,000 mg PO BID 06/14/22 11/28/22 History furosemide 40 mg tablet 40 mg PO QAM #90 tabs 07/12/22 11/28/22 Rx blood sugar diagnostic (OneTouch #100 strips 08/11/22 10/12/22 Rx Verio test strips) simvastatin 40 mg tablet 40 mg PO DAILY #90 tabs 08/12/22 11/28/22 Rx cyanocobalamin (vitamin B-12) 1,000 mcg PO DAILY #30 caps 09/07/22 11/28/22 Rx 1,000 mcg capsule magnesium chloride 64 mg 64 mg PO TID #90 tabs 09/09/22 11/28/22 Rx (magnesium chloride) tablet,delayed release (Mag 64) ezetimibe 10 mg tablet 10 mg PO QAM #90 tabs 09/12/22 11/28/22 Rx pen needle, diabetic 31 gauge x #50 ea 10/10/22 10/12/22 Rx 3/16" (BD Ultra-Fine Mini Pen Needle) tamsulosin 0.4 mg capsule 0.4 mg PO DAILY #30 caps 10/10/22 11/28/22 Rx potassium chloride 20 mEq 20 meq PO DAILY #90 tabs 10/14/22 11/28/22 Rx tablet,extended release albuterol sulfate 90 mcg/actuation 2 inh inhalation QID PRN shortness 10/17/22 11/28/22 Rx aerosol inhaler (Ventolin HFA) of breath or wheezing #18 grams insulin glargine 100 unit/mL (3 18 unit (0.18 mL) subcut QAM #15 mL 11/10/22 11/28/22 Rx mL) subcutaneous pen (Lantus Solostar U-100 Insulin) fluticasone fur. 100 mcg-umeclid 1 inh inhalation QAM #60 ea 11/25/22 11/28/22 Rx 62.5 mcg-vilant 25 mcg inhalat.powder (Trelegy Ellipta) Patient History Medical History Alcohol abuse 10-12 DRINKS PER DAY Alcohol use Anxiety and depression Benign essential tremor Chronic back pain Chronic obstructive pulmonary disease daily inh and prn inh Diabetes mellitus, type 2 NIDDM Diabetic neuropathy Edema Esophageal reflux Hx of osteomyelitis Jun 2018- s/p amputation of tips of 2nd/3rd toes and part of great toe > left foot Hyperlipidemia Hypertension Lung cancer Diagnosed Spring 2021 -- no surgical intervention at this time.; following with Dr. 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 Pulmonary HTN "MILD" RVSP 40MMHG PER 2015 STRESS ECHO- NO ISSUES NOTED WITH 2019 ECHO Schizophrenia Urinary incontinence Venous stasis dermatitis Surgical History H/O exploratory laparotomy GALLBLADDER LESION EXCISION H/O tooth extraction History of biopsy of bladder TURBT= 11/28/17= LMA#5 AT [facility] History of bronchoscopy Spring 2021 History of cataract surgery right/left History of cystoscopy WITH STONE EXTRACTION X 2 History of open reduction and internal fixation (ORIF) procedure LEFT SHOULDER 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 Family History Father Prostate cancer Family history of diabetes mellitus Myocardial infarction Aunt Family history of diabetes mellitus Uncle Family history of diabetes mellitus Family/Other Family history of diabetes mellitus Mother Diabetes Alzheimer disease Grandfather (Paternal) Cardiac disorder Cancer Colon Cancer Brother Kidney stones Other Heart disease No family history of adverse response to anesthesia Denies family history of Crohn's disease Colorectal cancer Lung disease Inflammatory bowel disease Asthma Social History Smoking Status: Former smoker Age Started Using Tobacco: 12; Age Quit Using Tobacco: 61; packs per day: 0.5; Cigarettes Per Day: 10; Second Hand Exposure: No; Do You Dip or Chew Tobacco: Yes (hx-quit years ago; advised); Hx Alcohol Use: No Hx Substance Use: No Preferred Language: Polish Communication Ability: Effective Visual Impairment: No Limitations Hearing Ability: Normal Skiver Heel Tap Required: No Beliefs That Will Affect Care: None marital status: Single Current Living Situation: Alone Current Living Situation Comment: pt has been living with sister for several weeks during chemo rx current occupational status: disabled Feels Safe at Home: Yes Safety Concerns Comment: Currently living with his sister due to chemo/radiation/illness in current or past relationships, have you been: other Diet: regular caffeine: Yes Physical Activity Frequency: 1-2 Times per Week Seatbelt Use: always Assistive Devices: Cane Results & Data Vital Signs (Past 12 Hours) Vital Signs Temp Pulse Pulse Resp BP BP Pulse Ox 11/28/22 15:39 36.3 C L 87 18 115/75 95 11/28/22 15:58 88 18 92 11/28/22 13:06 85 23 96 11/28/22 13:00 120/76 11/28/22 12:53 94 11/28/22 12:30 92 H 16 95 11/28/22 12:30 141/87 H 11/28/22 12:00 93 H 23 11/28/22 12:00 143/80 H 11/28/22 11:30 90 23 92 11/28/22 11:30 128/74 11/28/22 11:00 89 20 94 11/28/22 11:00 108/63 11/28/22 10:30 98 H 25 H 123/77 93 11/28/22 10:05 108 H 28 H 87/64 L 95 11/28/22 10:00 110 H 23 79/57 L 94 11/28/22 09:47 116 H 11/28/22 09:40 114 H 22 95 11/28/22 09:31 86 L 11/28/22 09:31 36.9 C 114 H 22 100/59 L 86 L O2 Del Method O2 Flow Rate 11/28/22 15:39 Nasal Cannula 1 11/28/22 15:58 Nasal Cannula 1 11/28/22 13:06 Nasal Cannula 2 11/28/22 13:00 11/28/22 12:53 11/28/22 12:30 11/28/22 12:30 11/28/22 12:00 11/28/22 12:00 11/28/22 11:30 11/28/22 11:30 11/28/22 11:00 Room Air 11/28/22 11:00 11/28/22 10:30 Nasal Cannula 2 11/28/22 10:05 Nasal Cannula 2 11/28/22 10:00 Nasal Cannula 2 11/28/22 09:47 11/28/22 09:40 Nasal Cannula 2 11/28/22 09:31 Nasal Cannula 0 11/28/22 09:31 Room Air
[2022-11-28] MEDS ORDERED: LANTUS PER UNIT CHARGE SQ ONE (17:00)
[2022-11-28] MEDS ORDERED: LANTUS PER UNIT CHARGE SQ SCH (17:00)
[2022-11-28] MEDS: CEFEPIME 2,000 MG in SYRINGE 0 ML IV SCH (17:44)
[2022-11-28] MEDS: INSULIN ASPART PER UNIT CHARGE SC SCH ×2 (17:47→20:30)
[2022-11-28 19:37] LABS: Adenovirus PCR Not Detected (NotDetected); Bordetella parapertussis PCR Not Detected (NotDetected); Bordetella pertussis PCR Not Detected (NotDetected); Chlamydia pneumoniae PCR Not Detected (NotDetected); Coronavirus 229E PCR Not Detected (NotDetected); Coronavirus CoV-2 (COVID19)PCR Not Detected (NotDetected); Coronavirus HKU1 PCR Not Detected (NotDetected); Coronavirus NL63 PCR Not Detected (NotDetected); Coronavirus OC43PCR Not Detected (NotDetected); Human Metapneumovirus PCR Not Detected (NotDetected); Influenza A PCR Not Detected (NotDetected); Influenza B PCR Not Detected (NotDetected); Mycoplasma pneumoniae PCR Not Detected (NotDetected); Parainfluenza Virus 1 PCR Not Detected (NotDetected); Parainfluenza Virus 2 PCR Not Detected (NotDetected); Parainfluenza Virus 3 PCR Not Detected (NotDetected); Parainfluenza Virus 4 PCR Not Detected (NotDetected); Respiratory Syncytial VirusPCR Not Detected (NotDetected); Rhinovirus/Enterovirus PCR Not Detected (NotDetected)
[2022-11-28] MEDS: clonazePAM 0.5 MG TAB PO SCH (20:22)
[2022-11-28] MEDS: DIVALPROEX DELAY RELEASE 500 MG TAB PO SCH (20:23)
[2022-11-28] MEDS: fluvoxaMINE MALEATE 50 MG TAB PO SCH (20:24)
[2022-11-28] MEDS: PROCHLORPERAZINE 5 MG in SYRINGE 4 ML IV PRN (20:32)
[2022-11-28] MEDS: OLANZapine 10 MG TAB PO SCH (20:50)
[2022-11-28] MEDS ORDERED: MAGNESIUM CHLORIDE W/CALCIUM 64MG DELAYED REL TAB PO SCH (21:00)
[2022-11-29] MEDS: CEFEPIME 2,000 MG in SYRINGE 0 ML IV SCH ×3 (01:31→17:01)
[2022-11-29] MEDS: VANCOMYCIN HCL 1,250 MG in SODIUM CHLORIDE 0.9% 250 ML IV SCH ×2 (03:01→16:24)
[2022-11-29] MEDS: methylPREDNISolone 60 MG in SYRINGE 0 ML IV SCH ×3 (06:07→22:13)
[2022-11-29 06:48] LABS: Hematocrit (blood only) 30.6 % (42.0-52.0); Hemoglobin 10.2 g/dl (14.0-18.0); Mean Corpuscular Hemoglobin 30.3 pg (25.0-34.0); Mean Corpuscular Hgb Conc 33.3 g/dL (32.0-36.0); Mean Corpuscular Volume 90.8 fL (80.0-100.0); Mean Platelet Volume 9.3 fL (9.4-12.4); Platelet Count 212 K/uL (130-400); RDW Coefficient of Variation 11.9 % (11.5-14.5); RDW Standard Deviation 39.3 fL (36.4-46.3); Red Blood Count 3.37 M/uL (4.70-6.10); White Blood Count 3.44 K/ul (4.8-10.8)
[2022-11-29] MEDS: ALBUT/IPRATROP 3MG/0.5MG NEB 3 ML VIAL NEB SCH ×4 (07:08→19:05)
[2022-11-29 07:10] LABS: Immature Granulocytes # (auto) 0.02 K/uL (0.01-0.20); Immature Granulocytes % (auto) 0.6 %; Lymphocytes # (auto) 0.23 K/uL (1.2-3.4); Lymphocytes % (auto) 6.7 %; Monocytes # (auto) 0.03 K/uL (0.11-0.59); Monocytes % (auto) 0.9 %; Neutrophils # (auto) 3.16 K/uL (1.40-6.50); Neutrophils % (auto) 91.8 %
[2022-11-29 07:12] LABS: Albumin Level 3.5 gm/dl (3.4-5.0); BUN Creatinine Ratio 20.3 (10-20); Bilirubin,Total 0.4 mg/dl (0.2-1.0); Creatinine Clr Calc Pharmacy 158.3 ml/min; Est GFR (African American) 121.6 ml/min; Est GFR (Non-African American) 104.9 ml/min; Globulin 3.5 gm/dl (2.5-4.0); Magnesium 1.9 mg/dl (1.7-2.4)
[2022-11-29 07:15] LABS: INR 1.1 (0.9-1.1); Prothrombin Time 12.1 Seconds (9.0-12.0)
[2022-11-29] MEDS: INSULIN ASPART PER UNIT CHARGE SC SCH ×5 (08:16→23:46)
[2022-11-29] MEDS: ACETAMINOPHEN 325 MG TAB PO PRN (08:18)
[2022-11-29] MEDS: clonazePAM 0.5 MG TAB PO SCH ×2 (08:18→20:24)
[2022-11-29] MEDS: FLUTICASONE/VILANTEROL 100/25MCG 14 PUFFS/INHALER INH SCH (08:19)
[2022-11-29] MEDS: CYANOCOBALAMIN (B-12) 500 MCG TABLET PO SCH (08:19)
[2022-11-29] MEDS: FOLIC ACID 1 MG TAB PO SCH (08:20)
[2022-11-29] MEDS: EZETIMIBE 10 MG TABLET PO SCH (08:20)
[2022-11-29] MEDS: TAMSULOSIN HCL 0.4 MG CAP PO SCH (08:20)
[2022-11-29] MEDS: SIMVASTATIN 40 MG TAB PO SCH (08:20)
[2022-11-29] MEDS ORDERED: LANTUS PER UNIT CHARGE SQ SCH (09:00)
[2022-11-29] MEDS: ENOXAPARIN INJ 40 MG/0.4 ML SYR SQ SCH (09:56)
[2022-11-29] MEDS: PROCHLORPERAZINE 5 MG in SYRINGE 4 ML IV PRN ×2 (09:56→17:48)
--- NOTE | 2022-11-29 10:03 | XRay Report ---
XR chest 1V portable CLINICAL HISTORY: aspiration pneumonitis COMPARISON STUDY: Chest radiograph and chest CT November 28, 2022. FINDINGS: Dense right upper lobe opacity is again noted. Interstitial thickening with additional airs pace opacities within the lungs are again noted. The appearance of the chest is similar to prior exam . Cardiomediastinal silhouette is stable. There is no pneumothorax. No pleural effusion. IMPRESSION: 1. No significant change in appearance of the chest. Dense right upper lobe airspace opacity which co uld reflect postradiation change. However, pneumonia could appear similar. This should be assessed on follow-up studies. 2. Persistent interstitial thickening and additional bilateral airspace opacities which reflect pneum onia, aspiration pneumonitis or pulmonary edema. ACT 112: Negative or not required by law. Electronically signed by: Janes Mccormick M.D. 11/29/2022 10:02 AM
[2022-11-29 10:27] LABS: A calco-baum cmplx NotReported Not Detected (NotDetected); Bact fragilis Not Reported Not Detected (NotDetected); C auris Not Reported Not Detected (NotDetected); Calbicans Not Reported Not Detected (NotDetected); Candida glabrata Not Reported Not Detected (NotDetected); Candida krusei Not Reported Not Detected (NotDetected); Cneoformans/gatti Not Reported Not Detected (NotDetected); Cparapsilosis Not Reported Not Detected (NotDetected); Ctropicalis Not Reported Not Detected (NotDetected); E cloacae compx Not Reported Not Detected (NotDetected); Efaecalis Not Reported Not Detected (NotDetected); Efaecium Not Reported Not Detected (NotDetected); Enterobacterales Not Reported Not Detected (NotDetected); Escherichia coli Not Reported Not Detected (NotDetected); H influenzae Not Reported Not Detected (NotDetected); K aerogenes Not Reported Not Detected (NotDetected); Koxytoca Not Reported Not Detected (NotDetected); Kpneumoniae grp Not Reported Not Detected (NotDetected); Lmonocyt Not Reported Not Detected (NotDetected); N meningitidis Not Reported Not Detected (NotDetected); P aeruginosa Not Reported Not Detected (NotDetected); Proteus spp Not Reported Not Detected (NotDetected); Salmonella spp Not Reported Not Detected (NotDetected); Smarcescens Not Reported Not Detected (NotDetected); Staph lugdunensis Not Reported Not Detected (NotDetected); Staphaureus Not Reported Not Detected (NotDetected); Staphepi Not Reported Not Detected (NotDetected); Staphylococcus spp. DETECTED (NotDetected); Stenmaltophilia Not Reported Not Detected (NotDetected); Strep agal(GrpB) Not Reported Not Detected (NotDetected); Strep pneum Not Reported Not Detected (NotDetected); Strep pyog (GrpA) Not Reported Not Detected (NotDetected); Strep spp Not Reported Not Detected (NotDetected)
--- NOTE | 2022-11-29 10:28 | Pharmacy Report ---
Pharmacy Glycemic Short Note 2 - Date of Service November 29, 2022 - Glycemic Short BSG Results (Last 24 hours): 11/28/22 11/28/22 11/28/22 09:50 16:38 20:15 Glucose 260 H POC Glucose 134 H 219 H 11/29/22 11/29/22 05:31 07:18 Glucose 224 H POC Glucose 241 H OUTPATIENT ANTIDIABETIC REGIMEN: * Lantus 18 units SQ daily * HbA1C = 5.6% (10/11/22) ASSESSMENT: 11/29 * Patient received total of 54 units of insulin yesterday, of which 40 units were basal insulin * Patient continues on solumedrol 60 mg iv q 8 hours * Fasting BSG elevated at 224 mg/dL - likely due to steroids. Plan to increase basal insulin ~25% today * Plan to tighten CF/CR 11/28 * Mr Evans is a 62 y/o M with a PMH of IDDM who presents with possible pulmonary infection. BSG this AM (day of admission) was 273 mg/dL. * This pharmacist spoke with the patient who confirmed he DID NOT take his Lantus 18 units this morning. * During previous hospitalization, patient was maintained on Lantus 11 units SQ BID with Novolog CF 35 CR 15 (fastings were below goal range and patient climbed throughout the day). This was without steroids. * Patient currently ordered Solu-Medrol 60 mg IV q8 hours. First dose at 1500 today. * Since patient missed his dose of insulin this AM, will give Lantus 40 units SQ x 1 (full weight-based stress of 3) then schedule 19 units SQ BID. * Novolog weight-based stress of 3 for steroid hyperglycemia. PLAN FOR INPATIENT GLYCEMIC CONTROL: * Hold outpatient oral diabetes medications * Basal insulin * Lantus 25 units BID * Bolus insulin * NovoLog per scale ACHS or Q6hrs while NPO * Goal Range: Low 110 mg/dL - High 140 mg/dL * Correction Factor: 12 mg/dL/unit * Nutritional / Prandial insulin per carb ratio of 1 unit per 4 grams CHO consumed
[2022-11-29 10:44] LABS: Staph spp. Not Reported DETECTED (NotDetected)
--- NOTE | 2022-11-29 11:09 | XCELERA ---
[id number]
[2022-11-29] MEDS ORDERED: LANTUS PER UNIT CHARGE SQ ONE (11:45)
[2022-11-29] MEDS ORDERED: INSULIN HUMAN REGULAR PER UNIT 10 UNITS in SYRINGE 9.9 ML IV ONE (12:00)
--- NOTE | 2022-11-29 14:56 | Hospitalist Progress Note ---
Date of Service November 29, 2022 Assessment & Plan (1) Sepsis: Plan: Ruled out. No evidence of bacterial infection at this time. Procalcitonin level is normal (2) Acute dyspnea: Plan: Likely due to progression of his known malignancy and known COPD . Cardiac echo reveals preserved left ventricular ejection fraction and BNP level is normal. Procalcitonin is also normal. Low likelihood of bacterial infection. Room air oxygen saturation 86% today. He is now back on oxygen per nasal cannula and likely will need this at the time of discharge (3) Hypoxia: Plan: Room air saturation dropped to 86%. He was placed back on oxygen at 2 L/min. He likely will need this at the time of discharge. Will obtain two-step oxygen evaluation at the time of discharge (4) Lactic acidosis: Plan: Resolved. He is not septic (5) Malignant neoplasm of right upper lobe of lung: Plan: Appears to have progressed causing acute hypoxic respiratory failure. Oncology consultation appreciated. Chest CT scan report noted. (6) Hypertension: Plan: Hypotensive on admission. Losartan is on hold. Blood pressure is now stable (7) COPD (chronic obstructive pulmonary disease): Plan: Continue home breathing treatments, scheduled DuoNebs, and pulm hygiene . (8) Alcohol abuse: Plan: Patient has not been drinking since July of this year, sisters confirm. Continue B12 and full (9) Schizophrenia: Plan: Stable Continue Divalproex, prn Clonazepam, fluvoxamine, and Zyprexa (10) Type 2 diabetes mellitus with diabetic mononeuropathy: Plan: ADA diet. Sliding scale coverage as needed. Metformin is on hold. (11) Severe sleep apnea: Plan: Stable. HS CPAP ordered Plan To be determined. Physical therapy evaluation requested. If this is signific antly abnormal, will also obtain occupational therapy evaluation for eventual SNF placement. Hopefully however he can go home. I suspect he will need oxygen at the time of discharge Admission and Anticipated Discharge Date Admission Date: November 28, 2022 Subjective Alert and oriented. He looks better. Oncology consultation appreciated. Procalcitonin level is normal. BNP level is normal. Cardiac echo reveals preserved left ventricular ejection fraction. I believe his current situation represents progression of the lung cancer rather than a bacterial pneumonia or p ulmonary edema. Room air oxygen saturation was only 86%. He probably will need oxygen at discharge. He definitely looks better than he did on admission. Physical therapy assessment requested. Hypomagnesemia has been corrected. Review of Systems Review of Systems: Constitutional-no fever or chills ENT-no blurred vision, no double vision, no epistaxis, no sore throat Respiratory-no cough, no wheezing. No sputum production. Dyspnea on exertion Cardiac-no palpitations, no chest pain, no syncope GI-no nausea, vomiting, diarrhea, melena, hematochezia -no urinary retention, no urinary incontinence, no dysuria, no hematuria Musculoskeletal-no joint pain, no muscle tenderness Skin-no bruising, no rashes, no pruritus Neuro-generalized weakness. No focal deficits Psych-no depression, no anxiety Physical Exam Physical Exam: General-alert and oriented x3, no fevers, no chills HEENT-head atraumatic and normocephalic, pupils equal and reactive to light, extraocular muscles intact Neck-no lymphadenopathy or thyromegaly, trachea midline Chest-coarse rales right upper lobe. No wheezing. Cardiac-regular rate and rhythm, normal S1 and S2 Abdomen-normal bowel sounds, nontender, no hepatosplenomegaly Extremities-no cyanosis, clubbing, or edema Neuro-cranial nerves II through XII intact, motor and sensory function within normal limits, strength symmetrical , no focal deficits Psych-normal affect, normal mood Results & Data Results & Data Vital Signs (Past 12 Hours) Vital Signs Temp Pulse Pulse Resp BP Pulse Ox O2 Del Method 11/29/22 14:09 90 18 96 Nasal Cannula 11/29/22 11:50 36.4 C L 86 16 142/84 H 93 Nasal Cannula 11/29/22 09:38 70 11/29/22 08:00 Nasal Cannula 11/29/22 07:25 36.8 C 83 17 155/87 H 100 Nasal Cannula 11/29/22 07:10 94 H 18 90 Nasal Cannula 11/29/22 03:06 36.4 C L 82 16 153/82 H 91 Nasal Cannula O2 Flow Rate 11/29/22 14:09 2 11/29/22 11:50 2 11/29/22 09:38 11/29/22 08:00 2 11/29/22 07:25 2.0 11/29/22 07:10 2 11/29/22 03:06 2 Laboratory Results 11/29/22 05:31 11/29/22 05:31 PG Care Time/CCT Total # of Minutes Spent Total Time Spent with Patient: Total time spent is greater than 50% in coordination of care (as documented) at patient's floor/unit and/or counseling patient: Coding Level of Care Code 67005 SUB INP/OBS CARE 3/50MIN Diagnoses Sepsis A41.9 Acute dyspnea R06.00 Hypoxia R09.02 Lactic acidosis E87.20 Malignant neoplasm of right upper lobe of lung C34.11 Hypertension I10 Hypertension type: essential hypertension COPD (chronic obstructive pulmonary disease) J44.9 Alcohol abuse F10.10 Schizophrenia F20.9 Type 2 diabetes mellitus with diabetic mononeuropathy E11.41 Severe sleep apnea G47.30 (6) Hypertension Hypertension type: essential hypertension Qualified Code(s): I10 - Essential (primary) hypertension
--- NOTE | 2022-11-29 16:28 | Pulmonary Consultation ---
Date of Consultation November 29, 2022 Assessment & Plan (1) Hypoxia: (2) Lung cancer: (3) Acute dyspnea: Plan I reviewed all of the images with the patient and his family. I am very concerned about progression of his tumor. There is worsening of right upper lung nodularity with worsening of scarring and interlobular changes. I believe that there is lymphangitic spread in that area and that the tumor is still present and progressing. I think it is unlikely that all of that is secondary to the immunotherapy. The new changes that are seen in the right lower lung and some of the left lung with alveolar hazy groundglass opacities certainly can be an inflammatory component of the immunotherapy but we are still left with the dramatic progression of the fibrosis and nodularity in the right upper lung. But time will tell whether or not steroids will be able to treat this degree of inflammation. I did inform him and his family that it is likely that he will go home on supplemental oxygen. The question is whether or not steroids will keep the inflammation at bay so that he could continue with immunotherapy or does he have to revert to usual chemotherapy. Procalcitonin was low and normal so this is unlikely representing a bacterial infection though he remains on broad- spectrum antibiotics. I think we can complete a reasonable 5 to 7-day course and then stop. 1. Continue with high-dose steroids for several days and then de-escalate to a p.o. regimen and taper as an outpatient. 2. Likely the patient will need to go home on some supplemental oxygen at least with ambulation and exertion. 3. Limited course of antibiotics and would de-escalate if MRSA swab is negative and can likely change to Unasyn or p.o. Augmentin. 4. Some cardiomegaly which is probably secondary to pulmonary hypertension from his COPD but now with significant progression of his fibrosis and inflammatory process. He likely is going to have some right heart dysfunction though clinically it is not evident and he is not having any lower extremity edema at this time. 5. Luckily there is no pulmonary embolism at this time seen on CT scan. But he is at high risk for that with his malignancy and possible decreased mobility with progressive dyspnea. History of Present Illness Reason for Consultation: Evaluate hypoxic respiratory failure and abnormal CT scan with right upper lung infiltrate. Attending Physician: Lorenzo Marquez MD History of Present Illness The patient is a 62-year-old gentleman who has known right upper lung adenocarcinoma. He has a longstanding history of smoking from age [age]. He was being followed for a right upper lung inflammatory process that almost look like IPF but in the wrong location in the right upper lung with interstitial fibrosis and circumferential scarring along the pleura. It is quite possible that in addition to his smoking history a lung cancer developed from the scarred area of the lung. I reviewed the images dating back to 2020 with the patient and 4 of his siblings in the room. Starting in 2020 there was a small area of nodularity that developed in the right upper lung. Then subsequent imaging showed that the area of nodularity grew with a satellite lesion within the right upper lung. It was at that time that he was diagnosed with non-small cell carcinoma and underwent radiation initially. It looks like the area has started to progress with more interstitial inflammatory changes now also involving the contralateral lung slightly. His treatment was expanded to include not only radiation again but also chemotherapy. Despite these interventions the masses grew and convalesced in the area of scarring became much more pronounced. He st arted immunotherapy just 3 months ago and now a week after his last therapy he comes in with profound shortness of breath. He was found by his family to be gasping and brought him to the hospital yesterday. I reviewed his images and there was a new area involving his right lower lung with inflammatory alveolar changes. But the right upper lung was significantly worse with scarring and very thickened interstitial lobules and coalesced areas of consolidation. We initiated high doses of steroids 80 mg IV Q8 which has now been downgraded to 60 mg IV every 8. It should be mentioned that on his last evaluation for any ongoing cancer the non-small cell was speciated further to include adenocarcinoma which would be highly susceptible to lymphangitic spread. He is feeling better with supplemental oxygen and was tried off of oxygen today to work with therapy and washed up and he desaturated to the 80s which rebounded with resumption of supplemental oxygen. Allergies Allergy/AdvReac Type Severity Reaction Status Date / Time scopolamine Allergy Intermediate Itching Verified 11/18/22 09:20 Home Medications Medication Instructions Recorded Confirmed Type cholecalciferol (vitamin D3) 25 1,000 unit PO QAM 06/29/18 11/28/22 History mcg (1,000 unit) capsule (Vitamin D3) clonazepam 0.5 mg tablet 0.5 mg PO BID 06/29/18 11/28/22 History divalproex 500 mg tablet,delayed 500 mg PO HS 06/29/18 11/28/22 History release fluvoxamine 150 mg 150 mg PO HS 06/29/18 11/28/22 History capsule,extended release 24 hr olanzapine 10 mg tablet (Zyprexa) 10 mg PO HS 06/29/18 11/28/22 History vitamin E 268 mg (400 unit) capsule 400 unit PO QAM 06/29/18 11/28/22 History Auto Titrating CPAP #1 ea 07/05/21 10/12/22 Rx CPAP Supplies #1 ea 07/05/21 10/12/22 Rx lancets ([employer] [place] MediaTouch UltraSoft #100 ea 04/05/22 10/12/22 Rx Lancets) losartan 25 mg tablet 25 mg PO QAM #90 tabs 05/06/22 11/28/22 Rx metformin 500 mg tablet 1,000 mg PO BID 06/14/22 11/28/22 History furosemide 40 mg tablet 40 mg PO QAM #90 tabs 07/12/22 11/28/22 Rx blood sugar diagnostic ([employer] [place] MediaTouch #100 strips 08/11/22 10/12/22 Rx Verio test strips) simvastatin 40 mg tablet 40 mg PO DAILY #90 tabs 08/12/22 11/28/22 Rx cyanocobalamin (vitamin B-12) 1,000 mcg PO DAILY #30 caps 09/07/22 11/28/22 Rx 1,000 mcg capsule magnesium chloride 64 mg 64 mg PO TID #90 tabs 09/09/22 11/28/22 Rx (magnesium chloride) tablet,delayed release (Mag 64) ezetimibe 10 mg tablet 10 mg PO QAM #90 tabs 09/12/22 11/28/22 Rx pen needle, diabetic 31 gauge x #50 ea 10/10/22 10/12/22 Rx 3/16" (BD Ultra-Fine Mini Pen Needle) tamsulosin 0.4 mg capsule 0.4 mg PO DAILY #30 caps 10/10/22 11/28/22 Rx potassium chloride 20 mEq 20 meq PO DAILY #90 tabs 10/14/22 11/28/22 Rx tablet,extended release albuterol sulfate 90 mcg/actuation 2 inh inhalation QID PRN shortness 10/17/22 11/28/22 Rx aerosol inhaler (Ventolin HFA) of breath or wheezing #18 grams insulin glargine 100 unit/mL (3 18 unit (0.18 mL) subcut QAM #15 mL 11/10/22 11/28/22 Rx mL) subcutaneous pen (Lantus Solostar U-100 Insulin) fluticasone fur. 100 mcg-umeclid 1 inh inhalation QAM #60 ea 11/25/22 11/28/22 Rx 62.5 mcg-vilant 25 mcg inhalat.powder (Trelegy Ellipta) Patient History Medical History Alcohol abuse 10-12 DRINKS PER DAY Alcohol use Anxiety and depression Benign essential tremor Chronic back pain Chronic obstructive pulmonary disease daily inh and prn inh Diabetes mellitus, type 2 NIDDM Diabetic neuropathy Edema Esophageal reflux Hx of osteomyelitis Jun 2018- s/p amputation of tips of 2nd/3rd toes and part of great toe > left foot Hyperlipidemia Hypertension Lung cancer Diagnosed Spring 2021 -- no surgical intervention at this time.; following with Dr. 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 Pulmonary HTN "MILD" RVSP 40MMHG PER 2015 STRESS ECHO- NO ISSUES NOTED WITH 2019 ECHO Schizophrenia Urinary incontinence Venous stasis dermatitis Surgical History H/O exploratory laparotomy GALLBLADDER LESION EXCISION H/O tooth extraction History of biopsy of bladder TURBT= 11/28/17= LMA#5 AT [facility] History of bronchoscopy Spring 2021 History of cataract surgery right/left History of cystoscopy WITH STONE EXTRACTION X 2 History of open reduction and internal fixation (ORIF) procedure LEFT SHOULDER 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 Family History Father Prostate cancer Family history of diabetes mellitus Myocardial infarction Aunt Family history of diabetes mellitus Uncle Family history of diabetes mellitus Family/Other Family history of diabetes mellitus Mother Diabetes Alzheimer disease Grandfather (Paternal) Cardiac disorder Cancer Colon Cancer Brother Kidney stones Other Heart disease No family history of adverse response to anesthesia Denies family history of Crohn's disease Colorectal cancer Lung disease Inflammatory bowel disease Asthma Social History Smoking Status: Former smoker Age Started Using Tobacco: 12; Age Quit Using Tobacco: 61; packs per day: 0.5; Cigarettes Per Day: 10; Second Hand Exposure: No; Do You Dip or Chew Tobacco: No; Hx Alcohol Use: Yes Alcohol type: beer Alcohol Intake Frequency Comment: 6 beers daily Hx Substance Use: No Preferred Language: Scottish Communication Ability: Effective Visual Impairment: No Limitations Hearing Ability: Normal International Project Manager Required: No Beliefs That Will Affect Care: None marital status: Single Current Living Situation: Alone Current Living Situation Comment: pt has been living with sister for several weeks during chemo rx current occupational status: disabled Other Information That Helps Us Care for You: No Feels Safe at Home: Yes Safety Concerns: Feels Safe At This Time Safety Concerns Comment: Currently living with his sister due to chemo/radiation/illness in current or past relationships, have you been: other Diet: regular caffeine: Yes Physical Activity Frequency: 1-2 Times per Week Seatbelt Use: always Assistive Devices: Cane and Walker Assistive Devices Comment: Pt. occasionally uses a walker Review of Systems Review of Systems: The patient was experiencing significant shortness of breath but not that much cough and no real phlegm production. No hemoptysis. No pleuritic pain. No onset suddenly of pleuritic pain. No chest pain arm or jaw pain. No nausea vomiting or diarrhea though his appetite has been poor. No lower extremity edema. He is feeling better now sitting in a chair that was quite short of breath with ambulation. Physical Exam Physical Exam: The patient is awake alert and interactive. He is on supplemental oxygen via nasal cannula. He is not in any extremis and is able to speak in full sentences and give a history and physical. Lungs are slightly rhonchorous but remarkably clear given the CT imaging no area of overt consolidation heart is regular rate and rhythm without murmurs rubs gallops abdomen is soft nontender without hepa tomegaly extremities with mild stasis changes but without any overt edema. Neck is supple with adenopathy or thyromegaly. Extraocular muscles intact pupils equal round reactive sclera nonicteric. He is neurologically nonfocal. Results & Data Results & Data Vital Signs (Past 12 Hours) Vital Signs Temp Pulse Pulse Resp BP Pulse Ox O2 Del Method 11/29/22 14:09 90 18 96 Nasal Cannula 11/29/22 11:50 36.4 C L 86 16 142/84 H 93 Nasal Cannula 11/29/22 09:38 70 11/29/22 08:00 Nasal Cannula 11/29/22 07:25 36.8 C 83 17 155/87 H 100 Nasal Cannula 11/29/22 07:10 94 H 18 90 Nasal Cannula O2 Flow Rate 11/29/22 14:09 2 11/29/22 11:50 2 11/29/22 09:38 11/29/22 08:00 2 11/29/22 07:25 2.0 11/29/22 07:10 2 Laboratory Results Laboratory Results WBC 3.44 K/ul (4.8-10.8) L 11/29/22 05:31 RBC 3.37 M/uL (4.70-6.10) L 11/29/22 05:31 Hgb 10.2 g/dl (14.0-18.0) L 11/29/22 05:31 POC Hgb 11.6 g/dl (14.0-18.0) L 11/28/22 09:57 Hct 30.6 % (42.0-52.0) L 11/29/22 05:31 POC Hct 34 % (42-52) L 11/28/22 09:57 MCV 90.8 fL (80.0-100.0) 11/29/22 05:31 MCH 30.3 pg (25.0-34.0) 11/29/22 05:31 MCHC 33.3 g/dL (32.0-36.0) 11/29/22 05:31 RDW Std Deviation 39.3 fL (36.4-46.3) 11/29/22 05:31 RDW Coeff of Catalino 11.9 % (11.5-14.5) 11/29/22 05:31 Plt Count 212 K/uL (130-400) 11/29/22 05:31 MPV 9.3 fL (9.4-12.4) L 11/29/22 05:31 Immature Gran % (Auto) 0.6 % 11/29/22 05:31 Neut % (Auto) 91.8 % 11/29/22 05:31 Lymph % (Auto) 6.7 % 11/29/22 05:31 [place] % (Auto) 0.9 % 11/29/22 05:31 Eos % (Auto) 0.0 % 11/29/22 05:31 Baso % (Auto) 0.0 % 11/29/22 05:31 Neut # (Auto) 3.16 K/uL (1.40-6.50) 11/29/22 05:31 Lymph # (Auto) 0.23 K/uL (1.2-3.4) L 11/29/22 05:31 [place] # (Auto) 0.03 K/uL (0.11-0.59) L 11/29/22 05:31 Eos # (Auto) 0.00 K/uL (0-0.50) 11/29/22 05:31 Baso # (Auto) 0.00 K/uL (0-0.2) 11/29/22 05:31 Immature Gran # (Auto) 0.02 K/uL (0.01-0.20) 11/29/22 05:31 PT 12.1 Seconds (9.0-12.0) H 11/29/22 05:31 INR 1.1 (0.9-1.1) 11/29/22 05:31 APTT 47.5 Seconds (21.0-31.0) H* 11/28/22 09:50 PTT Ratio 1.7 11/28/22 09:50 POC Sodium 138 mmol/L (135-144) 11/28/22 09:57 Sodium 135 mmol/L (136-145) L 11/29/22 05:31 POC Potassium 3.8 mmol/L (3.3-5.0) 11/28/22 09:57 Potassium 4.0 mmol/L (3.5-5.1) 11/29/22 05:31 POC Chloride 101 mmol/L (101-112) 11/28/22 09:57 Chloride 103 mmol/L (98-107) 11/29/22 05:31 Carbon Dioxide 25 mmol/L (21-32) 11/29/22 05:31 POC Total CO2 23 mmol/L (24-31) L 11/28/22 09:57 Anion Gap 7 (3-11) 11/29/22 05:31 POC Anion Gap 19.0 mmol/L (16-25) 11/28/22 09:57 POC BUN 18 mg/dl (7-18) 11/28/22 09:57 BUN 13 mg/dl (6-23) 11/29/22 05:31 Creatinine 0.64 mg/dl (0.6-1.4) D 11/29/22 05:31 POC Creatinine 0.9 mg/dl (0.6-1.3) 11/28/22 09:57 Est Cr Clr Drug Dosing 158.3 ml/min 11/29/22 05:31 Est GFR ( Amer) 121.6 ml/min 11/29/22 05:31 Est GFR (Non-Af Amer) 104.9 ml/min 11/29/22 05:31 BUN/Creatinine Ratio 20.3 (10-20) H 11/29/22 05:31 Glucose 224 mg/dl (70-99(Fasting)) H 11/29/22 05:31 POC Glucose 252 mg/dl (70-99) H 11/29/22 14:51 POC Glucose (other) 273 mg/dl (70-99) H 11/28/22 09:57 Lactate 1.3 mmol/L (0.4-2.0) 11/28/22 16:29 Calcium 9.0 mg/dl (8.6-10.3) 11/29/22 05:31 POC Ioniz Calcium Sathya 1.16 mmol/l (1.12-1.32) 11/28/22 09:57 Magnesium 1.9 mg/dl (1.7-2.4) 11/29/22 05:31 Total Bilirubin 0.4 mg/dl (0.2-1.0) 11/29/22 05:31 AST 13 U/L (13-39) 11/29/22 05:31 ALT 11 U/L (7-52) 11/29/22 05:31 Alkaline Phosphatase 56 U/L (34-104) 11/29/22 05:31 Troponin I High Sens 5.2 pg/ml (0-20) 11/28/22 09:50 B-Natriuretic Peptide 33 pg/ml (0-100) 11/28/22 09:50 Total Protein 7.0 gm/dl (6.0-8.3) 11/29/22 05:31 Albumin 3.5 gm/dl (3.4-5.0) 11/29/22 05:31 Globulin 3.5 gm/dl (2.5-4.0) 11/29/22 05:31 Albumin/Globulin Ratio 1.0 (0.9-2) 11/29/22 05:31 Procalcitonin < 0.05 ng/ml (0-0.5) 11/28/22 14:22 Random Cortisol 6.36 mcg/dl 11/28/22 14:22 Urine Color Yellow 11/28/22 14:08 Urine Appearance Clear (Clear) 11/28/22 14:08 Urine pH 6.0 (4.5-7.5) 11/28/22 14:08 Ur Specific [place] 1.045 (1.000-1.030) H 11/28/22 14:08 Urine Protein Negative (Negative) 11/28/22 14:08 Urine Glucose (UA) Negative (Negative) 11/28/22 14:08 Urine Ketones Negative (Negative) 11/28/22 14:08 Urine Blood Negative (Negative) 11/28/22 14:08 Urine Nitrite Negative (Negative) 11/28/22 14:08 Urine Bilirubin Negative (Negative) 11/28/22 14:08 Urine Urobilinogen Negative (Negative) 11/28/22 14:08 Ur Leukocyte Esterase Negative (Negative) 11/28/22 14:08 Adenovirus (PCR) Not Detected (NotDetected) 11/28/22 Unknown B. pertussis DNA (PCR) Not Detected (NotDetected) 11/28/22 Unknown B.parapertussis DNA PCR Not Detected (NotDetected) 11/28/22 Unknown C. pneumoniae DNA (PCR) Not Detected (NotDetected) 11/28/22 Unknown Coronavirus OC43 (PCR) Not Detected (NotDetected) 11/28/22 Unknown Coronavirus HKU1 (PCR) Not Detected (NotDetected) 11/28/22 Unknown Coronavirus 229E (PCR) Not Detected (NotDetected) 11/28/22 Unknown SARS-CoV-2 (PCR) Not Detected (NotDetected) 11/28/22 Unknown Coronavirus NL63 (PCR) Not Detected (NotDetected) 11/28/22 Unknown Human Metapneumovir PCR Not Detected (NotDetected) 11/28/22 Unknown Influenza Type A (PCR) Not Detected (NotDetected) 11/28/22 Unknown Influenza Type B (PCR) Not Detected (NotDetected) 11/28/22 Unknown M. pneumoniae (PCR) Not Detected (NotDetected) 11/28/22 Unknown Parainfluenza 1 (PCR) Not Detected (NotDetected) 11/28/22 Unknown Parainfluenza 2 (PCR) Not Detected (NotDetected) 11/28/22 Unknown Parainfluenza 3 (PCR) Not Detected (NotDetected) 11/28/22 Unknown Parainfluenza 4 (PCR) Not Detected (NotDetected) 11/28/22 Unknown RSV (PCR) Not Detected (NotDetected) 11/28/22 Unknown Entero/Rhino (PCR) Not Detected (NotDetected) 11/28/22 Unknown SARS-CoV-2, RNA, NAAT NEGATIVE (NEGATIVE) 11/28/22 09:56 Staphylococcus sp PCR DETECTED (NotDetected) A 11/28/22 09:50 Bld Cult ID Panel PCR See PCR Comment (NotDetected) 11/28/22 09:50 Impressions Chest CTA 11/28/22 10:14 CT angio chest PE protocol HISTORY: 62 years-old Male with PE. Acute shortness of breath with tachycardia TECHNIQUE: Multiple CTA images of the chest were obtained after the intravenous administration of 120 ml Optiray. Coronal and sagittal MIPS were obtained from the axial data set and were submitted for review. All measurements were obtained according to NASCET criteria. A dose lowering technique was utilized adhering to the principles of ALARA. COMPARISON: 09/16/2022 FINDINGS: CTA: Moderate cardiomegaly. Trace pericardial effusion. Moderate coronary artery calcifications. Atherosclerosis of the thoracic aorta and branch vessels. No aneurysm or dissection. No pulmonary emboli identified. There is decreased opacification of the right upper lobe pulmonary arterial branches, likely secondary to shunting. CT CHEST: Unremarkable thyroid. Mediastinal or hilar lymphadenopathy. Generally unchanged with right hilar lymph nodes measuring up to 1.5 cm in short axis. Trace right pleural effusion. Moderate pulmonary emphysema. Intralobular septal thickening with intermixed multilobar groundglass densities. Some dense consolidation within the right upper lobe partially obscuring the previously described and measured areas of consolidation. 6 cm of consolidation within the right upper lobe on image 144 is similar to prior. 2.5 cm area of consolidation within the anterior aspect of the right upper lobe on image 146 is also similar to prior. Consolidation also noted within the superior segment right lower lobe and to a lesser extent within the left upper lung zones. There is no acute process of the imaged upper abdomen. There is mild nonspecific distal esophageal wall thickening. Moderate colonic fecal retention. Unremarkable soft tissues. No acute fracture or destructive bone lesion is identified. IMPRESSION: 1. Cardiomegaly with intralobular septal thickening, scattered groundglass densities with right upper lung predominant consolidation may represent asymmetric pulmonary edema versus multifocal pneumonia. Follow-up recommended. 2. The previously noted irregular areas of consolidation within the right upper lobe are partially obscured. 3. Generally stable appearance of the previously noted right hilar and mediastinal lymphadenopathy. 4. Pulmonary emphysema. 5. No pulmonary emboli identified. ACT 112: Negative or not required by law. The above report was generated using voice recognition software. It may contain grammatical, syntax or spelling errors. Electronically signed by: Rohan Adamson M.D. 11/28/2022 12:20 PM Chest X-Ray 11/29/22 09:37 XR chest 1V portable CLINICAL HISTORY: aspiration pneumonitis COMPARISON STUDY: Chest radiograph and chest CT November 28, 2022. FINDINGS: Dense right upper lobe opacity is again noted. Interstitial thickening with additional airspace opacities within the lungs are again noted. The appearance of the chest is similar to prior exam. Cardiomediastinal silhouette is stable. There is no pneumothorax. No pleural effusion. IMPRESSION: 1. No significant change in appearance of the chest. Dense right upper lobe airspace opacity which could reflect postradiation change. However, pneumonia could appear similar. This should be assessed on follow-up studies. 2. Persistent interstitial thickening and additional bilateral airspace opacities which reflect pneumonia, aspiration pneumonitis or pulmonary edema. ACT 112: Negative or not required by law. Electronically signed by: Janes Mccormick M.D. 11/29/2022 10:02 AM Medications Administered Current Inpatient Medications Acetaminophen (Acetaminophen 325 Mg Tab) 650 mg PO Q4H PRN PRN Reason: Pain(1,2,3) Or Fever Stop: 12/28/22 12:57 Last Admin: 11/29/22 08:18 Dose: 650 mg Albuterol (Albut/Ipratrop 3mg/0.5mg Neb 3 Ml Vial) 3 ml NEB QIDR ABRIL; Protocol Stop: 12/28/22 14:59 Last Admin: 11/29/22 14:08 Dose: 3 ml Clonazepam (Clonazepam 0.5 Mg Tab) 0.5 mg PO BID ABRIL Stop: 12/28/22 20:59 Last Admin: 11/29/22 08:18 Dose: 0.5 mg Cyanocobalamin (Cyanocobalamin (B-12) 500 Mcg Tablet) 1,000 mcg PO DAILY ABRIL Stop: 12/29/22 08:59 Last Admin: 11/29/22 08:19 Dose: 1,000 mcg Dextrose (Dextrose 50% 50 Ml Syringe) 25 - 50 ml IV UD PRN; Protocol PRN Reason: Hypoglycemia Protocol Stop: 12/28/22 12:59 Divalproex Sodium (Divalproex Delay Release 500 Mg Tab) 500 mg PO HS [facility] Stop: 12/28/22 20:59 Last Admin: 11/28/22 20:23 Dose: 500 mg Ezetimibe (Ezetimibe 10 Mg Tablet) 10 mg PO QAM [facility] Stop: 12/29/22 08:59 Last Admin: 11/29/22 08:20 Dose: 10 mg Enoxaparin Sodium (Enoxaparin Inj 40 Mg/0.4 Ml Syr) 40 mg SQ Q24H ABRIL Stop: 12/28/22 14:29 Last Admin: 11/29/22 09:56 Dose: 40 mg Fluticasone/Vilanterol (Fluticasone/Vilanterol 100/25mcg 14 Puffs/Inhaler) 1 puffs INH DAILY ABRIL Stop: 12/28/22 14:29 Last Admin: 11/29/22 08:19 Dose: 1 puffs Fluvoxamine Maleate (Fluvoxamine Maleate 50 Mg Tab) 150 mg PO HS ABRIL Stop: 12/28/22 20:59 Last Admin: 11/28/22 20:24 Dose: 150 mg Folic Acid (Folic Acid 1 Mg Tab) 1 mg PO QAM ABRIL Stop: 12/29/22 08:59 Last Admin: 11/29/22 08:20 Dose: 1 mg Glucagon (Glucagon For Inj 1 Mg Vial) 1 mg SQ UD PRN; Protocol PRN Reason: Hypoglycemia Protocol Stop: 12/28/22 12:59 Glucose (Glucose 10 Tab/Tube) 4 - 8 tab PO UD PRN; Protocol PRN Reason: Hypoglycemia Treatment Stop: 12/28/22 12:59 Glucose (Glucose 40% Gel 15 Gm Tube) 15 - 30 gm PO UD PRN; Protocol PRN Reason: Hypoglycemia Protocol Stop: 12/28/22 12:59 Cefepime HCl 2,000 mg/ Syringe 20 mls @ 5 mls/min IV Q8H ABRIL; Protocol Stop: 12/05/22 17:59 Last Admin: 11/29/22 10:24 Dose: 5 mls/min Vancomycin HCl 1,250 mg/ (Sodium Chloride) 275 mls @ 200 mls/hr IV Q12H ABRIL; Protocol Stop: 12/01/22 03:59 Last Admin: 11/29/22 16:24 Dose: 200 mls/hr Methylprednisolone 60 mg/ (Syringe) 0.96 mls @ 1.5 mls/min IV Q8H ABRIL Stop: 12/28/22 14:59 Last Admin: 11/29/22 14:47 Dose: 1.5 mls/min Prochlorperazine 5 mg/ Syringe 5 mls @ 5 mls/min IV Q6H PRN PRN Reason: Nausea And Vomiting Stop: 12/28/22 19:29 Last Admin: 11/29/22 09:56 Dose: 5 mls/min Insulin Aspart (Insulin Aspart Per Unit Charge) 0 units SC ACHS [facility] Stop: 12/28/22 16:29 Last Admin: 11/29/22 12:16 Dose: 29 units Insulin Aspart (Insulin Aspart Per Unit Charge) 0 units SC 0000,[id number] [facility] Stop: 11/30/22 04:01 Miscellaneous (Carbohydrates For Hypoglycemia ) 15 - 30 gm PO UD PRN PRN Reason: Hypoglycemia Protocol Stop: 12/28/22 12:59 Miscellaneous Information (Pharmacy Glycemic Mgmt Consult) 1 each N/A UD PRN; Protocol PRN Reason: Consult(on high dose steroids) Stop: 12/28/22 14:14 Miscellaneous Information (Vancomycin Consult Active) 1 each N/A UD PRN PRN Reason: Consult Stop: 12/28/22 14:20 Olanzapine (Olanzapine 10 Mg Tab) 10 mg PO HS ABRIL Stop: 12/28/22 20:59 Last Admin: 11/28/22 20:50 Dose: 10 mg Simvastatin (Simvastatin 40 Mg Tab) 40 mg PO DAILY ABRIL Stop: 12/29/22 08:59 Last Admin: 11/29/22 08:20 Dose: 40 mg Tamsulosin HCl (Tamsulosin Hcl 0.4 Mg Cap) 0.4 mg PO DAILY ABRIL Stop: 12/29/22 08:59 Last Admin: 11/29/22 08:20 Dose: 0.4 mg PG Care Time/CCT Total # of Minutes Spent Total Time Spent with Patient: Total time spent is greater than 50% in coordination of care (as documented) at patient's floor/unit and/or counseling patient: Coding Level of Care Code 37767 IN/OBS CONSULT LVL 4,60M History Problem Focused Exam Problem Focused Medical Decision Making Moderate Complexity Diagnoses Hypoxia R09.02 Lung cancer C34.90 Acute dyspnea R06.00 Time Spent (min) 60
--- NOTE | 2022-11-29 17:28 | Hematology/Oncology Prog Note ---
Date of Service November 29, 2022 Assessment & Plan (1) Malignant neoplasm of right upper lobe of lung: (2) Pneumonia: Plan Based on discussion with pulmonology, imaging findings are concerning for progression. However, official radiology review indicates that imaging remains stable. I will discuss imaging findings with radiology. In the meantime, would recommend continued treatment for pneumonia and continue with steroids for possible immunotherapy related pneumonitis Admission and Anticipated Discharge Date Admission Date: November 28, 2022 Subjective Oxygen saturation of about 98% on room air. Discussed with pulmonology who feel imaging findings are more consistent with disease progression. Results & Data Vital Signs (Past 12 Hours) Vital Signs Temp Pulse Pulse Resp BP Pulse Ox O2 Del Method 11/29/22 16:36 36.4 C L 102 H 18 104/67 98 Room Air 11/29/22 14:09 90 18 96 Nasal Cannula 11/29/22 11:50 36.4 C L 86 16 142/84 H 93 Nasal Cannula 11/29/22 09:38 70 11/29/22 08:00 Nasal Cannula 11/29/22 07:25 36.8 C 83 17 155/87 H 100 Nasal Cannula 11/29/22 07:10 94 H 18 90 Nasal Cannula O2 Flow Rate 11/29/22 16:36 11/29/22 14:09 2 11/29/22 11:50 2 11/29/22 09:38 11/29/22 08:00 2 11/29/22 07:25 2.0 11/29/22 07:10 2
--- NOTE | 2022-11-29 18:01 | Pulmonology Progress Note ---
Date of Service November 29, 2022 Assessment & Plan (1) Hypoxia: Plan An additional comment is that the patient was reporting some mastication problems and that food would collect in his mouth and he would forget to swallow. Though I do not think that this is the primary issue of concern and assessment with speech-language pathology would be reasonable to assess swallow safety. Admission and Anticipated Discharge Date Admission Date: November 28, 2022 Results & Data Results & Data Vital Signs (Past 12 Hours) Vital Signs Temp Pulse Pulse Resp BP Pulse Ox O2 Del Method 11/29/22 16:36 36.4 C L 102 H 18 104/67 98 Room Air 11/29/22 14:09 90 18 96 Nasal Cannula 11/29/22 11:50 36.4 C L 86 16 142/84 H 93 Nasal Cannula 11/29/22 09:38 70 11/29/22 08:00 Nasal Cannula 11/29/22 07:25 36.8 C 83 17 155/87 H 100 Nasal Cannula 11/29/22 07:10 94 H 18 90 Nasal Cannula O2 Flow Rate 11/29/22 16:36 11/29/22 14:09 2 11/29/22 11:50 2 11/29/22 09:38 11/29/22 08:00 2 11/29/22 07:25 2.0 11/29/22 07:10 2 PG Care Time/CCT Total # of Minutes Spent Total Time Spent with Patient: Total time spent is greater than 50% in coordination of care (as documented) at patient's floor/unit and/or counseling patient: Coding Level of Care Code None Diagnoses Hypoxia R09.02
[2022-11-29] MEDS: fluvoxaMINE MALEATE 50 MG TAB PO SCH (20:25)
[2022-11-29] MEDS: OLANZapine 10 MG TAB PO SCH (20:25)
[2022-11-29] MEDS: DIVALPROEX DELAY RELEASE 500 MG TAB PO SCH (20:26)
[2022-11-30] MEDS: CEFEPIME 2,000 MG in SYRINGE 0 ML IV SCH ×3 (01:45→17:47)
[2022-11-30] MEDS: VANCOMYCIN HCL 1,250 MG in SODIUM CHLORIDE 0.9% 250 ML IV SCH (03:35)
[2022-11-30] MEDS: INSULIN ASPART PER UNIT CHARGE SC SCH ×6 (03:43→23:21)
[2022-11-30] MEDS: methylPREDNISolone 60 MG in SYRINGE 0 ML IV SCH (06:13)
[2022-11-30] MEDS: ALBUT/IPRATROP 3MG/0.5MG NEB 3 ML VIAL NEB SCH ×4 (06:51→19:45)
[2022-11-30 06:57] LABS: Hematocrit (blood only) 31.6 % (42.0-52.0); Hemoglobin 10.6 g/dl (14.0-18.0); Mean Corpuscular Hgb Conc 33.5 g/dL (32.0-36.0); Mean Corpuscular Volume 89.5 fL (80.0-100.0); Mean Platelet Volume 9.2 fL (9.4-12.4); Platelet Count 244 K/uL (130-400); RDW Coefficient of Variation 11.9 % (11.5-14.5); RDW Standard Deviation 37.5 fL (36.4-46.3); Red Blood Count 3.53 M/uL (4.70-6.10); White Blood Count 9.67 K/ul (4.8-10.8)
[2022-11-30 07:23] LABS: Albumin Level 3.4 gm/dl (3.4-5.0); BUN Creatinine Ratio 25.3 (10-20); Bilirubin,Total 0.3 mg/dl (0.2-1.0); Calcium 9.4 mg/dl (8.6-10.3); Creatinine Clr Calc Pharmacy 134.5 ml/min; Est GFR (African American) 113.9 ml/min; Est GFR (Non-African American) 98.3 ml/min; Globulin 3.4 gm/dl (2.5-4.0); Magnesium 1.6 mg/dl (1.7-2.4); Total Protein 6.8 gm/dl (6.0-8.3)
[2022-11-30 07:24] LABS: Basophils # (auto) 0.01 K/uL (0-0.2); Basophils % (auto) 0.1 %; Immature Granulocytes # (auto) 0.07 K/uL (0.01-0.20); Immature Granulocytes % (auto) 0.7 %; Lymphocytes # (auto) 0.37 K/uL (1.2-3.4); Lymphocytes % (auto) 3.8 %; Monocytes # (auto) 0.28 K/uL (0.11-0.59); Monocytes % (auto) 2.9 %; Neutrophils # (auto) 8.94 K/uL (1.40-6.50); Neutrophils % (auto) 92.5 %
[2022-11-30 07:57] LABS: INR 1.1 (0.9-1.1); Prothrombin Time 11.9 Seconds (9.0-12.0)
[2022-11-30] MEDS: clonazePAM 0.5 MG TAB PO SCH ×2 (08:36→21:29)
[2022-11-30] MEDS: ACETAMINOPHEN 325 MG TAB PO PRN (08:36)
[2022-11-30] MEDS: CYANOCOBALAMIN (B-12) 500 MCG TABLET PO SCH (08:37)
[2022-11-30] MEDS: ENOXAPARIN INJ 40 MG/0.4 ML SYR SQ SCH (08:37)
[2022-11-30] MEDS: EZETIMIBE 10 MG TABLET PO SCH (08:38)
[2022-11-30] MEDS: FOLIC ACID 1 MG TAB PO SCH (08:38)
[2022-11-30] MEDS: TAMSULOSIN HCL 0.4 MG CAP PO SCH (08:38)
[2022-11-30] MEDS: SIMVASTATIN 40 MG TAB PO SCH (08:38)
[2022-11-30] MEDS: FLUTICASONE/VILANTEROL 100/25MCG 14 PUFFS/INHALER INH SCH (08:38)
[2022-11-30] MEDS ORDERED: LANTUS PER UNIT CHARGE SQ ONE ×2 (09:00→20:00)
--- NOTE | 2022-11-30 12:29 | Hospitalist Progress Note ---
Date of Service November 30, 2022 Assessment & Plan (1) Sepsis: Plan: Ruled out. No evidence of bacterial infection at this time. Procalcitonin level is normal (2) Acute dyspnea: Plan: Likely due to progression of his known malignancy and known COPD . Cardiac echo reveals preserved left ventricular ejection fraction and BNP level is normal. Procalcitonin is also normal. Low likelihood of bacterial infection. Vancomycin discontinued. Room air oxygen saturation 86% today. He is now back on oxygen per nasal cannula and likely will need this at the time of discharge (3) Hypoxia: Plan: Acute hypoxic respiratory failure. Two-step evaluation completed today. He will require 2 L of oxygen per nasal cannula at rest and with exertion . (4) Lactic acidosis: Plan: Resolved. He is not septic (5) Malignant neoplasm of right upper lobe of lung: Plan: Appears to have progressed causing acute hypoxic respiratory failure. Oncology consultation appreciated. Chest CT scan report noted. (6) Hypertension: Plan: Hypotensive on admission. Losartan was held on admission but has been restarted. Blood pressure is now stable (7) COPD (chronic obstructive pulmonary disease): Plan: Continue home breathing treatments, scheduled DuoNebs (8) Alcohol abuse: Plan: Patient has not been drinking since July of this year, sisters confirm. Continue B12 and full (9) Schizophrenia: Plan: Stable Continue Divalproex, prn Clonazepam, fluvoxamine, and Zyprexa (10) Type 2 diabetes mellitus with diabetic mononeuropathy: Plan: ADA diet. Sliding scale coverage as needed. Metformin is on hold. (11) Severe sleep apnea: Plan: Stable. HS CPAP ordered Plan To be determined. Physical therapy recommends SNF placement. Occupational Therapy assessment requested. If both recommend SNF placement, the patient is willing to consider this. Otherwise he will go home to his sister's house with oxygen for the time being. Admission and Anticipated Discharge Date Admission Date: November 28, 2022 Subjective Alert and oriented. No new problems. Two-step oxygen evaluation was completed. He requires 2 L/min at rest and with exertion. Physical therapy has recommended SNF placement. The patient appears to be on the fence whether or not he should simply go home or go to SNF. Occupational Therapy assessment requested. Vancomycin discontinued. He remains on Solu-Medrol and cefepime for now although I do not believe the current x-ray findings are infectious. He completed his radiation therapy back in August and I do not believe his chest x- ray findings represent radiation pneumonitis either. I believe he has progression of his underlying right upper lobe lung cancer. 1 blood culture is positive with what appears to be a contaminant, Staph epidermidis. Cardiac echo reveals normal left ventricular ejection fraction. BNP is normal. Low probability of pulmonary edema. Review of Systems Review of Systems: Constitutional-no fever or chills ENT-no blurred vision, no double vision, no epistaxis, no sore throat Respiratory-no cough, no wheezing. No sputum production. Dyspnea on exertion Cardiac-no palpitations, no chest pain, no syncope GI-no nausea, vomiting, diarrhea, melena, hematochezia -no urinary retention, no urinary incontinence, no dysuria, no hematuria Musculoskeletal-no joint pain, no muscle tenderness Skin-no bruising, no rashes, no pruritus Neuro-generalized weakness. No focal deficits Psych-no depression, no anxiety Physical Exam Physical Exam: General-alert and oriented x3, no fevers, no chills HEENT-head atraumatic and normocephalic, pupils equal and reactive to light, extraocular muscles intact Neck-no lymphadenopathy or thyromegaly, trachea midline Chest-coarse rales right upper lobe. No wheezing. Cardiac-regular rate and rhythm, normal S1 and S2 Abdomen-normal bowel sounds, nontender, no hepatosplenomegaly Extremities-no cyanosis, clubbing, or edema Neuro-cranial nerves II through XII intact, motor and sensory function within normal limits, strength symmetrical , no focal deficits Psych-normal affect, normal mood Results & Data Results & Data Vital Signs (Past 12 Hours) Vital Signs Temp Pulse Pulse Pulse Pulse Pulse Resp 11/30/22 11:16 36.7 C 92 H 21 11/30/22 11:00 114 H 126 H 91 H 11/30/22 10:44 81 18 11/30/22 09:00 11/30/22 07:45 67 11/30/22 07:27 36.6 C 87 18 11/30/22 06:52 68 18 11/30/22 04:59 11/30/22 03:44 36.8 C 79 19 Resp Resp Resp BP Pulse Ox Pulse Ox Pulse Ox 11/30/22 11:16 134/74 95 11/30/22 11:00 24 26 H 16 92 84 L 07/26/23 10:44 97 11/30/22 09:00 11/30/22 07:45 11/30/22 07:27 159/82 H 95 11/30/22 06:52 92 11/30/22 04:59 169/117 H 11/30/22 03:44 189/108 H 97 Pulse Ox O2 Del Method O2 Flow Rate O2 Flow Rate 11/30/22 11:16 Nasal Cannula 2.0 11/30/22 11:00 97 2 11/30/22 10:44 Nasal Cannula 1 11/30/22 09:00 Nasal Cannula 2 11/30/22 07:45 11/30/22 07:27 Nasal Cannula 11/30/22 06:52 Nasal Cannula 1 11/30/22 04:59 11/30/22 03:44 CPAP Laboratory Results 11/30/22 05:52 11/30/22 05:52 PG Care Time/CCT Total # of Minutes Spent Total Time Spent with Patient: Total time spent is greater than 50% in coordination of care (as documented) at patient's floor/unit and/or counseling patient: Coding Level of Care Code 06120 SUB INP/OBS CARE 3/50MIN Diagnoses Sepsis A41.9 Acute dyspnea R06.00 Hypoxia R09.02 Lactic acidosis E87.20 Malignant neoplasm of right upper lobe of lung C34.11 Hypertension I10 Hypertension type: essential hypertension COPD (chronic obstructive pulmonary disease) J44.9 Alcohol abuse F10.10 Schizophrenia F20.9 Type 2 diabetes mellitus with diabetic mononeuropathy E11.41 Severe sleep apnea G47.30 (6) Hypertension Hypertension type: essential hypertension Qualified Code(s): I10 - Essential (primary) hypertension
[2022-11-30] MEDS: methylPREDNISolone 40 MG in SYRINGE 0 ML IV SCH ×2 (15:35→22:44)
[2022-11-30] MEDS: fluvoxaMINE MALEATE 50 MG TAB PO SCH (21:29)
[2022-11-30] MEDS: OLANZapine 10 MG TAB PO SCH (21:29)
[2022-11-30] MEDS: DIVALPROEX DELAY RELEASE 500 MG TAB PO SCH (21:29)
[2022-11-30] MEDS: PROCHLORPERAZINE 5 MG in SYRINGE 4 ML IV PRN (22:44)
[2022-12-01] MEDS ORDERED: INSULIN ASPART PER UNIT CHARGE SC SCH
[2022-12-01] MEDS: CEFEPIME 2,000 MG in SYRINGE 0 ML IV SCH (01:01)
[2022-12-01] MEDS: INSULIN ASPART PER UNIT CHARGE SC SCH ×5 (04:05→21:52)
[2022-12-01] MEDS: methylPREDNISolone 40 MG in SYRINGE 0 ML IV SCH (05:40)
[2022-12-01 06:18] LABS: Hematocrit (blood only) 30.7 % (42.0-52.0); Hemoglobin 10.3 g/dl (14.0-18.0); Mean Corpuscular Hemoglobin 30.4 pg (25.0-34.0); Mean Corpuscular Hgb Conc 33.6 g/dL (32.0-36.0); Mean Corpuscular Volume 90.6 fL (80.0-100.0); Mean Platelet Volume 9.1 fL (9.4-12.4); Platelet Count 227 K/uL (130-400); RDW Coefficient of Variation 12.1 % (11.5-14.5); RDW Standard Deviation 39.5 fL (36.4-46.3); Red Blood Count 3.39 M/uL (4.70-6.10); White Blood Count 11.53 K/ul (4.8-10.8)
[2022-12-01 06:36] LABS: Albumin Level 3.2 gm/dl (3.4-5.0); BUN Creatinine Ratio 28.8 (10-20); Bilirubin,Total 0.3 mg/dl (0.2-1.0); Creatinine Clr Calc Pharmacy 154.3 ml/min; Est GFR (African American) 120.1 ml/min; Est GFR (Non-African American) 103.6 ml/min; Globulin 3.2 gm/dl (2.5-4.0); Magnesium 1.5 mg/dl (1.7-2.4); Potassium 4.3 mmol/L (3.5-5.1); Total Protein 6.4 gm/dl (6.0-8.3)
[2022-12-01 06:41] LABS: Basophils # (auto) 0.01 K/uL (0-0.2); Basophils % (auto) 0.1 %; Immature Granulocytes # (auto) 0.21 K/uL (0.01-0.20); Immature Granulocytes % (auto) 1.8 %; Lymphocytes # (auto) 0.48 K/uL (1.2-3.4); Lymphocytes % (auto) 4.2 %; Monocytes # (auto) 0.43 K/uL (0.11-0.59); Monocytes % (auto) 3.7 %; Neutrophils % (auto) 90.2 %
[2022-12-01 06:42] LABS: INR 1.1 (0.9-1.1); Prothrombin Time 12.4 Seconds (9.0-12.0)
[2022-12-01] MEDS: ALBUT/IPRATROP 3MG/0.5MG NEB 3 ML VIAL NEB SCH ×4 (07:11→19:13)
[2022-12-01] MEDS: FOLIC ACID 1 MG TAB PO SCH (08:25)
[2022-12-01] MEDS: EZETIMIBE 10 MG TABLET PO SCH (08:25)
[2022-12-01] MEDS: ENOXAPARIN INJ 40 MG/0.4 ML SYR SQ SCH (08:25)
[2022-12-01] MEDS: TAMSULOSIN HCL 0.4 MG CAP PO SCH (08:25)
[2022-12-01] MEDS: CYANOCOBALAMIN (B-12) 500 MCG TABLET PO SCH (08:26)
[2022-12-01] MEDS: FLUTICASONE/VILANTEROL 100/25MCG 14 PUFFS/INHALER INH SCH (08:26)
[2022-12-01] MEDS: ACETAMINOPHEN 325 MG TAB PO PRN ×2 (08:26→14:36)
[2022-12-01] MEDS: SIMVASTATIN 40 MG TAB PO SCH (08:26)
[2022-12-01] MEDS: clonazePAM 0.5 MG TAB PO SCH ×2 (08:26→21:52)
[2022-12-01] MEDS ORDERED: LANTUS PER UNIT CHARGE SC SCH (09:00)
[2022-12-01] MEDS: MAGNESIUM OXIDE 400 MG TAB PO SCH ×2 (11:37→21:47)
--- NOTE | 2022-12-01 11:51 | Hospitalist Progress Note ---
Date of Service December 01, 2022 Assessment & Plan (1) Sepsis: Plan: Ruled out. No evidence of bacterial infection at this time. Procalcitonin level is normal (2) Acute dyspnea: Plan: Acute respiratory failure with hypoxia present on admission. Likely due to progression of his known malignancy and known COPD . Cardiac echo reveals preserved left ventricular ejection fraction and BNP level is normal. Procalcitonin is also normal. Low likelihood of bacterial infection. Vancomycin discontinued. Cefepime switched to oral cefdinir today. He will require oxygen at discharge (3) Hypoxia: Plan: Acute hypoxic respiratory failure. Two-step evaluation completed on November 30. He will require 2 L of oxygen per nasal cannula at rest and with exertion at the time of discharge. (4) Lactic acidosis: Plan: Resolved. He is not septic (5) Malignant neoplasm of right upper lobe of lung: Plan: Appears to have progressed causing acute hypoxic respiratory failure. Oncology consultation appreciated. Chest CT scan report noted. (6) Hypertension: Plan: Hypotensive on admission. Losartan was held on admission but has been r estarted. Blood pressure is now stable (7) COPD (chronic obstructive pulmonary disease): Plan: Continue home breathing treatments, scheduled DuoNebs (8) Alcohol abuse: Plan: Patient has not been drinking since July of this year, sisters confirm. Continue B12 and folate (9) Schizophrenia: Plan: Stable Continue Divalproex, prn Clonazepam, fluvoxamine, and Zyprexa (10) Type 2 diabetes mellitus with diabetic mononeuropathy: Plan: ADA diet. Sliding scale coverage as needed. Metformin has been restarted . (11) Severe sleep apnea: Plan: Stable. HS CPAP ordered Plan Discharge to SNF facility or swing bed when arrangements are finalized. He will remain on oxygen per nasal cannula at the time of discharge Admission and Anticipated Discharge Date Admission Date: November 28, 2022 Subjective Alert and oriented. Stable overall. Intravenous cefepime switched to oral cefdinir and intravenous methylprednisolone switch to oral prednisone today, December 01. Oral magnesium replacement started. Awaiting SNF or swing bed placement Review of Systems Review of Systems: Constitutional-no fever or chills ENT-no blurred vision, no double vision, no epistaxis, no sore throat Respiratory-no cough, no wheezing. No sputum production. Dyspnea on exertion Cardiac-no palpitations, no chest pain, no syncope GI-no nausea, vomiting, diarrhea, melena, hematochezia -no urinary retention, no urinary incontinence, no dysuria, no hematuria Musculoskeletal-no joint pain, no muscle tenderness Skin-no bruising, no rashes, no pruritus Neuro-generalized weakness. No focal deficits Psych-no depression, no anxiety Physical Exam Physical Exam: General-alert and oriented x3, no fevers, no chills HEENT-head atraumatic and normocephalic, pupils equal and reactive to light, extraocular muscles intact Neck-no lymphadenopathy or thyromegaly, trachea midline Chest-coarse rales right upper lobe. No wheezing. Cardiac-regular rate and rhythm, normal S1 and S2 Abdomen-normal bowel sounds, nontender, no hepatosplenomegaly Extremities-no cyanosis, clubbing, or edema Neuro-cranial nerves II through XII intact, motor and sensory function within normal limits, strength symmetrical , no focal deficits Psych-normal affect, normal mood Results & Data Results & Data Vital Signs (Past 12 Hours) Vital Signs Temp Pulse Resp BP Pulse Ox O2 Del Method O2 Flow Rate 12/01/22 11:18 88 16 95 Room Air 12/01/22 11:06 36.7 C 71 18 122/59 L 97 Nasal Cannula 2 12/01/22 07:30 36.8 C 69 18 129/66 Room Air 12/01/22 07:11 83 18 98 Nasal Cannula 1.5 12/01/22 04:23 36.4 C L 98 H 18 155/87 H 95 CPAP Laboratory Results 12/01/22 05:41 12/01/22 05:41 PG Care Time/CCT Total # of Minutes Spent Total Time Spent with Patient: Total time spent is greater than 50% in coordination of care (as documented) at patient's floor/unit and/or counseling patient: Coding Level of Care Code 69453 SUB INP/OBS CARE 3/50MIN Diagnoses Sepsis A41.9 Acute dyspnea R06.00 Hypoxia R09.02 Lactic acidosis E87.20 Malignant neoplasm of right upper lobe of lung C34.11 Hypertension I10 Hypertension type: essential hypertension COPD (chronic obstructive pulmonary disease) J44.9 Alcohol abuse F10.10 Schizophrenia F20.9 Type 2 diabetes mellitus with diabetic mononeuropathy E11.41 Severe sleep apnea G47.30 (6) Hypertension Hypertension type: essential hypertension Qualified Code(s): I10 - Essential (primary) hypertension
[2022-12-01] MEDS: CEFDINIR 300 MG CAP PO SCH ×2 (12:48→21:45)
[2022-12-01] MEDS: predniSONE 10 MG TABLET PO SCH ×2 (14:23→21:46)
--- NOTE | 2022-12-01 14:28 | Pharmacy Report ---
Pharmacy Glycemic Short Note 2 - Date of Service December 01, 2022 - Glycemic Short BSG Results (Last 24 hours): 11/30/22 11/30/22 11/30/22 16:12 19:36 23:14 Glucose POC Glucose 316 H* 288 H 123 H 12/01/22 12/01/22 12/01/22 04:04 05:41 07:39 Glucose 71 POC Glucose 74 121 H 12/01/22 11:03 Glucose POC Glucose 102 H OUTPATIENT ANTIDIABETIC REGIMEN: * Lantus 18 units SQ daily * HbA1C = 5.6% (10/11/22) ASSESSMENT: 12/01: * Patient received total 192 units of insulin yesterday; 60 units of basal and 132 units bolus. * Fasting BSG today dropped down to 71 mg/dl. Basal dose reduced this morning to 45 units. * Solu-Medrol 40 mg IV q8h was discontinued after AM dose and changed to Prednisone 10 mg PO TID. Novolog parameters loosened for lunch. * Since patient received a significant amount of basal dose this morning, BSG might go lower this evening. * Dr. Marquez initiated Metformin BID with dinner today. Novolog carb ratio removed and correction factor loosened further for dinner. 11/29 * Patient received total of 54 units of insulin yesterday, of which 40 units were basal insulin * Patient continues on solumedrol 60 mg iv q 8 hours * Fasting BSG elevated at 224 mg/dL - likely due to steroids. Plan to increase basal insulin ~25% today * Plan to tighten CF/CR 11/28 * Mr Evans is a 62 y/o M with a PMH of IDDM who presents with possible pulmonary infection. BSG this AM (day of admission) was 273 mg/dL. * This pharmacist spoke with the patient who confirmed he DID NOT take his Lantus 18 units this morning. * During previous hospitalization, patient was maintained on Lantus 11 units SQ BID with Novolog CF 35 CR 15 (fastings were below goal range and patient climbed throughout the day). This was without steroids. * Patient currently ordered Solu-Medrol 60 mg IV q8 hours. First dose at 1500 today. * Since patient missed his dose of insulin this AM, will give Lantus 40 units SQ x 1 (full weight-based stress of 3) then schedule 19 units SQ BID. * Novolog weight-based stress of 3 for steroid hyperglycemia. PLAN FOR INPATIENT GLYCEMIC CONTROL: * Hold outpatient oral diabetes medications * Basal insulin * Lantus 45 units SQ x1 dose this AM. Re-assess dose tomorrow. * Bolus insulin * NovoLog per scale ACHS or Q6hrs while NPO * Goal Range: Low 110 mg/dL - High 140 mg/dL * Correction Factor: 30 mg/dL/unit * Nutritional / Prandial insulin per carb ratio of 1 unit per ___ grams CHO consumed
[2022-12-01] MEDS ORDERED: METOPROLOL TARTRATE 25 MG TAB PO STA (15:00)
[2022-12-01] MEDS: metFORMIN HCL 500 MG TAB PO SCH (16:58)
[2022-12-01] MEDS: DIVALPROEX DELAY RELEASE 500 MG TAB PO SCH (21:45)
[2022-12-01] MEDS: fluvoxaMINE MALEATE 50 MG TAB PO SCH (21:46)
[2022-12-01] MEDS: METOPROLOL TARTRATE 25 MG TAB PO SCH (21:47)
[2022-12-01] MEDS: OLANZapine 10 MG TAB PO SCH (21:47)
[2022-12-01] MEDS: PROCHLORPERAZINE 5 MG in SYRINGE 4 ML IV PRN (23:23)
[2022-12-02] MEDS: ALBUT/IPRATROP 3MG/0.5MG NEB 3 ML VIAL NEB SCH ×4 (07:19→19:33)
[2022-12-02 07:40] LABS: BUN Creatinine Ratio 26.1 (10-20); Calcium 8.8 mg/dl (8.6-10.3); Creatinine Clr Calc Pharmacy 146.9 ml/min; Est GFR (African American) 117.9 ml/min; Est GFR (Non-African American) 101.7 ml/min; Magnesium 1.5 mg/dl (1.7-2.4); Potassium 4.5 mmol/L (3.5-5.1)
[2022-12-02] MEDS ORDERED: LANTUS PER UNIT CHARGE SC SCH (09:00)
[2022-12-02] MEDS: FLUTICASONE/VILANTEROL 100/25MCG 14 PUFFS/INHALER INH SCH (09:04)
[2022-12-02] MEDS: ENOXAPARIN INJ 40 MG/0.4 ML SYR SQ SCH (09:04)
[2022-12-02] MEDS: TAMSULOSIN HCL 0.4 MG CAP PO SCH (09:05)
[2022-12-02] MEDS: CYANOCOBALAMIN (B-12) 500 MCG TABLET PO SCH (09:05)
[2022-12-02] MEDS: SIMVASTATIN 40 MG TAB PO SCH (09:05)
[2022-12-02] MEDS: FOLIC ACID 1 MG TAB PO SCH (09:05)
[2022-12-02] MEDS: metFORMIN HCL 500 MG TAB PO SCH ×2 (09:06→17:44)
[2022-12-02] MEDS: MAGNESIUM OXIDE 400 MG TAB PO SCH ×2 (09:06→21:36)
[2022-12-02] MEDS: predniSONE 10 MG TABLET PO SCH ×3 (09:06→21:37)
[2022-12-02] MEDS: EZETIMIBE 10 MG TABLET PO SCH (09:06)
[2022-12-02] MEDS: CEFDINIR 300 MG CAP PO SCH ×2 (09:07→21:35)
[2022-12-02] MEDS: METOPROLOL TARTRATE 25 MG TAB PO SCH (09:07)
[2022-12-02] MEDS: clonazePAM 0.5 MG TAB PO SCH ×2 (09:13→21:35)
[2022-12-02] MEDS: ACETAMINOPHEN 325 MG TAB PO PRN (09:13)
[2022-12-02] MEDS: INSULIN ASPART PER UNIT CHARGE SC SCH ×4 (09:14→21:33)
[2022-12-02 09:32] LABS: Basophils # (auto) 0.02 K/uL (0-0.2); Basophils % (auto) 0.2 %; Hematocrit (blood only) 32.9 % (42.0-52.0); Hemoglobin 10.9 g/dl (14.0-18.0); Immature Granulocytes # (auto) 0.16 K/uL (0.01-0.20); Immature Granulocytes % (auto) 1.8 %; Lymphocytes # (auto) 0.66 K/uL (1.2-3.4); Lymphocytes % (auto) 7.3 %; Mean Corpuscular Hemoglobin 29.8 pg (25.0-34.0); Mean Corpuscular Hgb Conc 33.1 g/dL (32.0-36.0); Mean Corpuscular Volume 89.9 fL (80.0-100.0); Mean Platelet Volume 9.5 fL (9.4-12.4); Monocytes % (auto) 7.8 %; Neutrophils # (auto) 7.49 K/uL (1.40-6.50); Neutrophils % (auto) 82.9 %; Nucleated RBC # (auto) 0.02 K/uL (0-0.12); Nucleated RBC % (auto) 0.2 %; Platelet Count 227 K/uL (130-400); RDW Coefficient of Variation 12.3 % (11.5-14.5); RDW Standard Deviation 39.7 fL (36.4-46.3); Red Blood Count 3.66 M/uL (4.70-6.10); White Blood Count 9.03 K/ul (4.8-10.8)
[2022-12-02] MEDS: lisinopril 10 MG TAB PO SCH (11:57)
[2022-12-02] MEDS: METOPROLOL TARTRATE 50 MG TAB PO SCH ×2 (11:57→21:55)
--- NOTE | 2022-12-02 14:38 | Pharmacy Report ---
Pharmacy Glycemic Short Note 2 - Date of Service December 02, 2022 - Glycemic Short BSG Results (Last 24 hours): 12/01/22 12/01/22 12/02/22 16:24 20:41 05:56 Glucose 154 H POC Glucose 194 H 177 H 12/02/22 12/02/22 07:30 11:23 Glucose POC Glucose 199 H 153 H OUTPATIENT ANTIDIABETIC REGIMEN: * Lantus 18 units SQ daily * HbA1C = 5.6% (10/11/22) ASSESSMENT: 12/02: * BSGs yesterday were [phone] mg/dl. Fasting BSG today was 154 mg/dl. * Basal dose of insulin reduced to 25 units this AM (40% reduced from yesterday AM) and added the rest on a dose scale at HS depending on BSG. This way if steroid dosing gets further reduced tonight, patient can get a lower basal dose as required. Will re-assess this tomorrow. * Novolog parameters were loosened yesterday with addition of oral Metformin BID but tightened back slightly this AM since BSGs were above goal. 12/01: * Patient received total 192 units of insulin yesterday; 60 units of basal and 132 units bolus. * Fasting BSG today dropped down to 71 mg/dl. Basal dose reduced this morning to 45 units. * Solu-Medrol 40 mg IV q8h was discontinued after AM dose and changed to Prednisone 10 mg PO TID. Novolog parameters loosened for lunch. * Since patient received a significant amount of basal dose this morning, BSG might go lower this evening. * Dr. Marquez initiated Metformin BID with dinner today. Novolog carb ratio removed and correction factor loosened further for dinner. 11/29 * Patient received total of 54 units of insulin yesterday, of which 40 units were basal insulin * Patient continues on solumedrol 60 mg iv q 8 hours * Fasting BSG elevated at 224 mg/dL - likely due to steroids. Plan to increase basal insulin ~25% today * Plan to tighten CF/CR 11/28 * Mr Evans is a 62 y/o M with a PMH of IDDM who presents with possible pulmonary infection. BSG this AM (day of admission) was 273 mg/dL. * This pharmacist spoke with the patient who confirmed he DID NOT take his Lantus 18 units this morning. * During previous hospitalization, patient was maintained on Lantus 11 units SQ BID with Novolog CF 35 CR 15 (fastings were below goal range and patient cli mbed throughout the day). This was without steroids. * Patient currently ordered Solu-Medrol 60 mg IV q8 hours. First dose at 1500 today. * Since patient missed his dose of insulin this AM, will give Lantus 40 units SQ x 1 (full weight-based stress of 3) then schedule 19 units SQ BID. * Novolog weight-based stress of 3 for steroid hyperglycemia. PLAN FOR INPATIENT GLYCEMIC CONTROL: * Metformin 1000 mg PO BID with meals * Basal insulin * Lantus 25 units SQ x1 dose this AM. Re-assess tomorrow. * Lantus 0/10/15/20 units dose scale based on BSG at HS * Bolus insulin * NovoLog per scale ACHS or Q6hrs while NPO * Goal Range: Low 110 mg/dL - High 140 mg/dL * Correction Factor: 15 mg/dL/unit * Nutritional / Prandial insulin per carb ratio of 1 unit per 6 grams CHO consumed
--- NOTE | 2022-12-02 14:54 | Hospitalist Progress Note ---
Date of Service December 02, 2022 Assessment & Plan (1) Sepsis: Plan: Ruled out. No evidence of bacterial infection at this time. Procalcitonin level is normal (2) Acute dyspnea: Plan: Acute respiratory failure with hypoxia present on admission. Likely due to progression of his known malignancy and known COPD . Cardiac echo reveals preserved left ventricular ejection fraction and BNP level is normal. Procalcitonin is also normal. Low likelihood of bacterial infection. Vancomycin has been discontinued. Cefepime switched to oral cefdinir on December 01. He will require oxygen at discharge (3) Hypoxia: Plan: Acute hypoxic respiratory failure. Two-step evaluation completed on November 30. He will require 2 L of oxygen per nasal cannula at rest and with exertion at the time of discharge. (4) Lactic acidosis: Plan: Resolved. He is not septic (5) Malignant neoplasm of right upper lobe of lung: Plan: Appears to have progressed causing acute hypoxic respiratory failure. Oncology consultation appreciated. Chest CT scan report noted. Continue prednisone taper (6) Hypertension: Plan: Hypotensive on admission. Losartan was held on admission but has been restarted. Blood pressure is now stable (7) COPD (chronic obstructive pulmonary disease): Plan: Continue home breathing treatments, scheduled DuoNebs (8) Alcohol abuse: Plan: Patient has not been drinking since July of this year, sisters confirm. Continue B12 and folate (9) Schizophrenia: Plan: Stable Continue Divalproex, prn Clonazepam, fluvoxamine, and Zyprexa (10) Type 2 diabetes mellitus with diabetic mononeuropathy: Plan: ADA diet. Sliding scale coverage as needed. Metformin has been restarted . (11) Severe sleep apnea: Plan: Stable. HS CPAP ordered Plan Discharge to [facility] when arrangements are finalized. He will remain on oxygen per nasal cannula at the time of discharge Admission and Anticipated Discharge Date Admission Date: November 28, 2022 Subjective Alert and oriented. No new problems. Metoprolol dosage uptitrated today and lisinopril added for better blood pressure and heart rate control. Magnesium st able at 1.5. Oral magnesium replacement was started yesterday, December 01. He remains on cefdinir and oral prednisone. Anticipate eventual discharge to [facility] Review of Systems Review of Systems: Constitutional-no fever or chills ENT-no blurred vision, no double vision, no epistaxis, no sore throat Respiratory-no cough, no wheezing. No sputum production. Dyspnea on exertion Cardiac-no palpitations, no chest pain, no syncope GI-no nausea, vomiting, diarrhea, melena, hematochezia -no urinary retention, no urinary incontinence, no dysuria, no hematuria Musculoskeletal-no joint pain, no muscle tenderness Skin-no bruising, no rashes, no pruritus Neuro-generalized weakness. No focal deficits Psych-no depression, no anxiety Physical Exam Physical Exam: General-alert and oriented x3, no fevers, no chills HEENT-head atraumatic and normocephalic, pupils equal and reactive to light, extraocular muscles intact Neck-no lymphadenopathy or thyromegaly, trachea midline Chest-coarse rales right upper lobe. No wheezing. Cardiac-regular rate and rhythm, normal S1 and S2 Abdomen-normal bowel sounds, nontender, no hepatosplenomegaly Extremities-no cyanosis, clubbing, or edema Neuro-cranial nerves II through XII intact, motor and sensory function within normal limits, strength symmetrical , no focal deficits Psych-normal affect, normal mood Results & Data Results & Data Vital Signs (Past 12 Hours) Vital Signs Temp Pulse Resp BP Pulse Ox O2 Del Method O2 Flow Rate 12/02/22 14:48 68 16 98 Nasal Cannula 1 12/02/22 12:00 36.6 C 87 18 149/73 H 97 Nasal Cannula 2 12/02/22 10:59 70 18 98 Nasal Cannula 2 12/02/22 07:58 36.8 C 87 18 157/78 H 97 Room Air 12/02/22 07:21 76 18 91 CPAP 12/02/22 03:03 36.3 C L 76 18 160/84 H 94 CPAP FiO2 12/02/22 14:48 12/02/22 12:00 12/02/22 10:59 12/02/22 07:58 12/02/22 07:21 21 12/02/22 03:03 Laboratory Results 12/02/22 05:56 12/02/22 05:56 PG Care Time/CCT Total # of Minutes Spent Total Time Spent with Patient: Total time spent is greater than 50% in coordination of care (as documented) at patient's floor/unit and/or counseling patient: Coding Level of Care Code 83731 SUB INP/OBS CARE 3/50MIN Diagnoses Sepsis A41.9 Acute dyspnea R06.00 Hypoxia R09.02 Lactic acidosis E87.20 Malignant neoplasm of right upper lobe of lung C34.11 Hypertension I10 Hypertension type: essential hypertension COPD (chronic obstructive pulmonary disease) J44.9 Alcohol abuse F10.10 Schizophrenia F20.9 Type 2 diabetes mellitus with diabetic mononeuropathy E11.41 Severe sleep apnea G47.30 (6) Hypertension Hypertension type: essential hypertension Qualified Code(s): I10 - Essential (primary) hypertension
[2022-12-02] MEDS: LANTUS PER UNIT CHARGE SC SCH (21:34)
[2022-12-02] MEDS: fluvoxaMINE MALEATE 50 MG TAB PO SCH (21:35)
[2022-12-02] MEDS: OLANZapine 10 MG TAB PO SCH (21:35)
[2022-12-02] MEDS: DIVALPROEX DELAY RELEASE 500 MG TAB PO SCH (21:35)
[2022-12-03] MEDS: ACETAMINOPHEN 325 MG TAB PO PRN ×3 (06:03→19:57)
[2022-12-03] MEDS: ALBUT/IPRATROP 3MG/0.5MG NEB 3 ML VIAL NEB SCH ×4 (06:53→19:08)
[2022-12-03] MEDS: INSULIN ASPART PER UNIT CHARGE SC SCH ×4 (08:23→20:46)
[2022-12-03] MEDS: clonazePAM 0.5 MG TAB PO SCH ×2 (08:24→20:45)
[2022-12-03] MEDS: metFORMIN HCL 500 MG TAB PO SCH ×2 (08:25→16:58)
[2022-12-03] MEDS: METOPROLOL TARTRATE 50 MG TAB PO SCH ×2 (08:25→21:39)
[2022-12-03] MEDS: MAGNESIUM OXIDE 400 MG TAB PO SCH ×2 (08:25→20:47)
[2022-12-03] MEDS: FOLIC ACID 1 MG TAB PO SCH (08:26)
[2022-12-03] MEDS: ENOXAPARIN INJ 40 MG/0.4 ML SYR SQ SCH (08:26)
[2022-12-03] MEDS: SIMVASTATIN 40 MG TAB PO SCH (08:26)
[2022-12-03] MEDS: predniSONE 10 MG TABLET PO SCH ×3 (08:27→20:51)
[2022-12-03] MEDS: lisinopril 10 MG TAB PO SCH (08:27)
[2022-12-03] MEDS: CYANOCOBALAMIN (B-12) 500 MCG TABLET PO SCH (08:27)
[2022-12-03] MEDS: CEFDINIR 300 MG CAP PO SCH ×2 (08:28→20:48)
[2022-12-03] MEDS: LANTUS PER UNIT CHARGE SC SCH ×3 (08:29→20:47)
[2022-12-03] MEDS: EZETIMIBE 10 MG TABLET PO SCH (08:29)
[2022-12-03] MEDS: FLUTICASONE/VILANTEROL 100/25MCG 14 PUFFS/INHALER INH SCH (08:30)
--- NOTE | 2022-12-03 11:46 | XRay Report ---
SINGLE VIEW CHEST CLINICAL HISTORY: Hypoxia. Lung cancer. FINDINGS: An AP, portable, upright chest radiograph is compared to study dated 11/29/2022 and correlat ed with chest CT dated 11/28/2022. The examination is degraded by portable technique and patient rotat ion. The heart is enlarged noting atherosclerotic calcification of the secure. The pulmonary vasculat ure is noncongested. Emphysema and chronic interstitial thickening is similar to previous. Dense airs pace consolidation/fibrosis in the right upper lobe is similar to previous. Left perihilar opacities have partially cleared from 11/29/2022. Scarring/atelectasis is noted at the lung bases. No large pleu ral effusion or pneumothorax is identify. The skeletal structures are osteopenic. The bony thorax is grossly intact. IMPRESSION: 1. Cardiomegaly and emphysema without radiographic evidence of congestive failure. 2. Dense right upper lobe consolidation/fibrosis is similar to previous. 3. No new foci of airspace consolidation are identified. Left perihilar opacities seen on 11/29/[address] partially cleared. ACT 112: Negative or not required by law. Electronically signed by: Bao Harrison M.D. 12/03/2022 11:45 AM
[2022-12-03] MEDS: TAMSULOSIN HCL 0.4 MG CAP PO SCH (11:55)
--- NOTE | 2022-12-03 15:03 | Hospitalist Progress Note ---
Date of Service December 03, 2022 Assessment & Plan (1) Sepsis: Plan: Ruled out. No evidence of bacterial infection at this time. Procalcitonin level is normal (2) Acute dyspnea: Plan: Acute respiratory failure with hypoxia present on admission. Likely due to progression of his known malignancy and known COPD . Cardiac echo reveals preserved left ventricular ejection fraction and BNP level is normal. Procalcitonin is also normal. Low likelihood of bacterial infection. Vancomycin has been discontinued. Cefepime switched to oral cefdinir on December 01. Oxygen saturation is satisfactory now on room air (3) Hypoxia: Plan: Acute hypoxic respiratory failure has resolved. He is now on room air. Chest x-ray appearance is unchanged. (4) Lactic acidosis: Plan: Resolved. He is not septic (5) Malignant neoplasm of right upper lobe of lung: Plan: Appears to have progressed causing acute hypoxic respiratory failure present on admission. Oncology consultation appreciated. Chest CT scan report noted. Continue prednisone taper (6) Hypertension: Plan: Hypotensive on admission. Losartan was held on admission but has been restarted. Blood pressure is now stable (7) COPD (chronic obstructive pulmonary disease): Plan: Continue home breathing treatments, scheduled DuoNebs (8) Alcohol abuse: Plan: Patient has not been drinking since July of this year, sisters confirm. Contin ue B12 and folate (9) Schizophrenia: Plan: Stable Continue Divalproex, prn Clonazepam, fluvoxamine, and Zyprexa (10) Type 2 diabetes mellitus with diabetic mononeuropathy: Plan: ADA diet. Sliding scale coverage as needed. Metformin has been restarted . (11) Severe sleep apnea: Plan: Stable. HS CPAP ordered Plan Discharge to [facility] when arrangements are finalized. He is currently on room air Admission and Anticipated Discharge Date Admission Date: November 28, 2022 Subjective Alert and oriented. He is now on room air although the chest x-ray does not show any changes. He remains on oral cefdinir and prednisone. Awaiting final arrangements for discharge to [facility] Review of Systems Review of Systems: Constitutional-no fever or chills ENT-no blurred vision, no double vision, no epistaxis, no sore throat Respiratory-no cough, no wheezing. No sputum production. Dyspnea on exertion Cardiac-no palpitations, no chest pain, no syncope GI-no nausea, vomiting, diarrhea, melena, hematochezia -no urinary retention, no urinary incontinence, no dysuria, no hematuria Musculoskeletal-no joint pain, no muscle tenderness Skin-no bruising, no rashes, no pruritus Neuro-generalized weakness. No focal deficits Psych-no depression, no anxiety Physical Exam Physical Exam: General-alert and oriented x3, no fevers, no chills HEENT-head atraumatic and normocephalic, pupils equal and reactive to light, extraocular muscles intact Neck-no lymphadenopathy or thyromegaly, trachea midline Chest-coarse rales right upper lobe. No wheezing. Cardiac-regular rate and rhythm, normal S1 and S2 Abdomen-normal bowel sounds, nontender, no hepatosplenomegaly Extremities-no cyanosis, clubbing, or edema Neuro-cranial nerves II through XII intact, motor and sensory function within normal limits, strength symmetrical , no focal deficits Psych-normal affect, normal mood Results & Data Results & Data Vital Signs (Past 12 Hours) Vital Signs Temp Pulse Resp BP BP Pulse Ox O2 Del Method 12/03/22 07:15 Room Air 12/03/22 12:00 36.3 C L 71 14 115/73 89/54 L 94 Room Air 12/03/22 11:17 74 20 93 Room Air 12/03/22 08:00 36.4 C L 67 18 173/90 H 97 Room Air 12/03/22 06:55 63 18 95 Room Air 12/03/22 03:14 36.4 C L 68 18 124/79 94 Room Air, CPAP Laboratory Results 12/02/22 05:56 12/02/22 05:56 PG Care Time/CCT Total # of Minutes Spent Total Time Spent with Patient: Total time spent is greater than 50% in coordination of care (as documented) at patient's floor/unit and/or counseling patient: Coding Level of Care Code 85459 SUB INP/OBS CARE 2/35MIN Diagnoses Sepsis A41.9 Acute dyspnea R06.00 Hypoxia R09.02 Lactic acidosis E87.20 Malignant neoplasm of right upper lobe of lung C34.11 Hypertension I10 Hypertension type: essential hypertension COPD (chronic obstructive pulmonary disease) J44.9 Alcohol abuse F10.10 Schizophrenia F20.9 Type 2 diabetes mellitus with diabetic mononeuropathy E11.41 Severe sleep apnea G47.30 (6) Hypertension Hypertension type: essential hypertension Qualified Code(s): I10 - Essential (primary) hypertension
[2022-12-03] MEDS: fluvoxaMINE MALEATE 50 MG TAB PO SCH (20:49)
[2022-12-03] MEDS: OLANZapine 10 MG TAB PO SCH (20:50)
[2022-12-03] MEDS: DIVALPROEX DELAY RELEASE 500 MG TAB PO SCH (20:50)
[2022-12-04] MEDS: ALBUT/IPRATROP 3MG/0.5MG NEB 3 ML VIAL NEB SCH ×4 (07:04→19:32)
[2022-12-04] MEDS: LANTUS PER UNIT CHARGE SC SCH (09:03)
[2022-12-04] MEDS: INSULIN ASPART PER UNIT CHARGE SC SCH ×4 (09:03→22:00)
[2022-12-04] MEDS: METOPROLOL TARTRATE 50 MG TAB PO SCH ×2 (09:04→21:54)
[2022-12-04] MEDS: ACETAMINOPHEN 325 MG TAB PO PRN ×2 (09:04→17:21)
[2022-12-04] MEDS: clonazePAM 0.5 MG TAB PO SCH ×2 (09:04→21:51)
[2022-12-04] MEDS: EZETIMIBE 10 MG TABLET PO SCH (09:05)
[2022-12-04] MEDS: CEFDINIR 300 MG CAP PO SCH ×2 (09:05→21:51)
[2022-12-04] MEDS: TAMSULOSIN HCL 0.4 MG CAP PO SCH (09:05)
[2022-12-04] MEDS: CYANOCOBALAMIN (B-12) 500 MCG TABLET PO SCH (09:05)
[2022-12-04] MEDS: FOLIC ACID 1 MG TAB PO SCH (09:06)
[2022-12-04] MEDS: predniSONE 10 MG TABLET PO SCH ×2 (09:06→21:54)
[2022-12-04] MEDS: lisinopril 10 MG TAB PO SCH (09:07)
[2022-12-04] MEDS: MAGNESIUM OXIDE 400 MG TAB PO SCH ×2 (09:07→21:52)
[2022-12-04] MEDS: SIMVASTATIN 40 MG TAB PO SCH (09:07)
[2022-12-04] MEDS: FLUTICASONE/VILANTEROL 100/25MCG 14 PUFFS/INHALER INH SCH (09:08)
[2022-12-04] MEDS: metFORMIN HCL 500 MG TAB PO SCH ×2 (09:08→17:21)
[2022-12-04] MEDS: ENOXAPARIN INJ 40 MG/0.4 ML SYR SQ SCH (09:08)
--- NOTE | 2022-12-04 13:44 | Hospitalist Progress Note ---
Date of Service December 04, 2022 Assessment & Plan (1) Sepsis: Plan: Ruled out. No evidence of bacterial infection at this time. Procalcitonin level is normal (2) Acute dyspnea: Plan: Acute respiratory failure with hypoxia present on admission. Likely due to progression of his known malignancy and known COPD . Cardiac echo reveals preserved left ventricular ejection fraction and BNP level is normal. Procalcitonin is also normal. Low likelihood of bacterial infection. Vancomycin has been discontinued. Cefepime switched to oral cefdinir on December 01. Oxygen saturation is satisfactory now on room air (3) Hypoxia: Plan: Acute hypoxic respiratory failure has resolved. He is now on room air. Chest x-ray appearance is unchanged. (4) Lactic acidosis: Plan: Resolved. He is not septic (5) Malignant neoplasm of right upper lobe of lung: Plan: Appears to have progressed causing acute hypoxic respiratory failure present on admission. Oncology consultation appreciated. Chest CT scan report noted. Prednisone tapered down today, December 04 (6) Hypertension: Plan: Hypotensive on admission. Losartan was held on admission but has been restarted. Blood pressure is now stable (7) COPD (chronic obstructive pulmonary disease): Plan: Continue home breathing treatments, scheduled DuoNebs (8) Alcohol abuse: Plan: Patient has not been drinking since July of this year, sisters confirm. Continue B12 and folate (9) Schizophrenia: Plan: Stable Continue Divalproex, prn Clonazepam, fluvoxamine, and Zyprexa (10) Type 2 diabetes mellitus with diabetic mononeuropathy: Plan: ADA diet. Sliding scale coverage as needed. Metformin has been restarted . (11) Severe sleep apnea: Plan: Stable. HS CPAP ordered Plan Discharge to [facility] when arrangements are finalized. Hopefully tomorrow, December 05. He is currently on room air Admission and Anticipated Discharge Date Admission Date: November 28, 2022 Subjective Alert and oriented. No new problems. Prednisone therapy taper down today. He remains on room air. Hopeful discharge to [facility] tomorrow. Blood pressure is acceptable. Now on metoprolol and lisinopril. Review of Systems Review of Systems: Constitutional-no fever or chills ENT-no blurred vision, no double vision, no epistaxis, no sore throat Respiratory-no cough, no wheezing. No sputum production. Dyspnea on exertion Cardiac-no palpitations, no chest pain, no syncope GI-no nausea, vomiting, diarrhea, melena, hematochezia -no urinary retention, no urinary incontinence, no dysuria, no hematuria Musculoskeletal-no joint pain, no muscle tenderness Skin-no bruising, no rashes, no pruritus Neuro-generalized weakness. No focal deficits Psych-no depression, no anxiety Physical Exam Physical Exam: General-alert and oriented x3, no fevers, no chills HEENT-head atraumatic and normocephalic, pupils equal and reactive to light, extraocular muscles intact Neck-no lymphadenopathy or thyromegaly, trachea midline Chest-coarse rales right upper lobe. No wheezing. Cardiac-regular rate and rhythm, normal S1 and S2 Abdomen-normal bowel sounds, nontender, no hepatosplenomegaly Extremities-no cyanosis, clubbing, or edema Neuro-cranial nerves II through XII intact, motor and sensory function within normal limits, strength symmetrical , no focal deficits Psych-normal affect, normal mood Results & Data Results & Data Vital Signs (Past 12 Hours) Vital Signs Temp Pulse Resp BP Pulse Ox O2 Del Method 12/04/22 11:27 36.3 C L 65 16 101/67 92 Room Air 12/04/22 11:19 60 16 94 Room Air 12/04/22 08:18 36.6 C 76 16 149/82 H 93 Room Air 12/04/22 07:04 66 22 95 Room Air 12/04/22 03:35 36.6 C 65 14 107/70 96 Room Air Laboratory Results 12/02/22 05:56 12/02/22 05:56 PG Care Time/CCT Total # of Minutes Spent Total Time Spent with Patient: Total time spent is greater than 50% in coordination of care (as documented) at patient's floor/unit and/or counseling patient: Coding Level of Care Code 14844 SUB INP/OBS CARE 2/35MIN Diagnoses Sepsis A41.9 Acute dyspnea R06.00 Hypoxia R09.02 Lactic acidosis E87.20 Malignant neoplasm of right upper lobe of lung C34.11 Hypertension I10 Hypertension type: essential hypertension COPD (chronic obstructive pulmonary disease) J44.9 Alcohol abuse F10.10 Schizophrenia F20.9 Type 2 diabetes mellitus with diabetic mononeuropathy E11.41 Severe sleep apnea G47.30 (6) Hypertension Hypertension type: essential hypertension Qualified Code(s): I10 - Essential (primary) hypertension
[2022-12-04] MEDS: DIVALPROEX DELAY RELEASE 500 MG TAB PO SCH (21:51)
[2022-12-04] MEDS: fluvoxaMINE MALEATE 50 MG TAB PO SCH (21:51)
[2022-12-04] MEDS: OLANZapine 10 MG TAB PO SCH (21:53)
[2022-12-05] MEDS: PROCHLORPERAZINE 5 MG in SYRINGE 4 ML IV PRN (01:13)
[2022-12-05] MEDS: ALBUT/IPRATROP 3MG/0.5MG NEB 3 ML VIAL NEB SCH ×4 (06:56→19:18)
[2022-12-05] MEDS: FLUTICASONE/VILANTEROL 100/25MCG 14 PUFFS/INHALER INH SCH (08:00)
[2022-12-05] MEDS: ENOXAPARIN INJ 40 MG/0.4 ML SYR SQ SCH (08:01)
[2022-12-05] MEDS: INSULIN ASPART PER UNIT CHARGE SC SCH ×4 (08:01→21:00)
[2022-12-05] MEDS: clonazePAM 0.5 MG TAB PO SCH ×2 (08:02→21:00)
[2022-12-05] MEDS: metFORMIN HCL 500 MG TAB PO SCH ×2 (08:02→17:25)
[2022-12-05] MEDS: EZETIMIBE 10 MG TABLET PO SCH (08:02)
[2022-12-05] MEDS: predniSONE 10 MG TABLET PO SCH ×2 (08:02→21:01)
[2022-12-05] MEDS: ACETAMINOPHEN 325 MG TAB PO PRN ×3 (08:02→20:00)
[2022-12-05] MEDS: FOLIC ACID 1 MG TAB PO SCH (08:03)
[2022-12-05] MEDS: CEFDINIR 300 MG CAP PO SCH ×2 (08:03→21:01)
[2022-12-05] MEDS: MAGNESIUM OXIDE 400 MG TAB PO SCH ×2 (08:03→21:00)
[2022-12-05] MEDS: TAMSULOSIN HCL 0.4 MG CAP PO SCH (08:03)
[2022-12-05] MEDS: SIMVASTATIN 40 MG TAB PO SCH (08:03)
[2022-12-05] MEDS: CYANOCOBALAMIN (B-12) 500 MCG TABLET PO SCH (08:03)
[2022-12-05] MEDS: lisinopril 10 MG TAB PO SCH (08:04)
[2022-12-05] MEDS: METOPROLOL TARTRATE 50 MG TAB PO SCH ×2 (08:05→21:02)
--- NOTE | 2022-12-05 09:08 | Pharmacy Report ---
Pharmacy Glycemic Short Note 2 - Date of Service December 05, 2022 - Glycemic Short BSG Results (Last 24 hours): 12/04/22 12/04/22 12/04/22 11:09 15:47 20:29 POC Glucose 180 H 141 H 103 H 12/05/22 07:27 POC Glucose 188 H OUTPATIENT ANTIDIABETIC REGIMEN: * Lantus 18 units SQ daily * HbA1C = 5.6% (10/11/22) ASSESSMENT: 12/05 * Fasting BSG 188 this AM with 20 units Lantus on board. Basal insulin dose had been reduced yesterday proactively due to decrease in steroid dose. Will increase basal insulin dose slightly today as basal requirements may still be elevated with current steroid dose (Prednisone 10mg BID) * Patient has been tolerating diet well, post-prandial BSGs at goal - continue same CF/CR 12/02: * BSGs yesterday were [phone] mg/dl. Fasting BSG today was 154 mg/dl. * Basal dose of insulin reduced to 25 units this AM (40% reduced from yesterday AM) and added the rest on a dose scale at HS depending on BSG. This way if steroid dosing gets further reduced tonight, patient can get a lower basal dose as required. Will re-assess this tomorrow. * Novolog parameters were loosened yesterday with addition of oral Metformin BID but tightened back slightly this AM since BSGs were above goal. 12/01: * Patient received total 192 units of insulin yesterday; 60 units of basal and 132 units bolus. * Fasting BSG today dropped down to 71 mg/dl. Basal dose reduced this morning to 45 units. * Solu-Medrol 40 mg IV q8h was discontinued after AM dose and changed to Prednisone 10 mg PO TID. Novolog parameters loosened for lunch. * Since patient received a significant amount of basal dose this morning, BSG might go lower this evening. * Dr. Marquez initiated Metformin BID with dinner today. Novolog carb ratio removed and correction factor loosened further for dinner. PLAN FOR INPATIENT GLYCEMIC CONTROL: * Metformin 1000 mg PO BID with meals * Basal insulin * Lantus 20 units SQ Q AM + 5 units Q PM * Bolus insulin * NovoLog per scale ACHS or Q6hrs while NPO * Goal Range: Low 110 mg/dL - High 140 mg/dL * Correction Factor: 15 mg/dL/unit * Nutritional / Prandial insulin per carb ratio of 1 unit per 6 grams CHO consumed
[2022-12-05] MEDS: LANTUS PER UNIT CHARGE SC SCH ×2 (11:01→21:00)
--- NOTE | 2022-12-05 13:40 | Hospitalist Progress Note ---
Date of Service December 05, 2022 Assessment & Plan (1) Sepsis: Plan: Ruled out. No evidence of bacterial infection at this time. Procalcitonin level is normal (2) Acute dyspnea: Plan: Acute respiratory failure with hypoxia present on admission. Now resolved Likely due to progression of his known malignancy and known COPD . Cardiac echo reveals preserved left ventricular ejection fraction and BNP level is normal. Procalcitonin is also normal. Low likelihood of bacterial infection. Vancomycin has been discontinued. Cefepime switched to oral cefdinir on December 01. Oxygen saturation is satisfactory now on room air (3) Hypoxia: Plan: Acute hypoxic respiratory failure has resolved. He is now on room air. Chest x-ray appearance is unchanged. (4) Lactic acidosis: Plan: Resolved. He is not septic (5) Malignant neoplasm of right upper lobe of lung: Plan: Appears to have progressed causing acute hypoxic respiratory failure present on admission. Oncology consultation appreciated. Chest CT scan report noted. Prednisone tapered down today, December 04 (6) Hypertension: Plan: Hypotensive on admission. Losartan was held on admission but has been restarted. Blood pressure is now stable (7) COPD (chronic obstructive pulmonary disease): Plan: Continue home breathing treatments, scheduled DuoNebs (8) Alcohol abuse: Plan: Patient has not been drinking since July of this year, sisters confirm. Continue B12 and folate (9) Schizophrenia: Plan: Stable Continue Divalproex, prn Clonazepam, fluvoxamine, and Zyprexa (10) Type 2 diabetes mellitus with diabetic mononeuropathy: Plan: ADA diet. Sliding scale coverage as needed. Metformin has been restarted . (11) Severe sleep apnea: Plan: Stable. HS CPAP ordered Plan Discharge to [facility] when arrangements are finalized. He is currently on room air Admission and Anticipated Discharge Date Admission Date: November 28, 2022 Subjective patient seen and examined, now on room air, denies SOB or chest pain Review of Systems Review of Systems: All systems reviewed are negative, apart from the ones contained in the history. Physical Exam Physical Exam: The patient is awake, alert and oriented 3, well developed and well nourished, normocephalic and atraumatic, lying in bed and in no acute distress. HEENT--PERRL, EOMI, mucous membranes and oropharynx mildly dry Neck--supple. No JVD. No bruits. Thyroid normal, trachea midline, no adenopathy. Heart--normal S1 and S2. No murmurs, rubs or gallops. Lungs--Reduced air entry on auscultation Abdomen--normal bowel sounds and soft. Mild epigastric and left sided abdominal pain Extremities--no cyanosis or clubbing. No edema. Dermatologic--normal skin turgor, normal color, no abnormal lymph nodes, no rash. Neurologic--cranial nerves II through XII grossly intact. Rheumatologic--normal range of motion. Psychiatric--normal affect. Results & Data Results & Data Vital Signs (Past 12 Hours) Vital Signs Temp Pulse Resp BP BP Pulse Ox O2 Del Method 12/05/22 11:36 97.7 F 74 18 113/76 95 Room Air 12/05/22 10:57 90 16 92 Room Air 12/05/22 07:30 97.2 F L 78 20 88/63 L 86/57 L 98 Room Air 12/05/22 06:56 71 16 96 Room Air 12/05/22 03:00 98.4 F 74 19 102/69 95 Room Air PG Care Time/CCT Total # of Minutes Spent Total Time Spent with Patient: Total time spent is greater than 50% in coordination of care (as documented) at patient's floor/unit and/or counseling patient: Coding Level of Care Code 45686 SUB INP/OBS CARE 2/35MIN Diagnoses Sepsis A41.9 Acute dyspnea R06.00 Hypoxia R09.02 Lactic acidosis E87.20 Malignant neoplasm of right upper lobe of lung C34.11 Hypertension I10 Hypertension type: essential hypertension COPD (chronic obstructive pulmonary disease) J44.9 Alcohol abuse F10.10 Schizophrenia F20.9 Type 2 diabetes mellitus with diabetic mononeuropathy E11.41 Severe sleep apnea G47.30 Time Spent (min) 35 (6) Hypertension Hypertension type: essential hypertension Qualified Code(s): I10 - Essential (primary) hypertension
[2022-12-05] MEDS: OLANZapine 10 MG TAB PO SCH (21:01)
[2022-12-05] MEDS: DIVALPROEX DELAY RELEASE 500 MG TAB PO SCH (21:01)
[2022-12-05] MEDS: fluvoxaMINE MALEATE 50 MG TAB PO SCH (21:01)
[2022-12-06] MEDS: ALBUT/IPRATROP 3MG/0.5MG NEB 3 ML VIAL NEB SCH ×4 (07:11→19:39)
[2022-12-06] MEDS: INSULIN ASPART PER UNIT CHARGE SC SCH ×4 (08:14→21:26)
[2022-12-06] MEDS: LANTUS PER UNIT CHARGE SC SCH ×2 (08:15→21:27)
[2022-12-06] MEDS: predniSONE 10 MG TABLET PO SCH ×2 (08:15→21:29)
[2022-12-06] MEDS: CEFDINIR 300 MG CAP PO SCH ×2 (08:16→21:27)
[2022-12-06] MEDS: MAGNESIUM OXIDE 400 MG TAB PO SCH ×2 (08:16→21:29)
[2022-12-06] MEDS: lisinopril 10 MG TAB PO SCH (08:16)
[2022-12-06] MEDS: METOPROLOL TARTRATE 50 MG TAB PO SCH ×2 (08:16→22:17)
[2022-12-06] MEDS: CYANOCOBALAMIN (B-12) 500 MCG TABLET PO SCH (08:17)
[2022-12-06] MEDS: clonazePAM 0.5 MG TAB PO SCH ×2 (08:17→21:28)
[2022-12-06] MEDS: FOLIC ACID 1 MG TAB PO SCH (08:18)
[2022-12-06] MEDS: EZETIMIBE 10 MG TABLET PO SCH (08:18)
[2022-12-06] MEDS: SIMVASTATIN 40 MG TAB PO SCH (08:18)
[2022-12-06] MEDS: metFORMIN HCL 500 MG TAB PO SCH ×2 (08:18→17:17)
[2022-12-06] MEDS: TAMSULOSIN HCL 0.4 MG CAP PO SCH (08:18)
[2022-12-06] MEDS: FLUTICASONE/VILANTEROL 100/25MCG 14 PUFFS/INHALER INH SCH (08:19)
[2022-12-06] MEDS: ENOXAPARIN INJ 40 MG/0.4 ML SYR SQ SCH (08:19)
--- NOTE | 2022-12-06 13:14 | Hospitalist Progress Note ---
Date of Service December 06, 2022 Assessment & Plan (1) Sepsis: Plan: Ruled out. No evidence of bacterial infection at this time. Procalcitonin level is normal (2) Acute dyspnea: Plan: Acute respiratory failure with hypoxia present on admission. Now resolved Likely due to progression of his known malignancy and known COPD . Cardiac echo reveals preserved left ventricular ejection fraction and BNP level is normal. Procalcitonin is also normal. Low likelihood of bacterial infection. Vancomycin has been discontinued. Cefepime switched to oral cefdinir on December 01, will discontinue on 12/08 or before transfer to snf. Oxygen saturation is satisfactory now on room air (3) Hypoxia: Plan: Acute hypoxic respiratory failure has resolved. He is now on room air. Chest x-ray appearance is unchanged. (4) Lactic acidosis: Plan: Resolved. He is not septic (5) Malignant neoplasm of right upper lobe of lung: Plan: Appears to have progressed causing acute hypoxic respiratory failure present on admission. Oncology consultation appreciated. Chest CT scan report noted. (6) Hypertension: Plan: Hypotensive on admission. Losartan was held on admission but has been restarted. Blood pressure is now stable (7) COPD (chronic obstructive pulmonary disease): Plan: Continue home breathing treatments, scheduled DuoNebs (8) Alcohol abuse: Plan: Patient has not been drinking since July of this year, sisters confirm. Continue B12 and folate (9) Schizophrenia: Plan: Stable Continue Divalproex, prn Clonazepam, fluvoxamine, and Zyprexa (10) Type 2 diabetes mellitus with diabetic mononeuropathy: Plan: ADA diet. Sliding scale coverage as needed. Metformin has been restarted . (11) Severe sleep apnea: Plan: Stable. HS CPAP ordered Plan Discharge to [facility] when arrangements are finalized. He is currently on room air , awaiting insurance auth Admission and Anticipated Discharge Date Admission Date: November 28, 2022 Subjective patient seen and examined, now on room air, denies SOB or chest pain, awaiting insurance auth Review of Systems Review of Systems: All systems reviewed are negative, apart from the ones contained in the history. Physical Exam Physical Exam: The patient is awake, alert and oriented 3, well developed and well nourished, normocephalic and atraumatic, lying in bed and in no acute distress. HEENT--PERRL, EOMI, mucous membranes and oropharynx mildly dry Neck--supple. No JVD. No bruits. Thyroid normal, trachea midline, no adenopathy. Heart--normal S1 and S2. No murmurs, rubs or gallops. Lungs--Reduced air entry on auscultation Abdomen--normal bowel sounds and soft. Mild epigastric and left sided abdominal pain Extremities--no cyanosis or clubbing. No edema. Dermatologic--normal skin turgor, normal color, no abnormal lymph nodes, no rash. Neurologic--cranial nerves II through XII grossly intact. Rheumatologic--normal range of motion. Psychiatric--normal affect. Results & Data Results & Data Vital Signs (Past 12 Hours) Vital Signs Temp Pulse Pulse Resp BP BP Pulse Ox 12/06/22 08:00 71 12/06/22 07:30 12/06/22 11:41 98.1 F 76 20 99/69 L 98 12/06/22 10:49 74 19 96 12/06/22 07:12 75 16 97 12/06/22 07:09 97.9 F 75 18 107/75 97 12/06/22 03:02 97.7 F 71 18 112/70 95 O2 Del Method 12/06/22 08:00 12/06/22 07:30 Room Air 12/06/22 11:41 Room Air 12/06/22 10:49 Room Air 12/06/22 07:12 Room Air 12/06/22 07:09 Room Air 12/06/22 03:02 CPAP PG Care Time/CCT Total # of Minutes Spent Total Time Spent with Patient: Total time spent is greater than 50% in coordination of care (as documented) at patient's floor/unit and/or counseling patient: Coding Level of Care Code 08486 SUB INP/OBS CARE 2/35MIN Diagnoses Sepsis A41.9 Acute dyspnea R06.00 Hypoxia R09.02 Lactic acidosis E87.20 Malignant neoplasm of right upper lobe of lung C34.11 Hypertension I10 Hypertension type: essential hypertension COPD (chronic obstructive pulmonary disease) J44.9 Alcohol abuse F10.10 Schizophrenia F20.9 Type 2 diabetes mellitus with diabetic mononeuropathy E11.41 Severe sleep apnea G47.30 Time Spent (min) 35 (6) Hypertension Hypertension type: essential hypertension Qualified Code(s): I10 - Essential (primary) hypertension
[2022-12-06] MEDS: DIVALPROEX DELAY RELEASE 500 MG TAB PO SCH (21:28)
[2022-12-06] MEDS: fluvoxaMINE MALEATE 50 MG TAB PO SCH (21:28)
[2022-12-06] MEDS: OLANZapine 10 MG TAB PO SCH (21:29)
[2022-12-07 06:39] LABS: Hemoglobin 11.9 g/dl (14.0-18.0); Mean Corpuscular Hemoglobin 30.1 pg (25.0-34.0); Mean Corpuscular Volume 88.4 fL (80.0-100.0); Mean Platelet Volume 9.3 fL (9.4-12.4); Platelet Count 164 K/uL (130-400); RDW Coefficient of Variation 12.7 % (11.5-14.5); RDW Standard Deviation 40.4 fL (36.4-46.3); Red Blood Count 3.96 M/uL (4.70-6.10); White Blood Count 6.58 K/ul (4.8-10.8)
[2022-12-07 06:58] LABS: BUN Creatinine Ratio 28.9 (10-20); Calcium 8.7 mg/dl (8.6-10.3); Creatinine Clr Calc Pharmacy 131.7 ml/min; Est GFR (African American) 113.3 ml/min; Est GFR (Non-African American) 97.8 ml/min; Potassium 4.9 mmol/L (3.5-5.1)
[2022-12-07] MEDS: ALBUT/IPRATROP 3MG/0.5MG NEB 3 ML VIAL NEB SCH (07:00)
[2022-12-07] MEDS: METOPROLOL TARTRATE 50 MG TAB PO SCH (08:35)
[2022-12-07] MEDS: predniSONE 10 MG TABLET PO SCH (08:37)
[2022-12-07] MEDS: MAGNESIUM OXIDE 400 MG TAB PO SCH (08:38)
[2022-12-07] MEDS: SIMVASTATIN 40 MG TAB PO SCH (08:38)
[2022-12-07] MEDS: lisinopril 10 MG TAB PO SCH (08:38)
[2022-12-07] MEDS: CEFDINIR 300 MG CAP PO SCH (08:38)
[2022-12-07] MEDS: TAMSULOSIN HCL 0.4 MG CAP PO SCH (08:39)
[2022-12-07] MEDS: metFORMIN HCL 500 MG TAB PO SCH (08:39)
[2022-12-07] MEDS: CYANOCOBALAMIN (B-12) 500 MCG TABLET PO SCH (08:39)
[2022-12-07] MEDS: EZETIMIBE 10 MG TABLET PO SCH (08:39)
[2022-12-07] MEDS: FLUTICASONE/VILANTEROL 100/25MCG 14 PUFFS/INHALER INH SCH (08:40)
[2022-12-07] MEDS: FOLIC ACID 1 MG TAB PO SCH (08:40)
[2022-12-07] MEDS ORDERED: ALBUT/IPRATROP 3MG/0.5MG NEB 3 ML VIAL NEB PRN (08:40)
[2022-12-07] MEDS: ENOXAPARIN INJ 40 MG/0.4 ML SYR SQ SCH (08:41)
[2022-12-07] MEDS: LANTUS PER UNIT CHARGE SC SCH (08:42)
[2022-12-07] MEDS: INSULIN ASPART PER UNIT CHARGE SC SCH ×2 (08:42→12:19)
[2022-12-07] MEDS: clonazePAM 0.5 MG TAB PO SCH (09:19)
[2022-12-07] MEDS: ACETAMINOPHEN 325 MG TAB PO PRN (09:19)
[2022-12-07 11:32] VITALS: TEMP 98.4; O2SAT 97
--- NOTE | 2022-12-07 13:01 | Hospitalist Progress Note ---
Date of Service December 07, 2022 Assessment & Plan (1) Sepsis: Plan: Ruled out. No evidence of bacterial infection at this time. Procalcitonin level is normal (2) Acute dyspnea: Plan: Acute respiratory failure with hypoxia present on admission. Now resolved Likely due to progression of his known malignancy and known COPD . Cardiac echo reveals preserved left ventricular ejection fraction and BNP level is normal. Procalcitonin is also normal. Low likelihood of bacterial infection. Vancomycin has been discontinued. Cefepime switched to oral cefdinir on December 01, will discontinue on 12/08 or before transfer to snf. Oxygen saturation is satisfactory now on room air (3) Hypoxia: Plan: Acute hypoxic respiratory failure has resolved. He is now on room air. Chest x-ray appearance is unchanged. (4) Lactic acidosis: Plan: Resolved. He is not septic (5) Malignant neoplasm of right upper lobe of lung: Plan: Appears to have progressed causing acute hypoxic respiratory failure present on admission. Oncology consultation appreciated. Chest CT scan report noted. (6) Hypertension: Plan: Hypotensive on admission. Losartan was held on admission but has been restarted. Blood pressure is now stable (7) COPD (chronic obstructive pulmonary disease): Plan: Continue home breathing treatments, scheduled DuoNebs (8) Alcohol abuse: Plan: Patient has not been drinking since July of this year, sisters confirm. Continue B12 and folate (9) Schizophrenia: Plan: Stable Continue Divalproex, prn Clonazepam, fluvoxamine, and Zyprexa (10) Type 2 diabetes mellitus with diabetic mononeuropathy: Plan: ADA diet. Sliding scale coverage as needed. Metformin has been restarted . (11) Severe sleep apnea: Plan: Stable. HS CPAP ordered Plan insurance auth was denied even after peer to peer, may consider SNF instead of rehab Admission and Anticipated Discharge Date Admission Date: November 28, 2022 Subjective patient seen and examined, now on room air, denies SOB or chest pain, insurance auth was denied even after peer to peer Review of Systems Review of Systems: All systems reviewed are negative, apart from the ones contained in the history. Physical Exam Physical Exam: The patient is awake, alert and oriented 3, well developed and well nourished, normocephalic and atraumatic, lying in bed and in no acute distress. HEENT--PERRL, EOMI, mucous membranes and oropharynx mildly dry Neck--supple. No JVD. No bruits. Thyroid normal, trachea midline, no adenopathy. Heart--normal S1 and S2. No murmurs, rubs or gallops. Lungs--Reduced air entry on auscultation Abdomen--normal bowel sounds and soft. Mild epigastric and left sided abdominal pain Extremities--no cyanosis or clubbing. No edema. Dermatologic--normal skin turgor, normal color, no abnormal lymph nodes, no rash. Neurologic--cranial nerves II through XII grossly intact. Rheumatologic--normal range of motion. Psychiatric--normal affect. Results & Data Results & Data Vital Signs (Past 12 Hours) Vital Signs Temp Pulse Resp BP Pulse Ox O2 Del Method 12/07/22 11:31 98.4 F 69 20 107/67 97 Room Air 12/07/22 08:28 64 16 100 Room Air 12/07/22 07:31 98.6 F 60 20 95/62 L 100 Room Air 12/07/22 03:46 97.5 F L 65 18 130/70 97 Room Air PG Care Time/CCT Total # of Minutes Spent Total Time Spent with Patient: Total time spent is greater than 50% in coordination of care (as documented) at patient's floor/unit and/or counseling patient: Coding Level of Care Code 91302 SUB INP/OBS CARE 2/35MIN Diagnoses Sepsis A41.9 Acute dyspnea R06.00 Hypoxia R09.02 Lactic acidosis E87.20 Malignant neoplasm of right upper lobe of lung C34.11 Hypertension I10 Hypertension type: essential hypertension COPD (chronic obstructive pulmonary disease) J44.9 Alcohol abuse F10.10 Schizophrenia F20.9 Type 2 diabetes mellitus with diabetic mononeuropathy E11.41 Severe sleep apnea G47.30 Time Spent (min) 35 (6) Hypertension Hypertension type: essential hypertension Qualified Code(s): I10 - Essential (primary) hypertension
--- NOTE | 2022-12-07 15:32 | Discharge Summary ---
Date of Service December 07, 2022 Admission HPI Per Admitting Provider Feliz is a 62 year old male with a PMH significant for recurrent stage III non-small cell lung cancer of the right upper lobe S/P chemotherapy currently on maintenance Durvalumab, type II DM, EDUARD on HS CPAP, recent cellulitis, chronic alcohol use with history of hyponatremia, hyperlipidemia who presented to the [facility] on 11/28 for increased LOVE and tachycardia. Per EMS, the patient was initially found to be hypoxic at 87% on RA and tachycardic with HR in the 120s. In the ED the patient was noted to be stable on 2L NC and tachycardic with HR in the 110s. Labs were significant for an AG of 12 with Bicarb of 22, lactate of 3.1, Chest xray was read as 1. Increase in dense right upper lobe opacity since chest CT of September 16, 2022. This is nonspecific and could reflect postradiation change. However, pneumonia or tumor progression could appear similar. 2. Increase in diffuse interstitial thickening. This is likely due to underlying interstitial lung disease however superimposed mild pulmonary edema or an infectious process would be difficult to exclude.. CTA of the chest with PE protocol was read as IMPRESSION:1. Cardiomegaly with intralobular septal thickening, scattered groundglass densities with right upper lung predominant consolidation may represent asymmetric pulmonary edema versus multifocal pneumonia. Follow-up recommended. 2. The previously noted irregular areas of consolidation within the right upper lobe are partially obscured. 3. Generally stable appearance of the previously noted right hilar and mediastinal lymphadenopathy. 4. Pulmonary emphysema. 5. No pulmonary emboli identified. Prior to admission the patient was given a dose of Cefepime and 2L NSS. At the time of the exam the patient was lying in bed in no acute distress with his sisters sitting bedside, history was obtained from both. The patient started to developed increased SOB, cough, and generalized weakness over the weekend. His sisters picked him up this am and took him to his scheduled Podiatry appointment. They sent him to the ED after evaluating him. The patient completed chemotherapy for his RUL lung cancer and is currently on monthly Durvalumab infusions with his last infusion on 11/23. His sisters state that the patient has been having issues with dehydration recently, they are trying to get him to drink 2L of water daily. The patient denies recent fever, chills, chest pain, hemoptysis, abd pain, nausea, vomiting, diarrhea, dysuria, hematuria, LE swelling, and recent trauma. His sisters state that he was recently discharged from the wound care clinic for his chronic BL wounds on the feet as they have been healing well. The patient states that he feels improved compared to arrival but still fatigued. The patient is a full code and his sisters are his POA if he cannot make decisions himself. The patient took all of his AM meds today including lasix and losartan. Principal Diagnosis hyponatremia, acute hypoxia Discharge Exam The patient is awake, alert and oriented 3, well developed and well nourished, normocephalic and atraumatic, lying in bed and in no acute distress. HEENT--PERRL, EOMI, mucous membranes and oropharynx mildly dry Neck--supple. No JVD. No bruits. Thyroid normal, trachea midline, no adenopathy. Heart--normal S1 and S2. No murmurs, rubs or gallops. Lungs--Reduced air entry on auscultation Abdomen--normal bowel sounds and soft. Mild epigastric and left sided abdominal pain Extremities--no cyanosis or clubbing. No edema. Dermatologic--normal skin turgor, normal color, no abnormal lymph nodes, no rash. Neurologic--cranial nerves II through XII grossly intact. Rheumatologic--normal range of motion. Psychiatric--normal affect. Discharge Data Allergies Allergy/AdvReac Type Severity Reaction Status Date / Time scopolamine Allergy Intermediate Itching Verified 11/18/22 09:20 Consultations 11/28/22 13:32 Consult Pulmonology Routine 11/28/22 13:54 Consult Oncology Routine Ordered Studies 11/28/22 10:14 CT angio chest PE protocol Stat Hospital Course (1) Sepsis: Ruled out. No evidence of bacterial infection at this time. Procalcitonin level is normal (2) Acute dyspnea: Acute respiratory failure with hypoxia present on admission. Now resolved Likely due to progression of his known malignancy and known COPD . Cardiac echo reveals preserved left ventricular ejection fraction and BNP level is normal. Procalcitonin is also normal. Low likelihood of bacterial infection. Vancomycin has been discontinued. Cefepime switched to oral cefdinir on December 01, will discontinue on 12/08 or before transfer to snf. Oxygen saturation is satisfactory now on room air (3) Hypoxia: Acute hypoxic respiratory failure has resolved. He is now on room air. Chest x-ray appearance is unchanged. (4) Lactic acidosis: Resolved. He is not septic (5) Malignant neoplasm of right upper lobe of lung: Appears to have progressed causing acute hypoxic respiratory failure present on admission. Oncology consultation appreciated. Chest CT scan report noted. (6) Hypertension: Hypotensive on admission. Losartan was held on admission but has been restarted. Blood pressure is now stable (7) COPD (chronic obstructive pulmonary disease): Continue home breathing treatments, scheduled DuoNebs (8) Alcohol abuse: Patient has not been drinking since July of this year, sisters confirm. Continue B12 and folate (9) Schizophrenia: Stable Continue Divalproex, prn Clonazepam, fluvoxamine, and Zyprexa (10) Type 2 diabetes mellitus with diabetic mononeuropathy: ADA diet. Sliding scale coverage as needed. Metformin has been restarted . (11) Severe sleep apnea: Stable. HS CPAP ordered Plan insurance auth was denied even after peer to peer, may consider SNF instead of rehab Total Time Total Time Spent Total Time Spent (In Minutes): 35 Discharge Plan Discharge Items Patient Disposition: Home - Home Health Services Reason For Visit: SEPSIS, HYPONATREMIA Discharge Diagnosis: hyponatremia Activity: Resume your previous activity Non-emergency contact: Primary Care Provider Call non-emergency contact if: you have any medication questions Follow-up/Referrals: Hannah Puckett PA-C [Physician Supply Technician] - 12/14/22 2:15 pm (Radiation Oncology Follow Up. Please call [phone] if you are unable to keep this appt.) Jah Brown, [Primary Care Provider] - Diet: Regular Addtl Attending Provider Instructions: please make appointment to follow up with your regular PCP Pending Studies at Discharge: No Stand-Alone Forms: My [employer], Smoking Cessation Medications and DC Order Prescriptions: Continued (DME) lancets [OneTouch UltraSoft Lancets] Misc See Rx Instructions .ROUTE .MEDSUPPLY Qty: 100 5RF Rx Instructions: As directed 3-4x a day Dx:E11.9 losartan 25 mg tablet 25 mg PO QAM Qty: 90 3RF (DME) OneTouch Verio test strips Strip See Rx Instructions .ROUTE .COMPLEX Qty: 100 3RF Dose Instruction: TEST BLOOD SUGAR 1 TIME DAILY Rx Instructions: TEST BLOOD SUGAR 1 TIME DAILY simvastatin 40 mg tablet 40 mg PO DAILY Qty: 90 3RF (DME) pen needle, diabetic [BD Ultra-Fine Mini Pen Needle] 31 gauge x 3/16" needle See Rx Instructions .Route Qty: 50 0RF Rx Instructions: Use to inject insulin once daily tamsulosin 0.4 mg capsule 0.4 mg PO DAILY Qty: 30 11RF potassium chloride 20 mEq tablet extended release 20 meq PO DAILY Qty: 90 3RF albuterol sulfate [Ventolin HFA] 90 mcg/actuation HFA aerosol inhaler 2 inh INH QID PRN (Reason: shortness of breath or wheezing) Qty: 18 11RF insulin glargine [Lantus Solostar U-100 Insulin] 100 unit/mL (3 mL) insulin pen 18 unit subcut QAM Qty: 15 3RF Trelegy Ellipta 100-62.5-25 mcg blister with device 1 inh inhalation QAM Qty: 60 11RF furosemide 40 mg tablet 40 mg PO QAM Qty: 90 3RF Hold Instructions: Resume on 09/11/22. (DME) CPAP Supplies Misc See Rx Instructions .MEDSUPPLY Qty: 1 0RF Rx Instructions: CPAP supplies. G47.33 (DME) Auto Titrating CPAP Misc See Rx Instructions .MEDSUPPLY Qty: 1 0RF Rx Instructions: Auto PAP with 5-15 cm H20. Lifetime usage. G47.33 ezetimibe 10 mg tablet 10 mg PO QAM Qty: 90 1RF Rx Instructions: TAKE 1 TABLET BY MOUTH EVERY MORNING clonazepam 0.5 mg Tablet 0.5 mg PO BID divalproex 500 mg Tablet,Delayed Release (Dr/Ec) 500 mg PO HS cholecalciferol (vitamin D3) [Vitamin D3] 1,000 unit Capsule 1,000 unit PO QAM olanzapine [Zyprexa] 10 mg Tablet 10 mg PO HS vitamin E 400 unit Capsule 400 unit PO QAM fluvoxamine 150 mg Capsule,Extended Release 24hr 150 mg PO HS cyanocobalamin (vitamin B-12) 1,000 mcg capsule 1,000 mcg PO DAILY Qty: 30 0RF Mag 64 64 mg Tablet,Delayed Release (Dr/Ec) 64 mg PO TID Qty: 90 0RF metformin 500 mg tablet 1,000 mg PO BID Rx Instructions: TAKE 2 TABLETS TWICE A DAY Discharge Orders: Discharge Order (Routine); Ordered 12/07/22 Ordered By: Tarun Weir Admission Data Admit Date/Time: 11/28/22 12:58 Attending Provider: Tarun Weir Admit Provider: Lorenzo Marquez Primary Care Provider: Jah Brown Other Providers: Lory Livingston ; Meera Solano ; [place] ; [facility] Coding Level of Care Code 41346 INP/OBS DISCH >30 MIN Diagnoses Sepsis A41.9 Acute dyspnea R06.00 Hypoxia R09.02 Lactic acidosis E87.20 Malignant neoplasm of right upper lobe of lung C34.11 Hypertension I10 Hypertension type: essential hypertension COPD (chronic obstructive pulmonary disease) J44.9 Alcohol abuse F10.10 Schizophrenia F20.9 Type 2 diabetes mellitus with diabetic mononeuropathy E11.41 Severe sleep apnea G47.30 Time Spent (min) 35
[2022-12-07 15:52] VITALS: BP 105/71; PULSE 69
== END 2022-12-07 16:32 | disposition home health service (06) | DRG 189 ==
LOC: ED 09:31 → SUATTDRO 12:58 → 2S 12:58

== ENCOUNTER 2023-08-15 15:09 | Inpatient (IN) ==
--- NOTE | 2023-08-15 15:26 | ED Triage Note ---
Date of Service August 15, 2023 Provider in Triage Author: Yaya Campa History of Present Illness This patient was briefly evaluated while in triage. An abbreviated physical exam was performed. This patient is a 63-year-old Male who was referred to the emergency department by Dr. Solano for a CT scan of the test. The patient was recently in the emergency department with a chest x-ray. Patient reports shortness of breath that has worsened for the past 3 to 4 days. Symptoms are worsening with exacerbation. Patient currently denies any discomfort. According to the , the patient's O2 saturation in the office was 84%. Patient was in the emergency department yesterday with an abnormal chest x-ray. Patient does have a history of stage IV lung cancer, currently undergoing chemotherapy. Physical Exam CONSTITUTIONAL: Healthy and well nourished. Alert and oriented X 3. HEENT: No scleral icterus or conjunctival injection. NECK: Full active range of motion without discomfort. RESPIRATORY: Clear to auscultation bilaterally with no wheezing, crackles, rhonchi or stridor. CARDIOVASCULAR: Regular rate and rhythm with no murmurs, rubs or gallops. INTEGUMENTARY: No rash or other significant dermatologic conditions noted. HEMATOLOGIC: No ecchymosis or petechiae. PSYCHIATRIC: Positive affect. NEUROLOGIC: No focal neurologic deficits noted. Initial orders for labs and / or imaging were placed and patient was placed in the waiting area until a bed is available. Please see further documentation for the full ED course.
[2023-08-15] MEDS: SODIUM CHLORIDE 0.9% 500 ML IV ONE (16:00)
[2023-08-15 16:13] LABS: Eosinophils # (auto) 0.01 K/uL (0.00-0.50); Eosinophils % (auto) 0.4 %; Hematocrit (blood only) 26.8 % (42.0-52.0); Immature Granulocytes # (auto) 0.01 K/uL (0.01-0.20); Immature Granulocytes % (auto) 0.4 %; Lymphocytes # (auto) 0.25 K/uL (1.20-3.40); Lymphocytes % (auto) 9.8 %; Mean Corpuscular Hemoglobin 31.3 pg (25.0-34.0); Mean Corpuscular Hgb Conc 33.6 g/dL (32.0-36.0); Mean Corpuscular Volume 93.1 fL (80.0-100.0); Mean Platelet Volume 11.2 fL (9.4-12.4); Monocytes # (auto) 0.22 K/uL (0.11-0.59); Monocytes % (auto) 8.7 %; Neutrophils # (auto) 2.05 K/uL (1.40-6.50); Neutrophils % (auto) 80.7 %; Nucleated RBC # (auto) 0.03 K/uL (0.00-0.12); Nucleated RBC % (auto) 1.2 %; Platelet Count 45 K/uL (130-400); RDW Coefficient of Variation 12.7 % (11.5-14.5); RDW Standard Deviation 42.5 fL (36.4-46.3); Red Blood Count 2.88 M/uL (4.70-6.10); White Blood Count 2.54 K/ul (4.8-10.8)
--- NOTE | 2023-08-15 16:18 | Emergency Department Note ---
Impression & Plan Elevated troponin ADMIT ED Provider Note HPI: History obtained from patient and family member at the bedside The patient is a 63-year-old gentleman with history of non-small cell lung cancer with metastasis to the brain, currently on chemotherapy, presents to the emergency department with a chief complaint of shortness of breath on exertion. Patient states that the symptoms have been worsening over the past 5 days. Patient states he is also had a slight cough. Patient states at rest his symptoms seem to improve. Patient states at times with exertion he gets "a little bit" of chest pain. On arrival here to the ED the patient was noted to be hypoxic on room air at 87% and was placed on supplemental oxygen. Patient states that he does have supplemental oxygen to use as needed at home. On arrival here to the ED the patient is otherwise hemodynamically stable, he is afebrile on arrival. Patient states that he was in to see his hematology/oncology provider, Dr. Solano, earlier this afternoon and was advised to come to the emergency department for CT imaging of the chest. ROS: - Per HPI Differential Diagnosis: Acute CHF exacerbation with increased oxygen demand, NSTEMI, ACS, pulmonary embolism, pleural effusion, increased metastatic burden from underlying lung cancer, amongst other potential pathologies. *Outpatient medications and allergy history reviewed. PE: General: Alert, listless appearing, no acute distress HEENT: Normocephalic, trachea midline Eyes: Extraocular eye movement is intact, no scleral erythema Pulmonary: Slightly diminished bilaterally without crackles or wheezes Cardio: Regular rate and rhythm GI: Abdomen is soft to palpation : No suprapubic tenderness MSK: No evidence of trauma or malformation of the extremities, no edema Skin: No evidence of rash Neuro: Alert, no focal deficits Psychiatric: Cooperative INDEPENDENT INTERPRETATIONS: quality assurance monitor body: (As interpreted by myself): - An order was placed for continuous cardiac monitoring - Patient was noted to be in sinus rhythm with rate of 90 EKG: (As interpreted by myself): Rate: 104 Rhythm: Sinus tachycardia Intervals: QRS 126 ms, otherwise within normal limits ST changes: No ST elevation Time: 1554 Interventions provided in ED: -Aspirin, IV fluid bolus, IV Lasix Medical Decision Making: IV was established and lab work obtained, patient was placed on groundwater monitoring technician. Patient remained stable on 3 L nasal cannula oxygen. Lab work shows leukopenia at 2.54, hemoglobin is stable at 9.0, platelet count is low at 45 but near patient's baseline. CMP does not show any critical findings. Initial high- sensitivity troponin level is elevated at 134.5. BNP is elevated at 772. Procalcitonin is low. Viral panel testing was obtained and is negative. CT angiography of the chest was obtained and there is no evidence of pulmonary embolism, there is nonspecific groundglass opacity noted in the bilateral lungs consistent with either infectious or inflammatory etiology per interpreting radiologist. Patient was given IV Lasix following obtaining lab work that showed elevated BNP. I suspect there is an element of CHF with his elevated troponin and elevated BNP. Procalcitonin is low, low suspicion for infectious etiology for the ground glass opacities on CT angiography. Will defer antibiotic treatment to the hospitalist service following my discussion with the on-call hospitalist, Dr. Nolen. Blood cultures were drawn in the ED. I discussed the above findings with the patient and his family at the bedside. Patient is in agreement for admission. Patient was admitted in stable condition Consultants/Discussions held with other healthcare providers: -Hospitalist, Dr. Nolen Disposition discussion held by myself with: -Patient and family at the bedside Diagnosis: 1. Dyspnea with increased oxygen demand, acute 2. Elevated BNP, acute 3. Elevated high-sensitivity troponin, acute 4. History of lung cancer, currently on chemotherapy 5. Leukopenia, acute 6. Thrombocytopenia, chronic 7. Anemia, chronic Disposition: Admission Florin Suárez DO Emergency Medicine Past Med/Surg History Medical History Venous stasis dermatitis Anxiety and depression Benign essential tremor Esophageal reflux Urinary incontinence Alcohol abuse Schizophrenia Pulmonary HTN Chronic back pain OCD (obsessive compulsive disorder) Surgical History History of cataract surgery History of bronchoscopy H/O tooth extraction Status post amputation of toe of left foot (07/04/18) History of biopsy of bladder H/O exploratory laparotomy History of cystoscopy History of open reduction and internal fixation (ORIF) procedure Family History Father Prostate cancer Family history of diabetes mellitus Myocardial infarction Aunt Family history of diabetes mellitus Uncle Family history of diabetes mellitus Family/Other Family history of diabetes mellitus Mother Diabetes Alzheimer disease Grandfather (Paternal) Cardiac disorder Cancer Brother Kidney stones Other Heart disease No family history of adverse response to anesthesia Denies family history of Crohn's disease Colorectal cancer Lung disease Inflammatory bowel disease Asthma Social History Smoking Status: Former smoker Age Started Using Tobacco: 12; Age Quit Using Tobacco: 61; packs per day: 0.5; Cigarettes Per Day: 10; Second Hand Exposure: No; Do You Dip or Chew Tobacco: No; Hx Alcohol Use: Yes Alcohol type: beer Alcohol Intake Frequency Comment: 6 beers daily Hx Substance Use: No Preferred Language: [place] Communication Ability: Effective Visual Impairment: Limited Hearing Ability: Normal Manager Strategic Sourcing Required: No Beliefs That Will Affect Care: None marital status: Single Current Living Situation: Alone Current Living Situation Comment: pt has been living with sister for several weeks during chemo rx current occupational status: disabled Feels Safe at Home: Yes Safety Concerns Comment: Currently living with his sister due to chemo/radiation/illness in current or past relationships, have you been: other Diet: regular caffeine: Yes Dental Care, Regularly: No Physical Activity Frequency: 1-2 Times per Week Seatbelt Use: always Assistive Devices: Cane and Walker Allergies Allergies Allergy/AdvReac Type Severity Reaction Status Date / Time scopolamine Allergy Intermediate Itching Verified 06/26/23 12:58 Home Meds Home Medications Medication Instructions Recorded Confirmed cholecalciferol (vitamin D3) 25 1,000 unit PO QAM 06/29/18 08/15/23 mcg (1,000 unit) capsule (Vitamin D3) clonazepam 0.5 mg tablet 0.5 mg PO BID 06/29/18 08/15/23 divalproex 500 mg tablet,delayed 500 mg PO HS 06/29/18 08/15/23 release fluvoxamine 150 mg 150 mg PO HS 06/29/18 08/15/23 capsule,extended release 24 hr olanzapine 10 mg tablet (Zyprexa) 10 mg PO HS 06/29/18 08/15/23 vitamin E 268 mg (400 unit) capsule 400 unit PO QAM 06/29/18 08/15/23 magnesium chloride 64 mg 128 mg PO TID 02/08/23 08/15/23 (magnesium chloride) tablet,delayed release (Mag 64) ondansetron HCl 8 mg tablet 8 mg PO Q8H PRN Nausea 06/23/23 08/15/23 prochlorperazine maleate 10 mg 10 mg PO Q6H PRN Nausea 06/23/23 08/15/23 tablet (Compazine) cyanocobalamin (vitamin B-12) 1,000 mcg PO QAM 08/15/23 08/15/23 1,000 mcg capsule folic acid 1 mg tablet 1 mg PO QAM 08/15/23 08/15/23 metformin 500 mg tablet 1,000 mg PO BID 08/15/23 08/15/23 potassium chloride 20 mEq 20 meq PO QAM 08/15/23 08/15/23 tablet,extended release prednisone 5 mg tablet 5 mg PO QAM 08/15/23 08/15/23 simvastatin 40 mg tablet 40 mg PO QAM 08/15/23 08/15/23 tamsulosin 0.4 mg capsule 0.4 mg PO QAM 08/15/23 08/15/23 Previous Rx's Medication Instructions Recorded Auto Titrating CPAP #1 ea 07/05/21 CPAP Supplies #1 ea 07/05/21 lancets (OneTouch UltraSoft #100 ea 04/05/22 Lancets) Portable Oxygen E0431 #1 ea 12/15/22 pen needle, diabetic 31 gauge x #1,200 ea 12/30/2207/21" (BD Ultra-Fine Mini Pen Needle) blood sugar diagnostic (Accu-Chek #100 ea 02/14/23 Guide test strips) blood sugar diagnostic (OneTouch #100 ea 03/01/23 Ultra Test strips) blood-glucose meter (OneTouch #1 ea 03/01/23 Ultra2 Meter) ezetimibe 10 mg tablet 10 mg PO QAM #90 tabs 06/08/23 insulin glargine 100 unit/mL (3 40 unit (0.4 mL) subcut QAM #15 mL 06/26/23 mL) subcutaneous pen (Lantus Solostar U-100 Insulin) clotrimazole-betamethasone 1 1 applic topical .qhs #45 grams 06/28/23 %-0.05 % topical cream dexamethasone 4 mg tablet 4 mg PO DAILY Balance issues #30 07/13/23 tabs memantine 10 mg tablet 10 mg PO BID To help memory #60 03/11/24 tabs albuterol sulfate 90 mcg/actuation 2 inh inhalation QID PRN shortness 08/09/23 aerosol inhaler (Ventolin HFA) of breath or wheezing #18 grams fluticasone fur. 100 mcg-umeclid 1 inh inhalation QAM #60 ea 08/09/23 62.5 mcg-vilant 25 mcg inhalat.powder (Trelegy Ellipta) Results & Data (ED) Vital Signs Vital Signs - 24 hr 08/15/23 15:25 08/15/23 15:29 08/15/23 16:50 Temperature 36.5 C Temperature Source Temporal Artery Scan Pulse Rate 104 H 97 H Pulse Rate [Apical] Pulse Rate from SpO2 Sensor 96 H Pulse Rhythm Regular Pulse Rhythm [Apical] Pulse Strength [Apical] Respiratory Rate 20 20 Respiratory Effort / Characteristics Non-Labored Spontaneous Respiratory Depth Normal Respiratory Pattern Blood Pressure 101/66 Blood Pressure [Right Arm] Blood Pressure Mean 77 Blood Pressure Mean [Right Arm] Pulse Oximetry 87 L 87 L 96 Oxygen Delivery Method Room Air Nasal Cannula Nasal Cannula Oxygen Flow Rate 0 4 Sepsis Recent Fever Within 48 Hours No Sepsis New/Unexplained Change in Mental Status No Sepsis Action Taken by Nursing No Action Required Pulse Oximetry Post Tiitration 95 08/15/23 17:00 08/15/23 17:00 08/15/23 17:30 Temperature Temperature Source Pulse Rate 97 H 100 H 96 H Pulse Rate [Apical] Pulse Rate from SpO2 Sensor 99 H 96 H Pulse Rhythm Pulse Rhythm [Apical] Pulse Strength [Apical] Respiratory Rate 18 22 Respiratory Effort / Characteristics Respiratory Depth Respiratory Pattern Blood Pressure 180/95 H Blood Pressure [Right Arm] Blood Pressure Mean 123 Blood Pressure Mean [Right Arm] Pulse Oximetry 95 98 Oxygen Delivery Method Nasal Cannula Room Air Oxygen Flow Rate 2 Sepsis Recent Fever Within 48 Hours Sepsis New/Unexplained Change in Mental Status Sepsis Action Taken by Nursing Pulse Oximetry Post Tiitration 08/15/23 18:04 08/15/23 18:10 08/15/23 18:20 Temperature Temperature Source Pulse Rate 89 90 Pulse Rate [Apical] Pulse Rate from SpO2 Sensor 90 90 95 H Pulse Rhythm Pulse Rhythm [Apical] Pulse Strength [Apical] Respiratory Rate 21 18 Respiratory Effort / Characteristics Respiratory Depth Respiratory Pattern Blood Pressure 129/88 Blood Pressure [Right Arm] Blood Pressure Mean 101 Blood Pressure Mean [Right Arm] Pulse Oximetry 99 99 97 Oxygen Delivery Method Nasal Cannula Oxygen Flow Rate 2 Sepsis Recent Fever Within 48 Hours Sepsis New/Unexplained Change in Mental Status Sepsis Action Taken by Nursing Pulse Oximetry Post Tiitration 08/15/23 18:30 08/15/23 18:40 08/15/23 19:00 Temperature Temperature Source Pulse Rate 95 H Pulse Rate [Apical] 86 Pulse Rate from SpO2 Sensor 98 H 95 H Pulse Rhythm Pulse Rhythm [Apical] Pulse Strength [Apical] Respiratory Rate 21 19 20 Respiratory Effort / Characteristics Labored Respiratory Depth Normal Respiratory Pattern Blood Pressure Blood Pressure [Right Arm] 138/97 Blood Pressure Mean Blood Pressure Mean [Right Arm] 110 Pulse Oximetry 96 98 94 Oxygen Delivery Method Oxygen Flow Rate Sepsis Recent Fever Within 48 Hours Sepsis New/Unexplained Change in Mental Status Sepsis Action Taken by Nursing Pulse Oximetry Post Tiitration 08/15/23 19:30 08/15/23 20:39 08/15/23 21:00 Temperature Temperature Source Pulse Rate 97 H Pulse Rate [Apical] 89 Pulse Rate from SpO2 Sensor Pulse Rhythm Pulse Rhythm [Apical] Regular Pulse Strength [Apical] Normal Respiratory Rate 20 Respiratory Effort / Characteristics Labored Respiratory Depth Normal Respiratory Pattern Regular Blood Pressure Blood Pressure [Right Arm] 141/94 H Blood Pressure Mean Blood Pressure Mean [Right Arm] 109 Pulse Oximetry 96 98 Oxygen Delivery Method Nasal Cannula Nasal Cannula Oxygen Flow Rate 2 2 Sepsis Recent Fever Within 48 Hours Sepsis New/Unexplained Change in Mental Status Sepsis Action Taken by Nursing Pulse Oximetry Post Tiitration Laboratory Data 08/15/23 15:55 08/15/23 15:55 Lab Results 08/15/23 08/15/23 08/15/23 Range/Units 15:55 16:20 19:16 WBC 2.54 L (4.8-10.8) K/ul RBC 2.88 L (4.70-6.10) M/uL Hgb 9.0 L (14.0-18.0) g/dl Hct 26.8 L (42.0-52.0) % MCV 93.1 (80.0-100.0) fL MCH 31.3 (25.0-34.0) pg MCHC 33.6 (32.0-36.0) g/dL RDW Std Deviation 42.5 (36.4-46.3) fL RDW Coeff of Catalino 12.7 (11.5-14.5) % Plt Count 45 L (130-400) K/uL MPV 11.2 (9.4-12.4) fL Immature Gran % (Auto) 0.4 % Neut % (Auto) 80.7 % Lymph % (Auto) 9.8 % [place] % (Auto) 8.7 % Eos % (Auto) 0.4 % Baso % (Auto) 0.0 % Neut # (Auto) 2.05 (1.40-6.50) K/uL Lymph # (Auto) 0.25 L (1.20-3.40) K/uL [place] # (Auto) 0.22 (0.11-0.59) K/uL Eos # (Auto) 0.01 (0.00-0.50) K/uL Baso # (Auto) 0.00 (0.00-0.20) K/uL Immature Gran # (Auto) 0.01 (0.01-0.20) K/uL Absolute Nucleated RBC 0.03 (0.00-0.12) K/uL Nucleated RBC % (auto) 1.2 % PT 12.4 H (9.0-12.0) Seconds INR 1.1 (0.9-1.1) APTT 29 (21-31) Seconds PTT Ratio 1.0 Sodium 141 (136-145) mmol/L Potassium 5.0 (3.5-5.1) mmol/L Chloride 109 H (98-107) mmol/L Carbon Dioxide 24 (21-32) mmol/L Anion Gap 8 (3-11) BUN 20 (6-23) mg/dl Creatinine 1.11 (0.6-1.4) mg/dl Est Cr Clr Drug Dosing Not Reportable Est GFR ( Amer) 81.5 ml/min Est GFR (Non-Af Amer) 70.3 ml/min BUN/Creatinine Ratio 18.0 (10-20) Glucose 236 H (70-99(Fasting)) mg/dl Calcium 8.9 (8.6-10.3) mg/dl Magnesium 1.4 L (1.7-2.4) mg/dl Total Bilirubin 0.6 (0.2-1.0) mg/dl AST 24 (13-39) U/L ALT 25 (7-52) U/L Alkaline Phosphatase 61 (34-104) U/L Troponin I High Sens 134.5 H* 123.6 H* (0-20) pg/ml B-Natriuretic Peptide 772 H (0-100) pg/ml Total Protein 6.7 (6.0-8.3) gm/dl Albumin 3.6 (3.4-5.0) gm/dl Globulin 3.1 (2.5-4.0) gm/dl Albumin/Globulin Ratio 1.2 (0.9-2) Procalcitonin 0.09 (0-0.5) ng/ml Adenovirus (PCR) Not Detected (NotDetected) B. pertussis DNA (PCR) Not Detected (NotDetected) B.parapertussis DNA PCR Not Detected (NotDetected) C. pneumoniae DNA (PCR) Not Detected (NotDetected) Coronavirus OC43 (PCR) Not Detected (NotDetected) Coronavirus HKU1 (PCR) Not Detected (NotDetected) Coronavirus 229E (PCR) Not Detected (NotDetected) SARS-CoV-2 (PCR) Not Detected (NotDetected) Coronavirus NL63 (PCR) Not Detected (NotDetected) Human Metapneumovir PCR Not Detected (NotDetected) Influenza Type A (PCR) Not Detected (NotDetected) Influenza Type B (PCR) Not Detected (NotDetected) M. pneumoniae (PCR) Not Detected (NotDetected) Parainfluenza 1 (PCR) Not Detected (NotDetected) Parainfluenza 2 (PCR) Not Detected (NotDetected) Parainfluenza 3 (PCR) Not Detected (NotDetected) Parainfluenza 4 (PCR) Not Detected (NotDetected) RSV (PCR) Not Detected (NotDetected) Entero/Rhino (PCR) Not Detected (NotDetected) Administered Medications Discontinued Medications Aspirin (Aspirin Chew 324 Mg) 324 mg PO NOW STA Stop: 08/15/23 18:47 Last Admin: 08/15/23 19:32 Dose: 324 mg Documented By: HB Furosemide (Furosemide 40 Mg/4 Ml Vial) 40 mg IV ONE ONE Stop: 08/15/23 17:15 Last Admin: 08/15/23 18:05 Dose: 40 mg Documented By: KMO Sodium Chloride (Nss) 500 mls @ 999 mls/hr IV .Q31M ONE Stop: 08/15/23 15:59 Last Infusion: 08/15/23 17:04 Dose: Infused Documented By: Admin: 08/15/23 16:00 Dose: 999 mls/hr Documented By: RAMYA Ioversol (Optiray 320 125ml) 118 ml IV ONCE ONE Stop: 08/15/23 17:52 Last Admin: 08/15/23 17:51 Dose: 118 ml Documented By: DERICK Imaging Data Radiologist's Impression: Chest CTA 08/15/23 15:29 CT angio chest PE protocol CLINICAL HISTORY: Dyspnea TECHNIQUE: Multidetector row helical CT of the chest was performed with angiographic protocol. Coronal and sagittal reformations were obtained. Coronal and sagittal MIPS were obtained from the axial data set and were submitted for review. Automated dose lowering techniques and/or adjustment according to patient size were utilized for this exam. CT DOSE: 975. mGy.cm Comparison: Comparison is made to CT chest 01/13/2023 FINDINGS: Lungs and pleura: Bronchiectasis and consolidative densities at the right upper and lower lobes. Groundglass opacities are seen in the bilateral lower lobes and in the left upper lobe. Small bilateral pleural effusions, right greater than left. Emphysema. Heart and pericardium: Heart size is normal. No pericardial effusion. Vessels: No evidence of pulmonary embolism. Mediastinum and omayra: Multiple mediastinal lymph nodes measure up to 13 mm in the aortopulmonary window, increased from prior exam. Left lower paratracheal node measures 12 mm, decreased from prior exam where it measures 17 mm. Chest wall and lower neck: Unremarkable. Abdomen: Unremarkable. Bones: Degenerative changes in the thoracic spine. IMPRESSION: 1. No evidence of pulmonary embolus. 2. Interval development of groundglass opacities in the bilateral lungs compatible with infectious/inflammatory process with reactive lymphadenopathy. 3. Redemonstration of post radiation fibrotic changes. 4. Small bilateral pleural effusions, right greater than left. ACT 112: Negative or not required by law. Electronically signed by: Prosper Valentino M.D. 08/15/2023 6:18 PM Discharge Plan Visit Data Chief Complaint: Shortness of Breath/Dyspnea Stated Complaint: REF BY DOC, TROUBLE BREATHNG ED Provider: Florin Suárez Discharge Problem: Elevated troponin Patient Disposition: Admitted As Inpatient Discharge Instructions Interventions: ED Discharge Assessment Last Done: 08/15/23 22:08
[2023-08-15 16:33] LABS: Alanine Aminotransferase 25 U/L (7-52); Albumin Globulin Ratio 1.2 (0.9-2); Albumin Level 3.6 gm/dl (3.4-5.0); Alkaline Phosphatase 61 U/L (34-104); Anion Gap 8 (3-11); Aspartate Aminotransferase 24 U/L (13-39); Bilirubin,Total 0.6 mg/dl (0.2-1.0); Blood Urea Nitrogen 20 mg/dl (6-23); Calcium 8.9 mg/dl (8.6-10.3); Carbon Dioxide 24 mmol/L (21-32); Chloride 109 mmol/L (98-107); Est GFR (African American) 81.5 ml/min; Est GFR (Non-African American) 70.3 ml/min; Globulin 3.1 gm/dl (2.5-4.0); Glucose 236 mg/dl (70-99(Fasting)); Magnesium 1.4 mg/dl (1.7-2.4); Sodium 141 mmol/L (136-145); Total Protein 6.7 gm/dl (6.0-8.3)
[2023-08-15 16:42] LABS: INR 1.1 (0.9-1.1); Partial Thromboplastin Time 29 Seconds (21-31); Prothrombin Time 12.4 Seconds (9.0-12.0)
[2023-08-15 16:48] LABS: Troponin I High Sensitivity 134.5 pg/ml (0-20)
[2023-08-15 17:45] LABS: Adenovirus PCR Not Detected (NotDetected); Bordetella parapertussis PCR Not Detected (NotDetected); Bordetella pertussis PCR Not Detected (NotDetected); Chlamydia pneumoniae PCR Not Detected (NotDetected); Coronavirus 229E PCR Not Detected (NotDetected); Coronavirus CoV-2 (COVID19)PCR Not Detected (NotDetected); Coronavirus HKU1 PCR Not Detected (NotDetected); Coronavirus NL63 PCR Not Detected (NotDetected); Coronavirus OC43PCR Not Detected (NotDetected); Human Metapneumovirus PCR Not Detected (NotDetected); Influenza A PCR Not Detected (NotDetected); Influenza B PCR Not Detected (NotDetected); Mycoplasma pneumoniae PCR Not Detected (NotDetected); Parainfluenza Virus 1 PCR Not Detected (NotDetected); Parainfluenza Virus 2 PCR Not Detected (NotDetected); Parainfluenza Virus 3 PCR Not Detected (NotDetected); Parainfluenza Virus 4 PCR Not Detected (NotDetected); Respiratory Syncytial VirusPCR Not Detected (NotDetected); Rhinovirus/Enterovirus PCR Not Detected (NotDetected)
[2023-08-15] MEDS: OPTIRAY 320 125ml IV ONE (17:51)
[2023-08-15] MEDS: FUROSEMIDE 40 MG/4 ML VIAL IV ONE (18:05)
--- NOTE | 2023-08-15 18:19 | CT Scan Report ---
CT angio chest PE protocol CLINICAL HISTORY: Dyspnea TECHNIQUE: Multidetector row helical CT of the chest was performed with angiographic protocol. Osorio l and sagittal reformations were obtained. Coronal and sagittal MIPS were obtained from the axial susana a set and were submitted for review. Automated dose lowering techniques and/or adjustment according to patient size were utilized for this exam. CT DOSE: 975. mGy.cm Comparison: Comparison is made to CT chest 01/13/2023 FINDINGS: Lungs and pleura: Bronchiectasis and consolidative densities at the right upper and lower lobes. Grou ndglass opacities are seen in the bilateral lower lobes and in the left upper lobe. Small bilateral p leural effusions, right greater than left. Emphysema. Heart and pericardium: Heart size is normal. No pericardial effusion. Vessels: No evidence of pulmonary embolism. Mediastinum and omayra: Multiple mediastinal lymph nodes measure up to 13 mm in the aortopulmonary wind ow, increased from prior exam. Left lower paratracheal node measures 12 mm, decreased from prior exam where it measures 17 mm. Chest wall and lower neck: Unremarkable. Abdomen: Unremarkable. Bones: Degenerative changes in the thoracic spine. IMPRESSION: 1. No evidence of pulmonary embolus. 2. Interval development of groundglass opacities in the bilateral lungs compatible with infectious/i nflammatory process with reactive lymphadenopathy. 3. Redemonstration of post radiation fibrotic changes. 4. Small bilateral pleural effusions, right greater than left. ACT 112: Negative or not required by law. Electronically signed by: Prosper Valentino M.D. 08/15/2023 6:18 PM
[2023-08-15] MEDS: ASPIRIN CHEW 324 MG PO STA (19:32)
[2023-08-15] MEDS ORDERED: ALBUTEROL 0.5% NEB SOLN 2.5 MG/0.5 ML VIAL NEB PRN (22:13)
[2023-08-15] MEDS ORDERED: GLUCAGON FOR INJ 1 MG VIAL SQ PRN (22:13)
[2023-08-15] MEDS ORDERED: DEXTROSE 50% 50 ML SYRINGE IV PRN (22:13)
[2023-08-15] MEDS ORDERED: CARBOHYDRATES FOR HYPOGLYCEMIA PO PRN (22:13)
[2023-08-15] MEDS ORDERED: GLUCOSE 10 TAB/TUBE PO PRN (22:13)
[2023-08-15] MEDS ORDERED: ONDANSETRON INJ 2 MG/ML 2 ML VIAL IV PRN (22:13)
[2023-08-15] MEDS ORDERED: GLUCOSE 40% GEL 15 GM TUBE PO PRN (22:13)
[2023-08-15] MEDS: MAGNESIUM SULFATE / D5W 1 GM/100 ML BAG IV SCH (22:54)
[2023-08-15] MEDS: INSULIN ASPART PER UNIT CHARGE SC SCH (22:59)
[2023-08-15] MEDS: clonazePAM 0.5 MG TAB PO SCH (22:59)
[2023-08-15] MEDS: MEMANTINE HCL 10 MG TAB PO SCH (23:01)
[2023-08-15] MEDS: OLANZapine 10 MG TAB PO SCH (23:01)
[2023-08-15] MEDS: fluvoxaMINE MALEATE 50 MG TAB PO SCH (23:02)
[2023-08-15] MEDS: DIVALPROEX DELAY RELEASE 500 MG TAB PO SCH (23:02)
[2023-08-15] MEDS: CLOTRIMAZOLE/BETAMETHASONE CR 15 GM TUBE EXT SCH (23:03)
[2023-08-15] MEDS: LANTUS PER UNIT CHARGE SQ SCH (23:05)
[2023-08-15] MEDS: ALBUT/IPRATROP 3MG/0.5MG NEB 3 ML VIAL NEB SCH (23:38)
[2023-08-15] MEDS: ALBUT/IPRATROP 3MG/0.5MG NEB 3 ML VIAL ONE (23:38)
--- NOTE | 2023-08-16 05:08 | History & Physical Report ---
Date of Service August 15, 2023 Assessment & Plan (1) Shortness of breath: Plan: Patient with lung cancer as well as COPD, diastolic CHF and EDUARD. Suspect that current episode of SOB is secondary to acute on chronic diastolic heart failure with volume overload. He is responding well to Lasix administered in the ER Elevation of BNP and troponin likely secondary to acute on chronic CHF. -Continue lasix 40mg IV daily -Daily weights -Intake and output -Check 2D echo -Continue supplemental O2 (2) Lung cancer metastatic to brain: Plan: Patient undergoing chemotherapy. Last treatment was 1 week ago. He is due next Monday -Continue treatment (3) Alcohol abuse: Plan: Patient occasionally drinks beer. Last drink was 08/04/23. No report of withdrawal symptoms (4) Diabetes mellitus, type 2: Plan: Chronic. Last [id number] -Continue Lantus 20u BID -ISS (5) COPD (chronic obstructive pulmonary disease): Plan: Chronic -Continue Umeclidinium/Vilanterol -DuoNeb PRN -Albuterol PRN Admission and Anticipated Discharge Date Admission Date: August 15, 2023 History of Present Illness Chief Complaint: dyspnea on exertion Primary Care Provider: Jah Brown DO Feliz Evans is a pleasant 63yo male with history of metastatic lung cancer, DM, GERD, Schizophrenia who was sent to the ER by Oncology with report of SOB/LOVE. Hypoxic in the office at 84% on room air. Patient reports symptoms have been progressive for the last 5 days. He has an occasional dry cough and some chest discomfort. Had some mild nausea and constipation as well. Denies fever, chills, edema, orthopnea. No sick contacts or recent travel. In the ER patient is afebrile, hypoxic at 87% on room air improved with 2L NC to 98% ER Course: ASA Lasix 40mg IV NSS Allergies Allergy/AdvReac Type Severity Reaction Status Date / Time scopolamine Allergy Intermediate Itching Verified 06/26/23 12:58 Home Medications Medication Instructions Recorded Confirmed Type cholecalciferol (vitamin D3) 25 1,000 unit PO QAM 06/29/18 08/15/23 History mcg (1,000 unit) capsule (Vitamin D3) clonazepam 0.5 mg tablet 0.5 mg PO BID 06/29/18 08/15/23 History divalproex 500 mg tablet,delayed 500 mg PO HS 06/29/18 08/15/23 History release fluvoxamine 150 mg 150 mg PO HS 06/29/18 08/15/23 History capsule,extended release 24 hr olanzapine 10 mg tablet (Zyprexa) 10 mg PO HS 06/29/18 08/15/23 History vitamin E 268 mg (400 unit) capsule 400 unit PO QAM 06/29/18 08/15/23 History Auto Titrating CPAP #1 ea 07/05/21 08/15/23 Rx CPAP Supplies #1 ea 07/05/21 08/15/23 Rx lancets (OneTouch UltraSoft #100 ea 04/05/22 08/15/23 Rx Lancets) Portable Oxygen E0431 #1 ea 12/15/22 08/15/23 Rx pen needle, diabetic 31 gauge x #1,200 ea 12/30/22 08/15/23 Rx 3/16" (BD Ultra-Fine Mini Pen Needle) magnesium chloride 64 mg 128 mg PO TID 02/08/23 08/15/23 History (magnesium chloride) tablet,delayed release (Mag 64) blood sugar diagnostic (Accu-Chek #100 ea 02/14/23 08/15/23 Rx Guide test strips) blood sugar diagnostic (OneTouch #100 ea 03/01/23 08/15/23 Rx Ultra Test strips) blood-glucose meter (OneTouch #1 ea 03/01/23 08/15/23 Rx Ultra2 Meter) ezetimibe 10 mg tablet 10 mg PO QAM #90 tabs 06/08/23 08/15/23 Rx ondansetron HCl 8 mg tablet 8 mg PO Q8H PRN Nausea 06/23/23 08/15/23 History prochlorperazine maleate 10 mg 10 mg PO Q6H PRN Nausea 06/23/23 08/15/23 History tablet (Compazine) insulin glargine 100 unit/mL (3 40 unit (0.4 mL) subcut QAM #15 mL 06/26/23 08/15/23 Rx mL) subcutaneous pen (Lantus Solostar U-100 Insulin) clotrimazole-betamethasone 1 1 applic topical .qhs #45 grams 06/28/23 08/15/23 Rx %-0.05 % topical cream dexamethasone 4 mg tablet 4 mg PO DAILY Balance issues #30 07/13/23 08/15/23 Rx tabs memantine 10 mg tablet 10 mg PO BID To help memory #60 07/17/23 08/15/23 Rx tabs albuterol sulfate 90 mcg/actuation 2 inh inhalation QID PRN shortness 08/09/23 08/15/23 Rx aerosol inhaler (Ventolin HFA) of breath or wheezing #18 grams fluticasone fur. 100 mcg-umeclid 1 inh inhalation QAM #60 ea 08/09/23 08/15/23 Rx 62.5 mcg-vilant 25 mcg inhalat.powder (Trelegy Ellipta) cyanocobalamin (vitamin B-12) 1,000 mcg PO QAM 08/15/23 08/15/23 History 1,000 mcg capsule folic acid 1 mg tablet 1 mg PO QAM 08/15/23 08/15/23 History metformin 500 mg tablet 1,000 mg PO BID 08/15/23 08/15/23 History potassium chloride 20 mEq 20 meq PO QAM 08/15/23 08/15/23 History tablet,extended release prednisone 5 mg tablet 5 mg PO QAM 08/15/23 08/15/23 History simvastatin 40 mg tablet 40 mg PO QAM 08/15/23 08/15/23 History tamsulosin 0.4 mg capsule 0.4 mg PO QAM 08/15/23 08/15/23 History Past Med/Surg History Medical History Venous stasis dermatitis Anxiety and depression Benign essential tremor Esophageal reflux Urinary incontinence Alcohol abuse 10-12 DRINKS PER DAY Schizophrenia Pulmonary HTN "MILD" RVSP 40MMHG PER 2016 STRESS ECHO- NO ISSUES NOTED WITH 2020 ECHO Chronic back pain OCD (obsessive compulsive disorder) Surgical History History of cataract surgery right/left History of bronchoscopy Spring 2021 H/O tooth extraction 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 History of biopsy of bladder TURBT= 11/28/17= LMA#5 AT [facility] H/O exploratory laparotomy GALLBLADDER LESION EXCISION History of cystoscopy WITH STONE EXTRACTION X 2 History of open reduction and internal fixation (ORIF) procedure LEFT SHOULDER Family History Father Prostate cancer Family history of diabetes mellitus Myocardial infarction Aunt Family history of diabetes mellitus Uncle Family history of diabetes mellitus Family/Other Family history of diabetes mellitus Mother Diabetes Alzheimer disease Grandfather (Paternal) Cardiac disorder Cancer Colon Cancer Brother Kidney stones Other Heart disease No family history of adverse response to anesthesia Denies family history of Crohn's disease Colorectal cancer Lung disease Inflammatory bowel disease Asthma Social History Smoking Status: Former smoker Tobacco Type: Cigarettes Age Started Using Tobacco: 12; Age Quit Using Tobacco: 61; packs per day: 0.5; Cigarettes Per Day: 10; Second Hand Exposure: No; Do You Dip or Chew Tobacco: No; Tobacco Cessation Education Requested by Patient: No Hx Alcohol Use: No Hx Substance Use: No Preferred Language: Ukrainian Communication Ability: Effective Visual Impairment: Limited Hearing Ability: Normal Dairy Husbandry Teacher Required: No Beliefs That Will Affect Care: None marital status: Single Current Living Situation: Alone Current Living Situation Comment: pt has been living with sister for several weeks during chemo rx current occupational status: disabled Other Information That Helps Us Care for You: No Feels Safe at Home: Yes Safety Concerns: Feels Safe At This Time Safety Concerns Comment: Currently living with his sister due to chemo/ radiation/illness in current or past relationships, have you been: other Diet: regular caffeine: Yes Dental Care, Regularly: No Physical Activity Frequency: 1-2 Times per Week Seatbelt Use: always Assistive Devices: Glasses, Oxygen - at Night and Walker Assistive Devices Comment: glasses Review of Systems Review of Systems: All systems reviewed & are unremarkable except as noted in HPI & below Physical Exam Physical Exam: General: patient resting comfortably, NAD, non-toxic in appearance, AA&O x 4 Skin: warm, dry, intact, no rashes or lesions HEENT: NC/AT, PERRL, EOMI, anicteric sclera, conjunctiva without injection, external ear normal to inspection and nontender, nares patent, moist mucus membranes, dentition intact, no oropharyngeal lesions, neck supple, trachea midline, no LAD, no thyromegaly, no JVD Heart: +S1/S2, regular, no m/r/g Lungs: equal air entry bilaterally, mild crackles in bilateral bases Abd: +BS, soft, NT/ND, no masses/organomegaly/ascites Ext: warm, 2+ pulses in UE/LE bilaterally, no clubbing/cyanosis or edema, ulcer on dorsal surface of toe, no purulence Neuro: nonfocal, patient AA&O x 4, speech intact, no facial droop, moving all extremities on command with equal strength 5/5 Results & Data Results & Data Vital Signs (Past 12 Hours) Vital Signs Temp Pulse Pulse Pulse Resp BP BP 08/16/23 04:21 37.1 C 68 16 129/71 08/16/23 02:20 84 16 08/15/23 23:54 100 H 19 08/15/23 23:39 101 H 19 08/15/23 22:18 08/15/23 22:18 36.4 C L 97 H 14 149/89 H 08/15/23 22:16 36.4 C L 97 H 14 149/89 H 08/15/23 21:00 89 20 141/94 H 08/15/23 20:39 97 H 08/15/23 19:30 08/15/23 19:00 86 20 138/97 08/15/23 18:40 95 H 19 08/15/23 18:30 21 08/15/23 18:20 18 08/15/23 18:10 90 21 08/15/23 18:04 89 129/88 08/15/23 17:30 96 H 22 08/15/23 17:00 100 H 18 180/95 H 08/15/23 17:00 97 H Pulse Ox O2 Del Method O2 Flow Rate 08/16/23 04:21 95 Room Air 08/16/23 02:20 98 2 08/15/23 23:54 94 08/15/23 23:39 95 Nasal Cannula 3 08/15/23 22:18 Nasal Cannula 2 08/15/23 22:18 96 Nasal Cannula 2 08/15/23 22:16 96 Nasal Cannula 2 08/15/23 21:00 98 Nasal Cannula 2 08/15/23 20:39 08/15/23 19:30 96 Nasal Cannula 2 08/15/23 19:00 94 08/15/23 18:40 98 08/15/23 18:30 96 08/15/23 18:20 97 08/15/23 18:10 99 08/15/23 18:04 99 Nasal Cannula 2 08/15/23 17:30 98 Room Air 08/15/23 17:00 95 Nasal Cannula 2 08/15/23 17:00 Laboratory Results Laboratory Results WBC 2.54 K/ul (4.8-10.8) L 08/15/23 15:55 RBC 2.88 M/uL (4.70-6.10) L 08/15/23 15:55 Hgb 9.0 g/dl (14.0-18.0) L 08/15/23 15:55 Hct 26.8 % (42.0-52.0) L 08/15/23 15:55 MCV 93.1 fL (80.0-100.0) 08/15/23 15:55 MCH 31.3 pg (25.0-34.0) 08/15/23 15:55 MCHC 33.6 g/dL (32.0-36.0) 08/15/23 15:55 RDW Std Deviation 42.5 fL (36.4-46.3) 08/15/23 15:55 RDW Coeff of Catalino 12.7 % (11.5-14.5) 08/15/23 15:55 Plt Count 45 K/uL (130-400) L 08/15/23 15:55 MPV 11.2 fL (9.4-12.4) 08/15/23 15:55 Immature Gran % (Auto) 0.4 % 08/15/23 15:55 Neut % (Auto) 80.7 % 08/15/23 15:55 Lymph % (Auto) 9.8 % 08/15/23 15:55 Gilchrist % (Auto) 8.7 % 08/15/23 15:55 Eos % (Auto) 0.4 % 08/15/23 15:55 Baso % (Auto) 0.0 % 08/15/23 15:55 Neut # (Auto) 2.05 K/uL (1.40-6.50) 08/15/23 15:55 Lymph # (Auto) 0.25 K/uL (1.20-3.40) L 08/15/23 15:55 Gilchrist # (Auto) 0.22 K/uL (0.11-0.59) 08/15/23 15:55 Eos # (Auto) 0.01 K/uL (0.00-0.50) 08/15/23 15:55 Baso # (Auto) 0.00 K/uL (0.00-0.20) 08/15/23 15:55 Immature Gran # (Auto) 0.01 K/uL (0.01-0.20) 08/15/23 15:55 Absolute Nucleated RBC 0.03 K/uL (0.00-0.12) 08/15/23 15:55 Nucleated RBC % (auto) 1.2 % 08/15/23 15:55 PT 12.4 Seconds (9.0-12.0) H 08/15/23 15:55 INR 1.1 (0.9-1.1) 08/15/23 15:55 APTT 29 Seconds (21-31) 08/15/23 15:55 PTT Ratio 1.0 08/15/23 15:55 Sodium 141 mmol/L (136-145) 08/15/23 15:55 Potassium 5.0 mmol/L (3.5-5.1) 08/15/23 15:55 Chloride 109 mmol/L (98-107) H 08/15/23 15:55 Carbon Dioxide 24 mmol/L (21-32) 08/15/23 15:55 Anion Gap 8 (3-11) 08/15/23 15:55 BUN 20 mg/dl (6-23) 08/15/23 15:55 Creatinine 1.11 mg/dl (0.6-1.4) 08/15/23 15:55 Est Cr Clr Drug Dosing Not Reportable 08/15/23 15:55 Est GFR ( Amer) 81.5 ml/min 08/15/23 15:55 Est GFR (Non-Af Amer) 70.3 ml/min 08/15/23 15:55 BUN/Creatinine Ratio 18.0 (10-20) 08/15/23 15:55 Glucose 236 mg/dl (70-99(Fasting)) H 08/15/23 15:55 POC Glucose 80 mg/dl (70-99) 08/15/23 22:54 Calcium 8.9 mg/dl (8.6-10.3) 08/15/23 15:55 Magnesium 1.4 mg/dl (1.7-2.4) L 08/15/23 15:55 Total Bilirubin 0.6 mg/dl (0.2-1.0) 08/15/23 15:55 AST 24 U/L (13-39) 08/15/23 15:55 ALT 25 U/L (7-52) 08/15/23 15:55 Alkaline Phosphatase 61 U/L (34-104) 08/15/23 15:55 Troponin I High Sens 123.6 pg/ml (0-20) H* 08/15/23 19:16 B-Natriuretic Peptide 772 pg/ml (0-100) H 08/15/23 15:55 Total Protein 6.7 gm/dl (6.0-8.3) 08/15/23 15:55 Albumin 3.6 gm/dl (3.4-5.0) 08/15/23 15:55 Globulin 3.1 gm/dl (2.5-4.0) 08/15/23 15:55 Albumin/Globulin Ratio 1.2 (0.9-2) 08/15/23 15:55 Procalcitonin 0.09 ng/ml (0-0.5) 08/15/23 19:16 Adenovirus (PCR) Not Detected (NotDetected) 08/15/23 16:20 B. pertussis DNA (PCR) Not Detected (NotDetected) 08/15/23 16:20 B.parapertussis DNA PCR Not Detected (NotDetected) 08/15/23 16:20 C. pneumoniae DNA (PCR) Not Detected (NotDetected) 08/15/23 16:20 Coronavirus OC43 (PCR) Not Detected (NotDetected) 08/15/23 16:20 Coronavirus HKU1 (PCR) Not Detected (NotDetected) 08/15/23 16:20 Coronavirus 229E (PCR) Not Detected (NotDetected) 08/15/23 16:20 SARS-CoV-2 (PCR) Not Detected (NotDetected) 08/15/23 16:20 Coronavirus NL63 (PCR) Not Detected (NotDetected) 08/15/23 16:20 Human Metapneumovir PCR Not Detected (NotDetected) 08/15/23 16:20 Influenza Type A (PCR) Not Detected (NotDetected) 08/15/23 16:20 Influenza Type B (PCR) Not Detected (NotDetected) 08/15/23 16:20 M. pneumoniae (PCR) Not Detected (NotDetected) 08/15/23 16:20 Parainfluenza 1 (PCR) Not Detected (NotDetected) 08/15/23 16:20 Parainfluenza 2 (PCR) Not Detected (NotDetected) 08/15/23 16:20 Parainfluenza 3 (PCR) Not Detected (NotDetected) 08/15/23 16:20 Parainfluenza 4 (PCR) Not Detected (NotDetected) 08/15/23 16:20 RSV (PCR) Not Detected (NotDetected) 08/15/23 16:20 Entero/Rhino (PCR) Not Detected (NotDetected) 08/15/23 16:20 Impressions Chest CTA 08/15/23 15:29 CT angio chest PE protocol CLINICAL HISTORY: Dyspnea TECHNIQUE: Multidetector row helical CT of the chest was performed with angiographic protocol. Coronal and sagittal reformations were obtained. Coronal and sagittal MIPS were obtained from the axial data set and were submitted for review. Automated dose lowering techniques and/or adjustment according to patient size were utilized for this exam. CT DOSE: 975. mGy.cm Comparison: Comparison is made to CT chest 01/13/2023 FINDINGS: Lungs and pleura: Bronchiectasis and consolidative densities at the right upper and lower lobes. Groundglass opacities are seen in the bilateral lower lobes and in the left upper lobe. Small bilateral pleural effusions, right greater than left. Emphysema. Heart and pericardium: Heart size is normal. No pericardial effusion. Vessels: No evidence of pulmonary embolism. Mediastinum and omayra: Multiple mediastinal lymph nodes measure up to 13 mm in the aortopulmonary window, increased from prior exam. Left lower paratracheal node measures 12 mm, decreased from prior exam where it measures 17 mm. Chest wall and lower neck: Unremarkable. Abdomen: Unremarkable. Bones: Degenerative changes in the thoracic spine. IMPRESSION: 1. No evidence of pulmonary embolus. 2. Interval development of groundglass opacities in the bilateral lungs compatible with infectious/inflammatory process with reactive lymphadenopathy. 3. Redemonstration of post radiation fibrotic changes. 4. Small bilateral pleural effusions, right greater than left. ACT 112: Negative or not required by law. Electronically signed by: Prosper Valentino M.D. 08/15/2023 6:18 PM Medications Administered Albuterol (Albut/Ipratrop 3mg/0.5mg Neb 3 Ml Vial) 3 ml NEB Q6R [facility]; Protocol Stop: 09/15/23 00:59 Last Admin: 08/15/23 23:38 Dose: 3 ml Documented By: HMYocasta Betamethasone/Clotrimazole (Clotrimazole/Betamethasone Cr 15 Gm Tube) 1 appln EXT [facility] Stop: 09/14/23 22:12 Last Admin: 08/15/23 23:03 Dose: 1 appln Documented By: JAVID Clonazepam (Clonazepam 0.5 Mg Tab) 0.5 mg PO BID [facility] Stop: 09/14/23 22:12 Last Admin: 08/15/23 22:59 Dose: 0.5 mg Documented By: JAVID Divalproex Sodium (Divalproex Delay Release 500 Mg Tab) 500 mg PO [facility] Stop: 09/14/23 22:12 Last Admin: 08/15/23 23:02 Dose: 500 mg Documented By: AMS Fluvoxamine Maleate (Fluvoxamine Maleate 50 Mg Tab) 150 mg PO [facility] Stop: 09/14/23 22:12 Last Admin: 08/15/23 23:02 Dose: 150 mg Documented By: JAVID Insulin Aspart (Insulin Aspart Per Unit Charge) 0 units SC ACHS [facility] Stop: 09/14/23 22:12 Last Admin: 08/15/23 22:59 Dose: Not Given Documented By: AMS Insulin Glargine (Lantus Per Unit Charge) 20 units SQ BID [facility] Stop: 09/14/23 22:12 Last Admin: 08/15/23 23:05 Dose: Not Given Documented By: AMS Memantine (Memantine Hcl 10 Mg Tab) 10 mg PO BID [facility] Stop: 09/14/23 22:12 Last Admin: 08/15/23 23:01 Dose: 10 mg Documented By: AMS Olanzapine (Olanzapine 10 Mg Tab) 10 mg PO [facility] Stop: 09/14/23 22:12 Last Admin: 08/15/23 23:01 Dose: 10 mg Documented By: AMS Discontinued Medications Albuterol (Albut/Ipratrop 3mg/0.5mg Neb 3 Ml Vial) Confirm Administered Dose 3 ml .ROUTE .STK-MED ONE Stop: 08/15/23 23:36 Last Admin: 08/15/23 23:38 Dose: Not Given Documented By: HMR Aspirin (Aspirin Chew 324 Mg) 324 mg PO NOW STA Stop: 08/15/23 18:47 Last Admin: 08/15/23 19:32 Dose: 324 mg Documented By: SINAN Furosemide (Furosemide 40 Mg/4 Ml Vial) 40 mg IV ONE ONE Stop: 08/15/23 17:15 Last Admin: 08/15/23 18:05 Dose: 40 mg Documented By: ASHOK Sodium Chloride (Nss) 500 mls @ 999 mls/hr IV .Q31M ONE Stop: 08/15/23 15:59 Last Infusion: 08/15/23 17:04 Dose: Infused Documented By: Admin: 08/15/23 16:00 Dose: 999 mls/hr Documented By: RAMYA Magnesium Sulfate/Dextrose (Magnesium Sulfate / D5w) 1 gm in 100 mls @ 50 mls/hr IV Q2H [facility] Stop: 08/16/23 04:12 Last Infusion: 08/16/23 04:43 Dose: Infused Documented By: Admin: 08/16/23 02:27 Dose: 50 mls/hr Documented By: Infusion: 08/16/23 02:27 Dose: Infused Documented By: Admin: 08/16/23 00:41 Dose: 50 mls/hr Documented By: Infusion: 08/16/23 00:41 Dose: Infused Documented By: Admin: 08/15/23 22:54 Dose: 50 mls/hr Documented By: JAVID Ioversol (Optiray 320 125ml) 118 ml IV ONCE ONE Stop: 08/15/23 17:52 Last Admin: 08/15/23 17:51 Dose: 118 ml Documented By: DERICK Code Status & VTE Plan VTE Prophylaxis Plan VTE Prophylaxis will be ordered: Yes PG Care Time/CCT Total # of Minutes Spent Total Time Spent with Patient: Total time spent is greater than 50% in coordination of care (as documented) at patient's floor/unit and/or counseling patient: Coding Level of Care Code 67687 INT INP/OBS CARE 3/75MIN Diagnoses Shortness of breath R06.02 Lung cancer metastatic to brain C34.90; C79.31 Alcohol abuse F10.10 Type 2 diabetes mellitus with diabetic polyneuropathy, without long-term current use of insulin E11.42 Diabetes mellitus rodent exterminator insulin use: without shelter use Diabetes mellitus complication status: with neurologic complications Diabetes mellitus complication detail: with polyneuropathy COPD (chronic obstructive pulmonary disease) J44.9 (4) Diabetes mellitus, type 2 Diabetes mellitus rodent exterminator insulin use: without rodent exterminator use Diabetes mellitus complication status: with neurologic complications Diabetes mellitus complication detail: with polyneuropathy Qualified Code(s): E11.42 - Type 2 diabetes mellitus with diabetic polyneuropathy
[2023-08-16] MEDS: FLUTICASONE FUROATE 100MCG 14 PUFFS/INHALER INH SCH (08:19)
[2023-08-16] MEDS: TAMSULOSIN HCL 0.4 MG CAP PO SCH (08:19)
[2023-08-16] MEDS: EZETIMIBE 10 MG TAB PO SCH (08:19)
[2023-08-16] MEDS: UMECLIDINIUM/VILANTEROL 62.5/25MCG 7 PUFFS/INHALER INH SCH (08:19)
[2023-08-16 08:20] LABS: Hematocrit (blood only) 26.3 % (42.0-52.0); Hemoglobin 8.9 g/dl (14.0-18.0); Mean Corpuscular Hemoglobin 31.4 pg (25.0-34.0); Mean Corpuscular Hgb Conc 33.8 g/dL (32.0-36.0); Mean Corpuscular Volume 92.9 fL (80.0-100.0); Mean Platelet Volume 10.5 fL (9.4-12.4); Platelet Count 42 K/uL (130-400); RDW Coefficient of Variation 12.5 % (11.5-14.5); RDW Standard Deviation 41.8 fL (36.4-46.3); Red Blood Count 2.83 M/uL (4.70-6.10); White Blood Count 2.63 K/ul (4.8-10.8)
[2023-08-16] MEDS: predniSONE 5 MG TAB PO SCH (08:20)
[2023-08-16] MEDS: FUROSEMIDE 40 MG/4 ML VIAL IV SCH (08:20)
[2023-08-16] MEDS: SIMVASTATIN 40 MG TAB PO SCH (08:20)
[2023-08-16] MEDS: FOLIC ACID 1 MG TAB PO SCH (08:20)
[2023-08-16] MEDS ORDERED: dexAMETHasone 4 MG TAB PO SCH (09:00)
[2023-08-16] MEDS ORDERED: NON-FORMULARY MEDICATION (Fluticasone-Umeclidin-Vilanter [Trelegy Ellipta] 100-62.5-25 mcg INH SCH (09:00)
[2023-08-16 09:44] LABS: BUN Creatinine Ratio 16.5 (10-20); Calcium 8.7 mg/dl (8.6-10.3); Creatinine Clr Calc Pharmacy 113.4 ml/min; Est GFR (African American) 103.6 ml/min; Est GFR (Non-African American) 89.4 ml/min; Magnesium 1.9 mg/dl (1.7-2.4); Potassium 3.4 mmol/L (3.5-5.1)
[2023-08-16] MEDS: POTASSIUM CHLORIDE CRTAB 20 MEQ TABCR PO STA (10:40)
[2023-08-16] MEDS: ACETAMINOPHEN 325 MG TAB PO PRN (12:29)
--- NOTE | 2023-08-16 13:08 | Pulmonary Consultation ---
Date of Consultation August 16, 2023 Assessment & Plan (1) Abnormal chest CT: (2) Lung cancer metastatic to brain: (3) COPD (chronic obstructive pulmonary disease): (4) Severe sleep apnea: Plan IMPRESSION: 63-year-old male with a significant past medical history of non- small cell lung cancer, COPD, severe obstructive sleep apnea, diabetes, and hypertension who presents with worsening hypoxemia in the setting of infiltrative changes noted on CT. RECOMMENDATIONS: 1. Abnormal chest CT - Groundglass opacities noted in a nonsymmetrical pattern to the lower airways. Differential for these findings are significantly broad, particularly patient who is currently undergoing chemotherapy and is with prior concerning pulmonary interactions to other chemotherapeutic agents. Given his negative white count, procalcitonin, and lack of fever, bacterial etiologies are much less likely at this time. Patient does feel better after administration of Lasix. Would continue with prior home dose of Lasix moving forward as this certainly could be contributing as well. Will start the patient on 40 mg prednisone daily orally as well as PJP prophylaxis empirically. We will continue this course until he can be seen in the outpatient setting and reassessment of his symptoms. Steroids in the setting of possible viral infiltrative process versus reaction to chemotherapeutic agent. Uncertain of the utility of antibiotics otherwise. Patient can be seen in our outpatient clinic in the next 2 weeks with his primary food science technician. Certainly, if his symptoms change or worsen, this may indicate need for bronchoscopic evaluation with washing. Certainly does not appear to be at that point right now and would not proceed with bronchoscopic evaluation in his current presentation. 2. Hypoxia - Multifactorial in a patient with severe COPD, lung cancer, and new CT findings. Currently saturating well on 2 L nasal cannula. Agree with two- step study to evaluate oxygen requirement. Patient will likely require oxygen upon discharge to home. He has currently been arranged with this so this should not be an issue. 3. COPD - Does not appear to be in exacerbation at this point. Continue with home inhalers and nebulizers. 4. Lung cancer - [facility] Chest CT findings as above. Defer to their ongoing management in regard to his lung cancer diagnosis. 5. Severe sleep apnea - Continue with home CPAP settings. Thank you for allowing us to participate in the care of this pleasant patient. Supervising Physician Co-Signing Physician Notes Patient seen and examined. EMR reviewed. Images were independently reviewed. Discussed extensively with LILIANA and agree with assessment plan as noted. The CT scan does demonstrate some focal areas of groundglass opacity. The differential for these is quite broad and would include infectious, inflammatory, hydrostatic pulmonary edema, and potential malignant processes. We discussed an invasive approach to include bronchoscopy which the patient and his sister would like to avoid at this point in time. Given that, would recommend pursuing treating potentially reversible causes. He previously had pneumonitis related to Durvalumab which can recur with discontinuation of steroids. Recommend placing him back on prednisone at 40 mg a day. Keep steroids in place until follow-up imaging. Would place on PJP prophylaxis until prednisone dose is below 20 mg a day. Would also recommend completing a course of antibiotics with coverage to include atypical agents. Restart his diuretics. Would plan on a repeat CT scan in 6 to 8 weeks and reassessment. Recommend the patient follow-up with Dr. Melgoza in the outpatient setting in a few weeks. Wean oxygen as tolerated. The patient already has supplemental oxygen at home. Had a long discussion with the patient and his sister at bedside. We discussed advanced directives and potential CODE STATUS. The patient states that in the event of cardiac or respiratory arrest he would not want to be resuscitated. We discussed what this means and reviewed DNR status. The patient and his sister agree that he would want to pursue DNR/DNI and orders will be updated appropriately. History of Present Illness Reason for Consultation: worsening hypoxia,lung cancer Requesting Physician: Dr. Joel Attending Physician: Tomeka Joel MD History of Present Illness Patient is a 63-year-old male with a significant past medical history of hypertension, hypercholesterolemia, severe sleep apnea, schizophrenia, alcohol abuse, type 2 diabetes, COPD, and non-small cell lung cancer who was admitted to this institution yesterday in the setting of increasing hypoxia with associated shortness of breath. Patient reports that he has had increasing shortness of breath on exertion since of last week. Unfortunate, the symptoms continue to progress and, when he was evaluated at his oncologist appointment yesterday, he was noted to be hypoxic with saturations in the low 80s. He was directed to the emergency department where he underwent CTA which showed groundglass infiltrative changes and trace bilateral effusions. Patient required 2 L nasal cannula and was admitted to the hospital service for ongoing evaluation and management. Upon evaluation in room 3811, the patient is awake, alert, and oriented. He is currently not wearing supplemental oxygen. He states that his breathing has improved somewhat as he has noticed decreased dyspnea at rest and with exertion. He offers no complaints of fevers, chills, recent upper respiratory infections, productive cough, sweats, nausea, vomiting, or abdominal discomfort. Sister is present in the room and provides some of the history and reports that his Lasix was discontinued a few weeks ago, however his volume status had appeared somewhat appropriate at that time. Allergies Allergy/AdvReac Type Severity Reaction Status Date / Time scopolamine Allergy Intermediate Itching Verified 06/26/23 12:58 Home Medications Medication Instructions Recorded Confirmed Type cholecalciferol (vitamin D3) 25 1,000 unit PO QAM 06/29/18 08/15/23 History mcg (1,000 unit) capsule (Vitamin D3) clonazepam 0.5 mg tablet 0.5 mg PO BID 06/29/18 08/15/23 History divalproex 500 mg tablet,delayed 500 mg PO HS 06/29/18 08/15/23 History release fluvoxamine 150 mg 150 mg PO HS 06/29/18 08/15/23 History capsule,extended release 24 hr olanzapine 10 mg tablet (Zyprexa) 10 mg PO HS 06/29/18 08/15/23 History vitamin E 268 mg (400 unit) capsule 400 unit PO QAM 06/29/18 08/15/23 History Auto Titrating CPAP #1 ea 07/05/21 08/15/23 Rx CPAP Supplies #1 ea 07/05/21 08/15/23 Rx lancets (OneTouch UltraSoft #100 ea 04/05/22 08/15/23 Rx Lancets) Portable Oxygen E0431 #1 ea 12/15/22 08/15/23 Rx pen needle, diabetic 31 gauge x #1,200 ea 12/30/22 08/15/23 Rx 3/16" (BD Ultra-Fine Mini Pen Needle) magnesium chloride 64 mg 128 mg PO TID 02/08/23 08/15/23 History (magnesium chloride) tablet,delayed release (Mag 64) blood sugar diagnostic (Accu-Chek #100 ea 02/14/23 08/15/23 Rx Guide test strips) blood sugar diagnostic (OneTouch #100 ea 03/01/23 08/15/23 Rx Ultra Test strips) blood-glucose meter (OneTouch #1 ea 03/01/23 08/15/23 Rx Ultra2 Meter) ezetimibe 10 mg tablet 10 mg PO QAM #90 tabs 06/08/23 08/15/23 Rx ondansetron HCl 8 mg tablet 8 mg PO Q8H PRN Nausea 06/23/23 08/15/23 History prochlorperazine maleate 10 mg 10 mg PO Q6H PRN Nausea 06/23/23 08/15/23 History tablet (Compazine) insulin glargine 100 unit/mL (3 40 unit (0.4 mL) subcut QAM #15 mL 06/26/23 08/15/23 Rx mL) subcutaneous pen (Lantus Solostar U-100 Insulin) clotrimazole-betamethasone 1 1 applic topical .qhs #45 grams 06/28/23 08/15/23 Rx %-0.05 % topical cream dexamethasone 4 mg tablet 4 mg PO DAILY Balance issues #30 07/13/23 08/15/23 Rx tabs memantine 10 mg tablet 10 mg PO BID To help memory #60 07/17/23 08/15/23 Rx tabs albuterol sulfate 90 mcg/actuation 2 inh inhalation QID PRN shortness 08/09/23 08/15/23 Rx aerosol inhaler (Ventolin HFA) of breath or wheezing #18 grams fluticasone fur. 100 mcg-umeclid 1 inh inhalation QAM #60 ea 08/09/23 08/15/23 Rx 62.5 mcg-vilant 25 mcg inhalat.powder (Trelegy Ellipta) cyanocobalamin (vitamin B-12) 1,000 mcg PO QAM 08/15/23 08/15/23 History 1,000 mcg capsule folic acid 1 mg tablet 1 mg PO QAM 08/15/23 08/15/23 History metformin 500 mg tablet 1,000 mg PO BID 08/15/23 08/15/23 History potassium chloride 20 mEq 20 meq PO QAM 08/15/23 08/15/23 History tablet,extended release prednisone 5 mg tablet 5 mg PO QAM 08/15/23 08/15/23 History simvastatin 40 mg tablet 40 mg PO QAM 08/15/23 08/15/23 History tamsulosin 0.4 mg capsule 0.4 mg PO QAM 08/15/23 08/15/23 History Patient History Medical History Venous stasis dermatitis Anxiety and depression Benign essential tremor Esophageal reflux Urinary incontinence Alcohol abuse 10-12 DRINKS PER DAY Schizophrenia Pulmonary HTN "MILD" RVSP 40MMHG PER 2015 STRESS ECHO- NO ISSUES NOTED WITH 2019 ECHO Chronic back pain OCD (obsessive compulsive disorder) Surgical History History of cataract surgery right/left History of bronchoscopy Spring 2021 H/O tooth extraction 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 History of biopsy of bladder TURBT= 11/28/17= LMA#5 AT [facility] H/O exploratory laparotomy GALLBLADDER LESION EXCISION History of cystoscopy WITH STONE EXTRACTION X 2 History of open reduction and internal fixation (ORIF) procedure LEFT SHOULDER Family History Father Prostate cancer Family history of diabetes mellitus Myocardial infarction Aunt Family history of diabetes mellitus Uncle Family history of diabetes mellitus Family/Other Family history of diabetes mellitus Mother Diabetes Alzheimer disease Grandfather (Paternal) Cardiac disorder Cancer Colon Cancer Brother Kidney stones Other Heart disease No family history of adverse response to anesthesia Denies family history of Crohn's disease Colorectal cancer Lung disease Inflammatory bowel disease Asthma Social History Smoking Status: Former smoker Tobacco Type: Cigarettes Age Started Using Tobacco: 12; Age Quit Using Tobacco: 61; packs per day: 0.5; Cigarettes Per Day: 10; Second Hand Exposure: No; Do You Dip or Chew Tobacco: No; Tobacco Cessation Education Requested by Patient: No Hx Alcohol Use: No Hx Substance Use: No Preferred Language: Cuban Communication Ability: Effective Visual Impairment: Limited Hearing Ability: Normal Clothes Designer Required: No Beliefs That Will Affect Care: None marital status: Single Current Living Situation: Alone Current Living Situation Comment: pt has been living with sister for several weeks during chemo rx current occupational status: disabled Other Information That Helps Us Care for You: No Feels Safe at Home: Yes Safety Concerns: Feels Safe At This Time Safety Concerns Comment: Currently living with his sister due to chemo/radiation/illness in current or past relationships, have you been: other Diet: regular caffeine: Yes Dental Care, Regularly: No Physical Activity Frequency: 1-2 Times per Week Seatbelt Use: always Assistive Devices: Cane, Oxygen - Continuous and Walker Assistive Devices Comment: glasses Review of Systems Review of Systems: A complete 10 point review of systems was reviewed with the patient with pertinent positives and negatives as per history of present illness. All else were negative. Physical Exam Physical Exam: VITAL SIGNS - Vital signs and nursing notes were reviewed. GENERAL - 63-year-old male appearing his stated age who is in no acute distress. Communicates well with provider and answers questions appropriately. SKIN - Without rashes or lesions. NOSE - Midline and without cyanosis. MOUTH/OROPHARYNX - Without perioral cyanosis. NECK - Neck with FROM. LUNGS - Auscultation reveals diminished breath sounds with some mild crackles. No wheezing noted. CARDIAC - RRR with S1/S2. No murmur, rubs, or gallops appreciated. ABDOMEN - BS normoactive all four quadrants. No tenderness, palpable masses, or ascites noted. EXTREMITIES - Nail clubbing not present. No peripheral cyanosis. trace pretibial edema present. +3/5 radial palpated throughout. PSYCH - A&Ox3 and cooperates fully with examiner. Pt is very pleasant and interacts well with examiner. Results & Data Results & Data Vital Signs (Past 12 Hours) Vital Signs Temp Pulse Pulse Resp BP BP Pulse Ox 08/16/23 08:00 08/16/23 07:32 85 18 92 08/16/23 07:12 36.3 C L 80 18 123/82 97 08/16/23 04:21 37.1 C 68 16 129/71 95 08/16/23 02:20 84 16 98 O2 Del Method O2 Flow Rate 08/16/23 08:00 Nasal Cannula 2 08/16/23 07:32 Nasal Cannula 2 08/16/23 07:12 CPAP 08/16/23 04:21 Room Air 08/16/23 02:20 2 PG Care Time/CCT Total # of Minutes Spent Total Time Spent with Patient: Total time spent is greater than 50% in coordination of care (as documented) at patient's floor/unit and/or counseling patient: Coding Level of Care Code 67368 IN/OBS CONSULT LVL 3,45M Diagnoses Abnormal chest CT R93.89 Lung cancer metastatic to brain C34.90; C79.31 COPD (chronic obstructive pulmonary disease) J44.9 Severe sleep apnea G47.30
--- NOTE | 2023-08-16 19:26 | XCELERA ---
[id number]
--- NOTE | 2023-08-16 20:19 | Hospitalist Progress Note ---
Date of Service August 16, 2023 Assessment & Plan (1) Acute and chronic respiratory failure: Plan: Patient with lung cancer as well as COPD, diastolic CHF and EDUARD. Suspect that current episode of SOB is secondary to acute on chronic diastolic heart failure with volume overload. He is responding well to Lasix administered in the ER Elevation of BNP and troponin likely secondary to acute on chronic CHF. -Continue lasix 40mg IV daily-diuresing well -Daily weights -Intake and output -Checked 2D echo-shows EF 65-70%,mod RV dilation, mild PHTN -Continue supplemental O2 and 2 step shows need for 2LNC at rest and 6+ L with exertion -continue diuresis -adding on prednisone and Bactrim for PJP proph as per PULM for possible chemo induced pneumonitis, defer bronch for now as per patient preference, add on doxy for atypical coverage (2) Acute on chronic heart failure with preserved ejection fraction (HFpEF): Plan: as above (3) Antineoplastic chemotherapy induced pancytopenia: Plan: counts mildly low, no transfusions needed follow CBC (4) Abnormal chest CT: Plan: pulm mets and possible infiltrate vs asymmetric pulm edema PULM consult placed (5) Elevated troponin: Plan: mild, trended downward, myocardial demand ischemia, no WMAs on ECHO (6) Lung cancer metastatic to brain: Plan: Patient undergoing chemotherapy. Last treatment was 1 week ago. He is due next Monday -Continue treatment (7) COPD (chronic obstructive pulmonary disease): Plan: Chronic -Continue Umeclidinium/Vilanterol -DuoNeb PRN -Albuterol PRN -adding prednisone for pneumonitis not COPD exacerbation (8) Schizophrenia: Plan: continue depakote, fluvoxamine, olanzapine, memantine, klonopin (9) Severe sleep apnea: Plan: continue CPAP (10) Diabetes mellitus, type 2: Plan: Chronic. Last [id number] -Continue Lantus 20u BID -ISS (11) Alcohol abuse: Plan: Patient occasionally drinks beer. Last drink was 08/04/23. No report of withdrawal symptoms Plan Dispo-continued stay DVT proph-add Lovenox Admission and Anticipated Discharge Date Admission Date: August 15, 2023 Subjective Pt feeling better, still some LOVE. No pain, eating and dirnking.No fevers Discussed care with PULM PA Physical Exam Constitutional: WD/WN, vitals as above Respiratory: normal respiratory effort; no cough Auscultation: + crackles (bilateral lower and middle lung lakhani) and + wheezes (exp on left); no rhonchi Cardiovascular: Rate/Rhythm: regular rate and regular rhythm Heart Sounds: no murmur Extremities: no edema Gastrointestinal (Abdomen): normal bowel sounds, soft, nontender, no hepatosplenomegaly Results & Data Results & Data Vital Signs (Past 12 Hours) Vital Signs Temp Pulse Pulse Pulse Pulse Pulse Pulse 08/16/23 14:35 110 H 115 H 120 H 106 H 100 H 08/16/23 13:46 94 H 08/16/23 13:21 37.0 C 95 H Resp Resp Resp Resp Resp Resp BP 08/16/23 14:35 26 H 28 H 28 H 20 20 08/16/23 13:46 18 08/16/23 13:21 18 122/77 Pulse Ox Pulse Ox Pulse Ox Pulse Ox Pulse Ox Pulse Ox O2 Del Method 08/16/23 14:35 81 L 83 L 89 L 91 83 L 08/16/23 13:46 90 Nasal Cannula 08/16/23 13:21 88 L Nasal Cannula O2 Flow Rate O2 Flow Rate O2 Flow Rate O2 Flow Rate O2 Flow Rate 08/16/23 14:35 2 4 6 2 08/16/23 13:46 2 08/16/23 13:21 2 Laboratory Results CBC, BMP reviewed PG Care Time/CCT Total # of Minutes Spent Total Time Spent with Patient: Total time spent is greater than 50% in coordination of care (as documented) at patient's floor/unit and/or counseling patient: Coding Level of Care Code 48654 SUB INP/OBS CARE 3/50MIN Diagnoses Acute and chronic respiratory failure J96.20 Acute on chronic heart failure with preserved ejection fraction (HFpEF) I50.33 Antineoplastic chemotherapy induced pancytopenia D61.810; T45.1X5A Abnormal chest CT R93.89 Elevated troponin R79.89 Lung cancer metastatic to brain C34.90; C79.31 COPD (chronic obstructive pulmonary disease) J44.9 Schizophrenia F20.9 Severe sleep apnea G47.30 Type 2 diabetes mellitus with diabetic polyneuropathy, without long-term current use of insulin E11.42 Diabetes mellitus complication detail: with polyneuropathy Diabetes mellitus complication status: with neurologic complications Diabetes mellitus watermelon inspector insulin use: without watermelon inspector use Alcohol abuse F10.10 (10) Diabetes mellitus, type 2 Diabetes mellitus complication detail: with polyneuropathy Diabetes mellitus complication status: with neurologic complications Diabetes mellitus watermelon inspector insulin use: without nursing home use Qualified Code(s): E11.42 - Type 2 diabetes mellitus with diabetic polyneuropathy
[2023-08-16] MEDS: DOXYCYCLINE HYCLATE 100 MG CAP PO SCH (21:35)
[2023-08-17] MEDS: DOCUSATE SODIUM 100 MG CAP PO PRN (05:50)
--- NOTE | 2023-08-17 07:43 | Pulmonology Progress Note ---
Date of Service August 17, 2023 Assessment & Plan (1) Abnormal chest CT: (2) Lung cancer metastatic to brain: (3) COPD (chronic obstructive pulmonary disease): (4) Severe sleep apnea: Plan IMPRESSION: 63-year-old male with a significant past medical history of non- small cell lung cancer including WOOD TYPE CUTTER metastases, COPD, severe obstructive sleep apnea, diabetes, and hypertension who presents with worsening hypoxemia in the setting of infiltrative changes noted on CT. RECOMMENDATIONS: 1. Abnormal chest CT -differential further groundglass opacities and increasing hypoxemia is broad. 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 His BNP is elevated and atypical failure would also be in the differential. Cannot rule out atypical infections especially given his chemotherapeutic regiment. The patient at this point time would like to avoid invasive procedures so he is being treated empirically with diuretics, antibiotics, and steroids. Should the patient worsen or fail to respond, consideration for bronchoscopic evaluation at that point time may be appropriate but again the patient is not enthusiastic about any invasive procedures. 2. Hypoxia - Multifactorial in a patient with severe COPD, lung cancer, and new CT findings. Continue oxygen to keep saturations at or above 88%. He has oxygen for use with exertion but may need oxygen continuously until his lung function improves. 3. COPD - Does not appear to be in exacerbation at this point. Continue with home inhalers and nebulizers. 4. Lung cancer - [facility] Chest CT findings as above. Defer to their ongoing management in regard to his lung cancer diagnosis. Confirmed DNR/DNI status 5. Severe sleep apnea - Continue with home CPAP settings. Once the patient feels stable and his oxygen needs can be met at home, can consider transition to home with outpatient follow-up with Dr. Melgoza. Admission and Anticipated Discharge Date Admission Date: August 15, 2023 Subjective Patient seen and examined. EMR reviewed. The patient reports his breathing is making some improvements. Is not coughing or expectorating phlegm. He was up to the bedside commode and did not become significantly dyspneic. He denies chest pain or palpitations. He does feel constipated. Review of Systems 2 Review of Systems: All systems reviewed & are unremarkable except as noted in Subjective Physical Exam 2 Constitutional: WD/WN, vitals as above Neck: trachea midline, no thyromegaly Respiratory: no respiratory distress, no labored breathing and not tachypneic Auscultation: + crackles; no rhonchi and no wheezes Cardiovascular: RRR, no murmur, no edema Gastrointestinal (Abdomen): normal bowel sounds, soft, nontender, no hepatosplenomegaly Musculoskeletal: Extremities: extremities normal to inspection Skin: no rashes, warm and dry Neurologic: Nonfocal exam Lymphatic: no cervical lymphadenopathy Results & Data Results & Data Vital Signs (Past 12 Hours) Vital Signs Temp Pulse Pulse Resp BP Pulse Ox O2 Del Method 08/17/23 07:20 36.5 C 90 20 113/73 100 Nasal Cannula 08/17/23 02:13 16 08/17/23 01:55 88 17 98 08/17/23 01:54 88 17 98 CPAP 08/16/23 20:53 89 18 100 Nasal Cannula 08/16/23 20:31 36.4 C 90 18 131/87 96 Nasal Cannula 08/16/23 20:00 Nasal Cannula O2 Flow Rate 08/17/23 07:20 5 08/17/23 02:13 2 08/17/23 01:55 2 08/17/23 01:54 2 08/16/23 20:53 2 08/16/23 20:31 2 08/16/23 20:00 2 Laboratory Results 08/16/23 07:46 08/16/23 07:46 Diagnostic Findings No new imaging PG Care Time/CCT Total # of Minutes Spent Total Time Spent with Patient: Total time spent is greater than 50% in coordination of care (as documented) at patient's floor/unit and/or counseling patient: Coding Level of Care Code 12792 SUB INP/OBS CARE 2/35MIN Diagnoses Abnormal chest CT R93.89 Lung cancer metastatic to brain C34.90; C79.31 COPD (chronic obstructive pulmonary disease) J44.9 Severe sleep apnea G47.30
[2023-08-17] MEDS: PROCHLORPERAZINE MALEATE 10 MG TAB PO PRN (08:11)
[2023-08-17] MEDS: predniSONE 20 MG TAB PO SCH (08:11)
[2023-08-17 08:25] LABS: Eosinophils # (auto) 0.03 K/uL (0.00-0.50); Eosinophils % (auto) 1.3 %; Hematocrit (blood only) 28.1 % (42.0-52.0); Hemoglobin 9.3 g/dl (14.0-18.0); Immature Granulocytes # (auto) 0.02 K/uL (0.01-0.20); Immature Granulocytes % (auto) 0.8 %; Lymphocytes # (auto) 0.36 K/uL (1.20-3.40); Lymphocytes % (auto) 15.1 %; Mean Corpuscular Hemoglobin 31.5 pg (25.0-34.0); Mean Corpuscular Hgb Conc 33.1 g/dL (32.0-36.0); Mean Corpuscular Volume 95.3 fL (80.0-100.0); Mean Platelet Volume 10.4 fL (9.4-12.4); Monocytes # (auto) 0.19 K/uL (0.11-0.59); Neutrophils # (auto) 1.78 K/uL (1.40-6.50); Neutrophils % (auto) 74.8 %; Platelet Count 53 K/uL (130-400); RDW Standard Deviation 44.2 fL (36.4-46.3); Red Blood Count 2.95 M/uL (4.70-6.10); White Blood Count 2.38 K/ul (4.8-10.8)
[2023-08-17 08:38] LABS: Albumin Globulin Ratio 1.1 (0.9-2); Albumin Level 3.7 gm/dl (3.4-5.0); BUN Creatinine Ratio 13.1 (10-20); Bilirubin,Total 0.7 mg/dl (0.2-1.0); C Reactive Protein 9.8 mg/dl (0-0.5); Creatinine Clr Calc Pharmacy 96.8 ml/min; Est GFR (African American) 85.2 ml/min; Est GFR (Non-African American) 73.5 ml/min; Globulin 3.3 gm/dl (2.5-4.0); Magnesium 1.5 mg/dl (1.7-2.4); Potassium 3.7 mmol/L (3.5-5.1)
[2023-08-17] MEDS: MAGNESIUM SULFATE / D5W 1 GM/100 ML BAG IV SCH (10:27)
[2023-08-17] MEDS: POLYETHYLENE (MIRALAX) 17 GM PACK PO PRN (10:27)
--- NOTE | 2023-08-17 12:25 | Discharge Summary ---
Discharge Summary Date of Service August 17, 2023 Notes For Next Care Provider Follow up with PULM in 2 weeks Watch glucose readings now that back on high dose prednisone and may need to adjust Lantus dose further Medication Changes From Visit Added prednisone 40mg po daily Added Bactrim DS 1 tab MWF Added doxycycline 100mg po bid x 5.5 more days Increased Lantus to 42 units daily Added lasix 40mg po daily Admission HPI Per Admitting Provider Earlelisha Evans is a pleasant 63yo male with history of metastatic lung cancer, DM, GERD, Schizophrenia who was sent to the ER by Oncology with report of SOB/LOVE. Hypoxic in the office at 84% on room air. Patient reports symptoms have been progressive for the last 5 days. He has an occasional dry cough and some chest discomfort. Had some mild nausea and constipation as well. Denies fever, chills, edema, orthopnea. No sick contacts or recent travel. In the ER patient is afebrile, hypoxic at 87% on room air improved with 2L NC to 98% ER Course: ASA Lasix 40mg IV NSS Principal Dx & Hospital Course #1 = Principal Diagnosis (1) Acute and chronic respiratory failure: Patient with lung cancer as well as COPD, diastolic CHF and EDUARD. Suspect that current episode of SOB is secondary to acute on chronic diastolic heart failure with volume overload. He is responding well to Lasix administered in the ER Elevation of BNP and troponin likely secondary to acute on chronic CHF. -received lasix 40mg IV daily-diuresing well, improving--> discharge on lasix 40mg po daily, watch daily weights, low sodium diet, fluid restrict -Checked 2D echo-shows EF 65-70%,mod RV dilation, mild PHTN -Continue supplemental O2 and 2 step shows need for 2LNC at rest and 6+ L with exertion, 5L bled into CPAP -added on prednisone and Bactrim for PJP proph as per PULM for possible chemo induced pneumonitis, defer bronch for now as per patient preference, add on doxy for atypical coverage Home O2 arranged (2) Acute on chronic heart failure with preserved ejection fraction (HFpEF): as above (3) Antineoplastic chemotherapy induced pancytopenia: counts mildly low, no transfusions needed follow CBC as outpt with Heme/Onc (4) Abnormal chest CT: pulm mets and possible infiltrate vs asymmetric pulm edema PULM consult placed-cannot rule out atypical infection but defer bronch--> finish out course of doxy, starting prednisone, Bactrim for PJP proph f/u 2 weeks with PULM (5) Elevated troponin: mild, trended downward, myocardial demand ischemia, no WMAs on ECHO (6) Lung cancer metastatic to brain: Patient undergoing chemotherapy. Last treatment was 1 week ago. He is due next Monday -Continue treatment, f/u wt Onco (7) COPD (chronic obstructive pulmonary disease): Chronic -Continue Umeclidinium/Vilanterol -DuoNeb PRN -Albuterol PRN -adding prednisone for pneumonitis not COPD exacerbation (8) Schizophrenia: continue depakote, fluvoxamine, olanzapine, memantine, klonopin (9) Severe sleep apnea: continue CPAP with 5L O2 (10) Diabetes mellitus, type 2: Chronic. Last LouO2X=6.7 Home dose Lantus 40 units once daily and now on high dose prednisone, requring minimal Novolog Increase Lantus to 42 units daily for now and may need further adjustment as outpt advised to increase glcuose testing to tid and f/u closely with PCP if glucose > 200 consistently In the past he cannot safely use Novolog at home as he was injecting himself when he had low blood glucose levels (11) Alcohol abuse: Patient occasionally drinks beer. Last drink was 08/04/23. No report of withdrawal symptoms Plan Dispo-dc to home with home health DVT proph-SCDs Discharge Exam Constitutional WD/WN, vitals as above Respiratory normal respiratory effort; no cough Auscultation: + crackles (bilateral lower and middle lung lakhani); no rhonchi and no wheezes Cardiovascular Rate/Rhythm: regular rate and regular rhythm Heart Sounds: no murmur Extremities: no edema Gastrointestinal (Abdomen) normal bowel sounds, soft, nontender, no hepatosplenomegaly Updated Medication List Medication Instructions Recorded Confirmed Type cholecalciferol (vitamin D3) 25 1,000 unit PO QAM 06/29/18 08/15/23 History mcg (1,000 unit) capsule (Vitamin D3) clonazepam 0.5 mg tablet 0.5 mg PO BID 06/29/18 08/15/23 History divalproex 500 mg tablet,delayed 500 mg PO HS 06/29/18 08/15/23 History release fluvoxamine 150 mg 150 mg PO HS 06/29/18 08/15/23 History capsule,extended release 24 hr olanzapine 10 mg tablet (Zyprexa) 10 mg PO HS 06/29/18 08/15/23 History vitamin E 268 mg (400 unit) capsule 400 unit PO QAM 06/29/18 08/15/23 History Auto Titrating CPAP #1 ea 07/05/21 08/15/23 Rx CPAP Supplies #1 ea 07/05/21 08/15/23 Rx lancets (OneTouch UltraSoft #100 ea 04/05/22 08/15/23 Rx Lancets) Portable Oxygen E0431 #1 ea 12/15/22 08/15/23 Rx pen needle, diabetic 31 gauge x #1,200 ea 12/30/22 08/15/23 Rx 3/16" (BD Ultra-Fine Mini Pen Needle) magnesium chloride 64 mg 128 mg PO TID 02/08/23 08/15/23 History (magnesium chloride) tablet,delayed release (Mag 64) blood sugar diagnostic (Accu-Chek #100 ea 02/14/23 08/15/23 Rx Guide test strips) blood sugar diagnostic (OneTouch #100 ea 03/01/23 08/15/23 Rx Ultra Test strips) blood-glucose meter (OneTouch #1 ea 03/01/23 08/15/23 Rx Ultra2 Meter) ezetimibe 10 mg tablet 10 mg PO QAM #90 tabs 06/08/23 08/15/23 Rx ondansetron HCl 8 mg tablet 8 mg PO Q8H PRN Nausea 06/23/23 08/15/23 History prochlorperazine maleate 10 mg 10 mg PO Q6H PRN Nausea 06/23/23 08/15/23 History tablet (Compazine) insulin glargine 100 unit/mL (3 40 unit (0.4 mL) subcut QAM #15 mL 06/26/23 08/15/23 Rx mL) subcutaneous pen (Lantus Solostar U-100 Insulin) clotrimazole-betamethasone 1 1 applic topical .qhs #45 grams 06/28/23 08/15/23 Rx %-0.05 % topical cream dexamethasone 4 mg tablet 4 mg PO DAILY Balance issues #30 07/13/23 08/15/23 Rx tabs memantine 10 mg tablet 10 mg PO BID To help memory #60 07/17/23 08/15/23 Rx tabs albuterol sulfate 90 mcg/actuation 2 inh inhalation QID PRN shortness 08/09/23 08/15/23 Rx aerosol inhaler (Ventolin HFA) of breath or wheezing #18 grams fluticasone fur. 100 mcg-umeclid 1 inh inhalation QAM #60 ea 08/09/23 08/15/23 Rx 62.5 mcg-vilant 25 mcg inhalat.powder (Trelegy Ellipta) cyanocobalamin (vitamin B-12) 1,000 mcg PO QAM 08/15/23 08/15/23 History 1,000 mcg capsule folic acid 1 mg tablet 1 mg PO QAM 08/15/23 08/15/23 History metformin 500 mg tablet 1,000 mg PO BID 08/15/23 08/15/23 History potassium chloride 20 mEq 20 meq PO QAM 08/15/23 08/15/23 History tablet,extended release prednisone 5 mg tablet 5 mg PO QAM 08/15/23 08/15/23 History simvastatin 40 mg tablet 40 mg PO QAM 08/15/23 08/15/23 History tamsulosin 0.4 mg capsule 0.4 mg PO QAM 08/15/23 08/15/23 History doxycycline hyclate 100 mg capsule 100 mg PO BID #11 caps 08/17/23 Rx furosemide 40 mg tablet (Lasix) 40 mg PO QAM #30 tabs 08/17/23 Rx prednisone 20 mg tablet 40 mg (2 x 20 mg) PO DAILY #60 tabs 08/17/23 Rx sulfamethoxazole 800 1 tab PO MoWeFr@09 #12 tabs 08/17/23 Rx mg-trimethoprim 160 mg tablet (Bactrim DS) Hospital Stay Data Consultations 08/15/23 18:48 ED Decision to Admit Stat 08/16/23 10:31 Consult Pulmonology Routine Diagnostic Imagining Performed 08/15/23 15:29 CT angio chest PE protocol Stat ECHO Pending Results Patient Have Any Pending Studies at Discharge: No Discharge Instructions Given to Patient (Per Discharging Provider) Please wear 2L of oxygen at all times at rest and 6L with walking around. You will need 5L with sleep connected to your CPAP. You were started on prednisone 40mg daily to reduce inflammation in your lungs. The Mortgage Clerk will tell you when it is ok to lower the dose of this. You will be on Bactrim as a preventative antibiotic three times a week while on the higher doses of prednisone to prevent bacterial pneumonia. Please also finish out a course of doxycycline for 5 more days to treat in case of current pneumonia. Follow up with Pulmonology in 2 weeks and with Oncology as scheduled. You were given lasix to get extra fluid out of your lungs as well and will be continued on a daily water pill called lasix 40mg a day. Your Lantus dose will be increased to 42 units daily for now and if your blood sugars are persistently in the 200s or more, please let your PCP know and they can adjust your insulin regimen. Call your Primary Care doctor if any of the following symptoms or problems start or get worse: * Shortness of breath or difficulty breathing * Wake up at night short of breath * Chest pain * Cough * Swelling of your hands, feet, or legs * More fatigued or tired with your normal activity * Palpitations - sudden fast heart beats WEIGHT * Weigh yourself every morning after using the bathroom. * Use the same scale. * Wear the same amount of clothing. * Write your weight down on a chart. * Call your Primary Care doctor if you gain more than 2-3 pounds in 1-2 days. MEDICATIONS * Use this discharge instruction sheet for medication instructions. * Take your medications at the time your doctor ordered. * Do not skip a dose of your medicines. * If you miss a dose of medicine, take it as soon as possible, but DO NOT DOUBLE A DOSE. * Read your medicine information when you get home. * Know all of the side effects of your medicine. If in doubt, ask your pharmacist * Call your Primary Care doctor's office if you have any side effects. * Be sure all of your doctors know what medicine and herbs you take (including cold, flu, and herbal medicine). Take the following with you to your follow-up doctor appointments: * Weight Chart * Medication List * List of questions Do not drink excessive alcohol, beer or wine. Total Time Total Time Spent Total Time Spent (In Minutes): 45 min Discussed care with both sisters at length on day of discharge Coding Level of Care Code 52863 INP/OBS DISCH >30 MIN Diagnoses Acute and chronic respiratory failure J96.20 Acute on chronic heart failure with preserved ejection fraction (HFpEF) I50.33 Antineoplastic chemotherapy induced pancytopenia D61.810; T45.1X5A Abnormal chest CT R93.89 Elevated troponin R79.89 Lung cancer metastatic to brain C34.90; C79.31 COPD (chronic obstructive pulmonary disease) J44.9 Schizophrenia F20.9 Severe sleep apnea G47.30 Type 2 diabetes mellitus with diabetic polyneuropathy, without long-term current use of insulin E11.42 Diabetes mellitus complication detail: with polyneuropathy Diabetes mellitus complication status: with neurologic complications Diabetes mellitus care home insulin use: without care home use Alcohol abuse F10.10
[2023-08-17 15:07] VITALS: BP 127/80; PULSE 92; RESP 18; TEMP 97.5; O2SAT 96
--- NOTE | 2023-08-18 06:07 | Electrocardiogram Report ---
Test Reason : Blood Pressure : / mmHG Vent. Rate : 104 BPM Atrial Rate : 104 BPM P-R Int : 112 ms QRS Dur : 126 ms QT Int : 350 ms P-R-T Axes : 033 036 -13 degrees QTc Int : 460 ms Sinus tachycardia Right bundle branch block T wave abnormality, consider inferior ischemia Abnormal ECG When compared with ECG of 28-NOV-2022 09:37, Inverted T waves have replaced nonspecific T wave abnormality in Inferior leads Nonspecific T wave abnormality now evident in Lateral leads Confirmed by Jace Santamaria ([id number]) on 08/18/2023 6:07:36 AM Referred By: Confirmed By:Jace Santamaria
[2023-08-18] MEDS ORDERED: SULFAMETHOXAZOLE/TRIMETHOPRIM DS 800/160MG TAB PO SCH (09:00)
== END 2023-08-17 16:02 | disposition home health service (06) | DRG 291 ==
LOC: ED 15:09 → SUATTDRO 19:57 → 3N 19:57
DX: J44.0 Chronic obstructive pulmonary disease with (acute) lower respiratory infection; E11.42 Type 2 diabetes mellitus with diabetic polyneuropathy; J70.4 Drug-induced interstitial lung disorders, unspecified; Z79.899 Other long term (current) drug therapy; R91.8 Other nonspecific abnormal finding of lung field; I24.89 Other forms of acute ischemic heart disease; J98.8 Other specified respiratory disorders; C79.31 Secondary malignant neoplasm of brain; G47.33 Obstructive sleep apnea (adult) (pediatric); D61.810 Antineoplastic chemotherapy induced pancytopenia; T45.1X5A Adverse effect of antineoplastic and immunosuppressive drugs, initial encounter; Z79.84 Long term (current) use of oral hypoglycemic drugs; I50.33 Acute on chronic diastolic (congestive) heart failure; E78.00 Pure hypercholesterolemia, unspecified; J96.21 Acute and chronic respiratory failure with hypoxia; Z79.4 Long term (current) use of insulin; K59.00 Constipation, unspecified; C34.11 Malignant neoplasm of upper lobe, right bronchus or lung; Z66 Do not resuscitate; Z87.891 Personal history of nicotine dependence; F20.9 Schizophrenia, unspecified

== ENCOUNTER 2023-09-04 09:54 | Inpatient (IN) ==
--- NOTE | 2023-09-04 10:14 | Emergency Department Note ---
Impression & Plan Pneumonia, Lung cancer ED Provider Note NAME: TYSON MEJIA II AGE: 63 SEX: M : 1960 ARRIVES VIA: Walk-In INFORMANT: Patient, ED PROVIDER(S): Bahman Ingram DO CHIEF COMPLAINT: Shortness of breath HPI: The patient is a 63-year-old male who has a history of lung cancer who presented to the emergency department with his sister. His sister is the power of ip attorney as well as medical power of ip attorney. She does provide most of the history. The patient was seen in our facility recently for similar complaints. At that time he had a CT of the chest. He was felt to be suffering from pneumonia. He had a recent chest x-ray last week by his cancer doctor who feels the pneumonia is worsening. He was started on Augmentin as well as doxycycline. He has been taking his medications but his sister felt he was worsening and he was instructed by his oncologist to come to the emergency department for further evaluation. The patient's noticed no hemoptysis. He does have lower extremity swelling which is not new. The patient denies having any high fever. The patient's been compliant with his outpatient medications otherwise. ROS: See above HPI for pertinent positives & negatives. A total of 10 systems reviewed and were otherwise negative. PAST MEDICAL HISTORY: See Below PAST SURGICAL HISTORY: See Below FAMILY HISTORY: See Below SOCIAL HISTORY: See Below HOME MEDICATIONS: See Below ALLERGIES: See Below VITALS: See Below PHYSICAL EXAMINATION: GENERAL: The patient is awake and alert. EYES: The conjunctivae are clear. The pupils are round and reactive. EARS, NOSE, MOUTH AND THROAT: The nose is without any evidence of any deformity. NECK: The neck is nontender and supple. RESPIRATORY: Diminished breath sounds are noted throughout with faint rales at both bases. There is mild tachypnea. CARDIOVASCULAR: Regular rate and rhythm noted there no murmurs rubs or gallops normal S1 normal S2. GASTROINTESTINAL: The abdomen is soft. Abdomen is nontender. MUSCULOSKELETAL/EXTREMITIES: There is no evidence of gross deformity full range of motion is noted in the hips and shoulders. SKIN: There is no obvious evidence of any rash. chronic venous stasis changes were noted in both lower extremities. Skin was warm and dry. NEUROLOGIC: Patient is awake alert and oriented x3 MEDICAL DECISION MAKING: The patient is a 63-year-old male who has a history of lung cancer who was recently being treated for pneumonia who presented to the emergency department for an evaluation of ongoing and worsening symptoms. I discussed patient's laboratory and radiographic studies with him as well as his family. The patient is placed on oxygen which he is on chronically. The patient's laboratory studies were reviewed. This does not appear to be a clear-cut worsening of his pneumonia. He is already on an antibiotic. I discussed his condition with his primary oncologist. She would like me to discuss the case with the hospitalist group and consider inpatient management for possible bronchoscopy to determine if this is worsening of his cancer versus worsening infection. For this reason I discussed the case with the [facility]. Triage Nursing notes reviewed. Prior medical records reviewed Vital Signs: reviewed and remarkable for hypoxia and tachycardia. Differential diagnosis: Reactive airway disease, pneumonia, pneumothorax, COPD, CHF, infections, cardiac ischemia, pulmonary embolism, musculoskeletal, gastrointestinal, as well as other pathologies. ER treatment provided: See below Diagnostics interpreted by me: ECG: EKG was obtained in the emergency department. My interpretation is sinus tachycardia at 101 bpm. There is no PVCs noted. Right bundle branch block pattern was noted. This was compared to a tracing from August 15, 2023. No changes were noted Cardiac Monitoring: An order was placed for continuous cardiac monitoring. The monitor shows a rate of 103 bpm with sinus tachycardia. Laboratory studies: As stated above and show below. Imaging studies: See below. Radiographic imaging was reviewed by myself Consultation(s): I discussed this case with Dr. Garcia who is the patient's primary oncologist. I discussed this case with Dr. Glover who is on-call for the [facility] hospitalist group. 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 History of biopsy of bladder TURBT= 11/28/17= LMA#5 AT [facility] H/O exploratory laparotomy GALLBLADDER LESION EXCISION History of cystoscopy WITH STONE EXTRACTION X 2 History of open reduction and internal fixation (ORIF) procedure LEFT SHOULDER Family History Father Prostate cancer Family history of diabetes mellitus Myocardial infarction Aunt Family history of diabetes mellitus Uncle Family history of diabetes mellitus Family/Other Family history of diabetes mellitus Mother Diabetes Alzheimer disease Grandfather (Paternal) Cardiac disorder Cancer Colon Cancer Brother Kidney stones Other Heart disease No family history of adverse response to anesthesia Denies family history of Crohn's disease Colorectal cancer Lung disease Inflammatory bowel disease Asthma Social History Smoking Status: Former smoker Tobacco Type: Cigarettes Age Started Using Tobacco: 12; Age Quit Using Tobacco: 61; packs per day: 0.5; Cigarettes Per Day: 10; Second Hand Exposure: No; Do You Dip or Chew Tobacco: No; Hx Alcohol Use: No Hx Substance Use: No Preferred Language: Luxembourgish Communication Ability: Effective Visual Impairment: Limited Hearing Ability: Normal Oyster Preparer Required: No Beliefs That Will Affect Care: None marital status: Single Current Living Situation: Alone Current Living Situation Comment: pt has been living with sister for several weeks during chemo rx current occupational status: disabled Feels Safe at Home: Yes Safety Concerns Comment: Currently living with his sister due to chemo/radiation/illness in current or past relationships, have you been: other Diet: regular caffeine: Yes Dental Care, Regularly: No Physical Activity Frequency: 1-2 Times per Week Seatbelt Use: always Assistive Devices: Cane, Oxygen - Continuous and Walker Allergies Allergies Allergy/AdvReac Type Severity Reaction Status Date / Time scopolamine Allergy Intermediate Itching Verified 08/21/23 13:26 Home Meds Home Medications Medication Instructions Recorded Confirmed cholecalciferol (vitamin D3) 25 1,000 unit PO QAM 06/29/18 09/04/23 mcg (1,000 unit) capsule (Vitamin D3) clonazepam 0.5 mg tablet 0.5 mg PO BID 06/29/18 09/04/23 divalproex 500 mg tablet,delayed 500 mg PO HS 06/29/18 09/04/23 release fluvoxamine 150 mg 150 mg PO HS 06/29/18 09/04/23 capsule,extended release 24 hr olanzapine 10 mg tablet (Zyprexa) 10 mg PO HS 06/29/18 09/04/23 vitamin E 268 mg (400 unit) capsule 400 unit PO QAM 06/29/18 09/04/23 magnesium chloride 64 mg 128 mg PO TID 02/08/23 09/04/23 (magnesium chloride) tablet,delayed release (Mag 64) ondansetron HCl 8 mg tablet 8 mg PO Q8H PRN Nausea 06/23/23 09/04/23 prochlorperazine maleate 10 mg 10 mg PO Q6H PRN Nausea 06/23/23 09/04/23 tablet (Compazine) cyanocobalamin (vitamin B-12) 1,000 mcg PO QAM 08/15/23 09/04/23 1,000 mcg capsule folic acid 1 mg tablet 1 mg PO QAM 08/15/23 09/04/23 metformin 500 mg tablet 1,000 mg PO BID 08/15/23 09/04/23 potassium chloride 20 mEq 20 meq PO QAM 08/15/23 09/04/23 tablet,extended release simvastatin 40 mg tablet 40 mg PO QAM 08/15/23 09/04/23 tamsulosin 0.4 mg capsule 0.4 mg PO QAM 08/15/23 09/04/23 pantoprazole 40 mg tablet,delayed 40 mg PO DAILY 08/18/23 09/04/23 release Previous Rx's Medication Instructions Recorded Auto Titrating CPAP #1 ea 07/05/21 CPAP Supplies #1 ea 07/05/21 lancets (OneTouch UltraSoft #100 ea 04/05/22 Lancets) pen needle, diabetic 31 gauge x #1,200 ea 12/30/22/16" (BD Ultra-Fine Mini Pen Needle) blood sugar diagnostic (Accu-Chek #100 ea 02/14/23 Guide test strips) blood sugar diagnostic (OneTouch #100 ea 03/01/23 Ultra Test strips) blood-glucose meter (OneTouch #1 ea 03/01/23 Ultra2 Meter) ezetimibe 10 mg tablet 10 mg PO QAM #90 tabs 06/08/23 clotrimazole-betamethasone 1 1 applic topical .qhs #45 grams 06/28/23 %-0.05 % topical cream dexamethasone 4 mg tablet 4 mg PO DAILY Balance issues #30 07/13/23 tabs memantine 10 mg tablet 10 mg PO BID To help memory #60 07/17/23 tabs albuterol sulfate 90 mcg/actuation 2 inh inhalation QID PRN shortness 08/09/23 aerosol inhaler (Ventolin HFA) of breath or wheezing #18 grams fluticasone fur. 100 mcg-umeclid 1 inh inhalation QAM #60 ea 08/09/23 62.5 mcg-vilant 25 mcg inhalat.powder (Trelegy Ellipta) Portable Oxygen E0431 #1 ea 08/17/23 docusate sodium 100 mg capsule 100 mg PO BID PRN constipation #60 08/17/23 caps furosemide 40 mg tablet (Lasix) 40 mg PO QAM #30 tabs 08/17/23 polyethylene glycol 3350 17 gram 17 g PO DAILY PRN constipation #30 08/17/23 oral powder packet (Miralax) ea prednisone 20 mg tablet 40 mg (2 x 20 mg) PO DAILY #60 tabs 08/17/23 sulfamethoxazole 800 1 tab PO MoWeFr@09 #12 tabs 08/17/23 mg-trimethoprim 160 mg tablet (Bactrim DS) insulin glargine 100 unit/mL (3 42 unit (0.42 mL) subcut QAM 90 08/21/23 mL) subcutaneous pen (Lantus days #45 mL Solostar U-100 Insulin) Results & Data (ED) Vital Signs Vital Signs - 24 hr 09/04/23 09:57 09/04/23 10:09 09/04/23 10:09 Temperature 36.5 C Temperature Source Temporal Artery Scan Pulse Rate 89 Pulse Rate [Apical] 106 H Pulse Rate from SpO2 Sensor Pulse Rhythm Regular Pulse Rhythm [Apical] Regular Pulse Strength Normal Pulse Strength [Apical] Normal Respiratory Rate 20 19 Respiratory Effort / Characteristics Non-Labored Spontaneous SOB on Exertion Respiratory Depth Normal Normal Respiratory Pattern Regular Regular Blood Pressure 109/77 Blood Pressure [Right Arm] 113/77 Blood Pressure Mean 87 Blood Pressure Mean [Right Arm] 89 Blood Pressure Position Sitting Blood Pressure Position [Right Arm] Sitting Pulse Oximetry 96 92 Oxygen Delivery Method Nasal Cannula Nasal Cannula Nasal Cannula Oxygen Flow Rate 3 3 3 Sepsis Recent Fever Within 48 Hours No Sepsis New/Unexplained Change in Mental Status No Sepsis Action Taken by Nursing No Action Required Pulse Oximetry Post Tiitration 92 09/04/23 10:09 09/04/23 10:12 09/04/23 10:20 Temperature Temperature Source Pulse Rate 109 H 106 H 108 H Pulse Rate [Apical] Pulse Rate from SpO2 Sensor 106 H 103 H Pulse Rhythm Pulse Rhythm [Apical] Pulse Strength Pulse Strength [Apical] Respiratory Rate 17 21 22 Respiratory Effort / Characteristics Respiratory Depth Respiratory Pattern Blood Pressure Blood Pressure [Right Arm] Blood Pressure Mean Blood Pressure Mean [Right Arm] Blood Pressure Position Blood Pressure Position [Right Arm] Pulse Oximetry 93 92 93 Oxygen Delivery Method Nasal Cannula Oxygen Flow Rate 3 Sepsis Recent Fever Within 48 Hours Sepsis New/Unexplained Change in Mental Status Sepsis Action Taken by Nursing Pulse Oximetry Post Tiitration 09/04/23 10:22 09/04/23 10:22 09/04/23 10:30 Temperature Temperature Source Pulse Rate 108 H 120 H Pulse Rate [Apical] 111 H Pulse Rate from SpO2 Sensor 92 H Pulse Rhythm Pulse Rhythm [Apical] Regular Pulse Strength Pulse Strength [Apical] Normal Respiratory Rate 14 19 Respiratory Effort / Characteristics Respiratory Depth Normal Respiratory Pattern Blood Pressure Blood Pressure [Right Arm] 113/77 Blood Pressure Mean Blood Pressure Mean [Right Arm] 89 Blood Pressure Position Blood Pressure Position [Right Arm] Sitting Pulse Oximetry 97 95 Oxygen Delivery Method Nasal Cannula Oxygen Flow Rate 3 Sepsis Recent Fever Within 48 Hours Sepsis New/Unexplained Change in Mental Status Sepsis Action Taken by Nursing Pulse Oximetry Post Tiitration 09/04/23 10:40 09/04/23 10:48 09/04/23 10:50 Temperature Temperature Source Pulse Rate 100 H 101 H Pulse Rate [Apical] 107 H Pulse Rate from SpO2 Sensor 102 H 101 H Pulse Rhythm Pulse Rhythm [Apical] Pulse Strength Pulse Strength [Apical] Respiratory Rate 15 20 15 Respiratory Effort / Characteristics Non-Labored Respiratory Depth Normal Respiratory Pattern Blood Pressure Blood Pressure [Right Arm] 113/77 Blood Pressure Mean Blood Pressure Mean [Right Arm] 89 Blood Pressure Position Blood Pressure Position [Right Arm] Pulse Oximetry 94 93 94 Oxygen Delivery Method Nasal Cannula Oxygen Flow Rate 3 Sepsis Recent Fever Within 48 Hours Sepsis New/Unexplained Change in Mental Status Sepsis Action Taken by Nursing Pulse Oximetry Post Tiitration 09/04/23 11:00 09/04/23 11:10 09/04/23 11:20 Temperature Temperature Source Pulse Rate 78 99 H 108 H Pulse Rate [Apical] Pulse Rate from SpO2 Sensor 87 98 H Pulse Rhythm Pulse Rhythm [Apical] Pulse Strength Pulse Strength [Apical] Respiratory Rate 19 16 19 Respiratory Effort / Characteristics Respiratory Depth Respiratory Pattern Blood Pressure Blood Pressure [Right Arm] Blood Pressure Mean Blood Pressure Mean [Right Arm] Blood Pressure Position Blood Pressure Position [Right Arm] Pulse Oximetry 94 96 Oxygen Delivery Method Oxygen Flow Rate Sepsis Recent Fever Within 48 Hours Sepsis New/Unexplained Change in Mental Status Sepsis Action Taken by Nursing Pulse Oximetry Post Tiitration 09/04/23 11:30 09/04/23 11:40 09/04/23 11:50 Temperature Temperature Source Pulse Rate 102 H 101 H 103 H Pulse Rate [Apical] Pulse Rate from SpO2 Sensor 102 H Pulse Rhythm Pulse Rhythm [Apical] Pulse Strength Pulse Strength [Apical] Respiratory Rate 12 24 16 Respiratory Effort / Characteristics Respiratory Depth Respiratory Pattern Blood Pressure Blood Pressure [Right Arm] Blood Pressure Mean Blood Pressure Mean [Right Arm] Blood Pressure Position Blood Pressure Position [Right Arm] Pulse Oximetry 92 Oxygen Delivery Method Oxygen Flow Rate Sepsis Recent Fever Within 48 Hours Sepsis New/Unexplained Change in Mental Status Sepsis Action Taken by Nursing Pulse Oximetry Post Tiitration Home Medications Current Medication List: was personally reviewed by me Laboratory Data Attestation: I reviewed the patient's lab results. 09/04/23 10:09 09/04/23 10:09 Lab Results 09/04/23 09/04/23 09/04/23 Range/Units 10:09 10:18 10:30 WBC 9.23 (4.8-10.8) K/ul RBC 3.39 L (4.70-6.10) M/uL Hgb 10.5 L (14.0-18.0) g/dl Hct 32.1 L (42.0-52.0) % MCV 94.7 (80.0-100.0) fL MCH 31.0 (25.0-34.0) pg MCHC 32.7 (32.0-36.0) g/dL RDW Std Deviation 50.4 H (36.4-46.3) fL RDW Coeff of Catalino 14.9 H (11.5-14.5) % Plt Count 163 (130-400) K/uL MPV 10.1 (9.4-12.4) fL Immature Gran % (Auto) 0.9 % Neut % (Auto) 88.2 % Lymph % (Auto) 5.3 % Simpson % (Auto) 5.3 % Eos % (Auto) 0.1 % Baso % (Auto) 0.2 % Neut # (Auto) 8.14 H (1.40-6.50) K/uL Lymph # (Auto) 0.49 L (1.20-3.40) K/uL Simpson # (Auto) 0.49 (0.11-0.59) K/uL Eos # (Auto) 0.01 (0.00-0.50) K/uL Baso # (Auto) 0.02 (0.00-0.20) K/uL Immature Gran # (Auto) 0.08 (0.01-0.20) K/uL Absolute Nucleated RBC 0.02 (0.00-0.12) K/uL Nucleated RBC % (auto) 0.2 % PT 12.3 H (9.0-12.0) Seconds INR 1.1 (0.9-1.1) APTT 28 (21-31) Seconds PTT Ratio 1.0 VBG pH 7.43 H (7.36-7.41) VBG pCO2 35 L (38-50) mmHg VBG pO2 52 mmHg VBG HCO3 23 mmol/L VBG O2 Saturation 80.9 % VBG Base Excess -0.6 mEq/L Sodium 139 (136-145) mmol/L Potassium 3.8 (3.5-5.1) mmol/L Chloride 105 (98-107) mmol/L Carbon Dioxide 22 (21-32) mmol/L Anion Gap 12 H (3-11) BUN 34 H (6-23) mg/dl Creatinine 1.20 (0.6-1.4) mg/dl Est Cr Clr Drug Dosing 85.0 ml/min Est GFR ( Amer) 74.1 ml/min Est GFR (Non-Af Amer) 64.0 ml/min BUN/Creatinine Ratio 28.3 H (10-20) Glucose 178 H (70-99(Fasting)) mg/dl Lactate 2.1 H* (0.4-2.0) mmol/L Calcium 8.6 (8.6-10.3) mg/dl Magnesium 1.4 L (1.7-2.4) mg/dl Total Bilirubin 0.6 (0.2-1.0) mg/dl Direct Bilirubin 0.2 (0-0.2) mg/dl AST 28 (13-39) U/L ALT 35 (7-52) U/L Alkaline Phosphatase 81 (34-104) U/L Troponin I High Sens 89.2 H* (0-20) pg/ml B-Natriuretic Peptide 68 (0-100) pg/ml Total Protein 7.0 (6.0-8.3) gm/dl Albumin 3.8 (3.4-5.0) gm/dl Procalcitonin 0.42 (0-0.5) ng/ml Urine Color Urine Appearance (Clear) Urine pH (4.5-7.5) Ur Specific Slade (1.000-1.030) Urine Protein (Negative) Urine Glucose (UA) (Negative) Urine Ketones (Negative) Urine Blood (Negative) Urine Nitrite (Negative) Urine Bilirubin (Negative) Urine Urobilinogen (Negative) Ur Leukocyte Esterase (Negative) Urine WBC (Auto) (0-5) /hpf Urine RBC (Auto) (0-2) /hpf U Hyaline Cast (Auto) (0-2) /lpf U Epithel Cells (Auto) (0-2) /hpf Urine Bacteria (Auto) (None Seen) SARS-CoV-2 (PCR) NEGATIVE (Negative) Influenza Type A (PCR) Negative (Neg) Influenza Type B (PCR) Negative (Neg) RSV (RT-PCR) Negative (Neg) 09/04/23 09/04/23 Range/Units 10:55 12:05 WBC (4.8-10.8) K/ul RBC (4.70-6.10) M/uL Hgb (14.0-18.0) g/dl Hct (42.0-52.0) % MCV (80.0-100.0) fL MCH (25.0-34.0) pg MCHC (32.0-36.0) g/dL RDW Std Deviation (36.4-46.3) fL RDW Coeff of Catalino (11.5-14.5) % Plt Count (130-400) K/uL MPV (9.4-12.4) fL Immature Gran % (Auto) % Neut % (Auto) % Lymph % (Auto) % Simpson % (Auto) % Eos % (Auto) % Baso % (Auto) % Neut # (Auto) (1.40-6.50) K/uL Lymph # (Auto) (1.20-3.40) K/uL Simpson # (Auto) (0.11-0.59) K/uL Eos # (Auto) (0.00-0.50) K/uL Baso # (Auto) (0.00-0.20) K/uL Immature Gran # (Auto) (0.01-0.20) K/uL Absolute Nucleated RBC (0.00-0.12) K/uL Nucleated RBC % (auto) % PT (9.0-12.0) Seconds INR (0.9-1.1) APTT (21-31) Seconds PTT Ratio VBG pH (7.36-7.41) VBG pCO2 (38-50) mmHg VBG pO2 mmHg VBG HCO3 mmol/L VBG O2 Saturation % VBG Base Excess mEq/L Sodium (136-145) mmol/L Potassium (3.5-5.1) mmol/L Chloride (98-107) mmol/L Carbon Dioxide (21-32) mmol/L Anion Gap (3-11) BUN (6-23) mg/dl Creatinine (0.6-1.4) mg/dl Est Cr Clr Drug Dosing ml/min Est GFR ( Amer) ml/min Est GFR (Non-Af Amer) ml/min BUN/Creatinine Ratio (10-20) Glucose (70-99(Fasting)) mg/dl Lactate 2.1 H* (0.4-2.0) mmol/L Calcium (8.6-10.3) mg/dl Magnesium (1.7-2.4) mg/dl Total Bilirubin (0.2-1.0) mg/dl Direct Bilirubin (0-0.2) mg/dl AST (13-39) U/L ALT (7-52) U/L Alkaline Phosphatase (34-104) U/L Troponin I High Sens (0-20) pg/ml B-Natriuretic Peptide (0-100) pg/ml Total Protein (6.0-8.3) gm/dl Albumin (3.4-5.0) gm/dl Procalcitonin (0-0.5) ng/ml Urine Color Yellow Urine Appearance Clear (Clear) Urine pH 6.0 (4.5-7.5) Ur Specific Slade 1.015 (1.000-1.030) Urine Protein Negative (Negative) Urine Glucose (UA) Negative (Negative) Urine Ketones Negative (Negative) Urine Blood 2+ H (Negative) Urine Nitrite Negative (Negative) Urine Bilirubin Negative (Negative) Urine Urobilinogen Negative (Negative) Ur Leukocyte Esterase Negative (Negative) Urine WBC (Auto) 0-5 (0-5) /hpf Urine RBC (Auto) >20 H (0-2) /hpf U Hyaline Cast (Auto) 0-2 (0-2) /lpf U Epithel Cells (Auto) 0-2 (0-2) /hpf Urine Bacteria (Auto) None Seen (None Seen) SARS-CoV-2 (PCR) (Negative) Influenza Type A (PCR) (Neg) Influenza Type B (PCR) (Neg) RSV (RT-PCR) (Neg) Administered Medications Magnesium Sulfate/Dextrose (Magnesium Sulfate / D5w) 1 gm in 100 mls @ 50 mls/hr IV Q2H ABRIL Stop: 09/04/23 18:29 Last Admin: 09/04/23 12:34 Dose: 50 mls/hr Documented By: ACC Discontinued Medications Aspirin (Aspirin Chew 324 Mg) 324 mg PO NOW STA Stop: 09/04/23 12:19 Last Admin: 09/04/23 12:34 Dose: 324 mg Documented By: ACC Potassium Chloride (Potassium Chloride Crtab 20 Meq Tabcr) 40 meq PO NOW STA Stop: 09/04/23 12:17 Last Admin: 09/04/23 12:34 Dose: 40 meq Documented By: ACC Imaging Data Attestation: I personally reviewed and interpreted this imaging study as follows: My Impression: 1 view chest x-ray was obtained in the emergency department. Bilateral infiltrates were noted, final report below. Radiologist's Impression: Chest X-Ray 09/04/23 10:04 SINGLE VIEW CHEST CLINICAL HISTORY: Sepsis. Lung cancer. FINDINGS: An AP, portable, upright chest radiograph is compared to study dated 08/28/2023 and correlated with chest CT dated 08/15/2023. The examination is degraded by portable technique and patient rotation. The heart is enlarged noting atherosclerotic calcification of the secure. The pulmonary vasculature is noncongested. Emphysema and chronic interstitial thickening is similar to previous. Dense airspace consolidation/fibrosis in the right upper lobe is similar to previous. Left midlung and right basilar opacities have not significantly changed. Scarring/atelectasis is noted at the lung bases. A small right pleural effusion is observed. No pneumothorax is seen. The skeletal structures are osteopenic. The bony thorax is grossly intact. IMPRESSION: 1. Cardiomegaly and emphysema without radiographic evidence of congestive failure. 2. Dense right upper lobe consolidation/fibrosis is similar to previous. 3. Airspace opacities in the left mid lung at the right lung base have not significantly changed from previous. 4. Right pleural effusion. ACT 112: Negative or not required by law. Electronically signed by: Bao Harrison M.D. 09/04/2023 11:07 AM Discharge Plan Visit Data Chief Complaint: Respiratory Problems Stated Complaint: TROUBLE BREATHING - HAS COPD & LUNG CX & PNEUMONIA ED Provider: Bahman Ingram Discharge Problem: Pneumonia, Lung cancer Patient Disposition: Being Evaluated by Hospitalist Forms Stand Alone Forms: [facility] Prescriptions Prescriptions: No Action ondansetron HCl 8 mg tablet 8 mg PO Q8H PRN (Reason: Nausea) prochlorperazine maleate [Compazine] 10 mg tablet 10 mg PO Q6H PRN (Reason: Nausea) Mag 64 64 mg tablet,delayed release (DR/EC) 128 mg PO TID (DME) lancets [OneTouch UltraSoft Lancets] [facility] See Rx Instructions .ROUTE .MEDSUPPLY Qty: 100 5RF Rx Instructions: As directed 3-4x a day Dx:E11.9 (DME) pen needle, diabetic [BD Ultra-Fine Mini Pen Needle] 31 gauge x 3/16" needle See Rx Instructions .Route Qty: 1200 2RF Rx Instructions: Use to inject insulin 7 times daily (DME) OneTouch Ultra Test Strip See Rx Instructions .Route Qty: 100 4RF Rx Instructions: check blood sugars x3-4/day (DME) blood-glucose meter [OneTouch Ultra2 Meter] [facility] See Rx Instructions .Route Qty: 1 0RF Rx Instructions: use to check blood sugars x3-4/day ezetimibe 10 mg tablet 10 mg PO QAM Qty: 90 1RF Rx Instructions: TAKE 1 TABLET BY MOUTH EVERY MORNING dexamethasone 4 mg tablet 4 mg PO DAILY Qty: 30 0RF Rx Instructions: Hold prednisone dose while on dexamethasone. take as directed when taking chemo memantine 10 mg tablet 10 mg PO BID Qty: 60 4RF pantoprazole 40 mg tablet,delayed release (DR/EC) 40 mg PO DAILY Patient Comments: CONFIRMED W/ SISTER ON 08/17. RX'D BY DR LITTLEJOHN. ([facility] [place]) Accu-Chek Guide test strips Strip See Rx Instructions .Route Qty: 100 12RF Rx Instructions: chec blood sugars twice a day (DME) CPAP Supplies Misc See Rx Instructions .MEDSUPPLY Qty: 1 0RF Rx Instructions: CPAP supplies. G47.33 ([facility] [place]) Auto Titrating CPAP Misc See Rx Instructions .MEDSUPPLY Qty: 1 0RF Rx Instructions: Auto PAP with 5-15 cm H20. Lifetime usage. G47.33 clotrimazole-betamethasone 1-0.05 % cream 1 applic topical .qhs Qty: 45 11RF Rx Instructions: Apply small/pea-sized amount topically before bed albuterol sulfate [Ventolin HFA] 90 mcg/actuation HFA aerosol inhaler 2 inh INH QID PRN (Reason: shortness of breath or wheezing) Qty: 18 6RF Trelegy Ellipta 100-62.5-25 mcg blister with device 1 inh inhalation QAM Qty: 60 8RF insulin glargine [Lantus Solostar U-100 Insulin] 100 unit/mL (3 mL) insulin pen 42 unit subcut QAM 90 Days Qty: 45 3RF clonazepam 0.5 mg Tablet 0.5 mg PO BID divalproex 500 mg Tablet,Delayed Release (Dr/Ec) 500 mg PO HS cholecalciferol (vitamin D3) [Vitamin D3] 1,000 unit Capsule 1,000 unit PO QAM olanzapine [Zyprexa] 10 mg Tablet 10 mg PO HS vitamin E 400 unit Capsule 400 unit PO QAM fluvoxamine 150 mg Capsule,Extended Release 24hr 150 mg PO HS simvastatin 40 mg tablet 40 mg PO QAM tamsulosin 0.4 mg capsule 0.4 mg PO QAM potassium chloride 20 mEq tablet extended release 20 meq PO QAM folic acid 1 mg Tablet 1 mg PO QAM cyanocobalamin (vitamin B-12) 1,000 mcg capsule 1,000 mcg PO QAM metformin 500 mg tablet 1,000 mg PO BID Rx Instructions: TAKE 2 TABLETS BY MOUTH TWICE A DAY sulfamethoxazole-trimethoprim [Bactrim DS] 800-160 mg Tablet 1 tab PO MoWeFr@09 Qty: 12 0RF docusate sodium 100 mg Capsule 100 mg PO BID PRN (Reason: constipation) Qty: 60 0RF polyethylene glycol 3350 [Miralax] 17 gram Powder In Packet 17 g PO DAILY PRN (Reason: constipation) Qty: 30 0RF Rx Instructions: OTC prednisone 20 mg Tablet 40 mg PO DAILY Qty: 60 0RF furosemide [Lasix] 40 mg tablet 40 mg PO QAM Qty: 30 0RF (DME) Portable Oxygen E0431 Misc See Rx Instructions .MEDSUPPLY Qty: 1 0RF Rx Instructions: Oxygen 2 liters continuous via nasal cannula and 6L on exertion with portable concentrator. JAKI [id number] Referrals Referrals: Jah Brown DO [Primary Care Provider] - Discharge Problem: Pneumonia Qualifiers: Pneumonia type: due to unspecified organism Laterality: unspecified laterality Lung location: unspecified part of lung Qualified Code(s): J18.9 - Pneumonia, unspecified organism Lung cancer Qualifiers: Laterality: unspecified laterality Lung location: unspecified part of lung Q ualified Code(s): C34.90 - Malignant neoplasm of unspecified part of unspecified bronchus or lung
[2023-09-04 10:32] LABS: Base Excess VBG -0.6 mEq/L; HCO3 VBG 23 mmol/L; Oxygen Saturation VBG 80.9 %; PCO2 VBG 35 mmHg (38-50); PO2 VBG 52 mmHg; pH VBG 7.43 (7.36-7.41)
[2023-09-04 10:36] LABS: Basophils # (auto) 0.02 K/uL (0.00-0.20); Basophils % (auto) 0.2 %; Eosinophils # (auto) 0.01 K/uL (0.00-0.50); Eosinophils % (auto) 0.1 %; Hematocrit (blood only) 32.1 % (42.0-52.0); Hemoglobin 10.5 g/dl (14.0-18.0); Immature Granulocytes # (auto) 0.08 K/uL (0.01-0.20); Immature Granulocytes % (auto) 0.9 %; Lymphocytes # (auto) 0.49 K/uL (1.20-3.40); Lymphocytes % (auto) 5.3 %; Mean Corpuscular Hgb Conc 32.7 g/dL (32.0-36.0); Mean Corpuscular Volume 94.7 fL (80.0-100.0); Mean Platelet Volume 10.1 fL (9.4-12.4); Monocytes # (auto) 0.49 K/uL (0.11-0.59); Monocytes % (auto) 5.3 %; Neutrophils # (auto) 8.14 K/uL (1.40-6.50); Neutrophils % (auto) 88.2 %; Nucleated RBC # (auto) 0.02 K/uL (0.00-0.12); Nucleated RBC % (auto) 0.2 %; Platelet Count 163 K/uL (130-400); RDW Coefficient of Variation 14.9 % (11.5-14.5); RDW Standard Deviation 50.4 fL (36.4-46.3); Red Blood Count 3.39 M/uL (4.70-6.10); White Blood Count 9.23 K/ul (4.8-10.8)
[2023-09-04 11:01] LABS: INR 1.1 (0.9-1.1); Partial Thromboplastin Time 28 Seconds (21-31); Prothrombin Time 12.3 Seconds (9.0-12.0)
[2023-09-04 11:02] LABS: Albumin Level 3.8 gm/dl (3.4-5.0); BUN Creatinine Ratio 28.3 (10-20); Bilirubin Direct 0.2 mg/dl (0-0.2); Bilirubin,Total 0.6 mg/dl (0.2-1.0); Calcium 8.6 mg/dl (8.6-10.3); Est GFR (African American) 74.1 ml/min; Magnesium 1.4 mg/dl (1.7-2.4); Potassium 3.8 mmol/L (3.5-5.1)
--- NOTE | 2023-09-04 11:08 | XRay Report ---
SINGLE VIEW CHEST CLINICAL HISTORY: Sepsis. Lung cancer. FINDINGS: An AP, portable, upright chest radiograph is compared to study dated 08/28/2023 and correlat ed with chest CT dated 08/15/2023. The examination is degraded by portable technique and patient rotati on. The heart is enlarged noting atherosclerotic calcification of the secure. The pulmonary vasculatu re is noncongested. Emphysema and chronic interstitial thickening is similar to previous. Dense airsp liset consolidation/fibrosis in the right upper lobe is similar to previous. Left midlung and right bas ilar opacities have not significantly changed. Scarring/atelectasis is noted at the lung bases. A sma ll right pleural effusion is observed. No pneumothorax is seen. The skeletal structures are osteopeni c. The bony thorax is grossly intact. IMPRESSION: 1. Cardiomegaly and emphysema without radiographic evidence of congestive failure. 2. Dense right upper lobe consolidation/fibrosis is similar to previous. 3. Airspace opacities in the left mid lung at the right lung base have not significantly changed from previous. 4. Right pleural effusion. ACT 112: Negative or not required by law. Electronically signed by: Bao Harrison M.D. 09/04/2023 11:07 AM
[2023-09-04 11:09] LABS: Appearance Urine Clear (Clear); Bacteria Urine Automated None Seen (None Seen); Bilirubin Urine Negative (Negative); Blood Urine 2+ (Negative); Cast Urine Automated 0-2 /lpf (0-2); Color Urine Yellow; Epithelial Cell Urine Auto 0-2 /hpf (0-2); Glucose Urine UA Negative (Negative); Ketones Urine Negative (Negative); Leukocyte Esterase Urine Negative (Negative); Nitrite Urine Negative (Negative); Protein Urine Negative (Negative); RBC Urine Automated >20 /hpf (0-2); Specific Gravity Urine 1.015 (1.000-1.030); Urobilinogen Urine Negative (Negative); WBC Urine Automated 0-5 /hpf (0-5)
[2023-09-04 11:16] LABS: Troponin I High Sensitivity 89.2 pg/ml (0-20)
[2023-09-04 11:51] LABS: Influenza A virus by PCR Negative (Neg); Influenza B virus by PCR Negative (Neg); RSV by PCR Negative (Neg); SARS CoV2 RNA(COVID-19) Ceph NEGATIVE (Negative)
[2023-09-04] MEDS ORDERED: GLUCAGON FOR INJ 1 MG VIAL SQ PRN (12:27)
[2023-09-04] MEDS ORDERED: CARBOHYDRATES FOR HYPOGLYCEMIA PO PRN (12:27)
[2023-09-04] MEDS ORDERED: GLUCOSE 40% GEL 15 GM TUBE PO PRN (12:27)
[2023-09-04] MEDS ORDERED: GLUCOSE 10 TAB/TUBE PO PRN (12:27)
[2023-09-04] MEDS ORDERED: DEXTROSE 50% 50 ML SYRINGE IV PRN (12:27)
[2023-09-04] MEDS: POTASSIUM CHLORIDE CRTAB 20 MEQ TABCR PO STA (12:34)
[2023-09-04] MEDS: ASPIRIN CHEW 324 MG PO STA (12:34)
[2023-09-04] MEDS: MAGNESIUM SULFATE / D5W 1 GM/100 ML BAG IV SCH (12:34)
--- NOTE | 2023-09-04 12:54 | History & Physical Report ---
Date of Service September 04, 2023 Assessment & Plan (1) Acute and chronic respiratory failure: Plan: Assessment: 1. Acute on chronic hypoxemic respiratory failure. The patient's oxygen dependent at home 2 to 6 L continuously depending on activity level. He has had to increase his compared to his baseline over the last few days minimally. We feel this is multifactorial secondary to lung carcinoma possibly worsening versus possible postobstructive pneumonia. Patient's white count is normal. His chest x-ray is stable. We will await bronchoscopy and culture data to tailor antibiotics. At home he was started on Augmentin and doxycycline which will be continued as well as Bactrim for prophylaxis which she is chronically on. Sputum cultures were ordered. 2. Rule out pulmonary embolism. Certainly high risk. CTA of the chest has been ordered. 3. Diabetes mellitus type 2 insulin requiring sliding scales been ordered. 4. Obstructive sleep apnea with CPAP dependence with compliance. This has been ordered per protocol. 5. Ex tobacco abuse quit smoking approximately 2 years ago. 6. Underlying COPD without any significant exacerbation here today appreciated. Continue home medications. 7. GERD. Continue home medications. 8. Dyslipidemia continue home meds. 9. History of alcohol abuse however has not had anything to drink in over 1 month. 10. History of schizophrenia certainly well compensated at this time interacts very appropriately today. 11. 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 He has had brain radiation. However it does appear that MRI June 21, 2023 is showing worsening metastatic disease of the brain. Plan: As discussed above. Please refer to orders for further planning. History of Present Illness Chief Complaint: Shortness of breath in the setting of current lung carcinoma Primary Care Provider: Jah Brown, DO This is a pleasant 63-year-old male who is undergoing intermittent active treatment for bronchogenic carcinoma with metastatic disease to the brain he has had brain radiation therapy. Patient was admitted earlier this month with an abnormal checks x-ray with a right upper lobe consolidation. Patient declined bronchoscopy at that time. He was discharged home on broad-spectrum antibiotic therapy. He completed the course of those. He had increasing shortness of breath starting last week. The patient was commenced on Augmentin and doxycycline last week. He is currently on Bactrim for prophylaxis. He has been taking his antibiotics he said increasing shortness of breath over the weekend and therefore presented to the ER at the recommendation of primary care for further evaluation and treatment. Chest x-ray in the ER demonstrated right upper lobe consolidation and was quite abnormal but appears stable. Laboratory studies were stable. Patient does have anemia of chronic disease at 10.5 g/dL which is stable. White count normal. Troponin was elevated at around 89. However 2 weeks ago when here was elevated in the 120s and 130s. Magnesium was found to be low. It is chronically low. 1.4 today. It is being replaced to the IV and will be rechecked in the morning. He had a reassuring echocardiogram at that time. EKG was done was at the bedside there is a right bundle branch block pattern with a sinus rhythm with no acute ST-T abnormalities. The patient has not endorsed any chest pain with his increased shortness of breath. The patient is accompanied by his sister today who is his medical power of it data architect. And also his [id number]. The patient does consent to a bronchoscopy at this time if recommended by pulmonology. Consult pulmonology. Will continue the same antibiotics he is on as an outpatient for now including Augmentin doxycycline and Bactrim. Once bronchoscopy completed culture data will be obtained and we can tailor antibiotic therapy accordingly. The patient has screened negative for COVID and influenza today. Allergies Allergy/AdvReac Type Severity Reaction Status Date / Time scopolamine Allergy Intermediate Itching Verified 08/21/23 13:26 Home Medications Medication Instructions Recorded Confirmed Type cholecalciferol (vitamin D3) 25 1,000 unit PO QAM 06/29/18 09/04/23 History mcg (1,000 unit) capsule (Vitamin D3) clonazepam 0.5 mg tablet 0.5 mg PO BID 06/29/18 09/04/23 History divalproex 500 mg tablet,delayed 500 mg PO HS 06/29/18 09/04/23 History release fluvoxamine 150 mg 150 mg PO HS 06/29/18 09/04/23 History capsule,extended release 24 hr olanzapine 10 mg tablet (Zyprexa) 10 mg PO HS 06/29/18 09/04/23 History vitamin E 268 mg (400 unit) capsule 400 unit PO QAM 06/29/18 09/04/23 History Auto Titrating CPAP #1 ea 07/05/21 08/21/23 Rx CPAP Supplies #1 ea 07/05/21 08/21/23 Rx lancets (OneTouch UltraSoft #100 ea 04/05/22 08/21/23 Rx Lancets) pen needle, diabetic 31 gauge x #1,200 ea 12/30/22 08/21/23 Rx 3/16" (BD Ultra-Fine Mini Pen Needle) magnesium chloride 64 mg 128 mg PO TID 02/08/23 09/04/23 History (magnesium chloride) tablet,delayed release (Mag 64) blood sugar diagnostic (Accu-Chek #100 ea 02/14/23 08/18/23 Rx Guide test strips) blood sugar diagnostic (OneTouch #100 ea 03/01/23 08/21/23 Rx Ultra Test strips) blood-glucose meter (OneTouch #1 ea 03/01/23 08/21/23 Rx Ultra2 Meter) ezetimibe 10 mg tablet 10 mg PO QAM #90 tabs 06/08/23 09/04/23 Rx ondansetron HCl 8 mg tablet 8 mg PO Q8H PRN Nausea 06/23/23 09/04/23 History prochlorperazine maleate 10 mg 10 mg PO Q6H PRN Nausea 06/23/23 09/04/23 History tablet (Compazine) clotrimazole-betamethasone 1 1 applic topical .qhs #45 grams 06/28/23 09/04/23 Rx %-0.05 % topical cream dexamethasone 4 mg tablet 4 mg PO DAILY Balance issues #30 07/13/23 09/04/23 Rx tabs memantine 10 mg tablet 10 mg PO BID To help memory #60 07/17/23 09/04/23 Rx tabs albuterol sulfate 90 mcg/actuation 2 inh inhalation QID PRN shortness 08/09/23 09/04/23 Rx aerosol inhaler (Ventolin HFA) of breath or wheezing #18 grams fluticasone fur. 100 mcg-umeclid 1 inh inhalation QAM #60 ea 08/09/23 09/04/23 Rx 62.5 mcg-vilant 25 mcg inhalat.powder (Trelegy Ellipta) cyanocobalamin (vitamin B-12) 1,000 mcg PO QAM 08/15/23 09/04/23 History 1,000 mcg capsule folic acid 1 mg tablet 1 mg PO QAM 08/15/23 09/04/23 History metformin 500 mg tablet 1,000 mg PO BID 08/15/23 09/04/23 History potassium chloride 20 mEq 20 meq PO QAM 08/15/23 09/04/23 History tablet,extended release simvastatin 40 mg tablet 40 mg PO QAM 08/15/23 09/04/23 History tamsulosin 0.4 mg capsule 0.4 mg PO QAM 08/15/23 09/04/23 History Portable Oxygen E0431 #1 ea 08/17/23 08/21/23 Rx docusate sodium 100 mg capsule 100 mg PO BID PRN constipation #60 08/17/23 09/04/23 Rx caps furosemide 40 mg tablet (Lasix) 40 mg PO QAM #30 tabs 08/17/23 09/04/23 Rx polyethylene glycol 3350 17 gram 17 g PO DAILY PRN constipation #30 08/17/23 09/04/23 Rx oral powder packet (Miralax) ea prednisone 20 mg tablet 40 mg (2 x 20 mg) PO DAILY #60 tabs 08/17/23 09/04/23 Rx sulfamethoxazole 800 1 tab PO MoWeFr@09 #12 tabs 08/17/23 09/04/23 Rx mg-trimethoprim 160 mg tablet (Bactrim DS) pantoprazole 40 mg tablet,delayed 40 mg PO DAILY 08/18/23 09/04/23 History release insulin glargine 100 unit/mL (3 42 unit (0.42 mL) subcut QAM 90 08/21/23 09/04/23 Rx mL) subcutaneous pen (Lantus days #45 mL Solostar U-100 Insulin) Past Med/Surg History Medical History Acute on chronic heart failure with preserved ejection fraction (HFpEF) Venous stasis dermatitis Anxiety and depression Benign essential tremor Esophageal reflux Urinary incontinence Alcohol abuse 10-12 DRINKS PER DAY Schizophrenia Pulmonary HTN "MILD" RVSP 40MMHG PER 2015 STRESS ECHO- NO ISSUES NOTED WITH 2019 ECHO Chronic back pain OCD (obsessive compulsive disorder) Surgical History History of cataract surgery right/left History of bronchoscopy Spring 2021 H/O tooth extraction 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 History of biopsy of bladder TURBT= 11/28/17= LMA#5 AT [facility] H/O exploratory laparotomy GALLBLADDER LESION EXCISION History of cystoscopy WITH STONE EXTRACTION X 2 History of open reduction and internal fixation (ORIF) procedure LEFT SHOULDER Family History Father Prostate cancer Family history of diabetes mellitus Myocardial infarction Aunt Family history of diabetes mellitus Uncle Family history of diabetes mellitus Family/Other Family history of diabetes mellitus Mother Diabetes Alzheimer disease Grandfather (Paternal) Cardiac disorder Cancer Colon Cancer Brother Kidney stones Other Heart disease No family history of adverse response to anesthesia Denies family history of Crohn's disease Colorectal cancer Lung disease Inflammatory bowel disease Asthma Social History Smoking Status: Former smoker Tobacco Type: Cigarettes Age Started Using Tobacco: 12; Age Quit Using Tobacco: 61; packs per day: 0.5; Cigarettes Per Day: 10; Second Hand Exposure: No; Do You Dip or Chew Tobacco: No; Hx Alcohol Use: No Hx Substance Use: No Preferred Language: Niuean Communication Ability: Effective Visual Impairment: Limited Hearing Ability: Normal Supervisor Engine Repair Required: No Beliefs That Will Affect Care: None marital status: Single Current Living Situation: Alone Current Living Situation Comment: pt has been living with sister for several weeks during chemo rx current occupational status: disabled Feels Safe at Home: Yes Safety Concerns Comment: Currently living with his sister due to chemo/radiation/illness in current or past relationships, have you been: other Diet: regular caffeine: Yes Dental Care, Regularly: No Physical Activity Frequency: 1-2 Times per Week Seatbelt Use: always Assistive Devices: Cane, Oxygen - Continuous and Walker Review of Systems Review of Systems: A 10 point review of system was obtained and unless otherwise stated here or in history of present illness are negative and noncontributory to chief complaint. Physical Exam Physical Exam: In General: Pleasant 63-year-old male who is alert and oriented x 3 at the time of my exam. Again accompanied by his sister who is his medical power of it data architect and her /patient's [id number]. He did barry permission for both parties to be in the room at the time of my interview and exam. He is is in no acute distress and interacts appropriately HEENT: Normocephalic atraumatic pupils are equal round and reactive to light bilaterally. No scleral icterus no conjunctival injection external auditory canals are patent septum is in the midline nose is without discharge oral mucosa is pink and moist without lesion. NECK: Supple no rigidity no lymphadenopathy no thyromegaly no carotid bruits no JVD no masses. HEART: Regular rate and rhythm I do not appreciate any ectopy or rub. No murmur. LUNGS: Lungs are coarse bilaterally with scattered rhonchi. No rales. Occasional expiratory wheeze. Patient has decreased breath sounds in the right upper lobe lung lakhani compared to other lung lakhani. ABDOMEN: Soft nontender, no rebound, no peritoneal signs, positive bowel sounds, no appreciable organomegaly. EXTREMITIES: Intact, no clubbing or significant edema. The patient does have changes of chronic venous stasis bilaterally. Strength is 4+ to 5 out of 5 x 4. NEUROLOGICAL: Cranial nerves II through XII are grossly intact with no focal deficit elicited upon examination. No tremor. Results & Data Results & Data Vital Signs (Past 12 Hours) Vital Signs Temp Pulse Pulse Resp BP BP Pulse Ox 09/04/23 11:50 103 H 16 09/04/23 11:40 101 H 24 09/04/23 11:30 102 H 12 92 09/04/23 11:20 108 H 19 09/04/23 11:10 99 H 16 96 09/04/23 11:00 78 19 94 09/04/23 10:50 101 H 15 94 09/04/23 10:48 107 H 20 113/77 93 09/04/23 10:40 100 H 15 94 09/04/23 10:30 120 H 19 95 09/04/23 10:22 108 H 09/04/23 10:22 111 H 14 113/77 97 09/04/23 10:20 108 H 22 93 09/04/23 10:12 106 H 21 92 09/04/23 10:09 109 H 17 93 09/04/23 10:09 106 H 19 113/77 92 09/04/23 10:09 09/04/23 09:57 36.5 C 89 20 109/77 96 O2 Del Method O2 Flow Rate 09/04/23 11:50 09/04/23 11:40 09/04/23 11:30 09/04/23 11:20 09/04/23 11:10 09/04/23 11:00 09/04/23 10:50 09/04/23 10:48 Nasal Cannula 3 09/04/23 10:40 09/04/23 10:30 09/04/23 10:22 09/04/23 10:22 Nasal Cannula 3 09/04/23 10:20 09/04/23 10:12 09/04/23 10:09 Nasal Cannula 3 09/04/23 10:09 Nasal Cannula 3 09/04/23 10:09 Nasal Cannula 3 09/04/23 09:57 Nasal Cannula 3 Code Status & VTE Plan Code Status DNR/DNI. I did personally discussed with the patient and his medical power of it data architect/his sister at the bedside today VTE Prophylaxis Plan VTE Prophylaxis will be ordered: Yes PG Care Time/CCT Total # of Minutes Spent Total Time Spent with Patient: Total time spent is greater than 50% in coordination of care (as documented) at patient's floor/unit and/or counseling patient: Coding Level of Care Code 70737 INT INP/OBS CARE 3/75MIN Diagnoses Acute and chronic respiratory failure J96.20
[2023-09-04] MEDS ORDERED: DOCUSATE SODIUM 100 MG CAP PO PRN (13:07)
[2023-09-04] MEDS ORDERED: PROCHLORPERAZINE MALEATE 10 MG TAB PO PRN (13:07)
[2023-09-04] MEDS ORDERED: POLYETHYLENE (MIRALAX) 17 GM PACK PO PRN (13:07)
[2023-09-04] MEDS: ALBUT/IPRATROP 3MG/0.5MG NEB 3 ML VIAL NEB SCH (13:49)
[2023-09-04] MEDS: OPTIRAY 320 125ml IV ONE (13:50)
[2023-09-04] MEDS: MAGNESIUM CHLORIDE W/CALCIUM 64MG DELAYED REL TAB PO SCH (14:10)
[2023-09-04] MEDS: ADVANCED PROBIOTIC 625 MG CAPSULE PO SCH (14:10)
--- NOTE | 2023-09-04 14:16 | Pulmonary Consultation ---
Date of Consultation September 04, 2023 Assessment & Plan (1) Stage IV squamous cell carcinoma of lung: Laterality: right Qualified Code(s): C34.91 - Malignant neoplasm of unspecified part of right bronchus or lung (2) Chronic hypoxic respiratory failure, on home oxygen therapy: (3) Abnormal chest CT: (4) Altered mental state: (5) Chronic right heart failure: (6) Declining functional status: Plan 63-year-old male with a history of stage IV adeno/squamous cell carcinoma unfortunately with evidence of progressive disease despite chemo and immunotherapy. Currently on prednisone therapy chronically due to presumptive checkpoint inhibitor pulmonary toxicity. Patient also maintained on Bactrim therapy for PJP prophylaxis given the need for high-dose prednisone on a chronic basis. I reviewed his CT chest today which seems relatively stable compared to the CT prior on 08/15/2023. 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 Certainly other possibilities in the differential remain including acute infection, chronic infectious etiology and inflammatory conditions. Unclear whether bronchoscopy would be truly beneficial in his case as the patient is already maintained on prednisone therapy for potential immunotherapy related toxicity and unfortunately he has had disease progression with chemo and immunotherapy. Additionally, his oxygen requirements remain relatively stable compared to his baseline from the last admission. For now, would simply continue with the current plan of care including oral antibiotics, oral prednisone therapy at a dose of 40 mg daily and keep the patient n.p.o. after midnight in case bronchoscopy is required. Additionally, he does have a history of cor pulmonale likely from COPD. His BNP today is fortunately unremarkable. He does not appear to be in overt fluid overload. Will discontinue IV fluids at this time, however. Additionally, the patient's sister notes that his mental status has been waxing waning as of late. He does appear more fatigued. Will also pursue an MRI of the brain without contrast to see if the patient has more of metastatic disease burden or enlarging brain mets. I had an extensive discussion with the patient oncologist, Dr. Solano over the phone who agrees with an MRI of the brain. I also discussed palliative care medicine with the patient, sister and oncologist. All are in agreement with consulting palliative care medicine for their input regarding his case. He clearly has declining performance status and may benefit from palliation at this point. History of Present Illness Reason for Consultation: Abnormal CT chest with hypoxia Attending Physician: Feliz Glover, PhD, DO History of Present Illness 63-year-old male with a past medical history of EDUARD and adenosquamous carcinoma of the lungs previously on durvalumab therapy presenting to the ER due to increasing shortness of breath. He was discharged earlier this hospital stay and seen by Dr. Messina for similar complaints. CT chest at that time revealed right lower lobe groundglass opacification and areas in the left upper lobe with reticular findings and groundglass changes. He has a chronic right upper lobe masslike density with fibrotic changes likely related to radiation. Patient has a significant tobacco abuse history and has required supplemental oxygen anywhere from 2 to 6 L over the past month or 2. He is followed by oncology at [facility] and I was able to review the last note from earlier this month. Notably the patient had a PET scan earlier this year which revealed disease progression. He also had an MRI of his brain 06/21/2023 which revealed interval development of multiple enhancing lesions throughout the brain consiste nt with progressive metastatic disease and a dominant lesion within the cerebellar vermis measuring 2.6 cm with minimal mass effect. Patient has been maintained on prednisone therapy due to presumptive pneumonitis from immunotherapy and is also on Bactrim for prophylaxis every Monday, Monday and Monday. He was also started on Augmentin and doxycycline last week due to concerns of pneumonia. Patient's sister is present today who gives much of the history. She notes that yesterday evening he appeared very short of breath and somewhat confused at times. Patient denies any increasing cough. He does occasionally have a productive cough, but denies any overt hemoptysis. Patient's sister does note that he has appeared somewhat fatigued and confused at times over the last few days compared to prior to whole brain radiation. Allergies Allergy/AdvReac Type Severity Reaction Status Date / Time scopolamine Allergy Intermediate Itching Verified 08/21/23 13:26 Home Medications Medication Instructions Recorded Confirmed Type cholecalciferol (vitamin D3) 25 1,000 unit PO QAM 06/29/18 09/04/23 History mcg (1,000 unit) capsule (Vitamin D3) clonazepam 0.5 mg tablet 0.5 mg PO BID 06/29/18 09/04/23 History divalproex 500 mg tablet,delayed 500 mg PO HS 06/29/18 09/04/23 History release fluvoxamine 150 mg 150 mg PO HS 06/29/18 09/04/23 History capsule,extended release 24 hr olanzapine 10 mg tablet (Zyprexa) 10 mg PO HS 06/29/18 09/04/23 History vitamin E 268 mg (400 unit) capsule 400 unit PO QAM 06/29/18 09/04/23 History Auto Titrating CPAP #1 ea 07/05/21 08/21/23 Rx CPAP Supplies #1 ea 07/05/21 08/21/23 Rx lancets (OneTouch UltraSoft #100 ea 04/05/22 08/21/23 Rx Lancets) pen needle, diabetic 31 gauge x #1,200 ea 12/30/22 08/21/23 Rx 3/16" (BD Ultra-Fine Mini Pen Needle) magnesium chloride 64 mg 128 mg PO TID 02/08/23 09/04/23 History (magnesium chloride) tablet,delayed release (Mag 64) blood sugar diagnostic (Accu-Chek #100 ea 02/14/23 08/18/23 Rx Guide test strips) blood sugar diagnostic (OneTouch #100 ea 03/01/23 08/21/23 Rx Ultra Test strips) blood-glucose meter (OneTouch #1 ea 03/01/23 08/21/23 Rx Ultra2 Meter) ezetimibe 10 mg tablet 10 mg PO QAM #90 tabs 06/08/23 09/04/23 Rx ondansetron HCl 8 mg tablet 8 mg PO Q8H PRN Nausea 06/23/23 09/04/23 History prochlorperazine maleate 10 mg 10 mg PO Q6H PRN Nausea 06/23/23 09/04/23 History tablet (Compazine) clotrimazole-betamethasone 1 1 applic topical .qhs #45 grams 06/28/23 09/04/23 Rx %-0.05 % topical cream dexamethasone 4 mg tablet 4 mg PO DAILY Balance issues #30 07/13/23 09/04/23 Rx tabs memantine 10 mg tablet 10 mg PO BID To help memory #60 07/17/23 09/04/23 Rx tabs albuterol sulfate 90 mcg/actuation 2 inh inhalation QID PRN shortness 08/09/23 09/04/23 Rx aerosol inhaler (Ventolin HFA) of breath or wheezing #18 grams fluticasone fur. 100 mcg-umeclid 1 inh inhalation QAM #60 ea 08/09/23 09/04/23 Rx 62.5 mcg-vilant 25 mcg inhalat.powder (Trelegy Ellipta) cyanocobalamin (vitamin B-12) 1,000 mcg PO QAM 08/15/23 09/04/23 History 1,000 mcg capsule folic acid 1 mg tablet 1 mg PO QAM 08/15/23 09/04/23 History metformin 500 mg tablet 1,000 mg PO BID 08/15/23 09/04/23 History potassium chloride 20 mEq 20 meq PO QAM 08/15/23 09/04/23 History tablet,extended release simvastatin 40 mg tablet 40 mg PO QAM 08/15/23 09/04/23 History tamsulosin 0.4 mg capsule 0.4 mg PO QAM 08/15/23 09/04/23 History Portable Oxygen E0431 #1 ea 08/17/23 08/21/23 Rx docusate sodium 100 mg capsule 100 mg PO BID PRN constipation #60 08/17/23 09/04/23 Rx caps furosemide 40 mg tablet (Lasix) 40 mg PO QAM #30 tabs 08/17/23 09/04/23 Rx polyethylene glycol 3350 17 gram 17 g PO DAILY PRN constipation #30 08/17/23 09/04/23 Rx oral powder packet (Miralax) ea prednisone 20 mg tablet 40 mg (2 x 20 mg) PO DAILY #60 tabs 08/17/23 09/04/23 Rx sulfamethoxazole 800 1 tab PO MoWeFr@09 #12 tabs 08/17/23 09/04/23 Rx mg-trimethoprim 160 mg tablet (Bactrim DS) pantoprazole 40 mg tablet,delayed 40 mg PO DAILY 08/18/23 09/04/23 History release insulin glargine 100 unit/mL (3 42 unit (0.42 mL) subcut QAM 90 08/21/23 09/04/23 Rx mL) subcutaneous pen (Lantus days #45 mL Solostar U-100 Insulin) Patient History Medical History (Updated 09/04/23 @ 15:37 by Morales Rinaldi MD) Declining functional status Chronic right heart failure Altered mental state Chronic hypoxic respiratory failure, on home oxygen therapy Stage IV squamous cell carcinoma of lung Acute on chronic heart failure with preserved ejection fraction (HFpEF) Venous stasis dermatitis Anxiety and depression Benign essential tremor Esophageal reflux Urinary incontinence Alcohol abuse 10-12 DRINKS PER DAY Schizophrenia Pulmonary HTN "MILD" RVSP 40MMHG PER 2015 STRESS ECHO- NO ISSUES NOTED WITH 2019 ECHO Chronic back pain OCD (obsessive compulsive disorder) Surgical History History of cataract surgery right/left History of bronchoscopy Spring 2021 H/O tooth extraction 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 History of biopsy of bladder TURBT= 11/28/17= LMA#[address] [facility] H/O exploratory laparotomy GALLBLADDER LESION EXCISION History of cystoscopy WITH STONE EXTRACTION X 2 History of open reduction and internal fixation (ORIF) procedure LEFT SHOULDER Family History Father Prostate cancer Family history of diabetes mellitus Myocardial infarction Aunt Family history of diabetes mellitus Uncle Family history of diabetes mellitus Family/Other Family history of diabetes mellitus Mother Diabetes Alzheimer disease Grandfather (Paternal) Cardiac disorder Cancer Colon Cancer Brother Kidney stones Other Heart disease No family history of adverse response to anesthesia Denies family history of Crohn's disease Colorectal cancer Lung disease Inflammatory bowel disease Asthma Social History Smoking Status: Former smoker Tobacco Type: Cigarettes Age Started Using Tobacco: 12; Age Quit Using Tobacco: 61; packs per day: 0.5; Cigarettes Per Day: 10; Second Hand Exposure: No; Do You Dip or Chew Tobacco: No; Hx Alcohol Use: No Hx Substance Use: No Preferred Language: Mexican Communication Ability: Effective Visual Impairment: Limited Hearing Ability: Normal District Superintendent Required: No Beliefs That Will Affect Care: None marital status: Single Current Living Situation: Alone Current Living Situation Comment: pt has been living with sister for several weeks during chemo rx current occupational status: disabled Feels Safe at Home: Yes Safety Concerns Comment: Currently living with his sister due to chemo/radiation/illness in current or past relationships, have you been: other Diet: regular caffeine: Yes Dental Care, Regularly: No Physical Activity Frequency: 1-2 Times per Week Seatbelt Use: always Assistive Devices: Cane, Oxygen - Continuous and Walker Review of Systems Review of Systems: All systems reviewed & are unremarkable except as noted in HPI & below Physical Exam Physical Exam: Constitutional: Patient appears to be of their stated age. Patient is in no apparent distress. Patient is well-developed. Eyes: Pupils are equal round and reactive to light. Conjunctivae are normal. Anicteric sclera. Ears nose, mouth and throat: Mallampati class 2. Normal posterior oropharynx. Uvula is midline. Neck: Trachea is midline. Visual inspection is normal. Respiratory: Mild crackles noted bilaterally. No tachypnea Cardiovascular: Regular rate and rhythm. No murmurs. No edema. Gastrointestinal: Normal bowel sounds, soft, nontender and nondistended. No hepatosplenomegaly noted. Musculoskeletal: No cyanosis. Patient is able to move all extremities. Strength is 5 out of 5 in the upper and lower extremities. Skin: No rashes, warm dry and intact. Neurologic: No obvious focal neurological deficits seen. Psychiatric: Alert and oriented x3 with a euthymic affect. Results & Data Results & Data Vital Signs (Past 12 Hours) Vital Signs Temp Pulse Pulse Resp BP BP Pulse Ox 09/04/23 14:00 105 H 24 09/04/23 13:49 105 H 09/04/23 13:30 99 H 17 95 09/04/23 13:00 101 H 19 09/04/23 13:00 134/95 09/04/23 12:30 100 H 21 09/04/23 12:30 126/88 09/04/23 12:00 103 H 19 09/04/23 12:00 126/94 09/04/23 11:56 105 H 22 09/04/23 11:56 128/80 09/04/23 11:50 103 H 16 09/04/23 11:40 101 H 24 09/04/23 11:30 102 H 12 92 09/04/23 11:20 108 H 19 09/04/23 11:10 99 H 16 96 09/04/23 11:00 78 19 94 09/04/23 10:50 101 H 15 94 09/04/23 10:48 107 H 20 113/77 93 09/04/23 10:40 100 H 15 94 09/04/23 10:30 120 H 19 95 09/04/23 10:22 108 H 09/04/23 10:22 111 H 14 113/77 97 09/04/23 10:20 108 H 22 93 09/04/23 10:12 106 H 21 92 09/04/23 10:09 109 H 17 93 09/04/23 10:09 106 H 19 113/77 92 09/04/23 10:09 09/04/23 09:57 36.5 C 89 20 109/77 96 O2 Del Method O2 Flow Rate 09/04/23 14:00 09/04/23 13:49 09/04/23 13:30 09/04/23 13:00 09/04/23 13:00 09/04/23 12:30 09/04/23 12:30 09/04/23 12:00 09/04/23 12:00 09/04/23 11:56 09/04/23 11:56 09/04/23 11:50 09/04/23 11:40 09/04/23 11:30 09/04/23 11:20 09/04/23 11:10 09/04/23 11:00 09/04/23 10:50 09/04/23 10:48 Nasal Cannula 3 09/04/23 10:40 09/04/23 10:30 09/04/23 10:22 09/04/23 10:22 Nasal Cannula 3 09/04/23 10:20 09/04/23 10:12 09/04/23 10:09 Nasal Cannula 3 09/04/23 10:09 Nasal Cannula 3 09/04/23 10:09 Nasal Cannula 3 09/04/23 09:57 Nasal Cannula 3 PG Care Time/CCT Total # of Minutes Spent Total Time Spent with Patient: Total time spent is greater than 50% in coordination of care (as documented) at patient's floor/unit and/or counseling patient: Coding Level of Care Code 24265 INT INP/OBS CARE 3/75MIN Diagnoses Stage IV squamous cell carcinoma of right lung C34.91 Laterality: right Chronic hypoxic respiratory failure, on home oxygen therapy J96.11; Z99.[address] R93.89 Altered mental state R41.82 Chronic right heart failure I50.812 Declining functional status R53.81
--- NOTE | 2023-09-04 14:21 | CT Scan Report ---
CT angio chest PE protocol CT DOSE: 924.2 mGy.cm HISTORY: 63 years-old Male with PE. Acute shortness of breath TECHNIQUE: Multiple CTA images of the chest were obtained after the intravenous administration of 112 ml Optiray. Coronal and sagittal MIPS were obtained from the axial data set and were submitted for review. All measurements were obtained according to NASCET criteria. A dose lowering technique was u tilized adhering to the principles of ALARA. COMPARISON: Chest radiograph of same day, CTA chest 08/15/2023, PET CT 05/17/2023 FINDINGS: CTA: Moderate cardiomegaly. No pericardial effusion. Extensive coronary artery calcifications. Atheroscler osis of the thoracic aorta without aneurysm or dissection. Unremarkable pulmonary artery with subopti mal evaluation of the segmental and subsegmental branches secondary to respiratory motion. CT CHEST: No thyroid nodule. Stable enlarged mediastinal and hilar lymphadenopathy. Subcarinal lymph nodes yaima ure up to 2.6 x 1.5 cm, unchanged. Emphysema with bronchial wall thickening. Mild intralobular septal thickening. Consolidation and volume loss with bronchiectasis redemonstrated involving the right upp er lobe. Multilobar bilateral patchy airspace opacities previously described more groundglass attenua tion on the prior study. Mildly improved aeration of the left upper lobe compared to the prior with r esolution of the small right pleural effusion. Nonspecific mild distal esophageal wall thickening. Unremarkable soft tissues. No acute fracture. IMPRESSION: 1. Pathologic mediastinal and hilar lymphadenopathy appears stable. 2. Emphysema with right upper lobe postradiation fibrosis and volume loss redemonstrated. 3. Patchy bilateral airspace opacities are suggestive of multifocal pneumonia. 4. Cardiomegaly. ACT 112: Negative or not required by law. The above report was generated using voice recognition software. It may contain grammatical, syntax o r spelling errors. Electronically signed by: Rohan Adamson M.D. 09/04/2023 2:19 PM
[2023-09-04] MEDS: INSULIN ASPART PER UNIT CHARGE SC SCH (14:38)
[2023-09-04] MEDS ORDERED: INSULIN ASPART PER UNIT CHARGE SC SCH (16:30)
[2023-09-04] MEDS: LACTATED RINGER'S 1,000 ML IV SCH (16:32)
[2023-09-04] MEDS: AMOXICILLIN/CLAVULANATE 875 MG TAB PO SCH (18:29)
[2023-09-04] MEDS: clonazePAM 0.5 MG TAB PO SCH (20:24)
[2023-09-04] MEDS: OLANZapine 10 MG TAB PO SCH (20:24)
[2023-09-04] MEDS: DOXYCYCLINE HYCLATE 100 MG CAP PO SCH (20:24)
[2023-09-04] MEDS: DIVALPROEX DELAY RELEASE 500 MG TAB PO SCH (20:24)
[2023-09-04] MEDS: MEMANTINE HCL 10 MG TAB PO SCH (20:24)
[2023-09-04] MEDS: guaiFENesin 600 MG TABCR PO SCH (20:25)
[2023-09-04] MEDS: LANTUS PER UNIT CHARGE SC SCH (20:47)
[2023-09-04] MEDS: ACETAMINOPHEN 500 MG TAB PO ONE (20:52)
[2023-09-04] MEDS: GADOBUTROL 65ML VIAL IV ONE (22:18)
--- NOTE | 2023-09-04 23:49 | Magnetic Resonance Report ---
Exam(s): MRI HEAD W/WO Contrast IV Amt: 10.7cc gadavist EXAM: MR Head Without and With Intravenous Contrast CLINICAL HISTORY: Reason for exam: eval for worsening metastatic disease?. TECHNIQUE: Magnetic resonance images of the head/brain without and with intravenous contrast in multiple planes. CONTRAST: Patient received 10.7cc gadavist of IV contrast COMPARISON: Comparison made to prior brain MRI from June 21, 2023. FINDINGS: Brain: There are multiple nodular enhancing lesion is in the cerebrum and cerebellum with mild surrounding vasogenic edema. The flow voids at the base the brain are intact. No hemorrhage. No acute infarct. Ventricles: Mild ventriculomegaly. Bones/joints: Unremarkable. No acute fracture. Sinuses: Unremarkable as visualized. No acute sinusitis. Mastoid air cells: Unremarkable as visualized. No mastoid effusion. Orbits: Unremarkable as bilateral lens replacements. IMPRESSION: Unchanged metastatic disease. Electronically signed by: Manda Augustine MD 09/04/23 23:48 PM
[2023-09-05 05:06] LABS: Basophils # (auto) 0.02 K/uL (0.00-0.20); Basophils % (auto) 0.3 %; Eosinophils # (auto) 0.11 K/uL (0.00-0.50); Eosinophils % (auto) 1.4 %; Hematocrit (blood only) 33.6 % (42.0-52.0); Hemoglobin 10.8 g/dl (14.0-18.0); Immature Granulocytes # (auto) 0.08 K/uL (0.01-0.20); Lymphocytes # (auto) 0.77 K/uL (1.20-3.40); Lymphocytes % (auto) 9.6 %; Mean Corpuscular Hemoglobin 30.9 pg (25.0-34.0); Mean Corpuscular Hgb Conc 32.1 g/dL (32.0-36.0); Mean Corpuscular Volume 96.3 fL (80.0-100.0); Mean Platelet Volume 10.2 fL (9.4-12.4); Monocytes # (auto) 0.58 K/uL (0.11-0.59); Monocytes % (auto) 7.3 %; Neutrophils # (auto) 6.43 K/uL (1.40-6.50); Neutrophils % (auto) 80.4 %; Nucleated RBC # (auto) 0.03 K/uL (0.00-0.12); Nucleated RBC % (auto) 0.4 %; Platelet Count 153 K/uL (130-400); RDW Coefficient of Variation 14.9 % (11.5-14.5); RDW Standard Deviation 51.1 fL (36.4-46.3); Red Blood Count 3.49 M/uL (4.70-6.10); White Blood Count 7.99 K/ul (4.8-10.8)
[2023-09-05 05:17] LABS: Albumin Globulin Ratio 1.3 (0.9-2); Bilirubin,Total 0.5 mg/dl (0.2-1.0); Calcium 8.8 mg/dl (8.6-10.3); Creatinine Clr Calc Pharmacy 71.4 ml/min; Est GFR (African American) 61.5 ml/min; Est GFR (Non-African American) 53.1 ml/min; Globulin 3.2 gm/dl (2.5-4.0); Magnesium 2.1 mg/dl (1.7-2.4); Potassium 3.9 mmol/L (3.5-5.1); Total Protein 7.2 gm/dl (6.0-8.3)
[2023-09-05 05:28] LABS: INR 1.1 (0.9-1.1); Prothrombin Time 11.8 Seconds (9.0-12.0)
[2023-09-05 06:03] LABS: Troponin I High Sensitivity 88.7 pg/ml (0-20)
--- NOTE | 2023-09-05 08:47 | Pulmonology Progress Note ---
Date of Service September 05, 2023 Assessment & Plan (1) Stage IV squamous cell carcinoma of lung: Laterality: right Qualified Code(s): C34.91 - Malignant neoplasm of unspecified part of right bronchus or lung (2) Chronic hypoxic respiratory failure, on home oxygen therapy: (3) Abnormal chest CT: (4) Altered mental state: (5) Chronic right heart failure: (6) Declining functional status: Plan 63-year-old male with a history of stage IV adeno/squamous cell carcinoma unfortunately with evidence of progressive disease despite chemo and immunotherapy. Currently on prednisone therapy chronically due to presumptive checkpoint inhibitor pulmonary toxicity. Patient also maintained on Bactrim therapy for PJP prophylaxis given the need for high-dose prednisone on a chronic basis. I reviewed his CT chest this admission which seems relatively stable compared to the CT prior on 08/15/2023. 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 Certainly other possibilities in the differential remain including acute infection, chronic infectious etiology and inflammatory conditions. Unclear whether bronchoscopy would be truly beneficial in his case as the patient is already maintained on prednisone therapy for potential immunotherapy related toxicity and unfortunately he has had disease progression with chemo and immunotherapy. Additionally, his oxygen requirements remain relatively stable compared to his baseline from the last admission. For now, would simply continue with the current plan of care including oral antibiotics, oral prednisone therapy at a dose of 40 mg daily. Will defer bronchoscopy today pending palliative care consultation. No evidence of acute on chronic CHF. Contrast-enhanced MRI brain yesterday shows numerous stable intracranial mets. Palliative care consult placed and the discussed with provider, Dr. Valero over the phone who will see the patient later today and discussed with the family as well. Patient may be suited better for hospice at this point in time given his declining performance status and recurrent hospital admissions related to stage IV lung cancer. Additionally patient has a pulmonary follow-up with his primary sports information director, Dr. Melgoza on 09/06/2023 at 4 PM. Would encourage the patient to keep this visit and discussed the role of potential bronchoscopy with his sports information director at that time. Admission and Anticipated Discharge Date Admission Date: September 04, 2023 Subjective Patient seen and examined. Feeling less short of breath than yesterday. Slept well. No acute issues or complaints currently. Requiring 2 L of oxygen via nasal cannula. Review of Systems Review of Systems: All systems reviewed & are unremarkable except as noted in HPI & below Physical Exam Physical Exam: Constitutional: Patient appears to be of their stated age. Patient is in no apparent distress. Patient is well-developed. Eyes: Pupils are equal round and reactive to light. Conjunctivae are normal. Anicteric sclera. Ears nose, mouth and throat: Mallampati class 2. Normal posterior oropharynx. Uvula is midline. Neck: Trachea is midline. Visual inspection is normal. Respiratory: Mild crackles noted bilaterally. No tachypnea Cardiovascular: Regular rate and rhythm. No murmurs. No edema. Gastrointestinal: Normal bowel sounds, soft, nontender and nondistended. No hepatosplenomegaly noted. Musculoskeletal: No cyanosis. Patient is able to move all extremities. Strength is 5 out of 5 in the upper and lower extremities. Skin: No rashes, warm dry and intact. Neurologic: No obvious focal neurological deficits seen. Psychiatric: Alert and oriented x3 with a euthymic affect. Results & Data Results & Data Vital Signs (Past 12 Hours) Vital Signs Temp Pulse Pulse Pulse Resp BP BP 09/05/23 08:18 36.6 C 99 H 18 123/63 09/05/23 07:23 09/05/23 07:18 103 H 18 09/05/23 06:59 101 H 09/05/23 03:49 86 18 09/05/23 02:53 36.7 C 85 20 145/86 H 09/05/23 01:23 89 17 09/05/23 01:23 89 17 09/04/23 23:44 107 H 09/04/23 23:32 36.8 C 102 H 20 119/74 09/04/23 22:18 Pulse Ox O2 Del Method O2 Flow Rate 09/05/23 08:18 94 Nasal Cannula 2 09/05/23 07:23 Nasal Cannula 2 09/05/23 07:18 94 Nasal Cannula 2 09/05/23 06:59 09/05/23 03:49 96 2 09/05/23 02:53 100 CPAP 09/05/23 01:23 94 CPAP 2 09/05/23 01:23 94 2 09/04/23 23:44 09/04/23 23:32 95 Nasal Cannula 2 09/04/23 22:18 Nasal Cannula 2 PG Care Time/CCT Total # of Minutes Spent Total Time Spent with Patient: Total time spent is greater than 50% in coordination of care (as documented) at patient's floor/unit and/or counseling patient: Coding Level of Care Code 06492 SUB INP/OBS CARE 50MIN Diagnoses Stage IV squamous cell carcinoma of right lung C34.91 Laterality: right Chronic hypoxic respiratory failure, on home oxygen therapy J96.11; Z99.[address] R93.89 Altered mental state R41.82 Chronic right heart failure I50.812 Declining functional status R53.81
[2023-09-05] MEDS: PANTOprazole 40 MG TAB PO SCH (08:56)
[2023-09-05] MEDS: SIMVASTATIN 40 MG TAB PO SCH (08:57)
[2023-09-05] MEDS: FUROSEMIDE 40 MG TAB PO SCH (08:58)
[2023-09-05] MEDS: TAMSULOSIN HCL 0.4 MG CAP PO SCH (08:58)
[2023-09-05] MEDS: EZETIMIBE 10 MG TAB PO SCH (08:58)
[2023-09-05] MEDS: predniSONE 20 MG TAB PO SCH (08:59)
[2023-09-05] MEDS: POTASSIUM CHLORIDE CRTAB 20 MEQ TABCR PO SCH (09:00)
[2023-09-05] MEDS ORDERED: dexAMETHasone 4 MG TAB PO SCH (09:00)
[2023-09-05] MEDS ORDERED: NON-FORMULARY MEDICATION (Fluticasone-Umeclidin-Vilanter [Trelegy Ellipta] 100-62.5-25 mcg INH SCH (09:00)
[2023-09-05] MEDS: FLUTICASONE FUROATE 100MCG 14 PUFFS/INHALER INH SCH (09:01)
[2023-09-05] MEDS: UMECLIDINIUM/VILANTEROL 62.5/25MCG 7 PUFFS/INHALER INH SCH (09:01)
[2023-09-05] MEDS ORDERED: METOPROLOL TARTRATE 1 MG/ML VIAL IV PRN (09:30)
[2023-09-05] MEDS: METOPROLOL TARTRATE 1 MG/ML VIAL IV ONE (09:35)
[2023-09-05] MEDS ORDERED: STAT IV Infusion **Titration per Protocol STA (10:25)
[2023-09-05] MEDS ORDERED: dilTIAZem HCL 125 MG in DEXTROSE 5% 100 ML IV SCH (10:25)
[2023-09-05] MEDS: dilTIAZem HCl 5 MG/ML 5 ML VIAL IV STA ×2 (10:44→14:23)
[2023-09-05] MEDS: dilTIAZem HCL 125 MG in DEXTROSE 5% 100 ML IV SCH (10:45)
[2023-09-05] MEDS: ENOXAPARIN INJ 40 MG/0.4 ML SYR SQ SCH (11:41)
--- NOTE | 2023-09-05 12:06 | Ultrasound Report ---
ULTRASOUND KIDNEYS AND BLADDER CLINICAL HISTORY: Hematuria. Unspecified cancer history. COMPARISON STUDY: Abdominal CT dated 01/13/2023. TECHNIQUE: Real-time, grayscale, and color flow sonography of the kidneys and bladder is performed. I mages are reviewed in the transverse and longitudinal planes. FINDINGS: Kidneys: The kidneys are normal in size and echotexture. The right kidney measures 10.9 x 5.9 x 4.8 c m and the left kidney measures 11.0 x 5.2 x 4.0 cm. There is no hydronephrosis. No shadowing renal c alculi are identified. Small renal cysts measure up to 1.3 cm. There is no sonographic evidence of co ntour deforming renal mass lesion. No perinephric fluid is identified. Bladder: The bladder is normal in appearance. Bilateral ureteral jets were seen. IMPRESSION: Unremarkable sonographic examination of the kidneys and bladder. ACT 112: Negative or not required by law. Electronically signed by: Bao Harrison M.D. 09/05/2023 12:04 PM
[2023-09-05] MEDS ORDERED: oxyCODONE HCL IR 5 MG TAB (IMMEDIATE RELEASE) PO PRN (14:12)
[2023-09-05] MEDS: ACETAMINOPHEN 500 MG TAB PO PRN (14:32)
--- NOTE | 2023-09-05 14:42 | Electrocardiogram Report ---
Test Reason : Blood Pressure : / mmHG Vent. Rate : 101 BPM Atrial Rate : 101 BPM P-R Int : 116 ms QRS Dur : 116 ms QT Int : 408 ms P-R-T Axes : 051 064 037 degrees QTc Int : 529 ms Sinus tachycardia Right bundle branch block Abnormal ECG When compared with ECG of 15-AUG-2023 15:54, Nonspecific T wave abnormality has replaced inverted T waves in Inferior leads T wave inversion less evident in Anterior leads QT has lengthened Confirmed by Johnathan Bird ([id number]) on 09/05/2023 2:42:19 PM Referred By: REFERRED SELF Confirmed By:Johnathan Bird
[2023-09-05] MEDS: DIGOXIN 500 MCG in SYRINGE 8 ML IV STA (14:44)
--- NOTE | 2023-09-05 16:05 | Electrocardiogram Report ---
Test Reason : Blood Pressure : / mmHG Vent. Rate : 167 BPM Atrial Rate : 166 BPM P-R Int : 000 ms QRS Dur : 130 ms QT Int : 326 ms P-R-T Axes : 000 072 -24 degrees QTc Int : 543 ms Atrial fibrillation with rapid ventricular response Right bundle branch block T wave abnormality, consider inferior ischemia Abnormal ECG When compared with ECG of 04-SEP-2023 12:40, (unconfirmed) Atrial fibrillation has replaced Sinus rhythm Vent. rate has increased BY [address] now depressed in Inferior leads ST now depressed in Anterior leads Confirmed by Johnathan Bird ([id number]) on 09/05/2023 4:05:10 PM Referred By: REFERRED SELF Confirmed By:Johnathan Bird
--- NOTE | 2023-09-05 17:39 | Palliative Family Discussion ---
Date of Service September 05, 2023 Patient Directed Conference Time of Meetin-1115am with sisters x2 face to face and 1115-1130am with pt face to face Participants: Lisette Lenz DNP Patient participation: edy, he lacks decisional capacity/see my consult Patient Support System:sisters x1, brother in law x1 Other Healthcare Provider Participation: None Meeting Location: family meeting room and then pt bedside Advanced Directive available: no The patient's surrogate medical decision maker participated: Kelly/sister/POA A face to face ACP meeting was held for TYSON MEJIA II. This meeting was necessary for determining the appropriate course of treatment. Topics of Discussion Topics of Discussion: 1. Progressive met lung ca, recurrent brain mets, worsening PS, declining PS, declining mentation, cognitive defect, now afib with RVR 2. Stage IV met lung ca, schizophrenia, CHF/HFpEF, DM, HTN, GERD. Progressive cancer on imaging, intolerant of immune therapy with recurring worsening lung failure/?checkpoint inhibitor mediated pneumonitis, worsening brain mets 3. Sisters both state they feel his time is running short, he is dying and they want home hospice as they did for both parents. Anum is an in home HH caregiver and has hospice agency preferences she will discuss with sibling group which include an additional sister in Ck and another brother. 4. We spoke about events to date incl this AM transfer to PCU. He is anxious but less breathless now. He is not decisionally intact by my assessment and I shared that with family, who were in agreement. They all said they would like home with hospice back to Anum's home, no further chemo unless he dramatically improves PS and can be re evaluated in [facility] for that down the line. They told me pt had said in the past that if things were getting bad and he was going to , he wants to be home/never a senior care/and always with his family & they state they intend to honor this wish/had long ago promised their parents they would care for him, etc. Family inquired re: prognosis - I advised w/recent decline+worsening resp status + declining PS, likely weeks to few months. One sister remarked, "Wow, that long, really?" We agreed to meet again with pt tomorrow, hoping he will be less anxious after the acute event. They want their brother and the sister in Ck to be present, and they feel pt is too overwhelmed right now. They have very positive experiences with hospice from both of their parents. Anum is a home health caregiver and will speak with family about her thoughts on which agency to use for home hospice/final decision on that after meeting tomorrow. Anum also shared pt has a special needs trust from which private caregivers could be paid on an as needed basis to assure they have adequate support to keep pt at home. Other Content of Meetin. Opportunity given for participants to speak and ask questions. 2. Participants were assured of attention to patient comfort. 3. Reassurance provided. 4. Support was provided for informed, good-frank decisions. 5. Emotions expressed by family were acknowledged and addressed. 6. Follow-up meeting tomorrow at 1130am TS: 60min ACP face to face meetings x2 and 15min chart review and updating nursing and medical teams; total TS 75min Thank you for allowing us to participate in the ongoing care of this patient. Please don't hesitate to call or page with any additional concerns. Dr. Lisette Lenz DNP Director, Palliative Care
--- NOTE | 2023-09-05 17:54 | Palliative Care Consultation ---
Date of Consultation September 05, 2023 Assessment & Plan (1) Dyspnea and respiratory abnormalities: new onset a fib with rvr, iv lopressor underway (2) Generalized weakness: (3) Declining functional status: progressive met lung cancer (brain) with declining PS now 4, increasing cognitive deficits (4) Altered mental state: Pt is unable to follow commands consistently He is alert to self, sometimes place, unsure of year He could not perform MMSE, three item recall 0/3 Delirium screen + Altered mental status type: stupor Qualified Code(s): R40.1 - Stupor (5) Stage IV squamous cell carcinoma of lung: Laterality: right Qualified Code(s): C34.91 - Malignant neoplasm of unspecified part of right bronchus or lung (6) Discussion about advance care planning held with family member: (7) Palliative care by specialist: Met with pt/family. Provided overview of Palliative Medicine, a subspecialty that provides specialized medical care for people living with a serious illness by offering a focus on quality of life through reduction of symptom burden/more control over their illness, for both the patient and family. Plan See ACP note separate from this visit poor prognosis, not a candidate for more chemo with PS 4 at this time worsening mental status He is not decisional at this time, sister Anum is POA Thank you for allowing us to participate in the ongoing care of this patient. Please don't hesitate to call or page with any additional concerns. Dr. Lisette Lenz DNP Director, Palliative Care History of Present Illness Reason for Consultation: [facility] Attending Physician: Peña Lomeli MD History of Present Illness 63yo male with Stage IV met lung ca with mets to brain treated with RT, chemoradiation, immune therapy and WBRT most recent July 2023. recurrent brain mets with increasing lesions and progressive disease in chest, hilar and mediastinal adenopathy, carcinomatosis, lung lesions. 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 PS 4+ not a candidate for chemo with poor PS confused and lethargic intermittently cannot follow commands consistently Allergies Allergy/AdvReac Type Severity Reaction Status Date / Time scopolamine Allergy Intermediate Itching Verified 08/21/23 13:26 Home Medications Medication Instructions Recorded Confirmed Type cholecalciferol (vitamin D3) 25 1,000 unit PO QAM 06/29/18 09/04/23 History mcg (1,000 unit) capsule (Vitamin D3) clonazepam 0.5 mg tablet 0.5 mg PO BID 06/29/18 09/04/23 History divalproex 500 mg tablet,delayed 500 mg PO HS 06/29/18 09/04/23 History release fluvoxamine 150 mg 150 mg PO HS 06/29/18 09/04/23 History capsule,extended release 24 hr olanzapine 10 mg tablet (Zyprexa) 10 mg PO HS 06/29/18 09/04/23 History vitamin E 268 mg (400 unit) capsule 400 unit PO QAM 06/29/18 09/04/23 History Auto Titrating CPAP #1 ea 07/05/21 08/21/23 Rx CPAP Supplies #1 ea 07/05/21 08/21/23 Rx lancets (OneTouch UltraSoft #100 ea 04/05/22 08/21/23 Rx Lancets) pen needle, diabetic 31 gauge x #1,200 ea 12/30/22 08/21/23 Rx 3/16" (BD Ultra-Fine Mini Pen Needle) magnesium chloride 64 mg 128 mg PO TID 02/08/23 09/04/23 History (magnesium chloride) tablet,delayed release (Mag 64) blood sugar diagnostic (Accu-Chek #100 ea 02/14/23 08/18/23 Rx Guide test strips) blood sugar diagnostic (OneTouch #100 ea 03/01/23 08/21/23 Rx Ultra Test strips) blood-glucose meter (OneTouch #1 ea 03/01/23 08/21/23 Rx Ultra2 Meter) ezetimibe 10 mg tablet 10 mg PO QAM #90 tabs 06/08/23 09/04/23 Rx ondansetron HCl 8 mg tablet 8 mg PO Q8H PRN Nausea 06/23/23 09/04/23 History prochlorperazine maleate 10 mg 10 mg PO Q6H PRN Nausea 06/23/23 09/04/23 History tablet (Compazine) clotrimazole-betamethasone 1 1 applic topical .qhs #45 grams 06/28/23 09/04/23 Rx %-0.05 % topical cream dexamethasone 4 mg tablet 4 mg PO DAILY Balance issues #30 07/13/23 09/04/23 Rx tabs memantine 10 mg tablet 10 mg PO BID To help memory #60 07/17/23 09/04/23 Rx tabs albuterol sulfate 90 mcg/actuation 2 inh inhalation QID PRN shortness 08/09/23 09/04/23 Rx aerosol inhaler (Ventolin HFA) of breath or wheezing #18 grams fluticasone fur. 100 mcg-umeclid 1 inh inhalation QAM #60 ea 08/09/23 09/04/23 Rx 62.5 mcg-vilant 25 mcg inhalat.powder (Trelegy Ellipta) cyanocobalamin (vitamin B-12) 1,000 mcg PO QAM 08/15/23 09/04/23 History 1,000 mcg capsule folic acid 1 mg tablet 1 mg PO QAM 08/15/23 09/04/23 History metformin 500 mg tablet 1,000 mg PO BID 08/15/23 09/04/23 History potassium chloride 20 mEq 20 meq PO QAM 08/15/23 09/04/23 History tablet,extended release simvastatin 40 mg tablet 40 mg PO QAM 08/15/23 09/04/23 History tamsulosin 0.4 mg capsule 0.4 mg PO QAM 08/15/23 09/04/23 History Portable Oxygen E0431 #1 ea 08/17/23 08/21/23 Rx docusate sodium 100 mg capsule 100 mg PO BID PRN constipation #60 08/17/23 09/04/23 Rx caps furosemide 40 mg tablet (Lasix) 40 mg PO QAM #30 tabs 08/17/23 09/04/23 Rx polyethylene glycol 3350 17 gram 17 g PO DAILY PRN constipation #30 08/17/23 09/04/23 Rx oral powder packet (Miralax) ea prednisone 20 mg tablet 40 mg (2 x 20 mg) PO DAILY #60 tabs 08/17/23 09/04/23 Rx sulfamethoxazole 800 1 tab PO MoWeFr@09 #12 tabs 08/17/23 09/04/23 Rx mg-trimethoprim 160 mg tablet (Bactrim DS) pantoprazole 40 mg tablet,delayed 40 mg PO DAILY 08/18/23 09/04/23 History release insulin glargine 100 unit/mL (3 42 unit (0.42 mL) subcut QAM 90 08/21/23 09/04/23 Rx mL) subcutaneous pen (Lantus days #45 mL Solostar U-100 Insulin) Patient History Medical History (Updated 09/05/23 @ 17:50 by Lisette Lenz DNP) Palliative care by specialist Discussion about advance care planning held with family member Dyspnea and respiratory abnormalities Declining functional status Chronic right heart failure Altered mental state Chronic hypoxic respiratory failure, on home oxygen therapy Stage IV squamous cell carcinoma of lung Acute on chronic heart failure with preserved ejection fraction (HFpEF) Venous stasis dermatitis Anxiety and depression Benign essential tremor Esophageal reflux Urinary incontinence Alcohol abuse 10-12 DRINKS PER DAY Schizophrenia Pulmonary HTN "MILD" RVSP 40MMHG PER 2015 STRESS ECHO- NO ISSUES NOTED WITH 2019 ECHO Chronic back pain OCD (obsessive compulsive disorder) Surgical History History of cataract surgery right/left History of bronchoscopy Spring 2021 H/O tooth extraction 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 History of biopsy of bladder TURBT= 11/28/17= LMA#5 AT [facility] H/O exploratory laparotomy GALLBLADDER LESION EXCISION History of cystoscopy WITH STONE EXTRACTION X 2 History of open reduction and internal fixation (ORIF) procedure LEFT SHOULDER Family History Father Prostate cancer Family history of diabetes mellitus Myocardial infarction Aunt Family history of diabetes mellitus Uncle Family history of diabetes mellitus Family/Other Family history of diabetes mellitus Mother Diabetes Alzheimer disease Grandfather (Paternal) Cardiac disorder Cancer Colon Cancer Brother Kidney stones Other Heart disease No family history of adverse response to anesthesia Denies family history of Crohn's disease Colorectal cancer Lung disease Inflammatory bowel disease Asthma Social History Smoking Status: Former smoker Tobacco Type: Cigarettes Age Started Using Tobacco: 12; Age Quit Using Tobacco: 61; packs per day: 0.5; Cigarettes Per Day: 10; Second Hand Exposure: No; Do You Dip or Chew Tobacco: No; Hx Alcohol Use: No Hx Substance Use: No Preferred Language: Grenadian Communication Ability: Effective Visual Impairment: Limited Hearing Ability: Normal Senior Logistics Manager Required: No Beliefs That Will Affect Care: None marital status: Single Current Living Situation: Family Current Living Situation Comment: [facility]ina gonzalez current occupational status: disabled Feels Safe at Home: Yes Safety Concerns Comment: Currently living with his sister due to chemo/radiation/illness in current or past relationships, have you been: other Diet: regular caffeine: Yes Dental Care, Regularly: No Physical Activity Frequency: 1-2 Times per Week Seatbelt Use: always Assistive Devices: Cane, Oxygen - Continuous and Walker Review of Systems Review of Systems: Unobtainable due to cognitive status Physical Exam Physical Exam: chronically, critically ill appearing male, sl lethargy, bitemp wasting perrla, eomi's, dentition poor, MMM Neck supple, trachea midline, no stridor Inc resp reffort with use of accessory muscles, +bilat crackles S1S2, tachy, irreg irreg BS+, non tender Generalized weakness, trace edema. diaphoretic skin with no erythema or cyanosis alert to self, place. unable to follow lengthy or detailed conversations. unsure what happened earlier this morning. +confused Results & Data Vital Signs (Past 12 Hours) Vital Signs Temp Pulse Pulse Resp BP BP BP 09/05/23 16:16 159 H 09/05/23 15:10 36.5 C 153 H 20 108/70 09/05/23 14:52 112/73 09/05/23 14:44 159 H 09/05/23 14:17 157 H 93/58 L 09/05/23 13:15 152 H 112/70 09/05/23 13:02 70 16 09/05/23 12:41 147 H 105/68 09/05/23 11:44 155 H 112/73 09/05/23 11:12 152 H 121/73 09/05/23 10:32 36.7 C 138 H 18 106/73 09/05/23 10:30 09/05/23 10:30 162 H 09/05/23 09:35 170 H 130/76 09/05/23 08:18 36.6 C 99 H 18 123/63 09/05/23 07:23 09/05/23 07:18 103 H 18 09/05/23 06:59 101 H Pulse Ox O2 Del Method O2 Flow Rate 09/05/23 16:16 09/05/23 15:10 94 Nasal Cannula 2 09/05/23 14:52 09/05/23 14:44 09/05/23 14:17 09/05/23 13:15 09/05/23 13:02 96 Nasal Cannula 2 09/05/23 12:41 09/05/23 11:44 09/05/23 11:12 09/05/23 10:32 94 Nasal Cannula 2 09/05/23 10:30 Nasal Cannula 2 09/05/23 10:30 09/05/23 09:35 09/05/23 08:18 94 Nasal Cannula 2 09/05/23 07:23 Nasal Cannula 2 09/05/23 07:18 94 Nasal Cannula 2 09/05/23 06:59 Laboratory Results Abnormal lab results 09/04/23 09/04/23 09/05/23 Range/Units 18:24 20:32 00:34 RBC (4.70-6.10) M/uL Hgb (14.0-18.0) g/dl Hct (42.0-52.0) % RDW Std Deviation (36.4-46.3) fL RDW Coeff of Catalino (11.5-14.5) % Lymph # (Auto) (1.20-3.40) K/uL BUN (6-23) mg/dl BUN/Creatinine Ratio (10-20) POC Glucose 237 H (70-99) mg/dl Troponin I High Sens 81.9 H* 86.3 H* (0-20) pg/ml Valproic Acid (50-100) mcg/ml 09/05/23 09/05/23 09/05/23 Range/Units 04:11 08:00 11:15 RBC 3.49 L (4.70-6.10) M/uL Hgb 10.8 L (14.0-18.0) g/dl Hct 33.6 L (42.0-52.0) % RDW Std Deviation 51.1 H (36.4-46.3) fL RDW Coeff of Catalino 14.9 H (11.5-14.5) % Lymph # (Auto) 0.77 L (1.20-3.40) K/uL BUN 35 H (6-23) mg/dl BUN/Creatinine Ratio 25.0 H (10-20) POC Glucose 100 H 257 H (70-99) mg/dl Troponin I High Sens 88.7 H* (0-20) pg/ml Valproic Acid 48 L (50-100) mcg/ml 09/05/23 09/05/23 Range/Units 16:46 16:48 RBC (4.70-6.10) M/uL Hgb (14.0-18.0) g/dl Hct (42.0-52.0) % RDW Std Deviation (36.4-46.3) fL RDW Coeff of Catalino (11.5-14.5) % Lymph # (Auto) (1.20-3.40) K/uL BUN (6-23) mg/dl BUN/Creatinine Ratio (10-20) POC Glucose 332 H* 334 H* (70-99) mg/dl Troponin I High Sens (0-20) pg/ml Valproic Acid (50-100) mcg/ml Diagnostic Findings Chest X-Ray 09/04/23 10:04 SINGLE VIEW CHEST CLINICAL HISTORY: Sepsis. Lung cancer. FINDINGS: An AP, portable, upright chest radiograph is compared to study dated 08/28/2023 and correlated with chest CT dated 08/15/2023. The examination is degraded by portable technique and patient rotation. The heart is enlarged noting atherosclerotic calcification of the secure. The pulmonary vasculature is noncongested. Emphysema and chronic interstitial thickening is similar to previous. Dense airspace consolidation/fibrosis in the right upper lobe is similar to previous. Left midlung and right basilar opacities have not significantly changed. Scarring/atelectasis is noted at the lung bases. A small right pleural effusion is observed. No pneumothorax is seen. The skeletal structures are osteopenic. The bony thorax is grossly intact. IMPRESSION: 1. Cardiomegaly and emphysema without radiographic evidence of congestive failure. 2. Dense right upper lobe consolidation/fibrosis is similar to previous. 3. Airspace opacities in the left mid lung at the right lung base have not significantly changed from previous. 4. Right pleural effusion. ACT 112: Negative or not required by law. Electronically signed by: Bao Harrison M.D. 09/04/2023 11:07 AM Chest CTA 09/04/23 12:43 CT angio chest PE protocol CT DOSE: 924.2 mGy.cm HISTORY: 63 years-old Male with PE. Acute shortness of breath TECHNIQUE: Multiple CTA images of the chest were obtained after the intravenous administration of 112 ml Optiray. Coronal and sagittal MIPS were obtained from the axial data set and were submitted for review. All measurements were obtained according to NASCET criteria. A dose lowering technique was utilized adhering to the principles of ALARA. COMPARISON: Chest radiograph of same day, CTA chest 08/15/2023, PET CT 05/17/2023 FINDINGS: CTA: Moderate cardiomegaly. No pericardial effusion. Extensive coronary artery calcifications. Atherosclerosis of the thoracic aorta without aneurysm or dissection. Unremarkable pulmonary artery with suboptimal evaluation of the segmental and subsegmental branches secondary to respiratory motion. CT CHEST: No thyroid nodule. Stable enlarged mediastinal and hilar lymphadenopathy. Subcarinal lymph nodes measure up to 2.6 x 1.5 cm, unchanged. Emphysema with bronchial wall thickening. Mild intralobular septal thickening. Consolidation and volume loss with bronchiectasis redemonstrated involving the right upper lobe. Multilobar bilateral patchy airspace opacities previously described more groundglass attenuation on the prior study. Mildly improved aeration of the left upper lobe compared to the prior with resolution of the small right pleural effusion. Nonspecific mild distal esophageal wall thickening. Unremarkable soft tissues. No acute fracture. IMPRESSION: 1. Pathologic mediastinal and hilar lymphadenopathy appears stable. 2. Emphysema with right upper lobe postradiation fibrosis and volume loss redemonstrated. 3. Patchy bilateral airspace opacities are suggestive of multifocal pneumonia. 4. Cardiomegaly. ACT 112: Negative or not required by law. The above report was generated using voice recognition software. It may contain grammatical, syntax or spelling errors. Electronically signed by: Rohan Adamson M.D. 09/04/2023 2:19 PM Renal Ultrasound 09/04/23 13:21 ULTRASOUND KIDNEYS AND BLADDER CLINICAL HISTORY: Hematuria. Unspecified cancer history. COMPARISON STUDY: Abdominal CT dated 01/13/2023. TECHNIQUE: Real-time, grayscale, and color flow sonography of the kidneys and bladder is performed. Images are reviewed in the transverse and longitudinal planes. FINDINGS: Kidneys: The kidneys are normal in size and echotexture. The right kidney measures 10.9 x 5.9 x 4.8 cm and the left kidney measures 11.0 x 5.2 x 4.0 cm. There is no hydronephrosis. No shadowing renal calculi are identified. Small renal cysts measure up to 1.3 cm. There is no sonographic evidence of contour deforming renal mass lesion. No perinephric fluid is identified. Bladder: The bladder is normal in appearance. Bilateral ureteral jets were seen. IMPRESSION: Unremarkable sonographic examination of the kidneys and bladder. ACT 112: Negative or not required by law. Electronically signed by: Bao Harrison M.D. 09/05/2023 12:04 PM Brain MRI 09/04/23 15:34 Exam(s): MRI HEAD W/WO Contrast IV Amt: 10.7cc gadavist EXAM: MR Head Without and With Intravenous Contrast CLINICAL HISTORY: Reason for exam: eval for worsening metastatic disease?. TECHNIQUE: Magnetic resonance images of the head/brain without and with intravenous contrast in multiple planes. CONTRAST: Patient received 10.7cc gadavist of IV contrast COMPARISON: Comparison made to prior brain MRI from June 21, 2023. FINDINGS: Brain: There are multiple nodular enhancing lesion is in the cerebrum and cerebellum with mild surrounding vasogenic edema. The flow voids at the base the brain are intact. No hemorrhage. No acute infarct. Ventricles: Mild ventriculomegaly. Bones/joints: Unremarkable. No acute fracture. Sinuses: Unremarkable as visualized. No acute sinusitis. Mastoid air cells: Unremarkable as visualized. No mastoid effusion. Orbits: Unremarkable as bilateral lens replacements. IMPRESSION: Unchanged metastatic disease. Electronically signed by: Manda Augustine MD 09/04/23 23:48 PM PG Care Time/CCT Total # of Minutes Spent Total Time Spent with Patient: Total time spent is greater than 50% in coordination of care (as documented) at patient's floor/unit and/or counseling patient: I spent 65 minutes overall addressing this case: 15 min in medical data review/discussion with referring provider(s) and/or preparation for the visit 25 min in direct interaction with the patient/exam 00 min in Advance Care Planning/Goals of Care discussions as detailed above in note (must be >16min) 10 min in subsequent review and synthesis of assessment and plan 15 min communicating with other providers regarding the patient's case: [place] [address] IN/OBS CONSULT LVL 4,60M Patient Type New History Comprehensive Exam Comprehensive Medical Decision Making High Complexity Diagnoses Dyspnea and respiratory abnormalities R06.00; R06.89 Generalized weakness R53.1 Declining functional status R53.81 Stupor R40.1 Altered mental status type: stupor Stage IV squamous cell carcinoma of right lung C34.91 Laterality: right Discussion about advance care planning held with family member Z71.0 Palliative care by specialist Z51.5
--- NOTE | 2023-09-05 18:43 | Hospitalist Progress Note ---
Date of Service September 05, 2023 Assessment & Plan (1) Acute and chronic respiratory failure: Plan: - Acute on chronic hypoxemic respiratory failure. - The patient's oxygen dependent at home 2 to 6 L continuously depending on activity level. He has had to increase his compared to his baseline over the last few days minimally. - This is multifactorial secondary to lung carcinoma possibly worsening versus possible postobstructive pneumonia. -- Patient's white count is normal. His chest x-ray is stable. Chest CTA reveals patchy bilateral airspace opacities, suggestive of multifocal pneumonia. -- We will await bronchoscopy and culture data to tailor antibiotics. At home he was started on Augmentin and doxycycline which will be continued as well as Bactrim for prophylaxis which she is chronically on. -- Sputum cultures were ordered. - CTA chest negative for pulmonary embolism. - O2 saturation stable at 94% on 2 L via nasal cannula. (2) Atrial fibrillation with RVR: Plan: - New onset A-fib with RVR, HR in 170s on 09/05/2023 - Patient transferred to PCU after nonresponsive to IV Lopressor - Diltiazem bolus followed by diltiazem drip given but HR remained in 150s -- Second diltiazem bolus cannot be given due to hypotension - Loading dose of digoxin 500 mcg given. Digoxin 250 mcg ordered for 2200 -- Evening of 09/04, patient remains in A-fib with HR in 150s -- Digoxin level ordered for a.m. - Continue diltiazem drip - Started Lovenox 40 mg SQ QAM - Closely monitor blood pressure - Simvastatin held while on diltiazem drip due to increased risk of myopathy with concomitant use - Bactrim held with digoxin due to increased digoxin levels with concomitant use (3) Palliative care by specialist: Plan: - Palliative care met with patient and family members for discussion 09/05/2023 in setting of progressive met lung ca, recurrent brain mets, worsening PS, declining PS, declining mentation, cognitive defect, now afib with RVR. - Per review of palliative family discussion notes, family would like patient home with hospice, no further chemo unless there is a dramatic improvement. Family reports patient would like to be home on hospice with his family, and they intend to honor his wishes. - Palliative care plans to meet with family and patient again tomorrow for further discussions. 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 However, it does appear that MRI from June 21, 2023 is showing worsening metastatic disease of the brain. (5) Diabetes mellitus, type 2: Plan: - Diabetes mellitus type 2 insulin requiring sliding scales been ordered. - BSG goal range: 65455 - CF 25, CR 12 - BSGs ACHS Plan Patient transferred to PCU due to new onset A-fib with RVR Continue diltiazem drip and digoxin in setting of continued A-fib with RVR Closely monitor BP Started Lovenox 40 mg SQ QAM Palliative care plans to speak with patient and family again tomorrow. Plan for home with hospice CODE STATUS: DNR/DNI Admission and Anticipated Discharge Date Admission Date: September 04, 2023 Results & Data Results & Data Vital Signs (Past 12 Hours) Vital Signs Temp Pulse Pulse Resp BP BP BP 09/05/23 16:16 159 H 09/05/23 15:10 36.5 C 153 H 20 108/70 09/05/23 14:52 112/73 09/05/23 14:44 159 H 09/05/23 14:17 157 H 93/58 L 09/05/23 13:15 152 H 112/70 09/05/23 13:02 70 16 09/05/23 12:41 147 H 105/68 09/05/23 11:44 155 H 112/73 09/05/23 11:12 152 H 121/73 09/05/23 10:32 36.7 C 138 H 18 106/73 09/05/23 10:30 09/05/23 10:30 162 H 09/05/23 09:35 170 H 130/76 09/05/23 08:18 36.6 C 99 H 18 123/63 09/05/23 07:23 09/05/23 07:18 103 H 18 09/05/23 06:59 101 H Pulse Ox O2 Del Method O2 Flow Rate 09/05/23 16:16 09/05/23 15:10 94 Nasal Cannula 2 09/05/23 14:52 09/05/23 14:44 09/05/23 14:17 09/05/23 13:15 09/05/23 13:02 96 Nasal Cannula 2 09/05/23 12:41 09/05/23 11:44 09/05/23 11:12 09/05/23 10:32 94 Nasal Cannula 2 09/05/23 10:30 Nasal Cannula 2 09/05/23 10:30 09/05/23 09:35 09/05/23 08:18 94 Nasal Cannula 2 09/05/23 07:23 Nasal Cannula 2 09/05/23 07:18 94 Nasal Cannula 2 09/05/23 06:59 PG Care Time/CCT Total # of Minutes Spent Total Time Spent with Patient: Total time spent is greater than 50% in coordination of care (as documented) at patient's floor/unit and/or counseling patient: Coding Level of Care Code 41809 SUB INP/OBS CARE 350MIN Diagnoses Acute and chronic respiratory failure J96.20 Atrial fibrillation with RVR I48.91 Palliative care by specialist Z51.5 Lung cancer metastatic to brain C34.90; C79.31 Type 2 diabetes mellitus with diabetic polyneuropathy, without long-term current use of insulin E11.42 Diabetes mellitus market risk manager insulin use: without senior living use Diabetes mellitus complication status: with neurologic complications Diabetes mellitus complication detail: with polyneuropathy (5) Diabetes mellitus, type 2 Diabetes mellitus market risk manager insulin use: without senior living use Diabetes mellitus complication status: with neurologic complications Diabetes mellitus complication detail: with polyneuropathy Qualified Code(s): E11.42 - Type 2 diabetes mellitus with diabetic polyneuropathy
[2023-09-05] MEDS: DIGOXIN 250 MCG in SYRINGE 9 ML IV SCH (21:54)
[2023-09-06] MEDS: SODIUM CHLORIDE 0.9% 250 ML IV ONE ×2 (04:50→05:37)
[2023-09-06 06:27] LABS: Basophils # (auto) 0.02 K/uL (0.00-0.20); Basophils % (auto) 0.2 %; Eosinophils # (auto) 0.07 K/uL (0.00-0.50); Eosinophils % (auto) 0.8 %; Hematocrit (blood only) 30.9 % (42.0-52.0); Hemoglobin 10.1 g/dl (14.0-18.0); Immature Granulocytes # (auto) 0.11 K/uL (0.01-0.20); Immature Granulocytes % (auto) 1.2 %; Lymphocytes # (auto) 0.65 K/uL (1.20-3.40); Lymphocytes % (auto) 7.3 %; Mean Corpuscular Hemoglobin 30.7 pg (25.0-34.0); Mean Corpuscular Hgb Conc 32.7 g/dL (32.0-36.0); Mean Corpuscular Volume 93.9 fL (80.0-100.0); Mean Platelet Volume 10.5 fL (9.4-12.4); Monocytes # (auto) 0.62 K/uL (0.11-0.59); Monocytes % (auto) 6.9 %; Neutrophils # (auto) 7.46 K/uL (1.40-6.50); Neutrophils % (auto) 83.6 %; Nucleated RBC # (auto) 0.02 K/uL (0.00-0.12); Nucleated RBC % (auto) 0.2 %; Platelet Count 138 K/uL (130-400); RDW Coefficient of Variation 14.8 % (11.5-14.5); RDW Standard Deviation 49.7 fL (36.4-46.3); Red Blood Count 3.29 M/uL (4.70-6.10); White Blood Count 8.93 K/ul (4.8-10.8)
[2023-09-06 06:34] LABS: Albumin Globulin Ratio 1.2 (0.9-2); Albumin Level 3.4 gm/dl (3.4-5.0); BUN Creatinine Ratio 32.1 (10-20); Bilirubin,Total 0.5 mg/dl (0.2-1.0); Calcium 8.2 mg/dl (8.6-10.3); Creatinine Clr Calc Pharmacy 119.2 ml/min; Est GFR (Non-African American) 93.2 ml/min; Globulin 2.8 gm/dl (2.5-4.0); Magnesium 1.6 mg/dl (1.7-2.4); Potassium 3.5 mmol/L (3.5-5.1); Total Protein 6.2 gm/dl (6.0-8.3)
[2023-09-06 06:47] LABS: INR 1.1 (0.9-1.1); Prothrombin Time 12.1 Seconds (9.0-12.0)
[2023-09-06] MEDS: METOPROLOL TARTRATE 25 MG TAB PO ONE (07:24)
[2023-09-06] MEDS: MAGNESIUM SULFATE / D5W 1 GM/100 ML BAG IV SCH (07:30)
[2023-09-06] MEDS: DIGOXIN 250 MCG in SYRINGE 9 ML IV STA (07:44)
[2023-09-06] MEDS ORDERED: SULFAMETHOXAZOLE/TRIMETHOPRIM DS 800/160MG TAB PO SCH (09:00)
[2023-09-06] MEDS: DIGOXIN 0.125 MG TAB PO SCH (15:20)
--- NOTE | 2023-09-06 15:39 | Palliative Family Discussion ---
Date of Service September 06, 2023 Patient Directed Conference Time of [id number] Participants: Lisette Lenz DNP Patient participation: yes Patient Support System: sisters Other Healthcare Provider Participation: None Meeting Location: pt bedside Advanced Directive available: no but pt reaffirms DNR/DNI The patient's surrogate medical decision maker participated: sister Anum is MARIAH A face to face ACP meeting was held for TYSON MEJIA II. This meeting was necessary for determining the appropriate course of treatment. Approached by sisters outside pt room to ask we use the language "going home with home health and don't say hospice" as this triggers anger/fear/exacerbates his mental illness Topics of Discussion Topics of Discussion: 1. cancer progressing 2. inc weakness, declining PS, not a candidate for chemo now 3. he very firmly does not want SNF or rehab but open to HH with PT at home, if he can get better/stronger can revisit chemo and see CCP for more decisions at that time. For now we will focus on comfort, QOL and symptom mgt Other Content of Meetin. Opportunity given for participants to speak and ask questions. 2. Participants were assured of attention to patient comfort. 3. Reassurance provided. 4. Support was provided for informed, good-frank decisions. 5. Emotions expressed by family were acknowledged and addressed. 6. Plan of Care: home with hospice (but call it home health). Primary team notified. Time Involved in Meeting: I spent 55 minutes overall addressing this case: 5 in medical data review/discussion with referring provider(s) and/or preparation for the visit 10 in direct interaction with the patient 30 Advance Care Planning/Goals of Care discussions as detailed above in note (must be >16min) 5 in subsequent review and synthesis of assessment and plan 5 in communicating with other providers regarding the patient's case: [facility] and nursing
[2023-09-06] MEDS: METOPROLOL TARTRATE 25 MG TAB PO STA (16:42)
--- NOTE | 2023-09-06 16:51 | Hospitalist Progress Note ---
Date of Service September 06, 2023 Assessment & Plan (1) Acute and chronic respiratory failure: Plan: - Acute on chronic hypoxemic respiratory failure. - The patient's oxygen dependent at home 2 to 6 L continuously depending on activity level. He has had to increase his compared to his baseline over the last few days minimally. - This is multifactorial secondary to lung carcinoma possibly worsening versus possible postobstructive pneumonia. -- Patient's white count is normal. His chest x-ray is stable. Chest CTA reveals patchy bilateral airspace opacities, suggestive of multifocal pneumonia. -- We will await bronchoscopy and culture data to tailor antibiotics. At home he was started on Augmentin and doxycycline which will be continued as well as Bactrim for prophylaxis which she is chronically on. -- Sputum cultures were ordered. - CTA chest negative for pulmonary embolism. - O2 saturation stable at 94% on 2 L via nasal cannula. (2) Atrial fibrillation with RVR: Plan: - New onset A-fib with RVR, HR in 170s on 09/05/2023 - Patient transferred to PCU after nonresponsive to IV Lopressor - Diltiazem bolus followed by diltiazem drip given but HR remained in 150s -- Second diltiazem bolus could not be given due to hypotension - Loading dose of digoxin 500 mcg given 09/04. -- Evening of 09/04, patient remains in A-fib with HR in 150s - Diltiazem drip stopped 09/06/23 due to hypotension and lightheadedness/dizziness - Continue Lovenox 40 mg SQ QAM - Closely monitor blood pressure - Simvastatin held while on diltiazem drip due to increased risk of myopathy with concomitant use - Bactrim held with digoxin due to increased digoxin levels with concomitant use - Plan for DC: metoprolol 50 mg PO BID and digoxin 0.125 mg PO daily (3) Palliative care by specialist: Plan: - Palliative care met with patient and family members for discussion 09/05/2023 in setting of progressive met lung ca, recurrent brain mets, worsening PS, declining PS, declining mentation, cognitive defect, now afib with RVR. - Per review of palliative family discussion notes, family would like patient home with hospice, no further chemo unless there is a dramatic improvement. Family reports patient would like to be home on hospice with his family, and they intend to honor his wishes. - Plan for DC home with hospice for 09/07/23. 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 However, it does appear that MRI from June 21, 2023 is showing worsening metastatic disease of the brain. (5) Diabetes mellitus, type 2: Plan: - Diabetes mellitus type 2 insulin requiring sliding scales been ordered. - BSG goal range: 44719 - CF 25, CR 12 - BSGs ACHS Plan Given additional doses of metoprolol and digoxin during the day for rate control Stopped dilt drip due to hypotension and lightheadedness Discussed case with Palliative Care Plan for DC home on hospice tomorrow, 09/07/23 CODE STATUS: DNR/DNI Admission and Anticipated Discharge Date Admission Date: September 04, 2023 Subjective Patient seen and evaluated at bedside with sister, Adela, and [id number]. He remains in A-fib with RVR, but denies any symptoms. Patient and family met with palliative care again today with plan to be discharged home on hospice tomorrow. Physical Exam Physical Exam: General: No acute distress, nondiaphoretic, chronically ill appearing. Skin: The skin was without rashes, erythema, edema, or bruising. Cardiac: A-fib with RVR. Pulm: Bilateral crackles. 93% on 3 L. Abdominal: Positive bowel sounds x 4. Soft, nontender, without masses or organomegaly. No guarding or rebound tenderness. Neuro: A&O x3. No focal neurological deficits. Results & Data Results & Data Vital Signs (Past 12 Hours) Vital Signs Temp Pulse Pulse Resp BP BP Pulse Ox 09/06/23 16:05 36.6 C 124 H 22 105/72 93 09/06/23 15:20 125 H 09/06/23 13:37 88 20 96 09/06/23 13:00 09/06/23 11:59 36.5 C 109 H 22 111/76 96 09/06/23 10:32 110 H 107/77 09/06/23 10:07 125 H 09/06/23 10:05 117/83 09/06/23 10:00 09/06/23 09:50 113/73 09/06/23 09:50 09/06/23 09:05 91/52 L 09/06/23 08:52 88/67 L 09/06/23 08:36 97/63 L 09/06/23 07:44 135 H 09/06/23 07:17 36.3 C L 88 22 113/67 92 09/06/23 07:16 98 H 22 84 L 09/06/23 06:08 113/76 Pulse Ox O2 Del Method O2 Del Method O2 Flow Rate O2 Flow Rate 09/06/23 16:05 Nasal Cannula 3.0 09/06/23 15:20 09/06/23 13:37 Nasal Cannula 09/06/23 13:00 97 Nasal Cannula 3 09/06/23 11:59 Nasal Cannula 3.0 09/06/23 10:32 09/06/23 10:07 09/06/23 10:05 09/06/23 10:00 96 Nasal Cannula 3 09/06/23 09:50 09/06/23 09:50 Nasal Cannula 2 09/06/23 09:05 09/06/23 08:52 09/06/23 08:36 09/06/23 07:44 09/06/23 07:17 Nebulizer 09/06/23 07:16 Room Air 09/06/23 06:08 Laboratory Results Reviewed CBC Reviewed CMP Reviewed digoxin level Reviewed tele monitoring PG Care Time/CCT Total # of Minutes Spent Total Time Spent with Patient: Total time spent is greater than 50% in coordination of care (as documented) at patient's floor/unit and/or counseling patient: Coding Level of Care Code 26220 SUB INP/OBS CARE 3/50MIN Diagnoses Acute and chronic respiratory failure J96.20 Atrial fibrillation with RVR I48.91 Palliative care by specialist Z51.5 Lung cancer metastatic to brain C34.90; C79.31 Type 2 diabetes mellitus with diabetic polyneuropathy, without long-term current use of insulin E11.42 Diabetes mellitus complication detail: with polyneuropathy Diabetes mellitus complication status: with neurologic complications Diabetes mellitus correction insulin use: without termination clerk use (5) Diabetes mellitus, type 2 Diabetes mellitus complication detail: with polyneuropathy Diabetes mellitus complication status: with neurologic complications Diabetes mellitus termination clerk insulin use: without correction use Qualified Code(s): E11.42 - Type 2 diabetes mellitus with diabetic polyneuropathy
[2023-09-06] MEDS: METOPROLOL TARTRATE 50 MG TAB PO SCH (20:31)
[2023-09-06] MEDS ORDERED: METOPROLOL TARTRATE 25 MG TAB PO SCH (21:00)
[2023-09-07 06:21] LABS: Basophils # (auto) 0.03 K/uL (0.00-0.20); Basophils % (auto) 0.3 %; Eosinophils # (auto) 0.09 K/uL (0.00-0.50); Eosinophils % (auto) 0.8 %; Hematocrit (blood only) 32.5 % (42.0-52.0); Hemoglobin 10.4 g/dl (14.0-18.0); Immature Granulocytes # (auto) 0.16 K/uL (0.01-0.20); Immature Granulocytes % (auto) 1.4 %; Lymphocytes # (auto) 0.77 K/uL (1.20-3.40); Lymphocytes % (auto) 6.9 %; Mean Corpuscular Hemoglobin 30.5 pg (25.0-34.0); Mean Corpuscular Volume 95.3 fL (80.0-100.0); Mean Platelet Volume 10.4 fL (9.4-12.4); Monocytes # (auto) 0.76 K/uL (0.11-0.59); Monocytes % (auto) 6.8 %; Neutrophils # (auto) 9.33 K/uL (1.40-6.50); Neutrophils % (auto) 83.8 %; Nucleated RBC # (auto) 0.03 K/uL (0.00-0.12); Nucleated RBC % (auto) 0.3 %; Platelet Count 148 K/uL (130-400); RDW Coefficient of Variation 14.7 % (11.5-14.5); RDW Standard Deviation 50.6 fL (36.4-46.3); Red Blood Count 3.41 M/uL (4.70-6.10); White Blood Count 11.14 K/ul (4.8-10.8)
[2023-09-07 06:28] LABS: INR 1.1 (0.9-1.1); Prothrombin Time 12.3 Seconds (9.0-12.0)
[2023-09-07 07:23] LABS: Albumin Globulin Ratio 1.2 (0.9-2); Albumin Level 3.4 gm/dl (3.4-5.0); BUN Creatinine Ratio 24.8 (10-20); Bilirubin,Total 0.6 mg/dl (0.2-1.0); Calcium 8.5 mg/dl (8.6-10.3); Creatinine Clr Calc Pharmacy 91.7 ml/min; Est GFR (African American) 83.3 ml/min; Est GFR (Non-African American) 71.9 ml/min; Globulin 2.9 gm/dl (2.5-4.0); Magnesium 1.7 mg/dl (1.7-2.4); Potassium 3.5 mmol/L (3.5-5.1); Total Protein 6.3 gm/dl (6.0-8.3)
[2023-09-07 12:03] VITALS: TEMP 97.5
[2023-09-07 12:21] VITALS: BP 107/77
[2023-09-07 12:23] VITALS: PULSE 118; RESP 20; O2SAT 95
--- NOTE | 2023-09-07 14:02 | Discharge Summary ---
Date of Service September 07, 2023 Admission HPI Per Admitting Provider This is a pleasant 63-year-old male who is undergoing intermittent active treatment for bronchogenic carcinoma with metastatic disease to the brain he has had brain radiation therapy. Patient was admitted earlier this month with an abnormal checks x-ray with a right upper lobe consolidation. Patient declined bronchoscopy at that time. He was discharged home on broad-spectrum antibiotic therapy. He completed the course of those. He had increasing shortness of breath starting last week. The patient was commenced on Augmentin and doxycycline last week. He is currently on Bactrim for prophylaxis. He has been taking his antibiotics he said increasing shortness of breath over the weekend and therefore presented to the ER at the recommendation of primary care for further evaluation and treatment. Chest x-ray in the ER demonstrated right upper lobe consolidation and was quite abnormal but appears stable. Laboratory studies were stable. Patient does have anemia of chronic disease at 10.5 g/dL which is stable. White count normal. Troponin was elevated at around 89. However 2 weeks ago when here was elevated in the 120s and 130s. Magnesium was found to be low. It is chronically low. 1.4 today. It is being replaced to the IV and will be rechecked in the morning. He had a reassuring echocardiogram at that time. EKG was done was at the bedside there is a right bundle branch block pattern with a sinus rhythm with no acute ST-T abnormalities. The patient has not endorsed any chest pain with his increased shortness of breath. The patient is accompanied by his sister today who is his medical power of personal injury attorney. And also his [id number]. The patient does consent to a bronchoscopy at this time if recommended by pulmonology. Consult pulmonology. Will continue the same antibiotics he is on as an outpatient for now including Augmentin doxycycline and Bactrim. Once bronchoscopy completed culture data will be obtained and we can tailor antibiotic therapy accordingly. The patient has screened negative for COVID and influenza today. Discharge Data Allergies Allergy/AdvReac Type Severity Reaction Status Date / Time scopolamine Allergy Intermediate Itching Verified 08/21/23 13:26 Consultations 09/04/23 12:16 ED Decision to Admit Stat 09/04/23 12:32 Consult Pulmonology Routine 09/04/23 15:30 Consult Palliative Care Routine Ordered Studies 09/04/23 12:43 CT angio chest PE protocol Urgent 09/04/23 13:21 US Renal Bladder [US renal/blad retro comp] Routine 09/04/23 15:34 MR brain wo/w con Urgent Hospital Course (1) Acute and chronic respiratory failure: - Acute on chronic hypoxemic respiratory failure. - The patient's oxygen dependent at home 2 to 6 L continuously depending on activity level. He has had to increase his compared to his baseline over the last few days minimally. - This is multifactorial secondary to lung carcinoma possibly worsening versus possible postobstructive pneumonia. -- Patient's white count is normal. His chest x-ray is stable. Chest CTA reveals patchy bilateral airspace opacities, suggestive of multifocal pneumonia. -- We will await bronchoscopy and culture data to tailor antibiotics. At home he was started on Augmentin and doxycycline which will be continued as well as Bactrim for prophylaxis which she is chronically on. -- Sputum cultures were ordered. - CTA chest negative for pulmonary embolism. - O2 saturation stable at 94% on 2 L via nasal cannula. (2) Atrial fibrillation with RVR: - New onset A-fib with RVR, HR in 170s on 09/05/2023 - Patient transferred to PCU after nonresponsive to IV Lopressor - Diltiazem bolus followed by diltiazem drip given but HR remained in 150s -- Second diltiazem bolus could not be given due to hypotension - Loading dose of digoxin 500 mcg given 09/04. -- Evening of 09/04, patient remains in A-fib with HR in 150s - Diltiazem drip stopped 09/06/23 due to hypotension and lightheadedness/dizziness - Continue Lovenox 40 mg SQ QAM - Closely monitor blood pressure - Simvastatin held while on diltiazem drip due to increased risk of myopathy with concomitant use - Bactrim held with digoxin due to increased digoxin levels with concomitant use - Plan for DC: metoprolol 50 mg PO BID and digoxin 0.125 mg PO daily (3) Palliative care by specialist: - Palliative care met with patient and family members for discussion 09/05/2023 in setting of progressive met lung ca, recurrent brain mets, worsening PS, declining PS, declining mentation, cognitive defect, now afib with RVR. - Per review of palliative family discussion notes, family would like patient home with hospice, no further chemo unless there is a dramatic improvement. Family reports patient would like to be home on hospice with his family, and they intend to honor his wishes. - Plan for DC home with hospice for 09/07/23. 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 However, it does appear that MRI from June 21, 2023 is showing worsening metastatic disease of the brain. (5) Diabetes mellitus, type 2: - Diabetes mellitus type 2 insulin requiring sliding scales been ordered. - BSG goal range: 44345 - CF 25, CR 12 - BSGs ACHS Plan Given additional doses of metoprolol and digoxin during the day for rate control Stopped dilt drip due to hypotension and lightheadedness Discussed case with Palliative Care Plan for DC home on hospice tomorrow, 09/07/23 CODE STATUS: DNR/DNI Discharge Plan Discharge Items Patient Disposition: Hospice - Home Reason For Visit: sob, elevated troponin, low magnesium Discharge Diagnosis: SOB, elevated troponin Activity: Resume your previous activity Non-emergency contact: Primary Care Provider Call non-emergency contact if: you have any medication questions Follow-up/Referrals: Jah Brown DO [Primary Care Provider] - Diet: Carb Consistent or DM2, Heart Healthy and Low Sodium (2gm) Addtl Attending Provider Instructions: Discharged as stated above. Pending Studies at Discharge: No Stand-Alone Forms: My [facility] Medications and DC Order Prescriptions: New amoxicillin-pot clavulanate 875-125 mg Tablet 1 tab PO BIDM Qty: 8 0RF doxycycline hyclate 100 mg Capsule 100 mg PO BID Qty: 8 0RF digoxin [Digitek] 125 mcg (0.125 mg) Tablet 0.125 mg PO DAILY@1600 Qty: 30 0RF oxycodone 5 mg Tablet 5 mg PO Q6H PRN (Reason: pain/sob) Qty: 20 0RF guaifenesin [Mucinex] 600 mg Tablet Extended Release 12hr 600 mg PO Q12 Qty: 60 0RF metoprolol succinate 100 mg tablet extended release 24 hr 100 mg PO BID Qty: 60 0RF Continued ondansetron HCl 8 mg tablet 8 mg PO Q8H PRN (Reason: Nausea) prochlorperazine maleate [Compazine] 10 mg tablet 10 mg PO Q6H PRN (Reason: Nausea) Mag 64 64 mg tablet,delayed release (DR/EC) 128 mg PO TID (DME) lancets [OneTouch UltraSoft Lancets] Misc See Rx Instructions .ROUTE .MEDSUPPLY Qty: 100 5RF Rx Instructions: As directed 3-4x a day Dx:E11.9 (DME) pen needle, diabetic [BD Ultra-Fine Mini Pen Needle] 31 gauge x 3/16" needle See Rx Instructions .Route Qty: 1200 2RF Rx Instructions: Use to inject insulin 7 times daily (DME) OneTouch Ultra Test Strip See Rx Instructions .Route Qty: 100 4RF Rx Instructions: check blood sugars x3-4/day (DME) blood-glucose meter [OneTouch Ultra2 Meter] Misc See Rx Instructions .Route Qty: 1 0RF Rx Instructions: use to check blood sugars x3-4/day ezetimibe 10 mg tablet 10 mg PO QAM Qty: 90 1RF Rx Instructions: TAKE 1 TABLET BY MOUTH EVERY MORNING memantine 10 mg tablet 10 mg PO BID Qty: 60 4RF pantoprazole 40 mg tablet,delayed release (DR/EC) 40 mg PO DAILY Patient Comments: CONFIRMED W/ SISTER ON 08/17. RX'D BY DR LITTLEJOHN. ([facility]) Accu-Chek Guide test strips Strip See Rx Instructions .Route Qty: 100 12RF Rx Instructions: chec blood sugars twice a day (DME) CPAP Supplies Misc See Rx Instructions .MEDSUPPLY Qty: 1 0RF Rx Instructions: CPAP supplies. G47.33 (DME) Auto Titrating CPAP Misc See Rx Instructions .MEDSUPPLY Qty: 1 0RF Rx Instructions: Auto PAP with 5-15 cm H20. Lifetime usage. G47.33 clotrimazole-betamethasone 1-0.05 % cream 1 applic topical .qhs Qty: 45 11RF Rx Instructions: Apply small/pea-sized amount topically before bed albuterol sulfate [Ventolin HFA] 90 mcg/actuation HFA aerosol inhaler 2 inh INH QID PRN (Reason: shortness of breath or wheezing) Qty: 18 6RF Trelegy Ellipta 100-62.5-25 mcg blister with device 1 inh inhalation QAM Qty: 60 8RF clonazepam 0.5 mg Tablet 0.5 mg PO BID divalproex 500 mg Tablet,Delayed Release (Dr/Ec) 500 mg PO HS cholecalciferol (vitamin D3) [Vitamin D3] 1,000 unit Capsule 1,000 unit PO QAM olanzapine [Zyprexa] 10 mg Tablet 10 mg PO HS vitamin E 400 unit Capsule 400 unit PO QAM fluvoxamine 150 mg Capsule,Extended Release 24hr 150 mg PO HS simvastatin 40 mg tablet 40 mg PO QAM tamsulosin 0.4 mg capsule 0.4 mg PO QAM potassium chloride 20 mEq tablet extended release 20 meq PO QAM folic acid 1 mg Tablet 1 mg PO QAM cyanocobalamin (vitamin B-12) 1,000 mcg capsule 1,000 mcg PO QAM metformin 500 mg tablet 1,000 mg PO BID Rx Instructions: TAKE 2 TABLETS BY MOUTH TWICE A DAY docusate sodium 100 mg Capsule 100 mg PO BID PRN (Reason: constipation) Qty: 60 0RF polyethylene glycol 3350 [Miralax] 17 gram Powder In Packet 17 g PO DAILY PRN (Reason: constipation) Qty: 30 0RF Rx Instructions: OTC prednisone 20 mg Tablet 40 mg PO DAILY Qty: 60 0RF furosemide [Lasix] 40 mg tablet 40 mg PO QAM Qty: 30 0RF (DME) Portable Oxygen E0431 Misc See Rx Instructions .MEDSUPPLY Qty: 1 0RF Rx Instructions: Oxygen 2 liters continuous via nasal cannula and 6L on exertion with portable concentrator. JAKI 99 Changed insulin glargine [Lantus Solostar U-100 Insulin] 100 unit/mL (3 mL) insulin pen 20 unit subcut QAM 90 Days Qty: 45 3RF Discontinued dexamethasone 4 mg tablet 4 mg PO DAILY Qty: 30 0RF Rx Instructions: Hold prednisone dose while on dexamethasone. take as directed when taking chemo sulfamethoxazole-trimethoprim [Bactrim DS] 800-160 mg Tablet 1 tab PO [id number] Qty: 12 0RF Discharge Orders: Discharge Order (Routine); Ordered 09/07/23 Ordered By: Petar Siu Admission Data Admit Date/Time: 09/04/23 12:26 Attending Provider: Petar Siu Admit Provider: Feliz Glover Primary Care Provider: Jah Brown Other Providers: Feliz Glover; Morales Rinaldi; Lisette Lenz Coding Diagnoses Acute and chronic respiratory failure J96.20 Atrial fibrillation with RVR I48.91 Palliative care by specialist Z51.5 Lung cancer metastatic to brain C34.90; C79.31 Type 2 diabetes mellitus with diabetic polyneuropathy, without long-term current use of insulin E11.42 Diabetes mellitus long term care pharmacist insulin use: without long term care pharmacist use Diabetes mellitus complication status: with neurologic complications Diabetes mellitus complication detail: with polyneuropathy
[2023-09-07] MEDS ORDERED: METOPROLOL TARTRATE 50 MG TAB PO STA (14:08)
== END 2023-09-07 14:47 | disposition hospice, home (50) | DRG 189 ==
LOC: ED 09:54 → EDINP 12:26 → SUATTDRO 12:26 → EDINP 12:35 → 2W 15:38 → 2S 09-05 10:25